=== PATIENT | male | born 1955 | race Caucasian/White ===

== ENCOUNTER 2020-01-30 10:54 | Outpatient (NON) | payer BC, SELFPAY ==
[2020-02-02 17:04] LABS: SARS-CoV-2 RNA PCR Negative
== END 2020-01-30 10:55 ==
PROVIDERS: PCP Family Medicine; Visit Provider Physician Assistant Medical
DX: R68.89 Other general symptoms and signs (principal); Z20.828 Contact with and (suspected) exposure to other viral communicable diseases
CPT/HCPCS: 87635; C9803; U0003

== ENCOUNTER → 2020-02-08 08:06 | Outpatient (CLI) | payer BC, SELFPAY ==
--- NOTE | ~2020-02-08 | US_ITS ---
EXAMINATION: US abdomen limited EXAM DATE: 02/08/2020 08:30 INDICATION: Elevated liver enzymes. CKD stage 3. TECHNIQUE: Multiple grayscale and Doppler images of the abdomen right upper quadrant were obtained (b y a technologist who performed the scan) and subsequently reviewed. There is no prior study for gonzalo dobbs. FINDINGS: The pancreatic head and body are normal in appearance. The pancreatic tail is not visualized. There is echogenic liver parenchyma, hepatic steatosis. There are no focal liver lesions identified. Th ere is no evidence of intrahepatic biliary duct dilation. Portal venous flow was seen in the hepatop edal, normal direction and has normal Doppler waveform. No right-sided hydronephrosis. Common bile duct measures 3 mm, which is normal. The gallbladder wall is normal in thickness, with ex pected amount of distention. No sonographic evidence of pericholecystic fluid. There are several ga llstones up to 1.5 cm. There is a 3 mm polyp not likely clinically significant. Technologist perform ing exam reports patient did not demonstrate sonographic Sun's sign. Please note that this sign i s less reliable in patients who have received pain medication. IMPRESSION: 1. Hepatic steatosis. 2. Cholelithiasis. Reviewed, dictated and finalized at location A. FILLER
== END ==
PROVIDERS: PCP Family Medicine; Visit Provider Physician Assistant Medical
DX: N18.30 Chronic kidney disease, stage 3 unspecified (principal); K80.20 Calculus of gallbladder without cholecystitis without obstruction; K76.0 Fatty (change of) liver, not elsewhere classified
CPT/HCPCS: 76705

== ENCOUNTER 2022-02-02 14:30 | Outpatient (CLI) | payer BC, SELFPAY ==
--- NOTE | ~2022-02-02 | XR_ITS ---
XR lumbar spine min 4V DATE: 02/02/2022 14:48 INDICATION: Left back pain, sciatica TECHNIQUE: AP, lateral, bilateral oblique views, coned lateral lumbosacral view COMPARISON: 07/16/2014 lumbar spine FINDINGS: There is grade 1 anterolisthesis at L4-5 due to degenerative change at the apophyseal joint s. Moderate degenerative disc disease at L1-2. The remaining lumbar interspaces are well preserved. Included lower thoracic and lumbar pedicles are intact. No lumbar spine fracture or bone destruction. The sacroiliac joints are intact. There are 2 faceted calcified approximately 12 mm gallstones. Probable bilateral nephrolithiasis. IMPRESSION: Grade 1 anterolisthesis L4-5 Moderate degenerative disc disease at L1-2 Cholelithiasis Reviewed, dictated and finalized at location B. ONAL VAN TRUCK DRIVER
== END 2022-02-02 14:31 | disposition home or self-care (01) ==
PROVIDERS: PCP Family Medicine; Visit Provider Physician Assistant
DX: M54.30 Sciatica, unspecified side (principal); K80.20 Calculus of gallbladder without cholecystitis without obstruction; M51.36 Other intervertebral disc degeneration, lumbar region
CPT/HCPCS: 72110

== ENCOUNTER → 2022-03-20 10:09 | Outpatient (CLI) | payer BC, SELFPAY ==
--- NOTE | ~2022-03-20 | MR_ITS ---
EXAMINATION: MR lumbar spine wo con DATE: 03/20/2022 10:41 INDICATION: Low back pain rating down the left leg. Left foot drop. TECHNIQUE: Magnetic resonance imaging (MRI) of the lumbar spine was performed without intravenous con trast. Sequences included sagittal T2-weighted FSE, sagittal T2-weighted FS FSE, sagittal T1-weighted FSE, and axial T2-weighted FSE. COMPARISON: Lumbar spine radiographs 02/02/2022 FINDINGS: There is 2 mm anterolisthesis of L4 on L5. Vertebral body heights are normal. There is mild ly decreased disc height at L5-S1. The distal spinal cord signal intensity is normal. The conus medul zelalem is at T12-L1. The following disc levels are specifically discussed: L1-L2: There is a right foraminal extrusion. There is mild bilateral facet joint osteoarthritis. Ther e is mild right neural foraminal stenosis. There is no central canal stenosis. L2-L3: The disc is mildly bulging. There is mild bilateral facet joint osteoarthritis. There is mild bilateral neural foraminal stenosis. There is no central canal stenosis. L3-L4: The disc is mildly bulging. There is mild bilateral facet joint osteoarthritis. There is mild bilateral neural foraminal stenosis. There is no central canal stenosis. L4-L5: The disc is bulging and has an annular fissure. There is severe bilateral facet joint osteoart hritis. There is moderate bilateral neural foraminal stenosis. There is moderate central canal stenos is. L5-S1: The disc is bulging. There is moderate bilateral facet joint osteoarthritis. There is mild darya ateral neural foraminal stenosis. There is mild central canal stenosis. IMPRESSION: 1. Moderate lumbar spondylosis. Reviewed, dictated and finalized at location A. LOUNGE ATTENDANT
== END ==
PROVIDERS: PCP Family Medicine; Visit Provider Family Medicine
DX: M21.372 Foot drop, left foot (principal); M79.672 Pain in left foot; M47.896 Other spondylosis, lumbar region
CPT/HCPCS: 72148

== ENCOUNTER → 2022-04-03 14:33 | Outpatient (CLI) | payer BC, SELFPAY ==
--- NOTE | ~2022-04-03 | XR_ITS ---
EXAMINATION: XR lumbar spine min 4V DATE: 04/03/2022 14:59 INDICATION: Lumbar stenosis, low back pain TECHNIQUE: AP and lateral views of the lumbar spine in flexion, extension, and neutral were obtained. COMPARISON: 02/02/2022 FINDINGS: There are 2 mm of anterolisthesis of L4 on L5 and 2 mm retrolisthesis of L5 on S1. No hyper mobility is noted with flexion or extension. There is no fracture. The vertebral body heights are nor mal. There is mild loss of intervertebral disc space height at L5-S1. Calcified atherosclerosis is no shereen. Right upper quadrant calcifications likely reflect cholelithiasis. A moderate volume of colonic stool is present. There is moderate to severe facet joint osteoarthritis of the lower lumbar spine. IMPRESSION: 1. Moderate lumbar spondylosis without acute findings. Reviewed, dictated and finalized at location F. T SUPERVISOR
== END ==
PROVIDERS: PCP Family Medicine; Visit Provider Neurological Surgery
DX: M48.061 Spinal stenosis, lumbar region without neurogenic claudication (principal); M47.896 Other spondylosis, lumbar region
CPT/HCPCS: 72110

== ENCOUNTER 2022-06-26 13:37 | Outpatient (CLI) | payer BC, SELFPAY ==
[2022-06-26 15:05] LABS: INR 1.1; Partial Thromboplastin Time 27.3 SECONDS (22.3-36.8); Prothrombin Time 13.4 Seconds (11.1-14.7)
[2022-06-26 18:17] LABS: Basophils Absolute Auto 0.1 K/mm3 (0.0-0.1); Basophils Percent Auto 0.9 % (0.2-1.2); Eosinophils Absolute Auto 0.2 K/mm3 (0-0.3); Eosinophils Percent Auto 2.7 % (0-4.4); Hematocrit 43.5 % (42.0-52.0); Hemoglobin 14.1 g/dL (14.0-18.0); Immature Granulocyte Absolute 0.01 K/mm3 (0.00-0.031); Immature Granulocyte Percent A 0.1 % (0-0.5); Lymphocytes Absolute Auto 1.86 K/mm3 (0.9-3.2); Lymphocytes Percent Auto 26.5 % (18.3-44.2); Mean Corpuscular HGB Conc 32.4 g/dl (32-36); Mean Corpuscular Hemoglobin 30.1 pg (26-34); Mean Corpuscular Volume 92.9 fl (80-100); Mean Platelet Volume 11.6 fl (7.4-10.4); Monocytes Absolute Auto 0.4 K/mm3 (0.1-0.6); Monocytes Percent Auto 5.1 % (2.6-8.5); Neutrophils Absolute Auto 4.5 K/mm3 (1.3-6.7); Neutrophils Percent Auto 64.7 % (45.5-73.1); Platelet Count Result 249 k/mm3 (150-375); Red Blood Count 4.68 M/mm3 (4.6-6.20); Red Cell Distribution Width 13.1 % (11.5-14.5)
[2022-06-26 18:25] LABS: Anion Gap 3 mmol/L (8-16); Blood Urea Nitrogen 19 mg/dL (9-20); Calcium 9.3 mg/dL (8.4-10.2); Carbon Dioxide 35 mmol/L (22-30); Chloride 102 mmol/L (98-107); Estimated Glomerular Filt Rate 60; Glucose 163 mg/dL (65-110); Potassium 4.3 mmol/L (3.4-5.0); Sodium 140 mmol/L (137-145)
[2022-06-26 18:34] LABS: Appearance Urine Clear (Clear); Bacteria Urine None Seen /hpf; Bilirubin Urine Negative (Negative); Blood Urine 2+ (Negative); Color Urine Yellow (Yellow); Glucose Urine UA Negative (Negative); Ketones Urine Negative (Negative); Leukocyte Esterase Ur Negative LEU/UL (NEGATIVE); Nitrate Urine Negative (Negative); Non Pathogenic Casts 0-2; Protein Urine 2+ mg/dL (Negative); Specific Grav Ur 1.023 (1.001-1.035); Squamous Epithelial Cell Urine None seen /hpf (Few); Urobilinogen Urine 0.2 mg/dL (<2.0); WBC Urine 0-5 /hpf (0-3)
[2022-06-26 18:40] LABS: Add Urine Microscopic? YES
== END 2022-06-26 13:38 | disposition home or self-care (01) ==
LOC: ANHGOSHLAB 13:40
PROVIDERS: PCP Family Medicine; Visit Provider Neurological Surgery
DX: Z01.818 Encounter for other preprocedural examination (principal)
CPT/HCPCS: 36415; 80048; 81001; 85025; 85610; 85730

== ENCOUNTER 2022-06-30 15:14 | Outpatient (CLI) | payer BC, SELFPAY ==
--- NOTE | 2022-06-30 15:28 | ECG_ITS ---
Measurements Intervals [place] Rate: 72 P: 65 DE: 169 QRS: -28 QRSD: 168 T: 77 QT: 435 QTc: 477 Interpretive Statements SINUS RHYTHM LEFT BUNDLE BRANCH BLOCK [120+ ms QRS DURATION, 80+ ms Q/S IN V1/V2, 85+ ms R IN I/aVL/V5/V6] COMPARED TO ECG 08/03/2018 11:04:52 NO SIGNIFICANT CHANGES Electronically Signed On 07-01-2022 9:34:54 CDT by Jimi Villafana M.D.
== END 2022-06-30 15:15 | disposition home or self-care (01) ==
LOC: ANHLAB 15:15 → ANHCARD 16:07
PROVIDERS: PCP Family Medicine; Visit Provider Neurological Surgery
DX: Z01.818 Encounter for other preprocedural examination (principal); M48.061 Spinal stenosis, lumbar region without neurogenic claudication; I44.7 Left bundle-branch block, unspecified
CPT/HCPCS: 93005

== ENCOUNTER 2023-05-10 01:29 | Day surgery (SDC) | payer MEDICARE, SELFPAY ==
[2023-04-15 14:43] VITALS: BMI 26.5
--- NOTE | 2023-05-07 12:28 | SUR.PREOP ---
Patient called regarding upcoming procedure. Reviewed preop instructions, appointment times, and procedure prep.
--- NOTE | 2023-05-07 14:50 | P.HP_ITS ---
History of Present Illness History of Present Illness Consent: Risks, benefits, and alternatives have been discussed and questions answered. Patient agrees to proceed with procedure. Chief complaint: Personal hx of colonic polyps Narrative: Roland Garcia is a 67 year old male referred for colon cancer screening. 5 years ago he had removal of few polyps, 1 of which was a tubular adenoma. Review of Systems 2 Review of Systems: All systems reviewed & are unremarkable except as noted in HPI and below PMFSH Past Medical History Medical History Sleep apnea with use of continuous positive airway pressure (CPAP) Family History Family History Sibling Family history of mental disorder Family history of bipolar disorder Father Family history of cardiovascular disease Mother Cerebrovascular accident Other Carcinoma of colon Diabetes mellitus Family history of hypercholesterolemia Social History Social History Social History: Caffeine-coffee daily Smoking status: Never smoker Alcohol intake: current Alcohol use details: rarely Substance use type: does not use Lack of Transportation: No Lack of Food: Sometimes True Current Housing: I Have Housing Concerned About Future Housing: No Difficulty Paying Gas/Electric Bills: No Difficulty Paying for Meds: No Currently Unemployed: No Education: Bachelor's Degree Difficulty w/ Childcare or Family Care: No Living arrangements: with family Spiritual care concerns: No Meds Home Medications and Allergies Home Medications Medication Instructions Recorded Confirmed Type sertraline 100 mg tablet See Rx Instructions .Route 06/26/22 05/10/23 Rx .COMPLEX #90 tabs atorvastatin 80 mg tablet 80 mg PO DAILY #90 tabs 12/22/22 05/10/23 Rx CPAP #1 ea 01/14/23 05/10/23 Rx spironolactone 25 mg tablet 12.5 mg PO DAILY 01/18/23 05/10/23 History aspirin 81 mg tablet,delayed 81 mg PO DAILY 02/01/23 05/10/23 History release (Adult Aspirin Regimen) nirmatrelvir 300 mg (150 mg See Rx Instructions PO .COMPLEX 05/05/23 05/10/23 Rx x2)-ritonavir 100 mg tablet,dose #30 ea pack (Paxlovid) Allergies Allergy/AdvReac Type Severity Reaction Status Date / Time No Known Allergies Allergy Verified 05/10/23 10:28 Exam Const: General: alert Orientation/consciousness: patient oriented x3 Resp: Auscultation: clear to auscultation bilaterally Cardio: Rhythm: regular rhythm GI: GI Palp: Yes Soft to palpation and No Tenderness to palpation present (GI) Neuro: General: patient oriented x3 Assessment and Plan Assessment and plan (1) Personal history of colonic polyps: Code(s): Z86.010 - Personal history of colonic polyps Status: Acute Assessment and Plan: Colonoscopy with possible biopsy or polypectomy or cautery or injection of substances.
[2023-05-10 10:35] VITALS: BP 137/65; PULSE 75; RESP 16; TEMP 36; O2SAT 100
[2023-05-10] MEDS: LACTATED RINGERS 1,000 ML 150 ML IV CONT (10:46)
--- NOTE | 2023-05-10 10:54 | WPDANESEPPF ---
Anes - Initial Pre Proc Eval Procedure: Operation Date: 05/10/23 11:30 Proposed Procedures p Colonoscopy - Clem Izaguirre MD Date/Time: 05/10/23 10:54 Surgeon: Clem Izaguirre MD Pre Op Diagnosis: Personal hx of colonic polyps Patient Data Age: 67 Gender: M Height: 1.78 m Weight: 82.4 kg Last Vital Signs Temp 96.8 F L 05/10/23 10:35 Pulse 75 05/10/23 10:35 Resp 16 05/10/23 10:35 BP 137/65 05/10/23 10:35 Pulse Ox 100 05/10/23 10:35 O2 Del Method Room Air 05/10/23 10:35 Allergies Allergy/AdvReac Type Severity Reaction Status Date / Time No Known Allergies Allergy Verified 05/10/23 10:28 Home Medications Medication Instructions Recorded Confirmed Type sertraline 100 mg tablet See Rx Instructions .Route 06/26/22 05/10/23 Rx .COMPLEX #90 tabs atorvastatin 80 mg tablet 80 mg PO DAILY #90 tabs 12/22/22 05/10/23 Rx CPAP #1 ea 01/14/23 05/10/23 Rx spironolactone 25 mg tablet 12.5 mg PO DAILY 01/18/23 05/10/23 History aspirin 81 mg tablet,delayed 81 mg PO DAILY 02/01/23 05/10/23 History release (Adult Aspirin Regimen) nirmatrelvir 300 mg (150 mg See Rx Instructions PO .COMPLEX 05/05/23 05/10/23 Rx x2)-ritonavir 100 mg tablet,dose #30 ea pack (Paxlovid) Patient hx anesthesia problems: none Family hx anesthesia problems: none Results Review: All pre-operative results and documents have been reviewed as part of the pre-operative evaluation. [facility] Past Medical History Medical History Sleep apnea with use of continuous positive airway pressure (CPAP) Family History Family History Sibling Family history of mental disorder Family history of bipolar disorder Father Family history of cardiovascular disease Mother Cerebrovascular accident Other Carcinoma of colon Diabetes mellitus Family history of hypercholesterolemia Social History Social History Social History: Caffeine-coffee daily Smoking status: Never smoker Alcohol intake: current Alcohol use details: rarely Substance use type: does not use Lack of Transportation: No Lack of Food: Sometimes True Current Housing: I Have Housing Concerned About Future Housing: No Difficulty Paying Gas/Electric Bills: No Difficulty Paying for Meds: No Currently Unemployed: No Education: Bachelor's Degree Difficulty w/ Childcare or Family Care: No Living arrangements: with family Spiritual care concerns: No Anes - Eval Final PreProcedure Day of Procedure 05/10/23 10:54 Patient weight: normal Heart: regular rate and rhythm Lungs: clear to auscultation Airway: Mallampati scale class II Neurological: alert and oriented Last oral intake: >/= 8 hours ASA classification: II Emergent: no Anesthetic plan: proceed Anesthesia type and monitoring: general GIVS and standard monitoring Results Review: All pre-operative results and documents have been reviewed as part of the pre-operative evaluation. Informed Consent: The patient's anesthetic plan and its attendant risks and benefits were discussed with the patient/family/POA. Questions were solicited and answers provided to the satisfaction of the patient/family/POA.
[2023-05-10] MEDS: SIMETHICONE ORAL SUSPENSION 20 MG/0.3 ML 30 ML BOTTLE 0.6 ML IRRIGATION (11:39)
[2023-05-10 11:46] VITALS: BP 127/70; PULSE 70; RESP 18; O2SAT 100
[2023-05-10 11:56] VITALS: BP 128/65; PULSE 68; RESP 18; O2SAT 100
[2023-05-10 12:06] VITALS: BP 147/74; PULSE 62; RESP 18; O2SAT 100
== END 2023-05-10 12:20 | disposition home or self-care (01) ==
PROVIDERS: PCP Family Medicine; Visit Provider Internal Medicine Gastroenterology
PROC: 0DJD8ZZ Inspection of Lower Intestinal Tract, Via Natural or Artificial Opening Endoscopic (ICD-10-PCS; CPT 45378; principal; 2023-05-10 11:30)
DX: Z12.11 Encounter for screening for malignant neoplasm of colon (principal); D12.5 Benign neoplasm of sigmoid colon; K64.8 Other hemorrhoids; G47.30 Sleep apnea, unspecified; Z79.82 Long term (current) use of aspirin; Z99.89 Dependence on other enabling machines and devices; Z86.010 Personal history of colon polyps; Z82.49 Family history of ischemic heart disease and other diseases of the circulatory system; Z80.0 Family history of malignant neoplasm of digestive organs
CPT/HCPCS: 45385; 88305; J2704; J7120

== ENCOUNTER 2023-08-09 10:06 | Outpatient (CLI) | payer MEDICARE, SELFPAY ==
[2023-08-09 13:16] LABS: Anion Gap 3 mmol/L (4-12); Blood Urea Nitrogen 22 mg/dL (9-20); Calcium 9.4 mg/dL (8.4-10.2); Carbon Dioxide 30 mmol/L (22-30); Chloride 106 mmol/L (98-107); Estimated Glomerular Filt Rate 55; Glucose 116 mg/dL (65-110); Potassium 4.8 mmol/L (3.4-5.0); Sodium 139 mmol/L (137-145)
== END 2023-08-09 10:07 | disposition home or self-care (01) ==
LOC: ANHGOSHLAB 10:08
PROVIDERS: PCP Family Medicine; Visit Provider Family Medicine
DX: E87.5 Hyperkalemia (principal)
CPT/HCPCS: 36415; 80048

== ENCOUNTER 2023-12-17 11:07 | Outpatient (CLI) | payer MEDICARE, SELFPAY ==
[2023-12-17 16:55] LABS: Alanine Aminotransferase 31 U/L (6-50); Albumin Level 4.2 g/dL (3.5-5.1); Alkaline Phosphatase 100 U/L (38-126); Anion Gap 7 mmol/L (4-12); Aspartate Amino Transferase 34 U/L (17-59); Bilirubin,Total 0.8 mg/dL (0.2-1.3); Blood Urea Nitrogen 18 mg/dL (9-20); Calcium 9.5 mg/dL (8.4-10.2); Carbon Dioxide 30 mmol/L (22-30); Chloride 103 mmol/L (98-107); Estimated Glomerular Filt Rate 55; Glucose 109 mg/dL (65-110); Potassium 4.7 mmol/L (3.4-5.0); Sodium 140 mmol/L (137-145)
[2023-12-17 17:40] LABS: Hemoglobin A1C 6.1 % (<5.7)
== END 2023-12-17 11:08 | disposition home or self-care (01) ==
LOC: ANHGOSHLAB 11:09
PROVIDERS: PCP Family Medicine; Visit Provider Nurse Practitioner Family
DX: R74.8 Abnormal levels of other serum enzymes (principal); R73.01 Impaired fasting glucose; R73.03 Prediabetes
CPT/HCPCS: 36415; 80053; 83036

== ENCOUNTER 2024-02-09 15:43 | Outpatient (CLI) | payer MEDICARE, SELFPAY ==
[2024-02-09 18:57] LABS: Basophils Absolute Auto 0.1 K/mm3 (0.0-0.1); Basophils Percent Auto 0.5 % (0.2-1.2); Eosinophils Absolute Auto 0.1 K/mm3 (0-0.3); Eosinophils Percent Auto 0.8 % (0-4.4); Hematocrit 42.8 % (42.0-52.0); Hemoglobin 13.8 g/dL (14.0-18.0); Immature Granulocyte Absolute 0.02 K/mm3 (0.00-0.031); Immature Granulocyte Percent A 0.2 % (0-0.5); Lymphocytes Absolute Auto 3.27 K/mm3 (0.9-3.2); Lymphocytes Percent Auto 33.2 % (18.3-44.2); Mean Corpuscular HGB Conc 32.2 g/dl (32-36); Mean Corpuscular Hemoglobin 29.9 pg (26-34); Mean Corpuscular Volume 92.8 fl (80-100); Mean Platelet Volume 11.2 fl (7.4-10.4); Monocytes Absolute Auto 0.6 K/mm3 (0.1-0.6); Neutrophils Absolute Auto 5.8 K/mm3 (1.3-6.7); Neutrophils Percent Auto 59.3 % (45.5-73.1); Platelet Count Result 282 k/mm3 (150-375); Red Blood Count 4.61 M/mm3 (4.6-6.20); Red Cell Distribution Width 13.5 % (11.5-14.5); White Blood Count 9.8 K/mm3 (4.5-10.0)
[2024-02-09 19:04] LABS: Partial Thromboplastin Time 25.5 Seconds (22.3-36.8); Prothrombin Time 13.5 Seconds (11.1-14.7)
[2024-02-09 19:49] LABS: Add Urine Microscopic? YES; Appearance Urine Clear (Clear); Bilirubin Urine Negative (Negative); Blood Urine Negative (Negative); Color Urine Yellow (Yellow); Glucose Urine UA Negative (Negative); Ketones Urine Negative (Negative); Leukocyte Esterase Ur Negative LEU/UL (Negative); Nitrate Urine Negative (Negative); Protein Urine 1+ mg/dL (Negative); Specific Grav Ur 1.018 (1.001-1.035); Urobilinogen Urine 0.2 mg/dL (<2.0)
[2024-02-09 19:52] LABS: Bacteria Urine None Seen /hpf; Non Pathogenic Casts 0-2; RBC Urine 0-2 /hpf (0-2); Squamous Epithelial Cell Urine None Seen /hpf (Few); WBC Urine 0-5 /hpf (0-3)
[2024-02-09 21:24] LABS: Anion Gap 4 mmol/L (4-12); Blood Urea Nitrogen 25 mg/dL (9-20); Calcium 9.5 mg/dL (8.4-10.2); Carbon Dioxide 30 mmol/L (22-30); Chloride 106 mmol/L (98-107); Estimated Glomerular Filt Rate 55; Glucose 95 mg/dL (65-110); Potassium 4.3 mmol/L (3.4-5.0); Sodium 140 mmol/L (137-145)
== END 2024-02-09 15:44 | disposition home or self-care (01) ==
LOC: ANHGOSHLAB 15:45
PROVIDERS: PCP Family Medicine
DX: Z01.818 Encounter for other preprocedural examination (principal)
CPT/HCPCS: 36415; 80048; 81001; 85025; 85610; 85730

== ENCOUNTER 2024-02-10 15:33 | Outpatient (CLI) | payer MEDICARE, SELFPAY ==
--- NOTE | 2024-02-10 | ECG_ITS ---
Test Date: 2024-02-10 16:06:34 Measurements Intervals [place] Rate: 64 P: 64 MD: 163 QRS: -39 QRSD: 176 T: 65 QT: 455 QTc: 473 Interpretive Statements SINUS RHYTHM WITH OCCASIONAL SUPRAVENTRICULAR PREMATURE COMPLEXES LEFT AXIS DEVIATION [QRS AXIS < -30] LEFT BUNDLE BRANCH BLOCK [120+ ms QRS DURATION, 80+ ms Q/S IN V1/V2, 85+ ms R IN I/aVL/V5/V6] No previous ECG available for comparison Electronically Signed On 02-11-2024 12:26:35 PHLEBOTOMY TECHNOLOGIST by Jimi Villafana M.D.
== END 2024-02-10 15:34 | disposition home or self-care (01) ==
PROVIDERS: PCP Family Medicine; Visit Provider Neurological Surgery
DX: Z01.818 Encounter for other preprocedural examination (principal); I44.7 Left bundle-branch block, unspecified
CPT/HCPCS: 93005

== ENCOUNTER 2024-03-09 08:23 | Emergency (ER) | payer MEDICARE, SELFPAY ==
[2024-03-09] VITALS (17 sets, daily range): BP systolic 120–136; BP diastolic 56–74; PULSE 67–88; RESP 14–19; TEMP 36.2; O2SAT 96–100
--- NOTE | ~2024-03-09 | XR_ITS ---
EXAMINATION: XR chest 2V DATE: 03/09/2024 11:41 INDICATION: Left-sided chest pain post fall TECHNIQUE: frontal and lateral views of the chest were obtained. COMPARISON: None FINDINGS: The lungs are clear with no focal airspace opacities, pulmonary edema, pleural effusion or pneumothor ax. The cardiomediastinal silhouette is normal. Couple calcified gallstones at the right upper quadra nt. IMPRESSION: 1. No acute cardiopulmonary disease. 2. Cholelithiasis. Reviewed, dictated and finalized at location B. T ROCK TAPER HELPER
--- NOTE | ~2024-03-09 | CT_ITS ---
EXAMINATION: CT brain wo con DATE: 03/09/2024 12:13 INDICATION: Head injury. Syncope. TECHNIQUE: Computed tomography (CT) of the head was performed without intravenous contrast. The mA wa s adjusted according to patient size. Iterative reconstruction technique was employed. The dose-lengt h product was 681.00 mGy-cm. COMPARISON: None FINDINGS: There is no intracranial hemorrhage, acute infarction, or abnormal intracranial mass lesion . The ventricles are normal in size. The orbits are normal. There is mild mucosal thickening in the p aranasal sinuses. The mastoid air cells are normal. IMPRESSION: 1. Normal brain. Reviewed, dictated and finalized at location A. ING SUPERVISOR IMPRESSION: 1. Normal brain.
--- NOTE | ~2024-03-09 | CT_ITS ---
EXAMINATION: CT cervical spine wo con DATE: 03/09/2024 12:13 INDICATION: Head injury. TECHNIQUE: Computed tomography (CT) of the cervical spine was performed without intravenous contrast. Automated exposure control and iterative reconstruction technique were employed. The dose-length pro duct was 443.74 mGy-cm. 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 There is mild kyphosis of cervical spine. There i s 3 mm anterolisthesis of C7 on T1. There is 5 degrees levocurvature of cervical spine. Vertebral bod y heights are normal. There is mildly decreased disc height at C4-C5, severely decreased disc height at C5-C6 and C6-C7, and moderately decreased disc height at C7-T1. The following disc levels are spec ifically discussed: C2-C3: There is mild right uncovertebral joint osteoarthritis. There is mild bilateral facet joint os teoarthritis. There is mild right neural foraminal stenosis. There is no central canal stenosis. C3-C4: There is severe right and mild left uncovertebral joint osteoarthritis. There is severe bilate ral facet joint osteoarthritis. There is moderate right and mild left neural foraminal stenosis. Ther e is mild central canal stenosis. C4-C5: There is severe right and mild left uncovertebral joint osteoarthritis. There is severe bilate ral facet joint osteoarthritis. There is moderate right and mild left neural foraminal stenosis. Ther e is mild central canal stenosis. C5-C6: There is severe bilateral uncovertebral joint osteoarthritis. There is moderate bilateral face t joint osteoarthritis. There is mild bilateral neural foraminal stenosis. There is mild central chris l stenosis. C6-C7: There is severe bilateral uncovertebral joint osteoarthritis. There is severe bilateral facet joint osteoarthritis. There is moderate bilateral neural foraminal stenosis. There is mild central ca nal stenosis. C7-T1: There is no uncovertebral joint osteoarthritis. There is severe bilateral facet joint osteoart hritis. There is mild bilateral neural foraminal stenosis. There is no central canal stenosis. IMPRESSION: 1. No fracture. 2. Severe cervical spondylosis. Reviewed, dictated and finalized at location A. HOST/HOSTESS
--- NOTE | 2024-03-09 08:31 | ECG_ITS ---
Test Date: 2024-03-09 08:38:07 Measurements Intervals [place] Rate: 65 P: 73 MD: 178 QRS: -51 QRSD: 164 T: 63 QT: 452 QTc: 472 Interpretive Statements SINUS RHYTHM MARKED LEFT AXIS DEVIATION [QRS AXIS < -30] LEFT BUNDLE BRANCH BLOCK [120+ ms QRS DURATION, 80+ ms Q/S IN V1/V2, 85+ ms R IN I/aVL/V5/V6] Compared to ECG 02/10/2024 16:06:34 No significant changes Electronically Signed On 03-13-2024 11:19:51 RECYCLING CENTER OPERATOR by Deshawn Gallardo M.D.
[2024-03-09 11:08] LABS: Basophils Absolute Auto 0.1 K/mm3 (0.0-0.1); Basophils Percent Auto 0.5 % (0.2-1.2); Eosinophils Absolute Auto 0.2 K/mm3 (0-0.3); Eosinophils Percent Auto 1.6 % (0-4.4); Hematocrit 40.2 % (42.0-52.0); Hemoglobin 13.1 g/dL (14.0-18.0); Immature Granulocyte Absolute 0.02 K/mm3 (0.00-0.031); Immature Granulocyte Percent A 0.2 % (0-0.5); Lymphocytes Absolute Auto 1.79 K/mm3 (0.9-3.2); Lymphocytes Percent Auto 18.9 % (18.3-44.2); Mean Corpuscular HGB Conc 32.6 g/dl (32-36); Mean Corpuscular Volume 92.2 fl (80-100); Mean Platelet Volume 9.9 fl (7.4-10.4); Monocytes Absolute Auto 0.6 K/mm3 (0.1-0.6); Neutrophils Absolute Auto 6.9 K/mm3 (1.3-6.7); Neutrophils Percent Auto 72.8 % (45.5-73.1); Platelet Count Result 379 k/mm3 (150-375); Red Blood Count 4.36 M/mm3 (4.6-6.20); Red Cell Distribution Width 13.1 % (11.5-14.5); White Blood Count 9.5 K/mm3 (4.5-10.0)
[2024-03-09 11:19] LABS: Alanine Aminotransferase 35 U/L (6-50); Albumin Level 4.3 g/dL (3.5-5.1); Alkaline Phosphatase 169 U/L (38-126); Anion Gap 7 mmol/L (4-12); Aspartate Amino Transferase 26 U/L (17-59); Bilirubin,Total 0.7 mg/dL (0.2-1.3); Blood Urea Nitrogen 18 mg/dL (9-20); Calcium 9.5 mg/dL (8.4-10.2); Carbon Dioxide 30 mmol/L (22-30); Chloride 104 mmol/L (98-107); Estimated CRCL calculation 58 ml/min; Estimated Glomerular Filt Rate > 60; Glucose 129 mg/dL (65-110); Potassium 4.7 mmol/L (3.4-5.0); Sodium 141 mmol/L (137-145)
--- NOTE | 2024-03-09 11:25 | PC.NURSE ---
Lab called to add on ordered troponin
--- NOTE | 2024-03-09 11:57 | ED.SYNCOPE ---
HPI - Syncope General Chief Complaint: Syncope <TAYLOR Dong Last Filed: 03/09/24 18:45> Stated Complaint: SYNCOPAL EVENT,FALL <TAYLOR Dong Last Filed: 03/09/24 18:45> Time Seen by Provider: 03/09/24 10:49 <TAYLOR Dong Last Filed: 03/09/24 18:45> History of Present Illness HPI narrative: 68 y/o M with history of ischemic cardiomyopathy, CKD, hyperlipidemia presents to the emergency department for syncopal episode that occurred at 7:30 a.m. this morning. Patient states he got up from lying down, walk to the bathroom and began to feel lightheaded and dizzy, urinated and felt more lightheaded and dizzy, walked out of the bathroom and passed out. States he immediately woke up on the ground in a cold sweat. He is unsure if he hit his head but did have pain to the left superior anterior chest wall after the fall believes he hit his chest wall on on a min. He states it hurts with palpation and movement of his arms. He denies shortness of breath, headache, vision changes, focal numbness or weakness, N/V/D. He of note he did undergo lumbar fusion on 02/21/[address] Carmichael at [facility]. He is denying pain to the lumbar region, drainage, fever, bowel or bladder incontinence, saddle anesthesia. <TAYLOR Dong Last Filed: 03/09/24 18:45> Related Data Home Medications: Home Medications ?Medication ?Instructions ?Recorded ?Confirmed ?Last Taken ?Type aspirin 81 mg tablet,delayed 81 mg PO DAILY 02/01/23 12/22/23 05/08/23 History release (Adult Aspirin Regimen) <TAYLOR Dong Last Filed: 03/09/24 18:45> Allergies/Adverse Reactions: Allergies Allergy/AdvReac Type Severity Reaction Status Date / Time No Known Allergies Allergy Verified 12/22/23 10:40 <TAYLOR Dong Last Filed: 03/09/24 18:45> Review of Systems Review of Systems: All systems reviewed & are unremarkable except as noted in HPI and below <Marita Doty PA-C - Last Filed: 03/09/24 18:45> PMFSH Past Medical History Medical History: Medical History Personal history of colonic polyps Sleep apnea with use of continuous positive airway pressure (CPAP) Gallstones Basal cell carcinoma of skin, unspecified Calculus of kidney Retinal tear of right eye Subdural hematoma <Marita Doty PA-C - Last Filed: 03/09/24 18:45> Family History Family History: Family History Sibling Family history of mental disorder Family history of bipolar disorder Father Family history of cardiovascular disease Mother Cerebrovascular accident Other Carcinoma of colon Diabetes mellitus Family history of hypercholesterolemia <Marita Doty PA-C - Last Filed: 03/09/24 18:45> Social History Social History: Social History Social History: Caffeine-coffee daily Smoking status: Never smoker Alcohol intake: current Alcohol use details: rarely Substance use type: does not use Lack of Transportation: No Lack of Food: Sometimes True Current Housing: I Have Housing Concerned About Future Housing: No Difficulty Paying Gas/Electric Bills: No Difficulty Paying for Meds: No Currently Unemployed: No Education: Bachelor's Degree Difficulty w/ Childcare or Family Care: No Living arrangements: with family Spiritual care concerns: No <Marita Doty PA-C - Last Filed: 03/09/24 18:45> Exam Narrative: GENERAL: Well-appearing, well-nourished, and in no acute distress. HEAD: Normocephalic, atraumatic. EYES: PERRLA and EOMI. ENT: Nares clear, no rhinorrhea or epistaxis. Mucous membranes moist. NECK: No midline cervical spinous tenderness, crepitus, step-offs or deformities, tenderness to the left paraspinous muscles BACK: No midline thoracolumbar spinous tenderness, crepitus, step-offs or deformities. Very well-healing postoperative laceration to the lumbar spine with overlying Steri-Strips. No warmth or drainage. No dehiscence. No tenderness. No erythema or induration CHEST: Clear to auscultation. No respiratory distress. Point tenderness over the right anterior lateral 2nd and 3rd ribs with no crepitus, step-offs or deformities, no overlying ecchymosis HEART: Regular rate and rhythm. No murmur heard. Normal peripheral pulses. ABDOMEN: Soft, nontender, nondistended, normal active bowel sounds. EXTREMITIES: Normal range of motion. No edema. SKIN: Warm, dry, no rash. NEURO: No focal deficits. Alert and oriented x3. Cranial nerves 2-12 intact. Strength 5/5 in BUE and BLE. Sensation intact throughout <Marita Doty PA-C - Last Filed: 03/09/24 18:45> Course Course Emergency Course: Troponin negative. Original chest pain at 7:00 a.m. after the fall. Pain is very well localized to lateral left chest near the armpit. Feels is most likely musculoskeletal. Patient did receive 1 L IV fluid and his orthostatics were negative. Patient felt appropriate for discharge home. Continue take Tylenol for pain. <Steven Carlos MD - Last Filed: 03/09/24 13:33> Vital Signs Vital signs: Vital Signs Temperature 97.2 F L 03/09/24 08:31 Pulse Rate 70 03/09/24 08:31 Respiratory Rate 18 03/09/24 08:31 Blood Pressure 120/60 03/09/24 08:31 Pulse Oximetry 100 03/09/24 08:31 Oxygen Delivery Room Air 03/09/24 08:31 Temperature 97.2 F L 03/09/24 08:31 Pulse Rate 74 03/09/24 13:31 Respiratory Rate 18 03/09/24 13:31 Blood Pressure 136/74 03/09/24 13:31 Pulse Oximetry 100 03/09/24 13:31 Oxygen Delivery Room Air 03/09/24 08:31 <Marita Doty PA-C - Last Filed: 03/09/24 18:45> Vital Signs Temperature 97.2 F L 03/09/24 08:31 Pulse Rate 70 03/09/24 08:31 Respiratory Rate 18 03/09/24 08:31 Blood Pressure 120/60 01/02/25 08:31 Pulse Oximetry 100 03/09/24 08:31 Oxygen Delivery Room Air 03/09/24 08:31 Temperature 97.2 F L 03/09/24 08:31 Pulse Rate 74 03/09/24 13:31 Respiratory Rate 18 03/09/24 13:31 Blood Pressure 136/74 03/09/24 13:31 Pulse Oximetry 100 03/09/24 13:31 Oxygen Delivery Room Air 03/09/24 08:31 <Steven Carlos MD - Last Filed: 03/09/24 13:33> MDM - Syncope MDM Narrative Medical decision making narrative: 68-year-old male presents to emergency department after syncopal episode that occurred this morning after urinated. See HPI for further history. Vitals are stable. Patient is afebrile and nontoxic appearing and is well appearing on exam. Resting comfortably in exam bed. Postoperative incision is well appearing without signs of wound dehiscence or infection. Syncope sounds benign in nature. Will obtain labs, EKG, CT brain/cervical spine. Pending workup at time of sign-out to Dr. Smith. <Marita Doty PA-C - Last Filed: 03/09/24 18:45> Lab Data Result diagrams: 03/09/24 11:02 03/09/24 11:02 <Marita Doty PA-C - Last Filed: 03/09/24 18:45> Labs: Lab Results 03/09/24 Range/Units 11:02 WBC 9.5 (4.5-10.0) K/mm3 RBC 4.36 L (4.6-6.20) M/mm3 Hgb 13.1 L (14.0-18.0) g/dL Hct 40.2 L (42.0-52.0) % MCV 92.2 (80-100) fl MCH 30.0 (26-34) pg MCHC 32.6 (32-36) g/dl RDW 13.1 (11.5-14.5) % Plt Count 379 H (150-375) k/mm3 MPV 9.9 (7.4-10.4) fl Immature Gran % (Auto) 0.2 (0-0.5) % Neut % (Auto) 72.8 (45.5-73.1) % Lymph % (Auto) 18.9 (18.3-44.2) % [place] % (Auto) 6.0 (2.6-8.5) % Eos % (Auto) 1.6 (0-4.4) % Baso % (Auto) 0.5 (0.2-1.2) % Lymph # (Auto) 1.79 (0.9-3.2) K/mm3 [place] # (Auto) 0.6 (0.1-0.6) K/mm3 Eos # (Auto) 0.2 (0-0.3) K/mm3 Baso # (Auto) 0.1 (0.0-0.1) K/mm3 Abs Immat Gran (auto) 0.02 (0.00-0.031) K/mm3 Absolute Neuts (auto) 6.9 H (1.3-6.7) K/mm3 Absolute Nucleated RBC 0.000 (0.0-0.012) K/mm3 Nucleated RBC % 0.0 (0.0-0.2) % Sodium 141 (137-145) mmol/L Potassium 4.7 (3.4-5.0) mmol/L Chloride 104 (98-107) mmol/L Carbon Dioxide 30 (22-30) mmol/L Anion Gap 7 (4-12) mmol/L BUN 18 (9-20) mg/dL Creatinine 1.10 (0.7-1.3) mg/dL Estim Creat Clear Calc 58 ml/min Estimated GFR > 60 (59 - ) Glucose 129 H (65-110) mg/dL Calcium 9.5 (8.4-10.2) mg/dL Total Bilirubin 0.7 (0.2-1.3) mg/dL AST 26 (17-59) U/L ALT 35 (6-50) U/L Alkaline Phosphatase 169 H (38-126) U/L Troponin I < 0.012 (0.000-0.034) ng/mL Total Protein 8.0 (6.3-8.2) g/dL Albumin 4.3 (3.5-5.1) g/dL <Marita Doty PA-C - Last Filed: 03/09/24 18:45> Lab Results 03/09/24 Range/Units 11:02 WBC 9.5 (4.5-10.0) K/mm3 RBC 4.36 L (4.6-6.20) M/mm3 Hgb 13.1 L (14.0-18.0) g/dL Hct 40.2 L (42.0-52.0) % MCV 92.2 (80-100) fl MCH 30.0 (26-34) pg MCHC 32.6 (32-36) g/dl RDW 13.1 (11.5-14.5) % Plt Count 379 H (150-375) k/mm3 MPV 9.9 (7.4-10.4) fl Immature Gran % (Auto) 0.2 (0-0.5) % Neut % (Auto) 72.8 (45.5-73.1) % Lymph % (Auto) 18.9 (18.3-44.2) % [place] % (Auto) 6.0 (2.6-8.5) % Eos % (Auto) 1.6 (0-4.4) % Baso % (Auto) 0.5 (0.2-1.2) % Lymph # (Auto) 1.79 (0.9-3.2) K/mm3 [place] # (Auto) 0.6 (0.1-0.6) K/mm3 Eos # (Auto) 0.2 (0-0.3) K/mm3 Baso # (Auto) 0.1 (0.0-0.1) K/mm3 Abs Immat Gran (auto) 0.02 (0.00-0.031) K/mm3 Absolute Neuts (auto) 6.9 H (1.3-6.7) K/mm3 Absolute Nucleated RBC 0.000 (0.0-0.012) K/mm3 Nucleated RBC % 0.0 (0.0-0.2) % Sodium 141 (137-145) mmol/L Potassium 4.7 (3.4-5.0) mmol/L Chloride 104 (98-107) mmol/L Carbon Dioxide 30 (22-30) mmol/L Anion Gap 7 (4-12) mmol/L BUN 18 (9-20) mg/dL Creatinine 1.10 (0.7-1.3) mg/dL Estim Creat Clear Calc 58 ml/min Estimated GFR > 60 (59 - ) Glucose 129 H (65-110) mg/dL Calcium 9.5 (8.4-10.2) mg/dL Total Bilirubin 0.7 (0.2-1.3) mg/dL AST 26 (17-59) U/L ALT 35 (6-50) U/L Alkaline Phosphatase 169 H (38-126) U/L Troponin I < 0.012 (0.000-0.034) ng/mL Total Protein 8.0 (6.3-8.2) g/dL Albumin 4.3 (3.5-5.1) g/dL <Steven Carlos MD - Last Filed: 03/09/24 13:33> Imaging Data Radiologist's impression: ITS Impressions Chest X-Ray 03/09/24 11:43 IMPRESSION: 1. No acute cardiopulmonary disease. 2. Cholelithiasis. Head CT 03/09/24 12:16 IMPRESSION: 1. Normal brain. Cervical Spine CT 03/09/24 12:17 IMPRESSION: 1. No fracture. 2. Severe cervical spondylosis. <Steven Carlos MD - Last Filed: 03/09/24 13:33> Discharge Plan Discharge Clinical Impression: Chest wall pain, Syncope <Marita Doty PA-C - Last Filed: 03/09/24 18:45> Patient Disposition: Home, Self-Care <Marita Doty PA-C - Last Filed: 03/09/24 18:45> Condition: Stable <Marita Doty PA-C - Last Filed: 03/09/24 18:45> Instructions: Syncope (ED) <Marita Doty PA-C - Last Filed: 03/09/24 18:45> Additional Instructions: Please return to the emergency department if you develop severe and persistent chest pain, difficulty breathing, dizziness, leg swelling or if you are coughing up blood as these can be signs of a medical emergency. Please call your doctor for a follow up appointment to determine the need for further testing. <Marita Doty PA-C - Last Filed: 03/09/24 18:45> Patient Language: Estonian <Marita Doty PA-C - Last Filed: 03/09/24 18:45> Prescriptions: No Action spironolactone 25 mg tablet 6.25 mg PO DAILY Qty: 1 0RF aspirin [Adult Aspirin Regimen] 81 mg tablet,delayed release (DR/EC) 81 mg PO DAILY (DME) CPAP See Rx Instructions .Route .MEDSUPPLY Qty: 1 0RF Rx Instructions: Replacement CPAP at current settings atorvastatin 80 mg tablet 80 mg PO DAILY Qty: 90 1RF sertraline 100 mg tablet See Rx Instructions .ROUTE .COMPLEX Qty: 90 1RF Dose Instruction: TAKE 1 TABLET BY MOUTH DAILY Rx Instructions: TAKE 1 TABLET BY MOUTH DAILY hydrocodone-acetaminophen 5-325 mg tablet 1 tablet PO Q6H PRN (Reason: pain) Qty: 20 0RF <Marita Doty PA-C - Last Filed: 03/09/24 18:45> Follow-up/Referrals: Juan Antunez MD [Primary Care Provider] - 1 Week <Marita Doty PA-C - Last Filed: 03/09/24 18:45>
[2024-03-09 12:35] LABS: Troponin I < 0.012 ng/mL (0.000-0.034)
[2024-03-09] MEDS: SODIUM CHLORIDE 0.9% IV 1,000 ML 999 ML IV CONT (12:59)
--- OUTSIDE RECORDS SUMMARY | 2024-03-16 10:55 | XMS_ITS | Clinical Summary ---
Author Organization [facility] Address [address] [place] [address]. [place] [address] [place] [address] Care Team Providers Care Chemical Machine Tender Name Role Phone Juan Antunez MD Unavailable [phone] Juan Antunez MD Primary Care Provider [phone] Allergies No known active allergies Medications atorvastatin (LIPITOR) 80 MG tablet Take 1 tablet (80 mg total) by mouth daily. Active sertraline (ZOLOFT) 100 MG tablet Take 1 tablet (100 mg total) by mouth daily. Active Active Problems Problem Noted Date Diagnosed Date Lumbar spinal stenosis 07/30/2022 Family History Medical History Relation Comments Heart Disease Father CHF Mother Relation Status Comments Father Mother Alive Social History Tobacco Use Types Packs/Day Years Used Date Smoking Tobacco: Never Smokeless Tobacco: Never Tobacco Cessation:Counseling Given: Not Answered Alcohol Use Standard Drinks/Week Comments Yes 0 (1 standard drink = 0.6 oz pur e alcohol) rarely 2 times a month at most Sex and Gender Information Value Date Recorded Sex Assigned at Not on file Legal Sex Male 4:04 PM CDT Gender Identity Not on file Sexual Orientation Not on file Last Filed Vital Signs Vital Sign Reading Time Taken Comments Blood Pressure 121/55 07/30/2022 5:00 PM CDT Pulse 71 07/30/2022 5:00 PM CDT Temperature 36.5 ??C (97.7 ??F) 07/30/2022 5:00 PM CD T Respiratory Rate 16 07/30/2022 5:00 PM CDT Oxygen Saturation 94% 07/30/2022 5:00 PM CDT Inhaled Oxygen Concentration - - Weight 82.5 kg (181 lb 14.1 oz) 023 11:53 AM CDT Height 177.8 cm (5' 10 ) 07/30/2022 11: 53 AM CDT Body Mass Index 26.1 07/30/2022 11:53 AM CDT Plan of Treatment Health Maintenance Due Date Last Done Comments Colorectal Cancer Screening Colonoscopy (10 Years) 1955 Zoster Vaccines (1 of 2) 2004 Pneumococcal Vaccine: 65+ Years (2 of 2 - PPSV23 or PCV20) 03/06/2022 03/06/2021 COVID-19 Vaccine ( season) 2023 12/05/2021, 06/20/2021, 12/06/2020, Additional history exists Influenza Adult (#1) 2023 11/22/2020, 12/19/2019, 02/28/2019, Additional history exists RSV Immunization or 60+ Years (1 - 1-dose 75+ series) 2029 DTaP, Tdap and Td Vaccines (2 - Td or Tdap) 03/06/2031 03/06/2021 Hepatitis C Completed 02/27/2021, 02/06, 02/27/2021 Meningococcal Vaccine Aged Out No mercedes misbah eligible based on patient's age to complete this topic RSV Immunizations Under 20 Months Aged Out No longer eligible based on patient's age to complete this topic [place] [address] [facility] Care Teams Chemical Machine Tender Relationship Specialty Start Date End Date Juan Antunez MD [address] [place] [address] [place] [address] PCP - General FAMILY PRACTICE 07/30/22 Juan Antunez MD [address] [place] [address] [id number] FAMILY PRACTICE 06/30/22
--- OUTSIDE RECORDS SUMMARY | 2024-03-16 10:55 | XMS_ITS | Encounter Summary ---
Author Organization [facility] Address [address] [place] [address] Care Team Providers Care Food Service Attendant Name Role Phone Juan Antunez MD Primary Care Provider [phone] Reason for Visit * Reason Comments Elevated Liver Enzymes Pain LUQ 1-2x/mon th. Patient denies n/v. BM normal. Patient exercises minimally. Normal eating habits. Encounter Details Date Type Department Care Team (Late st Contact Info) Description 02/10/2021 3:30 PM SOLE BUFFER Office [place] [facility] [place] [address] [place] [address], [place] [id number] Juan Antunez MD [address] [place] [address] Mae Macias, [employer] SUPERVISOR-PHYSICAL THERAPY NURSE [address] [place] [address] [facility] [place] [address] Elevated liver enzymes (Primary Dx); Hepatic steatosis; Gallstones Social History Tobacco Use Types Packs/Day Years Used Date Smoking Tobacco: Never Smokeless Tobacco: Never Alcohol Use Standard Drinks/Week Comments Not Currently 0 (1 standard drink = 0.6 oz pur e alcohol) Sex and Gender Information Value Date Recorded Sex Assigned at Not on file Gender Identity Not on file Sexual Orientation Not on file documented as of this encounter Last Filed Vital Signs Vital Sign Reading Time Taken Comments Blood Pressure 150/84 02/10/2021 3:39 PM SOLE BUFFER Pulse 71 02/10/2021 3:39 PM SOLE BUFFER Temperature - - Respiratory Rate - - Oxygen Saturation 98% 02/10/2021 3:39 PM SOLE BUFFER Inhaled Oxygen Concentration - - Weight 86.1 kg (189 lb 12.8 oz) 02/10/2021 3:39 PM SOLE BUFFER Height 177.8 cm (5' 10 ) 02/10/2021 3:39 PM SOLE BUFFER Body Mass Index 27.23 02/10/2021 3:39 PM SOLE BUFFER documented in this encounter Patient Instructions * Patient Instructions* Mae Macias APRN-CNP - 02/10/2021 4:12 PM SOLE BUFFER 1. blood work at [facility] locally in the next 1-2 weeks 2. If you have not heard from our office 1 week after blood work please call our office. 3. Fibroscan with return to clinic Dietary and exercise advice for fatty liver disease and diabetes or pre-diabetes A. Avoid all sugar sweetened beverages including soda pop and sweet tea B. Eat real food (fruits vegetables meat fish) not processed foods C. Avoid foods labelled as light, low fat or fat free as they usually contain excess sugars D. Do not eat anything you do not like but be open to trying new types of food E. Eat when you are hungry. Don't eat when you are not. Eat slowly enjoy your food and listen to your body when it tells you you are full F. Limit grains, potatoes and sugar as they tend to be stored as fat and avoid trans fats (hydrogenated oils) because they are toxic to your body G. Goal to exercise 3-4 times a week 45 minutes at a time (you may want to start with 15 minutes and add 3 minutes more every week till you hit the goal); discuss with your PCP before starting an exercise program. Exercise can be rapid walking, jogging, bicycling, aerobics, elliptical, treadmill orother cardio work outs. BUFFER documented in this encounter Progress Notes * Mae Macias APRN-CNP - 02/10/2021 3:33 PM CST I saw Mr. Garcia in [facility] for an initial visit today. Chief Complaint Patient presents with ??? Elevated Liver Enzymes Pain LUQ 1-2x/month. Patient denies n/v. BM normal. Patient exercises minimally. Normal eating habits. There is no problem list on file for this patient. History: Roland Garcia is a 65 year old male in clinic for initial visit regarding elevated liver enzymes, cholestatic pattern. Initially found during routine blood work screening in November. Ultrasound showed fatty liver and gallstones without acute cholecystitis . No known complications related to liver.No prior known liver disease. No jaundice ever. No significant pruritus. No bloody or melanous stools. Energy is good. He has NATALIE and uses CPAP which helped with his fatigue. Today reports occasionalLUQ pain that he describes as rare and only lasting a second or so. No recent changes to medications. HE has been on sertraline and atorvastatin for some time. He describes his alcohol use as occasional, one drink per month on average. He eats take out twice per week. He has been following plant based diet over the past 6 moths. His exercise is minimal and consists of walking dog. he live in home with , oldest son just moved to [place]. He works in the [employer]. Risk factors: IVDU: No; transfusions before 1991: No; other risks: none identified. Fatigue: none Pruritus: none. GI bleeding: none. History of icteric illnesses: none. cigarette smoker no Family History of Liver disease: no Current Outpatient Medications Medication Sig ??? aspirin (ASPIRIN) 81 MG chew tablet Take 81 mg by mouth once daily ??? atorvastatin (LIPITOR) 80 MG tablet Take 80 mg by mouth at bedtime ??? sertraline (ZOLOFT) 100 MG tablet Take 100 mg by mouth once daily No current facility-administered medications for this visit. I have reviewed and confirmed with Mr. Garcia his current medications, allergies, social history and family history. Review of systems: Chest pain: none. Shortness of breath: none. Nausea and vomiting: none. Reflux or GERD symptoms: none. Constipation or diarrhea: none. Depression: he denies that this is a current problem. On exam today, he appeared alert and anicteric. BP 150/84 (BP SITE: LEFT ARM) Pulse 71 Ht 1.778 m (5' 10 ) Wt 86.1 kg (189 lb 12.8 oz) SpO2 98% BMI27.23 kg/m2 I reviewed today's vital signs with the patient. Cutaneous signs of chronic liver disease: none. Lungs were clear to auscultation bilaterally. Heart sounds were regular rate and rhythm. There were no murmurs. Abdomen was soft and nontender. Hepatomegaly: non-palpable Splenomegaly: non-palpable Ascites: none. Masses: none. Hernias: none. Lower extremity edema: none. Mental status: normal. Relevant test results: 10/31/20 NA 144 K+ 4.3 Cr 1.28 T bili 0.7 AST 20 ALT 27 Protein 7.2 Albumin 4.4 ALP 174 10/31/20 Ferritin Iron Transferrin Transferrin Saturation % Mybva-1-Insyqtjsqqq Phenotype (PI) Ceruloplasmin VARGAS Smooth Muscle antibody F-Actin Antibody IgG Mitochondrial M2 Antibody Hepatitis A Virus Antibody Total Hepatitis B Surface Antibody Quantitative Hepatitis B Virus Surface Antibody Hepatitis B Surface Antigen Hepatitis B Core Antibody IgG Hepatitis C Antibody <0.1 HIV Assessment: 1. elevated liver enzymes, cholestatic pattern. elevated ALP, GGT 2. hepatic steatosis 3. gallstones Plan: 1. [facility] 1 [facility] 2. Request records for review including Ultrasound report. 3. consider MRI pending #1 4. fibroscan with rtc 3 months 5. Specific recommendations were provided regarding diet and exercise including the avoidance of sugar sweetened beverages. An appointment was scheduled for him to see me in followup in about 3 months at which time we will review the results and discuss treatment options. Address letter to: Juan Antunez MD [address] [place] [address] Copy to: Juan Antunez MD [address] [place] [address] Mae Macias APRN-PHYSICAL THERAPY NURSE [facility] Division of Gastroenterology and Hepatology Collaborating physician: Dr. Hung Coreas February 11, 2021 Orders Placed This Encounter ??? CBC WITH DIFFERENTIAL ??? COMPREHENSIVE METABOLIC PANEL ??? [id number] BLOOD ??? [id number]-7-[id number] BLOOD PHENOTYPING PANEL ??? MITOCHONDRIAL ANTIBODY SCREEN ??? VARGAS BLOOD SCREEN W/REFLEX TITER ??? CERULOPLASMIN ??? FERRITIN ??? GGT ??? HEPATITIS B CORE ANTIBODY ??? HEPATITIS B SURFACE ANTIBODY ??? HEPATITIS B SURFACE ANTIGEN W RFLX CONFIRMATION ??? IGM BLOOD ??? TRANSFERRIN ??? IRON + TIBC PANEL ??? PT-INR BUFFER documented in this encounter Plan of Treatment Scheduled Orders Name Type Priority Associated Diagnoses Orde r Schedule [id number] BLOOD Lab Routine Elevated liver enzymes Ordered: 02/10/2021 documented as of this encounter Procedures Procedure Name Priority Date/Time Associated Diagnosis Comments MITOCHONDRIAL ANTIBODY SCREEN Routine 02/27/2021 10:54 AM SOLE BUFFER Elevated liver enzymes [id number] BLOOD PHENOTYPING PANEL Routine 02/27/2021 10:54 AM SOLE BUFFER Elevated liver enzymes VARGAS BLOOD SCREEN W/REFLEX TITER Routine 02/27/2021 10:54 AM SOLE BUFFER Elevated liver enzymes TRANSFERRIN Routine 02/27/2021 10:54 AM SOLE BUFFER Elevated liver enzymes CERULOPLASMIN Routine 02/27/2021 10:54 AM SOLE BUFFER Elevated liver enzymes PT-INR STAT 02/27/2021 10:54 AM SOLE BUFFER Elevated liver enzymes CBC W AUTO DIFFERENTIAL Routine 02/27/2021 10:54 AM SOLE BUFFER Elevated liver enzymes COMPREHENSIVE METABOLIC PANEL Routine 02/27/2021 10:54 AM SOLE BUFFER Elevated liver enzymes IRON + TIBC PANEL Routine 02/27/2021 10: 54 AM SOLE BUFFER Elevated liver enzymes HEPATITIS B SURFACE ANTIBODY Routine 02/27/2021 10:54 AM SOLE BUFFER Elevated liver enzymes HEPATITIS B CORE ANTIBODY TOTAL Routine 02/27/2021 10:54 AM SOLE BUFFER Elevated liver enzymes HEPATITIS B SURFACE ANTIGEN W RFLX CONFIRMATION Routine 02/27/2021 10:54 AM SOLE BUFFER Elevated liver enzymes GGT Routine 02/27/2021 10:54 AM SOLE BUFFER Elevated liver enzymes IGM BLOOD Routine 02/27/2021 10:54 AM SOLE BUFFER Elevated liver enzymes FERRITIN Routine 02/27/2021 10:54 AM SOLE BUFFER Elevated liver enzymes documented in this encounter Results * PT-INR (02/27/2021 10:54 AM SOLE BUFFER) INR 1.0 0.9 - 1.2 [facility] INSURANCE BILL Comment: ? Reference interval is for non-anticoagulated patients. ?. ? Suggested INR therapeutic range for Vitamin K ? antagonist therapy: ?Standard Dose (moderate intensity ? therapeutic range): ? 2.0 - 3.0 ?Higher intensity therapeutic range ? 2.5 - 3.5 PT 10.5 9.1 - 12.0 sec [facility] INSURANCE BILL Comment:FASTING Blood BLOOD SPECIMEN / Unknown 02/27/2021 10:54 AM SOLE BUFFER 02/27/2021 Narrative Resulting Agency Comment Lab Testing performed at: [facility] [address] ??[facility] [phone] Mae Macias [employer] SUPERVISOR-PHYSICAL THERAPY NURSE LAB - [facility] ORDERABLES [facility] INSURANCE BILL [address] [place] [address] * IRON + TIBC PANEL (02/27/2021 10:54 AM SOLE BUFFER) TIBC 301 250 - 450 ug/dL [facility] INSURANCE BILL UIBC 215 111 - 343 ug/dL [facility] INSURANCE BILL Iron 86 38 - 169 ug/dL [facility] INSURANCE BILL Iron Saturation 29 15 - 55 % [facility] INSURANCE BILL Comment:FASTING Blood BLOOD SPECIMEN / Unknown 02/27/2021 10:54 AM SOLE BUFFER 02/27/2021 Narrative Resulting Agency Comment Lab Testing performed at: [facility] [place] [address] ??[facility] [id number] Mae Macias [employer] SUPERVISOR-PHYSICAL THERAPY NURSE LAB - CHEMI STRY ORDERABLES [facility] INSURANCE BILL [address] [place] [address] * TRANSFERRIN (02/27/2021 10:54 AM SOLE BUFFER) Transferrin 258 177 - 329 mg/dL [facility] INSURANCE BILL Comment:FASTING Blood BLOOD SPECIMEN / Unknown 02/27/2021 10:54 AM SOLE BUFFER 02/27/2021 Narrative Resulting Agency Comment Lab Testing performed at: [facility] [place] [address] ??[facility] [phone] Mae Macias APRN-PHYSICAL THERAPY NURSE LAB - CHEMI STRY ORDERABLES [facility] INSURANCE BILL [address] [place] [address] * IGM BLOOD (02/27/2021 10:54 AM SOLE BUFFER) IgM Quantitative 131 20 - 172 mg/dL [facility] INSURANCE BILL Comment:FASTING Blood BLOOD SPECIMEN / Unknown 02/27/2021 10:54 AM SOLE BUFFER 02/27/2021 Narrative Resulting Agency Comment Lab Testing performed at: [facility] [place] [address] ??[facility] [phone] Mae Macias [employer] SUPERVISOR-PHYSICAL THERAPY NURSE LAB - CHEMI STRY ORDERABLES Performing Organization Address [facility]/ZIP Co de Phone Number [facility] INSURANCE BILL [address] [place] [address] * HEPATITIS B SURFACE ANTIGEN W RFLX CONFIRMATION (02/27/2021 10:54 AM SOLE BUFFER) Hepatitis B Virus Surface Antigen Negative Negative [facility] INSURANCE BILL Comment:FASTING Blood BLOOD SPECIMEN / Unknown 02/27/2021 10:54 AM SOLE BUFFER 02/27/2021 Narrative Resulting Agency Comment Lab Testing performed at: [facility] [place] [address] ??[facility] [phone] Mae Macias APRN-PHYSICAL THERAPY NURSE LAB - CHEMI STRY ORDERABLES Performing Organization Address [facility] Co de Phone Number [facility] INSURANCE BILL [address] [place] [address] * HEPATITIS B SURFACE ANTIBODY (02/27/2021 10:54 AM SOLE BUFFER) Hepatitis B Virus Surface Antibody Non Reactive [facility] INSURANCE BILL Comment: ? Non Reactive: Inconsistent with immunity, ? less than 10 mIU/mL ? Reactive: ? Consistent with immunity, ? greater than 9.9 mIU/mL FASTING Blood BLOOD SPECIMEN / Unknown 02/27/2021 10:54 AM SOLE BUFFER 02/27/2021 Narrative Resulting Agency Comment Lab Testing performed at: [facility] [place] [address] ??[facility] [phone] Mae Macias APRN-PHYSICAL THERAPY NURSE LAB - CHEMI STRY ORDERABLES [facility] INSURANCE BILL [address] [place] [address] * HEPATITIS B CORE ANTIBODY (02/27/2021 10:54 AM SOLE BUFFER) Hepatitis B Core Virus Antibody Total Negative Negative [facility] INSURANCE BILL Comment:FASTING Blood BLOOD SPECIMEN / Unknown 02/27/2021 10:54 AM SOLE BUFFER 02/27/2021 Narrative Resulting Agency Comment Lab Testing performed at: [facility] [place] [address] ??[facility] [phone] Mae Macias [employer]ATION SUPERVISOR-PHYSICAL THERAPY NURSE LAB - CHEMI STRY ORDERABLES Performing Organization Address City/[facility]/ZIP Co de Phone Number [facility] INSURANCE BILL [address] [place] [address] * (ABNORMAL) GGT (02/27/2021 10:54 AM SOLE BUFFER) GGT 534(H) 0 - 65 IU/L [facility] INSURANCE BILL Comment:FASTING Blood BLOOD SPECIMEN / Unknown 02/27/2021 10:54 AM SOLE BUFFER 02/27/2021 Narrative Resulting Agency Comment Lab Testing performed at: [facility] [employer] [address] ??[facility] [phone] Mae Macias GAS PUMPING STATION [facility] - CHEMI STRY ORDERABLES [facility] INSURANCE BILL [address] [place] [address] * FERRITIN (02/27/2021 10:54 AM SOLE BUFFER) Ferritin 93 30 - 400 ng/mL [facility] INSURANCE BILL Comment:FASTING Blood BLOOD SPECIMEN / Unknown 02/27/2021 10:54 AM SOLE BUFFER 02/27/2021 Narrative Resulting Agency Comment Lab Testing performed at: [facility] [place] [address] ??[facility] [phone] Mae Macias G[employer]ATION SUPERVISOR-PHYSICAL THERAPY NURSE LAB - CHEMI STRY ORDERABLES Performing Organization Address City/[facility] Co de Phone Number [facility] INSURANCE BILL [address] [place] [address] * CERULOPLASMIN (02/27/2021 10:54 AM SOLE BUFFER) Ceruloplasmin 22.2 16.0 - 31.0 mg/dL [facility] INSURANCE BILL Comment:FASTING Blood BLOOD SPECIMEN / Unknown 02/27/2021 10:54 AM SOLE BUFFER 02/27/2021 Narrative Resulting Agency Comment Lab Testing performed at: [facility] [address] ??[facility] [phone] Mae Macias G[employer]ING [employer]ATION SUPERVISOR-PHYSICAL THERAPY NURSE LAB - CHEMI STRY ORDERABLES Performing Organization Address [facility] Co de Phone Number [facility] INSURANCE BILL [address] [place] [address] * VARGAS BLOOD SCREEN W/REFLEX TITER (02/27/2021 10:54 AM SOLE BUFFER) VARGAS Negative [facility] INSURANCE BILL Comment: ?Negative ?? <1:80 ?Borderline ??1:80 ?Positive ?? >1:80 ICAP nomenclature: AC-0 For more information about Hep-2 cell patterns use ANApatterns.org, the official website for the International Consensus on Antinuclear Antibody (VARGAS) Patterns (ICAP). FASTING Blood BLOOD SPECIMEN / Unknown 02/27/2021 10:54 AM SOLE BUFFER 02/27/2021 Narrative Resulting Agency Comment Lab Testing performed at: [facility] [address] ??[place] [phone] Mae Macias [employer] SUPERVISOR-PHYSICAL THERAPY NURSE LAB - CHEMI STRY ORDERABLES [facility] INSURANCE BILL [address] [place] [address] * MITOCHONDRIAL ANTIBODY SCREEN (02/27/2021 10:54 AM SOLE BUFFER) Mitochondrial M2 Antibody <20.0 0.0 - 20.0 Units [facility] INSURANCE BILL Comment: ? Negative ?0.0 - 20.0 ? Equivocal ??20.1 - 24.9 ? Positive ? >24.9 ? . ? Mitochondrial (M2) Antibodies are found in 90-96% of ? patients with primary biliary cirrhosis. FASTING Blood BLOOD SPECIMEN / Unknown 02/27/2021 10:54 AM SOLE BUFFER 02/27/2021 Narrative Resulting Agency Comment Lab [facility] performed at: [facility] [address] ??[facility] [phone] Mae Avelar Macias [employer] SUPERVISOR-PHYSICAL THERAPY NURSE LAB - CHEMI STRY ORDERABLES [facility] INSURANCE BILL [address] [place] [address] * [id number]-[id number] BLOOD PHENOTYPING PANEL (02/27/2021 10:54 AM SOLE BUFFER) Hjlbk-1-Mzbralpamn n 141 101 - 187 mg/dL [facility] INSURANCE BILL Phenotype (PI) MM [facility] INSURANCE BILL Comment: ?Phenotype ??Population ? A-1-AT Concentration* ? Incidence % ?? % of MM (Typical Range) ?MM ?86.5% ? 100% ? (96 - 189) ?MS ? 8.0% ?86% ? (83 - 161) ?MZ ? 3.9% ?61% ? (60 - 111) ?FM ? 0.4% ? 100% ? (93 - 191) ?SZ ? 0.3% ?41% ? (42 - ??75) ?SS ? 0.1% ?64% ? (62 - 119) ?ZZ ? 0.05% ? 19% ? (16 - ??38) ?FS ? 0.05% ? 70% ? (70 - 128) ?FZ ?Unknown ?46% ? (44 - ??88) ?FF ?Unknown ?Unknown ? *A-1-AT concentration in the homozygous MM phenotype ?is taken as the reference normal. Percent deficiency ?in each phenotype is reported relative to this ?reference. Ranges used to confirm phenotype. FASTING Blood BLOOD SPECIMEN / Unknown 02/27/2021 10:54 AM SOLE BUFFER 02/27/2021 Narrative Resulting Agency Comment Lab [facility]: [facility] [address] ??[facility] [phone] Mae Macias [employer] SUPERVISOR-PHYSICAL THERAPY NURSE LAB - CHEMI STRY ORDERABLES [facility] INSURANCE BILL [address] [place] [address] * (ABNORMAL) COMPREHENSIVE METABOLIC PANEL (02/27/2021 10:54 AM SOLE BUFFER) Glucose 104(H) 65 - 99 mg/dL [facility] INSURANCE BILL BUN 16 8 - 27 mg/dL [facility] INSURANCE BILL Creatinine 1.17 0.76 - 1.27 mg/dL [facility] INSURANCE BILL eGFR by MDRD 65 >59 mL/min/1. 73 [facility] INSURANCE BILL eGFR by MDRD 75 >59 mL/min/1. 73 [facility] INSURANCE BILL Comment: In accordance with recommendations from the NKF-ASN Task force, ??[facility] is in the process of updating its eGFR calculation to the ??2020 CKD-EPI creatinine equation that estimates kidney function ??without a race variable. BUN/Creatinine Ratio 14 10 - 24 [facility] INSURANCE BILL Sodium 142 134 - 144 mmol/L [facility] INSURANCE BILL Potassium 4.1 3.5 - 5.2 mmol/L [facility] INSURANCE BILL Chloride 106 96 - 106 mmol/L [facility] INSURANCE BILL CO2 24 20 - 29 mmol/L [facility] INSURANCE BILL Calcium 9.4 8.6 - 10.2 mg/dL [facility] INSURANCE BILL Protein Total 6.9 6.0 - 8.5 g/dL [facility] INSURANCE BILL Albumin 4.1 3.8 - 4.8 g/dL [facility] INSURANCE BILL Globulin Total 2.8 1.5 - 4.5 g/dL [facility] INSURANCE BILL Albumin/Globulin Ratio 1.5 1.2 - 2.2 [facility] INSURANCE BILL Bilirubin Total 0.6 0.0 - 1.2 mg/dL [facility] INSURANCE BILL Alkaline Phosphatase 144(H) 44 - 121 IU/L [facility] INSURANCE BILL Comment:Please note refere nce interval change AST 17 0 - 40 IU/L [facility] INSURANCE BILL ALT 22 0 - 44 IU/L [facility] INSURANCE BILL Comment:FASTING Blood BLOOD SPECIMEN / Unknown 02/27/2021 10:54 AM SOLE BUFFER 02/27/2021 Narrative Resulting Agency Comment Lab Testing performed at: [facility] [place] [address] ??[facility] [phone] Mae Rosio Macias [employer] SUPERVISOR-PHYSICAL THERAPY NURSE LAB - CHEMI STRY ORDERABLES [facility] INSURANCE BILL [address] [place] [address] * CBC WITH DIFFERENTIAL (02/27/2021 10:54 AM SOLE BUFFER) WBC 6.0 3.4 - 10.8 x10E3/uL [facility] INSURANCE BILL RBC 4.55 4.14 - 5.80 x10E6/uL [facility] INSURANCE BILL Hemoglobin 13.7 13.0 - 17.7 g/dL [facility] INSURANCE BILL Hematocrit 39.9 37.5 - 51.0 % [facility] INSURANCE BILL MCV 88 79 - 97 fL [facility] INSURANCE BILL MCH 30.1 26.6 - 33.0 pg [facility] INSURANCE BILL MCHC 34.3 31.5 - 35.7 g/dL [facility] INSURANCE BILL RDW 13.5 11.6 - 15.4 % [facility] INSURANCE BILL Platelet Count 251 150 - 450 x10E3/uL [facility] INSURANCE BILL Granulocytes % 63 Not Estab. % [facility] INSURANCE BILL Lymphocytes % 26 Not Estab. % [facility] INSURANCE BILL Monocytes % 7 Not Estab. % [facility] INSURANCE BILL Eosinophils % 3 Not Estab. % [facility] INSURANCE BILL Basophils % 1 Not Estab. % [facility] INSURANCE BILL Immature Cells NOT NEEDED [facility] INSURANCE BILL Comment:Ancillary determined the test is not needed. Granulocytes Absolute 3.8 1.4 - 7.0 x10E3/uL [facility] INSURANCE BILL Lymphocytes Absolute 1.6 0.7 - 3.1 x10E3/uL [facility] INSURANCE BILL Monocytes Absolute 0.4 0.1 - 0.9 x10E3/uL [facility] INSURANCE BILL Eosinophils Absolute 0.2 0.0 - 0.4 x10E3/uL [facility] INSURANCE BILL Basophils Absolute 0.0 0.0 - 0.2 x10E3/uL [facility] INSURANCE BILL Immature Granulocytes 0 Not Estab. % [facility] INSURANCE BILL Immature Granulocytes Absolute 0.0 0.0 - 0.1 x10E3/uL [facility] INSURANCE BILL nRBC NOT NEEDED [facility] INSURANCE BILL Comment:Ancillary determined the test is not needed. Comment Hematology NOT NEEDED [facility] INSURANCE BILL Comment: FASTING Ancillary determined the test is not needed. Blood BLOOD SPECIMEN / Unknown 02/27/2021 10:54 AM SOLE BUFFER 02/27/2021 Narrative Resulting Agency Comment Lab [facility] performed [facility]: [facility] [address] ??[facility] [phone] Mae Macias [employer] SUPERVISOR-PHYSICAL THERAPY NURSE LAB - HEMAT OLOGY ORDERABLES [facility] INSURANCE BILL [address] [place] [address] documented in this encounter Visit Diagnoses Diagnosis Elevated liver enzymes- Primary Nonspecific elevation of levels of transaminase or lactic acid dehydrogenase (LDH) Hepatic steatosis Other chronic nonalcoholic liver disease Gallstones Calculus of gallbladder without mention of cholecystitis or obstruction documented in this encounter Care Teams Food Service Attendant Relationship Specialty Start Date End Date Juan Antunez MD [address] [place] [phone] PCP - General 04/15/18 documented as of this encounter
--- OUTSIDE RECORDS SUMMARY | 2024-03-16 10:55 | XMS_ITS | Continuity of Care Document ---
Author Organization [facility] Address [address] [place] [id number] Care Team Providers Care Telephone Messenger Name Role Phone Juan Antunez Primary Care Physician Encounter [facility] Financial Number [id number] Date(s): 02/21/24 - 02/22/[address] [id number] Discharge Disposition: Home with Physician Follow-up Attending Physician: Raisa Carmichael M.D. Admitting Physician: Raisa Carmichael M.D. Encounter Type: Surgical Outpatient Allergies, Adverse Reactions, Alerts No Known Allergies Functional Status 02/22/24 Mobility Transfers Independent Ambulation Level Modified independent Ambulation Device Utilized Single point cane Weight bearing status Full weight bearin g Gait Training Distance 70 Number of Stairs 4 Stair Railing Utilized Left side up the stairs 02/22/24 Living Environment OT Multi Level Home Devices/Equipment Built in bench, Grab bars, Straight cane, Walk-In shower Prior Upper Extremity Bathing Level Inde pendent Prior Lower Extremity Bathing Level Inde pendent Prior Upper Extremity Dressing Level Ind ependent Prior Lower Extremity Dressing Level Ind ependent Prior Grooming Level Independent Grooming Assist Modified independent Toileting Assist SBA OT Transfer Device Single point cane Mobility Transfers OT Sit to Stand, Toilet/Bed to bathroom, Stand by assist, Minimal assistance 1 OT Weight Bearing Status Full Weight Janeth ring 02/22/24 Prior Bed Mobility Level Independent Prior Transfer Level Independent Prior Stair Ambulation Level Independent Bed Mobility Standby assist 02/21/24 Activity Assistance Independent Current Home Treatments CPAP Sensory Deficits Corrected vision imp airment, Hearing deficit, left ear, Hearing deficit, right ear 1Result Comment: standby assist for functional mobiilty with cane; minimal assist for toilet transfer with grab bar Medications atorvastatin 80 mg oral tablet 80 mg, 1 tablet(s), Oral, daily, 30 tablet(s), Tablet(s), 0 Start Date: 02/21/24 Status: Ordered Quantity: 30.0 Unit: Repeat number: 1 methocarbamol 750 mg oral tablet 750 mg, 1 tablet(s), Oral, qid, PRN, 30 tablet(s), Tablet(s), 0, 0, muscle spasm, Print Requisition Start Date: 02/21/24 Status: Ordered Quantity: 30.0 Unit: Repeat number: 1 Planada 5 mg-325 mg oral tablet 1 tablet(s), Tablet(s), Oral, [id number], PRN, pain, mild, 02/21/24 11:17:00 AM NOUGAT CUTTER MACHINE, 02/21/24 11:17:00CST Notes: Do Not exceed 3 GM Acetaminophen in 24 hours.ALWAYS Communicate Potential Side Effects:Constipation, nausea, vomiting, tiredness, confusion. Start Date: 02/21/24 Stop Date: 03/22/24 Status: Ordered Repeat number: 1 Planada 5 mg-325 mg oral tablet 1-2 tablets, Oral, [id number], PRN, 40 tablet(s), Tablet(s), 0, 0, pain, moderate, Print Requisition Start Date: 02/21/24 Status: Ordered Quantity: 40.0 Unit: Repeat number: 1 sertraline 100 mg oral tablet 100 mg, 1 tablet(s), Oral, daily, 30 tablet(s), Tablet(s), 0 Start Date: 02/21/24 Status: Ordered Quantity: 30.0 Unit: Repeat number: 1 spironolactone 25 mg oral tablet 12.5 mg, 0.5 tablet(s), Oral, daily, 15 tablet(s), Tablet(s), 0 Start Date: 02/21/24 Status: Ordered Quantity: 15.0 Unit: Repeat number: 1 Mental Status 02/22/24 Orientation Oriented x 4 02/22/24 Orientation_ND Oriented x4 Hearing Impairment None Vision Impairment None Problem List Diagnosis Diagnosis Type Effective Dates Health Status Clinical Service Informant Encounter for other specified special examinations 02/21/24 Non-Specified Procedures Procedure Date Related Diagnosis Body Site Status Lumbar discectomy 2022 Complet ed Results Laboratory List Name Date ABO and Rh Type 02/21/24 Antibody Screen 02/21/24 Most recent to oldest [Reference Range]: 1 ABO/Rh B POS *Unknown* (02/21/24 10:39 AM) Antibody Screen Negative (02/21/24 10:39 AM) Radiology Reports * Exam Date Time Procedure Performing Provider Status 02/21/24 2:17 PM FLUORO IN OR RM 31-6 0 MINUTES [facility] Professor; Auth (Verified) Notes: (FLUORO IN OR RM 31-60 MINUTES) Reason For Exam: Intraoperative Fluoroscopy Assistance FLUORO IN OR RM 31-60 MINUTES JANELL JORGEOFF DATE: 02/21/2024 HISTORY: Intraoperative Fluoroscopy Assistance FINDINGS: The fluoroscopy unit was used outside the Department of Radiology. FLUORO TIME: 8.9 Seconds. . Dictating Provider: Radiology, Department OF Releasing Physician: Radiology, Department OF Signature Electronically Authorized Authorized Date/Time: 22-FEB-2024 07:21 am * Exam Date Time Procedure Performing Provider Status 02/21/24 2:17 PM SPINE IN OR [facility] Professor; Auth (Verified) Notes: (SPINE IN OR) Reason For Exam: hnp SPINE IN OR Patient: JANELL GARCIA Exam Date: 02/21/2024 This study was performed by Raisa Carmichael M.D. For full details of the procedure and radiographic findings, please see dictated operative note. . Dictating Provider: Radiology, Department OF Releasing Physician: Radiology, Department OF Signature Electronically Authorized Authorized Date/Time: 22-FEB-2024 07:21 am * Exam Date Time Procedure Performing Provider Status 02/21/24 2:46 PM FLUORO WITH 3D IN OR RM 0-30 MINUTES Tonya Christine Technologist; Modified Notes: (FLUORO WITH 3D IN OR RM 0-30 MINUTES) Reason For Exam: PSF-OARM FLUORO WITH 3D IN OR RM 0-30 MINUTES JANELL GARCIA DATE: 02/21/2024 HISTORY: PSF-OARM FINDINGS: The fluoroscopy unit was used outside the Department of Radiology. FLUORO TIME: 1.23 Seconds. . Dictating Provider: Radiology, Department OF Releasing Physician: Radiology, Department OF Signature Electronically Authorized Authorized Date/Time: 22-FEB-2024 07:13 am Vital Signs Most recent to oldest [Reference Range]: 1 2 3 Temperature Temporal Artery [35.8-38 DegC] 37.2 DegC (02/22/24 7:50 AM) 36.7 DegC (02/22/24 4:09 AM) 36.7 DegC (02/22/24 12:12 AM) Peripheral Pulse Rate [60-100 bpm] 71 bpm (02/22/24 12:51 PM) 85 bpm (02/22/24 7:50 AM) 84 bpm (02/22/24 4:09 AM) Respiratory Rate [14-22 br/min] 16 br/min (02/22/24 12:51 PM) 17 br/min (02/22/24 7:50 AM) 16 br/min (02/22/24 4:09 AM) Blood Pressure [89-139/60-90 mm Hg] 112/76mm Hg (02/22/24 12:51 PM) 132/57mm Hg (02/22/24 7:50 AM) 139/59mm Hg (02/22/24 4:09 AM) Oxygen Therapy Room air (02/22/24 7:50 AM) Room air (02/22/24 4:09 AM) Room air (02/22/24 12:12 AM) Oxygen Flow Rate 2 L/min (02/21/24 5:34 PM) 2 L/min (02/21/24 4:56 PM) 2 L/min (02/21/24 4:40 PM) Height 177.85 cm (02/21/24 10:34 AM) Weight 87.1 kg (02/21/24 10:34 AM) Social History Social History Type Response Alcohol Never alcohol user Substance Abuse Never drug user Smoking Status Never smoker;Never; Tobacco Cessation Counseling Requested No entered on: 02/21/24 Sex Sex Representation Male (finding) Implantable Device List Procedure Provider Procedure Date Device Type Site Posterior Lumbar Interbody Fusion Unknown 02/21/24 Un known Unknown Device Identifier Serial Number Lot or Batch Number Manufacturing Date Expiration Date Distinct Identification Code MRI Safety Implantable Status Assigning Authority Unknown Unknown Unknown Unknown Unknown Unknown Unknown Active Unk nown Procedure Provider Procedure Date Device Type Site Posterior Lumbar Interbody Fusion Unknown 02/21/24 Un known Unknown Device Identifier Serial Number Lot or Batch Number Manufacturing Date Expiration Date Distinct Identification Code MRI Safety Implantable Status Assigning Authority Unknown Unknown [id number] Unknown 9/1/28 Unknown Unknown Active Unkno wn Procedure Provider Procedure Date Device Type Site Posterior Lumbar Interbody Fusion Unknown 02/21/24 Un known Unknown Device Identifier Serial Number Lot or Batch Number Manufacturing Date Expiration Date Distinct Identification Code MRI Safety Implantable Status Assigning Authority Unknown Unknown Unknown Unknown Unknown Unknown Unknown Active Unk nown Procedure Provider Procedure Date Device Type Site Posterior Lumbar Interbody Fusion Unknown 02/21/24 Un known Unknown Device Identifier Serial Number Lot or Batch Number Manufacturing Date Expiration Date Distinct Identification Code MRI Safety Implantable Status Assigning Authority Unknown Unknown Unknown Unknown Unknown Unknown Unknown Active Unk nown Procedure Provider Procedure Date Device Type Site Posterior Lumbar Interbody Fusion Unknown 02/21/24 Un known Unknown Device Identifier Serial Number Lot or Batch Number Manufacturing Date Expiration Date Distinct Identification Code MRI Safety Implantable Status Assigning Authority Unknown Unknown Unknown Unknown Unknown Unknown Unknown Active Unk nown Procedure Provider Procedure Date Device Type Site Posterior Lumbar Interbody Fusion Unknown 02/21/24 Un known Unknown Device Identifier Serial Number Lot or Batch Number Manufacturing Date Expiration Date Distinct Identification Code MRI Safety Implantable Status Assigning Authority Unknown Unknown Unknown Unknown Unknown Unknown Unknown Active Unk nown Hospital Discharge Instructions Patient Education 02/22/2024 12:38:15 Lumbar Fusion 9600(CUSTOM) CARE OF THE PATIENT WITH LUMBAR FUSION 1. Wear your brace for support when up. 2. Avoid (BLT) bending, lifting and twisting movements of the back. 3. No lifting greater than 8-10 pounds. (A gallon of milk weighs 8 pounds.) 4. It is acceptable to use ewkc-dlq-[id number] pain medication for less severe pain. If you underwent a fusion surgery, please avoid use of anti-inflammatory medications until further notice. 5. It is fine to use motx-ywv-dcoogur laxative of choice to avoid constipation. 6. Keep the Steri-Strips in place on your incision. They will fall off on their own as you shower. It is OK to gently remove them in 2 weeks if they have not fallen off. 7. It is OK to shower over Steri-Strips after 3 days. No soaking tub baths for 2 weeks after the surgery. 8. If you have stitches, please contact the office for an appointment for suture removal. 9. You may walk stairs carefully. 10. You may engage in sexual activities in 2 weeks. 11. It is best to avoid car rides for 2 weeks, to avoid an accident. 12. You may drive in 3-4 weeks, when you have weaned from the pain medication and the effects of anesthesia have resolved. 13. Walk as much as tolerated and comfortable. This is the only recommended exercise for you. 14. No return to work until advised by your physician. 15. See your surgeon as instructed by him. If your post-op/follow-up visit was NOT arranged prior to your surgery, please call the office within one week to schedule this visit. 16. Please call the office promptly to report fever, drainage from your incision, or any other problem that occurs before your scheduled appointment. 17. If you feel you require medication refills, please give the office 72 hours notice. There will be no medication refills over the weekend. Revised 01/2024 SLE-0004 Note * Suzanne Hassan NURSE PROGRAM MANAGEMENT SPECIALIST: PERFORM Event Display: Vital Signs at Discharge - Text Authored Date: [id number] Vital Signs at Discharge Entered On: 02/22/2024 12:52 NOUGAT CUTTER MACHINE Performed On: 02/22/2024 12:51 NOUGAT CUTTER MACHINE by Suzanne Hassan NURSE PROGRAM MANAGEMENT SPECIALIST Vital Signs Peripheral Pulse Rate : 71 bpm Respiratory Rate : 16 br/min Systolic Blood Pressure : 112 mm Hg Diastolic Blood Pressure : 76 mm Hg Oxygen Saturation : 94 % Present Pain Score : 1 Suzanne Hassan NURSE PROGRAM MANAGEMENT SPECIALIST - 02/22/2024 12:51 NOUGAT CUTTER MACHINE * Suzanne Hassan NURSE PROGRAM MANAGEMENT SPECIALIST: PERFORM Event Display: Nursing Discharge Instructions - Text Authored Date: [id number] Nursing Discharge Instructions Entered On: 02/22/2024 12:37 NOUGAT CUTTER MACHINE Performed On: 02/22/2024 12:37 NOUGAT CUTTER MACHINE by Suzanne Hassan NURSE PROGRAM MANAGEMENT SPECIALIST Patient Discharge Location Discharge Location IP : Home Discharge Location IP Home : Yes Suzanne Hassan NURSE PROGRAM MANAGEMENT SPECIALIST - 02/22/2024 12:37 NOUGAT CUTTER MACHINE Home Discharge Instructions Outpatient Surgery Instructions Freetext : If you have any problems regarding your procedure after discharge, please contact you surgeon or if after normal business hours, call the exchange. In the event of an emergency, please call 911 or go to your nearest Emergency Department. Outpatient Surgery Instructions : If you have any problems regarding your procedure after discharge, please contact your surgeon or if after normal business hours, call the exchange. In the event of an emergency, please call 911 or go to your nearest Emergency Department. Patient Home Medications Returned : No home medications Nursing Unit Wound Measured at Discharge : N/A Suzanne Hassan NURSE PROGRAM MANAGEMENT SPECIALIST - 02/22/2024 12:37 NOUGAT CUTTER MACHINE * Jhoana Steele OT: PERFORM Event Display: Occupational Therapy Initial Eval - Text Authored Date: OT Initial Evaluation Entered On: 02/22/2024 10:50 NOUGAT CUTTER MACHINE Performed On: 02/22/2024 10:39 NOUGAT CUTTER MACHINE by Jhoana Steele OT ADL ADL Comments : Reviewed spinal precautions and provided education regarding performance of ADLs while adhering to precautions, and pt. voiced understanding of all education provided. All questions answered. Jhoana Steele OT - 02/22/2024 10:50 NOUGAT CUTTER MACHINE Lower Extremity Dressing : Moderate assist, Socks (Comment: Moderate assist to doff/don socks using crossed leg method. Pt. able to achieve crossed leg position on right to perform lower body dressing task while adhering to spinal precautions but unable to achieve crossed leg position on left side. able to assist at home as needed. [Jhoana Steele OT - 02/22/2024 10:39 NOUGAT CUTTER MACHINE] ) Jhoana Steele OT - 02/22/2024 10:39 NOUGAT CUTTER MACHINE Functional Mobility Mobility Transfers OT : Sit to Stand, Toilet/Bed to bathroom, Stand by assist, Minimal assist (Comment: standby assist for functional mobiilty with cane; minimal assist for toilet transfer withgrab bar [Jhoana Steele OT - 02/22/2024 10:39 NOUGAT CUTTER MACHINE] ) Ambulation Cuing Provided OT : Verbal, Sequencing OT Transfer Device : Single point cane Weight Bearing Status : Full Weight Bearing Jhoana Steele OT - 02/22/2024 10:39 NOUGAT CUTTER MACHINE AM-PAC Daily Activity Don/Doff Regular Lower Body Clothing : 2: A Lot Bathing (Washing, Rinsing, Drying) : 3: A Little Toileting (Using Toilet, Bedpan, Urinal) : 3: A Little Don/Doff Regular Upper Body Clothing : 3: A Little Personal Grooming (Brushing Teeth, etc) : 3: A Little Eating Meals : 4: None AM-PAC Daily Activity Raw Score : 18 Jhoana Steele OT - 02/22/2024 10:39 NOUGAT CUTTER MACHINE DC Recommendations OT Post Acute Recommendation : No skilled Occupational Therapy needed upon discharge Jhoana Steele OT - 02/22/2024 10:39 NOUGAT CUTTER MACHINE Assessment Mobility Recommendations for Nursing : Ambulation with SBA, Use cane for mobility Justification for Skilled OT Services : Patient would benefit from skilled OT to increase safety & decrease dependence in functional mobility & ADLs. Jhoana Steele OT - 02/22/2024 10:39 NOUGAT CUTTER MACHINE OT Treatment Response : Pt. agreeable to OT. Reviewed spinal precautions and provided education regarding performance of ADLs while adhering to precautions, and pt. voiced understanding of all education provided. Pt. required moderate assist for lower body dressing task as he was unable to achieve crossed leg position on left side, however his is able to assist at home if needed. Pt. able tocomplete functional mobility/transfers with standby to minimal assist using cane this date. Pt. will continue to benefit from skilled OT while acutely admitted to maximize functional independence andto aid in safe transition back home. Anticipate no OT needs at discharge. Jhoana Steele OT - 02/22/2024 10:50 NOUGAT CUTTER MACHINE Goals OT Patient/Caregiver Goal : to recover from surgery Transfer Goal : Toilet Transfer Assist : SBA (Comment: with cane [Jhoana Steele OT - 02/22/2024 10:50 NOUGAT CUTTER MACHINE] ) Transfer Goal Time Frame : 14 day(s) Dressing Region : Lower body Dressing Assist : Minimum (Comment: using crossed leg method to maintain spinal precautions [Jhoana Steele OT - 02/22/2024 10:50 NOUGAT CUTTER MACHINE] ) Dressing Goal Time Frame : 14 day(s) Toileting Assist : SBA Toileting Goal Time Frame : 14 day(s) Grooming Assist : Modified independent Grooming Goal Time Frame : 14 day(s) Grooming Position : Standing OT Additional Goal 1 Time Frame : 14 day(s) Additional Occupational Therapy Goal 1 : Pt. will don back brace with standby assist. Jhoana Steele OT - 02/22/2024 10:50 NOUGAT CUTTER MACHINE Plan OT Treatment Diagnosis : Decreased self care, Decreased balance OT Treatment Recommended : Yes Plan/Goals Reviewed with pt./Caregiver : Yes Plan/Goals OT Collaboration : Patient's plan of care to be reviewed with [facility] OT Problem and Intervention Planned : Decreased ADL function: ADL training, Decreased functional mobility: Mobility training OT Planned Consultation Follow Up : Post Surgical Spine: OT treatment daily, M- F. OT to reassess plan after 6 days. Jhoana Steeel OT - 02/22/2024 10:39 NOUGAT CUTTER MACHINE Charges Occupational Therapy Visit Status : Patient seen for treatment session this date. OT Evaluation Time : 15 minute(s) OT Evaluation Charge : I OT Total Session Start Time : 02/22/2024 09:44 NOUGAT CUTTER MACHINE OT Total Session Stop Time : 02/22/2024 10:08 NOUGAT CUTTER MACHINE OT Total Session Time : 24 minute(s) Session Conclusion : Patient left in chair with call light and phone within reach OT ADL Training Units : 1 unit(s) OT Therapeutic Exercise Units : 0 unit(s) Jhoana Steele OT - 02/22/2024 10:39 NOUGAT CUTTER MACHINE General Info OT Start of Care Date : 02/22/2024 NOUGAT CUTTER MACHINE Condition Onset Date : 02/21/2024 NOUGAT CUTTER MACHINE Admit Reason : s/p L4-5 decompression and fusion Precautions to Rehabilitation Treatment : Back Orientation : Oriented x 4 Pain Symptoms : No Consent for Occupational Therapy : Patient informed of risks & benefits of participation in OT,Patient agreeable to treatment Therapy Services- Past Medical History : Other: prior lumbar decompression L4-5, L4-5 spondylosis Jhoana Steele OT - 02/22/2024 10:39 NOUGAT CUTTER MACHINE Living Situation Living Environment OT : Multi Level Home Admit From IP Therapy : Home Home Assist IP Therapy : Independent Home Comments : Lives with . Bed and full bath on upper level of home however pt. is able to stay on the main level of home if needed. Independent with ADLs and functional mobility with cane at baseline. Jhoana Steele OT - 02/22/2024 10:39 NOUGAT CUTTER MACHINE Functional Level Prior to This Admission Feeding : Independent Grooming : Independent Upper Extremity Bathing : Independent Lower Extremity Bathing : Independent Upper Extremity Dressing : Independent Lower Extremity Dressing : Independent Toileting : Independent Home Management : Independent Jhoana Steele OT - 02/22/2024 10:39 NOUGAT CUTTER MACHINE Devices/Equipment : Built in bench, Grab bars, Straight cane, Walk-In shower Jhoana Steele OT - 02/22/2024 10:39 NOUGAT CUTTER MACHINE Neurological Therapy Services Safety/Judgement : Intact Basic Command Following : Multi -Step Commands Problem Solving : Intact Jhoana Setele OT - 02/22/2024 10:39 NOUGAT CUTTER MACHINE Balance Screen Grid Balance Screen - Static Sitting : Good Balance Screen - Dynamic Sitting : Good Balance Screen - Static Standing : Good - (Comment: with cane [Jhoana Steele OT - 02/22/2024 10:39 NOUGAT CUTTER MACHINE] ) Balance Screen - Dynamic Standing : Good - (Comment: with cane [Jhoana Steele OT - 02/22/2024 10:39 NOUGAT CUTTER MACHINE] ) Jhoana Steele OT - 02/22/2024 10:39 NOUGAT CUTTER MACHINE Education Topics : Activity of daily living training, Adaptive equipment, Durable Medical Equipment, Functional transfer, Occupational Therapy plan of care, Spinal precautions Barriers to learning IP OT : None evident Individuals Taught : Patient Teaching Method PT : Demonstration, Explanation, Printed materials, Teach Back Assessment/Outcome Evaluation Therapy : Needs practice/supervision, Needs reinforcement, Returns demonstrations correctly, Verbalizes understanding Therapy Handouts Issued-OT : OT/PT Introduction, Activities after Spinal Surgery, Back Precautions Jhoana Steele OT - 02/22/2024 10:39 NOUGAT CUTTER MACHINE * Lynn Gaspar Physical Therapist: PERFORM Event Display: Physical Therapy Progress/DC - Text Authored Date: [id number] Physical Therapy Progress or Discharge Entered On: 02/22/2024 13:59 NOUGAT CUTTER MACHINE Performed On: 02/22/2024 13:56 NOUGAT CUTTER MACHINE by Lynn Gaspar Physical Therapist Assessment Mobility Recommendations for Nursing : Ambulation with SBA, Use cane for mobility PT Goal Progression : Patient progressing towards goals PT Assessment Other : Assisted patient and with donning of back brace. Reviewed how to tightenand position brace. Patient practiced stairs once more and reviewed all questions. Patient getting ready for discharge. PT Discharge Note : If this is the last Physical Therapy treatment session, this document will serve as the Discharge Note. Lynn Gaspar Physical Therapist - 02/22/2024 13:56 NOUGAT CUTTER MACHINE AM-PAC Basic Mobility AM-PAC Supine To Sidelying, No Rails : 4: None AM-PAC Supine To Sit, No Rails : 4: None AM-PAC Bed To Chair/WC Transfer : 4: None AM-PAC Standing From a Chair Using UEs : 4: None AM-PAC Walk in Hospital Room : 3: A Little AM-PAC Climbing 3-5 Steps with Railing : 3: A Little AM-PAC, Basic Mobility Raw Score : 22 Lynn Gaspar Physical Therapist - 02/22/2024 13:56 NOUGAT CUTTER MACHINE Mobility Transfers : Independent Ambulation Level : Modified independent Gait Training Distance : 70 ft Ambulation Device Utilized : Single point cane Weight Bearing Status : Full weight bearing Stairs Ambulation Assist : Standby assistance Number of Stairs : 4 Stair Railing Utilized : Left side up the stairs Lynn Gaspar Physical Therapist - 02/22/2024 13:56 NOUGAT CUTTER MACHINE DC Recommendations PT Post Acute Recommendation : No skilled Physical Therapy needed upon discharge Lynn Gaspar Physical Therapist - 02/22/2024 13:56 NOUGAT CUTTER MACHINE Education Topics : Ambulation, Physical Therapy plan of care, Transfers Barriers to Learning : None evident Individuals Taught : Patient, Other: spouse Teaching Method : Explanation Assessment/Outcome Evaluation : Returns demonstrations correctly, Verbalizes understanding Lynn Gaspar Physical Therapist - 02/22/2024 13:56 NOUGAT CUTTER MACHINE Charges Clinician Documenting : PT PT Clinician Documenting : PT Physical Therapy Visit Status : Patient seen for treatment session this date. PT: Ambulation Status : Patient able to ambulate independently or modified independently Ambulation Status Determined : By observation PT Total Tx Time : 9 minute(s) PT Total Session Start Time : 02/22/2024 13:35 NOUGAT CUTTER MACHINE PT Total Session Stop Time : 02/22/2024 13:44 NOUGAT CUTTER MACHINE Therapeutic Exercise Units : 0 unit(s) Gait/Mobility Training Units : 1 unit(s) Lynn Gaspar Physical Therapist - 02/22/2024 13:56 NOUGAT CUTTER MACHINE General Information Pain Symptoms : No Orientation : Oriented x 4 Therapy Services Safety/Judgement : Intact Basic Command Following : Multi -Step Commands Session Conclusion : Patient left in chair with call light and phone within reach Lynn Gaspar Physical Therapist - 02/22/2024 13:56 NOUGAT CUTTER MACHINE PT Plan Review PT Plan Updated : Yes PT F/U Treatment Frequency : None- Discontinue PT services Lynn Gaspar Physical Therapist - 02/22/2024 13:56 NOUGAT CUTTER MACHINE * Lynn Gaspar Physical Therapist: PERFORM Event Display: Physical Therapy Evaluation - Text Authored Date: [id number] Physical Therapy Evaluation Entered On: 02/22/2024 08:35 NOUGAT CUTTER MACHINE Performed On: 02/22/2024 08:31 NOUGAT CUTTER MACHINE by Lynn Gaspar Physical Therapist Mobility Transfers : Standby assist Bed Mobility : Standby assist Ambulation Level : Standby assistance Gait Training Distance : 300 ft Ambulation Device Utilized : Single point cane Weight Bearing Status : Full weight bearing Comments Regarding GAIT : initially minimal assist and quickly progresses to stand by assist; steppage gait due to foot drop on left Stairs Ambulation Assist : Min A Number of Stairs : 4 Stair Railing Utilized : Left side up the stairs (Comment: cane on right [Lynn Gaspar Physical Therapist - 02/22/2024 08:31 NOUGAT CUTTER MACHINE] ) Lynn Gaspar Physical Therapist - 02/22/2024 08:31 NOUGAT CUTTER MACHINE AM-PAC Basic Mobility AM-PAC Supine To Sidelying, No Rails : 4: None AM-PAC Supine To Sit, No Rails : 3: A Little AM-PAC Bed To Chair/WC Transfer : 3: A Little AM-PAC Standing From a Chair Using UEs : 3: A Little AM-PAC Walk in Hospital Room : 3: A Little AM-PAC Climbing 3-5 Steps with Railing : 3: A Little AM-PAC, Basic Mobility Raw Score : 19 Lynn Gaspar Physical Therapist - 02/22/2024 08:31 NOUGAT CUTTER MACHINE DC Recommendations PT Post Acute Recommendation : No skilled Physical Therapy needed upon discharge Lynn Gaspar Physical Therapist - 02/22/2024 08:31 NOUGAT CUTTER MACHINE Education Topics : Ambulation, Back Precautions, Bed mobility, Physical Therapy plan of care, Transfers Barriers to Learning : None evident Individuals Taught : Patient Teaching Method : Explanation, Printed materials Assessment/Outcome Evaluation : Returns demonstrations correctly, Verbalizes understanding Therapy Handouts Issued-PT : PT Introduction, Back Postural Program, Back Precautions Lynn Gaspar Physical Therapist - 02/22/2024 08:31 NOUGAT CUTTER MACHINE Assessment Mobility Recommendations for Nursing : Ambulation with SBA, Use cane for mobility Rehabilitation Potential : Good Justification for Skilled PT Services : Patient would benefit from skilled PT to increase safety and decrease dependence in functional mobility, Patient would benefit from skilled PT to address ROM, strength, and/or balance in preparation for mobility training PT Treatment Response : Patient is very pleasant and pleased with surgery. He reports that his numbness has improved on anterior left siegel as well as he feels he is getting a stronger muscle contraction on left ankle into dorsiflexion. Lynn Gaspar Physical Therapist - 02/22/2024 08:31 NOUGAT CUTTER MACHINE Goals PT Patient/Caregiver Goal : not have drop foot PT Bed Mobility Goal : Independent PT Bed Mobility Goal Time Frame : 14 day(s) PT Transfer Goal : Independent PT Transfer Goal Time Frame : 14 day(s) PT Ambulation Goal : Modified independent PT Ambulation Device for Goal : Single point cane PT Ambulation Distance Goal : 300 ft PT Ambulation Goal Time Frame : 14 day(s) PT Stairs Goal : Standby assistance PT Stair Goal - Number of Stairs : 10 PT Stair Goal Time Frame : 14 day(s) Lynn Gaspar Physical Therapist - 02/22/2024 08:31 NOUGAT CUTTER MACHINE PT Plan of Care PT Treatment Recommended : Yes PT Treatment Diagnosis : Gait abnormality, Muscle Weakness, Decreased balance PT Problem List / Planned Interventions : Impaired balance, coordination, proprioception: Neuromuscular Re-education, Impaired functional mobility: Gait and/or transfer training, Strength/ROM deficits: Therapeutic exercise and/or orthotic training as appropriate PT Plan/Goals Reviewed w Pt/Caregiver : Yes PT Planned Consultation Follow Up : Post Surgical Spine AM initial evaluation F/U: PT treatment today, then daily. PT to reassess plan after 6 days. Lynn Gaspar Physical Therapist - 02/22/2024 08:31 NOUGAT CUTTER MACHINE Charges Physical Therapy Visit Status : Patient seen for treatment session this date. PT Evaluation Charge : I PT: Ambulation Status : Patient able to ambulate with assist Ambulation Status Determined : By observation PT Evaluation Time : 10 minute(s) PT Total Session Start Time : 02/22/2024 07:52 NOUGAT CUTTER MACHINE PT Total Session Stop Time : 02/22/2024 08:21 NOUGAT CUTTER MACHINE PT Total Tx Time : 29 minute(s) Therapeutic Exercise Units : 0 unit(s) Gait/Mobility Training Units : 1 unit(s) Lynn Gaspar Physical Therapist - 02/22/2024 08:31 NOUGAT CUTTER MACHINE General Info Onset Date - PT : 02/21/2024 NOUGAT CUTTER MACHINE PT Start of Care Date : 02/22/2024 NOUGAT CUTTER MACHINE Admit Reason : s/p L4-5 left spinal decompression Pain Symptoms : Yes PMH : sleep apnea, CAD, hyperlipidemia Orientation : Oriented x 4 Basic Command Following : Multi -Step Commands Therapy Services Safety/Judgement : Intact Session Conclusion : Patient left in chair with call light and phone within reach Lynn Gaspar Physical Therapist - 02/22/2024 08:31 NOUGAT CUTTER MACHINE Primary Pain Primary Pain Information : slight pain around incisional site Lynn Gaspar Physical Therapist - 02/22/2024 08:31 NOUGAT CUTTER MACHINE Living Situation Living Environment OT : Multi Level Home Admit From IP Therapy : Home Home Assist IP Therapy : Independent Home Comments : modified independent with single point cane; lives with ; can live on main level, needs to go upstairs for shower Lynn Gaspar Physical Therapist - 02/22/2024 08:31 NOUGAT CUTTER MACHINE Functional Level Prior to This Admission Bed Mobility : Independent Transfers : Independent Ambulation : Independent Stairs : Independent Lynn Gaspar Physical Therapist - 02/22/2024 08:31 NOUGAT CUTTER MACHINE Vital Signs Exercise Endurance : Good Lynn Gaspar Physical Therapist - 02/22/2024 08:31 NOUGAT CUTTER MACHINE Musculoskeletal Manual Muscle Testing (MMT) Comments : trace in left dorisflexors Lynn Gaspar Physical Therapist - 02/22/2024 08:31 NOUGAT CUTTER MACHINE * Janell Lacey M.D.: PERFORM, SIGN, VERIFY Event Display: Anesthesia Postoperative Evaluation Authored Date: Patient: JANELL GARCIA Age: 68 years Sex: Male : 1955 Associated Diagnoses: None Author: Janell Lacey M.D. Postoperative Information Post Operative Note: Post Anesthesia Care Unit. Anesthetic utilized: General. Health Status Allergies: Allergic Reactions (Selected) NKA Physical Examination PACU - Vital Signs 02/22/2024 12:51 NOUGAT CUTTER MACHINE Peripheral Pulse Rate 71 bpm Respiratory Rate 16 br/min Systolic Blood Pressure 112 mm Hg Diastolic Blood Pressure 76 mm Hg Oxygen Saturation 94 % 02/22/2024 10:29 NOUGAT CUTTER MACHINE Primary Pain Intensity 1 = mild pain 02/22/2024 07:50 NOUGAT CUTTER MACHINE Temperature Temporal Artery 37.2 DegC Peripheral Pulse Rate 85 bpm Respiratory Rate 17 br/min Systolic Blood Pressure 132 mm Hg Diastolic Blood Pressure 57 mm Hg L Oxygen Therapy Room air Oxygen Saturation 95 % 02/22/2024 05:29 NOUGAT CUTTER MACHINE Pain Med Sedation Score S = Sleepy; normal to arouse 02/22/2024 04:29 NOUGAT CUTTER MACHINE Primary Pain Intensity 2 = mild pain 02/22/2024 04:26 NOUGAT CUTTER MACHINE Pain Med Sedation Score 0 = No sedation; patient awake 02/22/2024 04:09 NOUGAT CUTTER MACHINE Temperature Temporal Artery 36.7 DegC Peripheral Pulse Rate 84 bpm Respiratory Rate 16 br/min Systolic Blood Pressure 139 mm Hg Diastolic Blood Pressure 59 mm Hg L Primary Pain Intensity 0 = No pain Oxygen Therapy Room air Oxygen Saturation 94 % 02/22/2024 00:12 NOUGAT CUTTER MACHINE Temperature Temporal Artery 36.7 DegC Peripheral Pulse Rate 96 bpm Respiratory Rate 16 br/min Systolic Blood Pressure 144 mm Hg H Diastolic Blood Pressure 58 mm Hg L Primary Pain Intensity 1 = mild pain Oxygen Therapy Room air Oxygen Saturation 96 % 02/21/2024 22:59 NOUGAT CUTTER MACHINE Pain Med Sedation Score Sleeping Respiratory Sedation Assessment Respirations >=10, Regular rate and rhythm, Unlabored 02/21/2024 21:38 NOUGAT CUTTER MACHINE Temperature Temporal Artery 36.9 DegC Peripheral Pulse Rate 97 bpm Respiratory Rate 16 br/min Systolic Blood Pressure 139 mm Hg Diastolic Blood Pressure 65 mm Hg Pain Med Sedation Score 0 = No sedation; patient awake Primary Pain Intensity 2 = mild pain Oxygen Therapy Room air Oxygen Saturation 93 % 02/21/2024 18:30 NOUGAT CUTTER MACHINE Temperature Temporal Artery 37.0 DegC Peripheral Pulse Rate 94 bpm Systolic Blood Pressure 141 mm Hg H Diastolic Blood Pressure 65 mm Hg Oxygen Saturation 92 % 02/21/2024 17:34 NOUGAT CUTTER MACHINE Temperature Temporal Artery 36.3 DegC Peripheral Pulse Rate 97 bpm Respiratory Rate 14 br/min Systolic Blood Pressure 136 mm Hg Diastolic Blood Pressure 64 mm Hg Primary Pain Intensity 1 = mild pain Oxygen Therapy Nasal cannula Oxygen Saturation 94 % Oxygen Flow Rate 2 L/min 02/21/2024 16:56 NOUGAT CUTTER MACHINE Temperature Temporal Artery 36 DegC Peripheral Pulse Rate 104 bpm H Respiratory Rate 14 br/min Systolic Blood Pressure 146 mm Hg H Diastolic Blood Pressure 75 mm Hg Oxygen Therapy Nasal cannula Oxygen Saturation 95 % Oxygen Flow Rate 2 L/min 02/21/2024 16:40 NOUGAT CUTTER MACHINE Temperature Temporal Artery 36.3 DegC Peripheral Pulse Rate 85 bpm Respiratory Rate 14 br/min Systolic Blood Pressure 147 mm Hg H Diastolic Blood Pressure 67 mm Hg Oxygen Therapy Nasal cannula Oxygen Saturation 94 % Oxygen Flow Rate 2 L/min 02/21/2024 16:00 NOUGAT CUTTER MACHINE Temperature Temporal Artery 36.1 DegC Peripheral Pulse Rate 80 bpm Respiratory Rate 14 br/min Systolic Blood Pressure 142 mm Hg H Diastolic Blood Pressure 58 mm Hg L Primary Pain Intensity 1 = mild pain Oxygen Therapy Nasal cannula Oxygen Saturation 94 % Oxygen Flow Rate 2 L/min 02/21/2024 15:56 NOUGAT CUTTER MACHINE Temperature Temporal Artery 36.0 DegC Peripheral Pulse Rate 89 bpm Respiratory Rate 12 br/min L Systolic Blood Pressure 147 mm Hg H Diastolic Blood Pressure 68 mm Hg Oxygen Therapy Nasal cannula Oxygen Saturation 98 % Oxygen Flow Rate 2 L/min 02/21/2024 15:40 NOUGAT CUTTER MACHINE Peripheral Pulse Rate 85 bpm Heart Rate Monitored 85 bpm Respiratory Rate 12 br/min L Oxygen Saturation 92 % 02/21/2024 15:40 NOUGAT CUTTER MACHINE Temperature Temporal Artery 36 DegC Systolic Blood Pressure 141 mm Hg H Diastolic Blood Pressure 77 mm Hg Pain Med Sedation Score 0 = No sedation; patient awake Primary Pain Intensity 1 = mild pain Primary Pain Alleviating Factors Rest Oxygen Therapy Nasal cannula Oxygen Flow Rate 2 L/min PT having symptoms of nausea + vomiting? No 02/21/2024 15:30 NOUGAT CUTTER MACHINE Peripheral Pulse Rate 87 bpm Heart Rate Monitored 86 bpm Respiratory Rate 18 br/min Oxygen Saturation 95 % 02/21/2024 15:30 NOUGAT CUTTER MACHINE Systolic Blood Pressure 143 mm Hg H Diastolic Blood Pressure 71 mm Hg Pain Med Sedation Score S = Sleepy; normal to arouse Primary Pain Intensity 1 = mild pain Primary Pain Alleviating Factors Rest Oxygen Therapy Room air PT having symptoms of nausea + vomiting? No 02/21/2024 15:20 NOUGAT CUTTER MACHINE Peripheral Pulse Rate 91 bpm Heart Rate Monitored 92 bpm Respiratory Rate 19 br/min Oxygen Saturation 97 % 02/21/2024 15:20 NOUGAT CUTTER MACHINE Systolic Blood Pressure 147 mm Hg H Diastolic Blood Pressure 76 mm Hg Oxygen Therapy Room air 02/21/2024 15:10 NOUGAT CUTTER MACHINE Systolic Blood Pressure 144 mm Hg H Diastolic Blood Pressure 72 mm Hg 02/21/2024 15:10 NOUGAT CUTTER MACHINE Peripheral Pulse Rate 84 bpm Heart Rate Monitored 86 bpm Respiratory Rate 12 br/min L Oxygen Saturation 99 % 02/21/2024 15:10 NOUGAT CUTTER MACHINE Pain Med Sedation Score S = Sleepy; normal to arouse Primary Pain Intensity 0 = No pain Faces Pain Assessment Score 0 Oxygen Therapy Room air PT having symptoms of nausea + vomiting? No 02/21/2024 15:00 NOUGAT CUTTER MACHINE Peripheral Pulse Rate 93 bpm Oxygen Saturation 95 % 02/21/2024 15:00 NOUGAT CUTTER MACHINE Heart Rate Monitored 95 bpm Respiratory Rate 15 br/min 02/21/2024 15:00 NOUGAT CUTTER MACHINE Systolic Blood Pressure 134 mm Hg Diastolic Blood Pressure 66 mm Hg Oxygen Therapy Nasal cannula Oxygen Flow Rate 2 L/min 02/21/2024 14:59 NOUGAT CUTTER MACHINE Peripheral Pulse Rate 95 bpm Heart Rate Monitored 97 bpm Respiratory Rate 17 br/min Oxygen Saturation 95 % 02/21/2024 14:59 NOUGAT CUTTER MACHINE Temperature Temporal Artery 36 DegC Systolic Blood Pressure 149 mm Hg H Diastolic Blood Pressure 80 mm Hg Pain Med Sedation Score 0 = No sedation; patient awake Primary Pain Intensity 0 = No pain Primary Pain Alleviating Factors Rest Faces Pain Assessment Score 0 Oxygen Therapy Nasal cannula Oxygen Flow Rate 4 L/min PT having symptoms of nausea + vomiting? No 02/21/2024 10:34 NOUGAT CUTTER MACHINE Temperature Temporal Artery 36.3 DegC Peripheral Pulse Rate 72 bpm Respiratory Rate 18 br/min Systolic Blood Pressure 144 mm Hg H Diastolic Blood Pressure 85 mm Hg Primary Pain Intensity 0 = No pain Primary Pain Intensity 0 = No pain Oxygen Therapy Room air Oxygen Saturation 95 % Pain assessment: Pain being treated with parenteral analgesics, aiming for VAS < 4/10. General: Comfortably sedated. Easily arousable. Mental status same as pre-operative. Behavior: Within normal limits. Nausea and Vomiting: No complaint of nausea and vomiting. Hydration: Within normal limits. Skin: Within normal limits. Respiratory: Respirations are non-labored, Airway patent, adequate air exchange.. Cardiovascular: Regular rhythm. Neurologic: Mental status unchanged from pre-op status with no obvious gross focal neurological changes. Assessment Anesthetic outcome No anesthetic complications noted. Plan Transfer/ Discharge: Patient can be discharged from PACU when criteria met. Condition stable. [Electronically Signed on 02/22/2024 02:09 PM NOUGAT CUTTER MACHINE] Janell Lacey M.D. * Zaki Guerra RN: PERFORM Event Display: Pain Reassessment - Opioids - Text Authored Date: [id number] Pain Reassessment - Opioids Entered On: 02/22/2024 05:50 NOUGAT CUTTER MACHINE Performed On: 02/22/2024 05:29 NOUGAT CUTTER MACHINE by Zaki Guerra RN Intervention Information: acetaminophen-hydrocodone Performed by Zaki Guerra RN on 02/22/2024 04:29:00 NOUGAT CUTTER MACHINE acetaminophen-HYDROcodone,1tablet(s) Oral,pain, mild Pain Response Pain Medication Effective : Patient sleeping Pain Med Sedation Score : S = Sleepy; normal to arouse RegineZaki jacome June RN - 02/22/2024 05:49 NOUGAT CUTTER MACHINE * Lynn Kramer RN: PERFORM Event Display: Preop Admission Assessment - Text Authored Date: [id number] Preop Admission Assessment Entered On: 02/21/2024 10:47 NOUGAT CUTTER MACHINE Performed On: 02/21/2024 10:34 NOUGAT CUTTER MACHINE by Lynn Kramer RN Review of Systems Neurological Within Defined Limits : A&Ox4, calm, appropriate, cooperative, no acute distress Cardiovascular Within Defined Limits : Rhythm reg.Nail beds pink.No edema.DP&radial pulses 2+ David. Respiratory Within Defined Limits : Resp. unlabored & reg., all Breath sounds clear, no cough. Gastrointestinal Within Defined Limits : Abd soft & nondistended,+BS all quads,+flatus,soft stool Genitourinary Within Defined Limits : Bladder nondistended,no dysuria,voiding clear,yellow urine Musculoskeletal Within Defined Limits : No special device,no musculoskeletal abnomalities.Full ROM. Integumentary Within Defined Limits : Skin intact, no abnormalities, mucous membranes pink & moist. EENT Within Defined Limits : No ENT issues; or aids in place&working/Nose&pharynx open Lynn Kramer RN - 02/21/2024 10:34 NOUGAT CUTTER MACHINE Vital Signs - Admission Height : 177.85 cm(Converted to: 5.83 ft, 70.02 inch(es)) Weight : 87.1 kg(Converted to: 192.023 pound(s)) Body Mass Index : 27.54 kg/m2 Temperature Temporal Artery : 36.3 DegC(Converted to: 97.3 DegF) Peripheral Pulse Rate : 72 bpm Respiratory Rate : 18 br/min Systolic Blood Pressure : 144 mm Hg (H) Diastolic Blood Pressure : 85 mm Hg Mean Arterial Pressure : 104.67 mm Hg Primary Pain Intensity : 0 = No pain Oxygen Saturation : 95 % Oxygen Therapy : Room air Lynn Kramer RN - 02/21/2024 10:34 NOUGAT CUTTER MACHINE Henri Sensory Perception Henri : No impairment Moisture Henri : Rarely moist Activity Henri : Walks occasionally Mobility Henri : No limitations Nutrition Henri : Adequate Friction and Shear Henri : No apparent problem Henri Score : 21 Lynn Kramer RN - 02/21/2024 10:34 NOUGAT CUTTER MACHINE Fall Risk History of Fall in Last 3 Months [place] : No Unsteady when Walking/Climbing Stairs? : No Any Active Secondary Medical Diagnosis [place] : No Use of Ambulatory Aid [place] : None, bedrest, wheelchair, nurse IV or Any Vascular Access Present [place] : No Gait/Transferring Fall Risk [place] : Normal, bedrest, immobile Mental Status Fall Risk [place] : Oriented to own ability [place] Fall Risk Score : 0 Lynn Kramer RN - 02/21/2024 10:34 NOUGAT CUTTER MACHINE Nutrition Screen Nutritional Risk Factors Lost Weight Recently Without Trying? : No Questions Related to Diet? : No Poor Nutritional Intake > 5 days : No Nutrition Brochure Given to Patient : No Lynn Kramer RN - 02/21/2024 10:34 NOUGAT CUTTER MACHINE ADLs Activity Status ADL : Ambulating in decker Activity Assistance : Independent Assistive Device : None Lynn Kramer RN - 02/21/2024 10:34 NOUGAT CUTTER MACHINE ADLs II Bowel Movement Last Date : 02/20/24 Safety Checklist/Fall Prevention : Allergy Band, Bed in low position, Bed Locked, Medication reviewed for appropriateness, Monitor alarms on/limits set, New medication education given, TV/CCTV, Upper/Half-length side-rails up, Wheels locked Lynn Kramer RN - 02/21/2024 10:34 NOUGAT CUTTER MACHINE Psychosocial Support System Available : Yes Support System : -Khalida Little interest/pleasure in doing things? : No Feeling down, depressed, or hopeless? : No Patient going to Nursing Division after OR? : No Lynn Kramer RN - 02/21/2024 10:34 NOUGAT CUTTER MACHINE Cultural/Spiritual Pastoral Care to Visit : No Lynn Kramer RN - 02/21/2024 10:34 NOUGAT CUTTER MACHINE * Raisa Carmichael M.D.: PERFORM, SIGN, VERIFY Event Display: Pre-Procedure H&P Update Authored Date: [id number] Patient: JANELL GARCIA Age: 68 years Sex: Male : 1955 Associated Diagnoses: None Author: Raisa Carmichael M.D. H&P done within 1-30 days of admission The History and Physical was reviewed and the patient was examined: No change has occured in the patient's condition since the History and Physical was completed. Other Patient Observations: Plan for lumbar decompression and fusion L4-5. [Electronically Signed on 02/21/2024 11:15 AM NOUGAT CUTTER MACHINE] Raisa Carmichael M.D. * Lynn Kramer RN: PERFORM Event Display: Patient History Adult - Text Authored Date: [id number] Patient History (SDS) Entered On: 02/21/2024 10:45 NOUGAT CUTTER MACHINE Performed On: 02/21/2024 10:34 NOUGAT CUTTER MACHINE by Lynn Kramer RN Communication/Educational Needs Patient/Family Education Needs : Activity limitations/expectations, Advance directives, Postoperative instructions, Preoperative instructions, Siderails, Surgery Preferred Mode of Communication : Verbal Lynn Kramer RN - 02/21/2024 10:34 NOUGAT CUTTER MACHINE Preferred Language-SDS Information Given By : Patient Preferred Language of Patient/Caregiver : American Lynn Kramer RN - 02/21/2024 10:34 NOUGAT CUTTER MACHINE Problem List Adult (SDS) Past Medical History Reviewed : Yes Lynn Kramer RN - 02/21/2024 10:34 NOUGAT CUTTER MACHINE (As Of: 02/21/2024 10:45 NOUGAT CUTTER MACHINE) Problems(Active) Apnea, sleep (SNOMED CT :179911504 ) Name of Problem: Apnea, sleep ; Recorder: Lynn Kramer RN; Confirmation: Confirmed ; Classification: Patient Stated ; Code: [id number] ; Contributor System: PowerChart ; Last Updated: 0:35 NOUGAT CUTTER MACHINE ; Life Cycle Date: 02/21/2024 ; Life Cycle Status: Active ; Vocabulary: SNOMED CT Atherosclerosis (SNOMED CT :226478038 ) Name of Problem: Atherosclerosis ; Recorder: Lynn Kramer RN; Confirmation: Confirmed ; Classification: Patient Stated ; Code: [id number] ; Contributor System: PowerChart ; Last Updated: 02/21/2024 10:42 NOUGAT CUTTER MACHINE ; Life Cycle Date: 02/21/2024 ; Life Cycle Status: Active ; Vocabulary: SNOMED CT CAD (coronary artery disease) (SNOMED CT :80194723 ) Name of Problem: CAD (coronary artery disease) ; Recorder: Lynn Kramer RN; Confirmation: Confirmed ; Classification: Patient Stated ; Code: [id number] ; Contributor System: PowerChart ; Last Updated: 02/21/2024 10:42 NOUGAT CUTTER MACHINE ; Life Cycle Date: 02/21/2024 ; Life Cycle Status: Active ; Vocabulary:SNOMED CT 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 (SNOMED CT :3195793324 ) Name of Problem: 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 ; Recorder: Lynn Kramer RN; Confirmation: Confirmed ; Classification: Patient Stated ; Code: [id number] ; Contributor System: PowerChart ; Last Updated: 02/21/2024 10:41 NOUGAT CUTTER MACHINE ; Life Cycle Date: 02/21/2024 ; Life Cycle Status: Active ; Vocabulary: SNOMED CT Hyperlipidemia (SNOMED CT :51336652 ) Name of Problem: Hyperlipidemia ; Recorder: Lynn Kramer RN; Confirmation: Confirmed ; Classification: Patient Stated ; Code: [id number] ; Contributor System: PowerChart ; Last Updated: 02/21/2024 10:42 NOUGAT CUTTER MACHINE ; Life Cycle Date: 02/21/2024 ; Life Cycle Status: Active ; Vocabulary: SNOMED CT Sleep Apnea Risk Assessment Confirmed Obstructive Sleep Apnea : Yes Sleep Apnea Risk: Snores Loudly : Yes Sleep Apnea Risk: Age Over 50 : Yes Sleep Apnea Risk: Tired During Daytime : Yes Sleep Apnea Risk: BMI > 35 kg/m2 : No Sleep Apnea Risk: Stops Breathing : Yes Sleep Apnea Risk: Neck Circumference : No Sleep Apnea Risk: High Blood Pressure : No Sleep Apnea Risk: Gender Male : Yes STOP-BANG Sleep Apnea Risk Score : 5 Lynn Kramer RN - 02/21/2024 10:34 NOUGAT CUTTER MACHINE Family Health History Family History Reviewed : Yes Lynn Kramer RN - 02/21/2024 10:34 NOUGAT CUTTER MACHINE Family History (As Of: 02/21/2024 10:45 NOUGAT CUTTER MACHINE) Mother: Relation: Mother ; Gender: Female ; ; Age at : 93 Years ; Cause of : heart failure Nomenclature: Pulmonary embolism ; Value: Positive Nomenclature: Coronary artery disease ; Value: Positive Nomenclature: Congestive heart failure ; Value: Positive Father: Relation: Father ; Gender: Male ; ; Age at : 51 Years ; Cause of : heart attack Nomenclature: Heart attack ; Value: Positive Procedure History Procedure History Reviewed : Yes Lynn Kramer RN - 02/21/2024 10:34 NOUGAT CUTTER MACHINE - Procedure History (As Of: 02/21/2024 10:45 NOUGAT CUTTER MACHINE) Procedure Dt/Tm: 2022 ; Anesthesia Minutes: 0 ; Procedure Name: Lumbar discectomy ; Procedure Minutes: 0 ; Last Reviewed Dt/Tm: 02/21/2024 10:34 NOUGAT CUTTER MACHINE Allergies Allergies Verified? : Yes Lynn Kramer RN - 02/21/2024 10:34 NOUGAT CUTTER MACHINE (As Of: 02/21/2024 10:45 NOUGAT CUTTER MACHINE) Allergies (Active) NKA Estimated Onset Date: Unspecified ; Created By: Lynn Kramer RN; Reaction Status: Active ; Category: Drug ; Substance: NKA ; Type: Allergy ; Updated By: Lynn Kramer RN; Reviewed Date: 02/21/2024 10:34 NOUGAT CUTTER MACHINE Medication List Anticoagulant Therapy in Last 7 Days : No Chemotherapy Med. Currently Taking : No Lynn Kramer RN - 02/21/2024 10:34 NOUGAT CUTTER MACHINE Medication List (As Of: 02/21/2024 10:45 NOUGAT CUTTER MACHINE) Normal Order ceFAZolin IVPB : ceFAZolin IVPB ; Status: Ordered ; Ordered As Mnemonic: ceFAZolin ; Simple Display Line: 1 gm, 50mL, 100 mL/hr, IV Piggyback, preop ; Ordering Provider: Raisa Carmichael M.D.; Catalog Code: ceFAZolin ; Order Dt/Tm: 02/20/2024 13:25 NOUGAT CUTTER MACHINE ; Comment: Refrigerate. Do Not Freeze. Home Meds gabapentin : gabapentin ; Status: Documented ; Ordered As Mnemonic: gabapentin 100 mg oral capsule ; Simple Display Line: 100 mg, 1 capsule(s), Oral, tid, 0 Refill(s) ; Catalog Code: gabapentin ; Order Dt/Tm: 02/21/2024 10:39 NOUGAT CUTTER MACHINE sertraline : sertraline ; Status: Documented ; Ordered As Mnemonic: sertraline 100 mg oral tablet ; Simple Display Line: 100 mg, 1 tablet(s), Oral, daily, 30 tablet(s), 0 Refill(s) ; Catalog Code: sertraline ;Order Dt/Tm: 02/21/2024 10:38 NOUGAT CUTTER MACHINE spironolactone : spironolactone ; Status: Documented ; Ordered As Mnemonic: spironolactone 25 mg oral tablet ; Simple Display Line: 12.5 mg, 0.5 tablet(s), Oral, daily, 15 tablet(s), 0 Refill(s) ; Catalog Code: spironolactone ; Order Dt/Tm: 02/21/2024 10:38 NOUGAT CUTTER MACHINE atorvastatin : atorvastatin ; Status: Documented ; Ordered As Mnemonic: atorvastatin 80 mg oral tablet ; Simple Display Line: 80 mg, 1 tablet(s), Oral, daily, 30 tablet(s), 0 Refill(s) ; Catalog Code: atorvastatin ; Order Dt/Tm: 02/21/2024 10:37 NOUGAT CUTTER MACHINE Pain Assessment Pain Scale Used : Intensity Scale (1-10) Primary Pain Intensity : 0 = No pain Acceptable Intensity : 0 Lynn Kramer RN - 02/21/2024 10:34 NOUGAT CUTTER MACHINE Anesthesia/Transfusion Anesthesia/Transfusions : No family history of malignant hyperthermia, Prior anesthesia Lynn Kramer RN - 02/21/2024 10:34 NOUGAT CUTTER MACHINE TB Screen Previous Pneumococcal Vaccine? : Yes Flu Vaccine This Season? : Yes Novel Coronavirus Received Vaccine : Yes Novel Coronavirus Vaccine Type : Pfizer Novel Coronavirus Completed Vac Series : Yes Novel Coronavirus Booster Vaccine Received : Yes Lynn Kramer RN - 02/21/2024 10:34 NOUGAT CUTTER MACHINE Novel Coronavirus Assessment Novel Coronavirus Current Fever : No Novel Coronavirus Exposed COVID 14 days : No Lynn Kramer RN - 02/21/2024 10:34 NOUGAT CUTTER MACHINE Functional (SDS) Risk Scoring: Age (years) : 65-79 years Risk Scoring: Prior Living Status : Lived alone Risk Scoring: Disability : Slight disability (Comment: jass [Lynn Kramer RN - 02/21/2024 10:34 NOUGAT CUTTER MACHINE] ) Risk Scoring: Walking Limitation-per pt. : No Patient Support Risk Score : 12 Sensory Deficits : Corrected vision impairment, Hearing deficit, left ear, Hearing deficit, right ear Current Home Treatments : CPAP Medical Devices : None Radiology Testing Barriers/Precautions : None Pt Has Ride Home : Yes Medical Devices/Radiology Barriers Verified : Yes Lynn Kramer RN - 02/21/2024 10:34 NOUGAT CUTTER MACHINE Social Habits Social History Reviewed : Yes Lynn Kramer RN - 02/21/2024 10:34 NOUGAT CUTTER MACHINE Social History (As Of: 02/21/2024 10:45 NOUGAT CUTTER MACHINE) Tobacco: Never smoker, Smokeless Tobacco use: Never. No Cessation Counseling. (Last Updated: 02/21/2024 10:36 NOUGAT CUTTER MACHINE by Lynn Kramer RN) Alcohol: Never alcohol user (Last Updated: 02/21/2024 10:36 NOUGAT CUTTER MACHINE by Lynn Kramer RN) Substance Abuse: Never drug user (Last Updated: 02/21/2024 10:36 NOUGAT CUTTER MACHINE by yLnn Kramer RN) Psychosocial Domestic Violence Screening : Patient does not have domestic violence concerns Current Danger to Self or Others : No Sad Persons Indicators : Not applicable Sad Persons Score : 0 Lynn Kramer RN - 02/21/2024 10:34 NOUGAT CUTTER MACHINE Advance Directive Advanced Directives : No; Patient DECLINED additional information Lynn Kramer RN - 02/21/2024 10:34 NOUGAT CUTTER MACHINE Checklist Patient Safety Grid Allergy Band on and Verified : Yes Blood Band on and Verified : No ID Band on and Verified : Yes Implants Verified : Yes Pacemaker/AICD Verified : No Site Verified by Patient/Family : Yes Site Verified by RN : Yes Site Verified by Physician : No Latex Allergy : No Chlorhexidine Wipes Used : Yes Lynn Kramer RN - 02/21/2024 10:34 NOUGAT CUTTER MACHINE Patient Rights Grid Anesthesia Consent Signed : No Blood Consent Signed : Yes Surgical Consent Signed : Yes Radiology Consent Signed : No Time Out Checklist Verified : No Lynn Kramer RN - 02/21/2024 10:34 NOUGAT CUTTER MACHINE Last Fluid Intake : 02/20/2024 23:00 NOUGAT CUTTER MACHINE Last Food Intake : 02/20/2024 23:00 NOUGAT CUTTER MACHINE Lynn Kramer RN - 02/21/2024 10:34 NOUGAT CUTTER MACHINE Valuables Clothes, Patient Valuables at Bedside : Pants, Shirt, Shoes, Undergarments Electronic Devices at Bedside : Cell phone Personal Devices at Bedside : Glasses Lynn Kramer RN - 02/21/2024 10:34 NOUGAT CUTTER MACHINE Education Preprocedure Education Grid Procedure Type : posterior lumbar fusion Preprocedure Education Topics : Chlorhexidine Wipes Given, Anesthesia/Sedation, Medicare self-administered drugs, Pre-op shower/shampoo, Preprocedure diet, Preprocedure tests/labs, Turn/Cough/Deep breathing Individuals Taught : Patient Barriers to Learning : None evident Teaching Method : Explanation Assessment/Outcome Evaluation : Verbalizes understanding Lynn Kramer RN - 02/21/2024 10:34 NOUGAT CUTTER MACHINE * Janell Lacey M.D.: PERFORM, SIGN, VERIFY Event Display: Anesthesia Preoperative Evaluation Authored Date: [id number] Patient: JANELL GARCIA Age: 68 years Sex: Male : 1955 Associated Diagnoses: None Author: Janell Lacey M.D. Preoperative Information Pre-Op Evaluation Performed on:: 02/21/2024 11:45:00. Patient NPO Status: Patient was NPO after Midnight. NPO after Midnight Anesthesia history: Patient history: No prior anesthesia problems. Re-evaluation prior to induction: Completed. Sleep Apnea Risk Assessment: Sleep Apnea Risk Assessment : NATALIE Risk Assessment 02/21/2024 10:34 NOUGAT CUTTER MACHINE Confirmed Obstructive Sleep Apnea Yes STOP-BANG Sleep Apnea Risk Score 5 . Review of Systems Constitutional: Negative. Respiratory: Negative, No shortness of breath, No wheezing. Hematology/Lymphatics: Negative, No bruising tendency, No bleeding tendency. Endocrine: Negative. Neurologic: Negative. ROS reviewed as documented in chart Health Status Allergies: Allergic Reactions (Selected) NKA, Allergies (1) Active Severity Reaction NKA None Documented Current medications: Home Medications (5) Active atorvastatin 80 mg oral tablet 80 mg = 1 tablet(s), Oral, daily methocarbamol 750 mg oral tablet 750 mg = 1 tablet(s), PRN, Oral, qid Planada 5 mg-325 mg oral tablet 1-2 tablets, PRN, Oral, h1iekog sertraline 100 mg oral tablet 100 mg = 1 tablet(s), Oral, daily spironolactone 25 mg oral tablet 12.5 mg = 0.5 tablet(s), Oral, daily Problem list: Active Problems (5) Apnea, sleep Atherosclerosis CAD (coronary artery disease) 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 Family History: Coronary artery disease Mother () Pulmonary embolism Mother () Congestive heart failure Mother () Heart attack Father () Procedure history: Lumbar discectomy (SNOMED CT [id number]) in 2022 at 67 Years. Physical Examination Intake and Output No I & O Data Available Vitals Temp BP Pulse RR SpO2 FIO2 Date Wt(kg) Wt(lb) 02/20 10:34 36.3 144/85 72 18 95 RA 02/20 87.1 192 24 Hr Tmax: 36.3 at 02/20 10:34 36 Hr Tmax: 36.3 at 02/20 10:34 Vital Signs are the last 5 in the past 48 hours. Weights display the last 5 within 7 days. Initial Wt: 02/20 87.1 kg 192 lb PACU - Vital Signs 02/21/2024 10:34 NOUGAT CUTTER MACHINE Temperature Temporal Artery 36.3 DegC Peripheral Pulse Rate 72 bpm Respiratory Rate 18 br/min Systolic Blood Pressure 144 mm Hg H Diastolic Blood Pressure 85 mm Hg Primary Pain Intensity 0 = No pain Primary Pain Intensity 0 = No pain Oxygen Therapy Room air Oxygen Saturation 95 % Measurements from flowsheet : Measurements 02/21/2024 10:34 NOUGAT CUTTER MACHINE Height 177.85 cm Weight 87.1 kg Body Mass Index 27.54 kg/m2 General: Alert and oriented, No acute distress. Behavior: Within normal limits. Skin: Within normal limits. Airway: Mallampati classification: II (soft palate, fauces, uvula visible). Distance: Mentohyoid, Adequate. Temporomandibular joint mobility: Good. Mouth: Adequate opening. Neck: Full range of motion, Able to place in sniff position, Trachea ( Midline ). HENT: Normocephalic. Respiratory: Lungs are clear to auscultation. Cardiovascular: Normal rate, Regular rhythm. Neurologic: No focal deficits. Review / Management Results Review: Summary Labs No qualifying data available . Plan [place] [employer]esthesi[employer] (ASA) physical status classification: Class II. Anesthetic Preoperative Plan Anesthesia: General. Anesthetic plan, risks, benefits, and alternatives discussed with the patient and/or family. Risks discussed: nausea, vomiting, headache, sore throat, dental injury, serious complications, Patient understands that all dental devices and dental repair work, including but not limited to caps, veneers, bridges, crowns, implants, dentures are more prone to damage during anesthesia, than what natural dentition would be.. Patient verbalized understanding. Informed consent was given. Consent was signed by the patient. [Electronically Signed on 02/21/2024 11:45 AM NOUGAT CUTTER MACHINE] Janell Lacey M.D. * Zaki Guerra RN: PERFORM Event Display: Pain Reassessment - Opioids - Text Authored Date: [id number] Pain Reassessment - Opioids Entered On: 02/22/2024 05:49 NOUGAT CUTTER MACHINE Performed On: 02/21/2024 22:59 NOUGAT CUTTER MACHINE by Zaki Guerra RN Intervention Information: acetaminophen-hydrocodone Performed by Zaki Guerra RN on 02/21/2024 21:59:00 NOUGAT CUTTER MACHINE acetaminophen-HYDROcodone,1tablet(s) Oral,pain, mild Pain Response Pain Medication Effective : Patient sleeping Pain Med Sedation Score : Sleeping Respiratory Sedation Assessment : Respirations >=10, Regular rate and rhythm, Unlabored Zaki Guerra RN - 02/22/2024 05:49 NOUGAT CUTTER MACHINE * Event Display: Authorization to Treat * Event Display: Authorization to Treat Progress note * Qian Mesa: PERFORM, SIGN, VERIFY Event Display: Progress Note-Physician Authored Date: [id number] Patient: JANELL GARCIA Age: 68 years Sex: Male : 1955 Associated Diagnoses: None Author: Qian MesaC Post-Op Rounds Post-Op Day: 1. Vital Signs: Vitals Temp BP Pulse RR SpO2 FIO2 Date Wt(kg) Wt(lb) 02/21 07:50 37.2 132/57 85 17 95 RA 02/20 87.1 192 02/21 04:09 36.7 139/59 84 16 94 RA 02/21 00:12 36.7 144/58 96 16 96 RA 02/20 21:38 36.9 139/65 97 16 93 RA 02/20 18:30 37.0 141/65 94 -- 92 RA 24 Hr Tmax: 37.2 at 02/21 07:50 36 Hr Tmax: 37.2 at 02/21 07:50 Vital Signs are the last 5 in the past 48 hours. Weights display the last 5 within 7 days. Initial Wt: 02/20 87.1 kg 192 lb . Lab Results: No qualifying data available . Wounds and Drains: Wound info from Chart last 24 hours : Incision/Wound, 02/21/2024 20:26 NOUGAT CUTTER MACHINE Medial, Back Surgical incision Not present on admission Incision/Wound Dressing, Drainage present, Transparent dressing, Nonadhesive dressing Incision/Wound Drainage, Serosanguineous Incision/Wound Drainage Amount, Small , Drain info from Chart last 24 hours : Drains and Tubes,. 02/22/2024 04:00 NOUGAT CUTTER MACHINE Midline Back Hemovac Drain/Tube Output, 95 mL 02/21/2024 20:26 NOUGAT CUTTER MACHINE Midline Back Hemovac Drain/Tube Activity, Assess Drain/Tube Location, Description Lumbar Drain/Tube Method of Drainage, Compression Drain/Tube Dressing Condition, Dry, Intact Drain/Tube Drainage Description, Sanguineous . Subjective: No neurologic issues overnight. He continues with some improved numbness to his left lateral calf. He feels his preoperative left ankle weakness has improved. Voiding and eating well. Up in halls with PT. . Physical Exam: Wound: Clean, dry and intact Motor: 5/5 bilaterally with knee extension, dorsiflexion, plantarflexion and EHL, except 1/5 in left dorsiflexion Sensation: Grossly intact bilaterally in the legs and feet soft touch. Ambulation: Normal . Plan: Mr. Garcia is POD #1 from a L4-5 decompression and instrumented stabilization Plan: - Continue on current pain regimen and stool softener - Increase activity with PT/OT. - LSO Brace when OOB - Leave hemovac inplace- recheck output this afternoon- if <100ml- may remove - SCDs for DVT prophylaxis and continue IS - Patient is ready for discharge. I discussed discharge instructions. He is to avoid bending, twisting and lifting >10lbs for 12 weeks. He may remove dressing in 2 days and leave incision MANAGER HYDRAULIC. - He knows to call the office with any new questions or concerns. Pain script left in chart. Follow up in 4-[address] Carmichael. . [Electronically Signed on 02/22/2024 08:31 AM NOUGAT CUTTER MACHINE] Qian Msea, EARLY YEARS TEACHER-C Raisa Carmichael M.D. Surgical operation note * Raisa Carmichael M.D.: PERFORM, SIGN, VERIFY Event Display: Operative Report Authored Date: [id number] Patient: JANELL GARCIA Age: 68 years Sex: Male : 1955 Associated Diagnoses: None Author: Raisa Carmichael M.D. Notes OPERATIVE REPORT Date of Operation: February 21, 2024 Preoperative Diagnosis: 1. L4-5 lumbar spondylosis with far lateral disc protrusion and left sided neuroforaminal stenosis 2. History of prior lumbar decompression L4-5 Postoperative Diagnosis: Same Procedure: 1. L4-5 Lumbar spinal decompression with far lateral decompression at L4-5 on the left 2. Harvesting of local bone for autograft 3. Posterolateral arthrodesis, L4-5 4. Instrumented posterolateral fusion, L4-5 5. Use of spinal navigation Attending: Raisa Carmichael MD Anesthesia: GET EBL:50 cc IVF: 2000 crystalloid Complications: None Specimens Removed: None Hardware Implanted: Orthofix 6.5 x 50 mm screws at L4 bilaterally and L5; 50 mm rods bilaterally Indication for Procedure: Janell Garcia is a very pleasant 68 year old male who presents with signs and symptoms of claudicatory left lower extremity radicular pain, sensory change and weakness in the setting of lumbar spondylosis in the lateral recess and neural foramen at L4-5. he has tried with temporary but not lasting relief of symptoms including weakness with an CHELSEA. In the office the most concerning symptom to the patient was the finding of weakness and sensory change. The patient and I have had an extended discussion in the office regarding the options for management of her clinical symptoms and radiographic findings particularly option of surgery. In the absence of functional deficits, we have explained thatmy preference is to exhaust non surgical options prior to consideration of surgery. However, we have discussed that as Janell has been unable to obtain durable relief of symptoms with non surgical measures that it would be very reasonable to consider surgical intervention. In this case we have discussed that surgery would entail a wide lumbar decompression (to address the and neuroforaminal stenosis at L4-5 as well as a fusion from L4-L5. I have explained that surgery would entail a PLF at from L4-L5. I have explained the indications for surgery as well as the risks, including but not limited to bleeding, infection, CSF leak, numbness, weakness, paralysis, stroke, coma, even . We have discussed the risk of pseudarthrosis, hardware failure, adjacent level disease, and even the need for further surgery. We have discussed the fundamentals of the surgical procedure and the typical recovery from surgery. Janell indicates understanding and asks us to proceed Procedure: The patient was brought into the operating room. she was intubated in a supine position on the hospital stretcher orotracheally by anesthesia. Appropriate intravenous access and monitoring were obtained. The patient was then turned into a prone position on the operating room table. The patient???s back was prepped and draped in a sterile fashion. A linear midline incision was made using a #10 blade scalpel extending from approximately L3-4 to L4-5 using the patient's prior incision as a guide. Hemostasis was achieved. Self-retaining retractors were placed. Dissection was carried down in the middle to the lumbodorsal fascia. Dissection was carried down inthe midline. Dissection identified the L3-4 and L4-5 levels and the associated spinous processes, including the prior decompression at L4-5. The laminae were identified at L3, and the joints were identified at L3-4 and L4-5. Dissection was carried laterally using bovie electrocautery to identify the patient's transverse processes from L4 through L5 Attention was turned to placement of the pedicle screws. Because of the patinet's prior surgery, the decision had been made to use navigation for pedicle screw placement. The localizer placed on the spinous process of L5. The O-arm was brought into the field and a CT was obtained. Localization for pedicle screw placement was performed at, L4 and L5 bilaterally. 6.5 x 50 mm screws were placed at each level. For each screw the same methodology was used. The entry point for screw placement was identified using the navigation system. The entry point was drilled. Using this trajectory, a pedicle finder was passed through the pedicle to the level of the vertebral body. A ball-tipped probe was used to confirm no breach.The appropriate pedicle screw was then advanced and passed. At each location the pedicle screw was tested with EMG stimulation. There was no suggestion of a breach or abnormal stimulation of the nerve root. Attention was then turned to the decompression portion of the procedure. Attention was turned to the L4-5 level. A distractor was placed into the screws at L4 and L5 on the right and secured. The pars was identirfied on the left and using a rongeur and kerossen punch the bone overlying the lateral foramen was idenfied and removed. Thus a far lateral decompression was achieved to adequately decompress the spinal and neuroforaminal stenosis at this level. The facet and pars were drilled and removed using kerossen punches. The exiting nerve root was visualized in the foramen and the left lateralrecess was probed and there was no residual compression 2 rods (prebent) measuring 50 mm on the left and the right were placed into the pedicle screws at L4 and L5 and secured with set screws. First this was perfomed on the left using the distractor in place on the right. These were tightened with a torque wrench.. Then the distractor was removed and the skylar was placed on the right. The set screws were tightened with the torque wrench. The localization of the screws was confirmed with fluoroscopy. At the completion of the arthrodesis and instrumented fusion the construct was solid and the alignment appeared improved. The patient's own bone which had been morsellized and mixed with [employer] biologic bone growth personnel coordinator was packed into the posterolateral gutters to perform a posterolateral arthrodesis. The transverse processes had been drilled prior to screw placement at L4 and L5. Thus a posterolateral instrumented arthrodesis was performed from L4-L5 The wound was copiously irrigated. Hemostasis was achieved. A hemovac drain was tunnelled and secured. The wound was then closed in layers. 0 Vicryl suture was used for the muscle and fascia. 2-0 Vicryl suture was used for the underlying soft tissue and dermis. 3-0 Vicryl suture was used for the dermis. bupivicaine was placed in the subcutaneous tissue. Surgical kecia were used for the skin. The patient was awakened by anesthesia and taken to recovery in stable condition. All counts were correct. I was present for the entirety of the procedure. [Electronically Signed on 02/21/2024 02:27 PM NOUGAT CUTTER MACHINE] Raisa Carmichael M.D. Hospital Summary note * Suzanne Hassan NURSE PROGRAM MANAGEMENT SPECIALIST: PERFORM Event Display: Inpatient Patient Summary Authored Date: [id number] Thank you for choosing [facility] for your health care. Routine checkups and screenings are an important part of staying healthy. [facility] entire network of care is open, safe and ready to provide you with the very best patient-focused care. JANELL GARCIA :1955 Visit Date:02/21/2024 Inpatient Discharge Instructions [facility] would like to thank you for allowing us to assist you with the healthcare needs. The following information includes patient education materials and information regarding your injury/illness. Our entire staff strives to provide a very good experience for our patients and their families. You may receive, by mail, a survey about your experience with us at [facility].PLEASE ENSURE YOU FOLLOW-UP PER THE INSTRUCTIONS BELOW. Location Information ?[facility]?[address] ?? Your Care Team Admitting Physician - Raisa Carmichael M.D. Attending Physician - Raisa Carmichael M.D. Primary Care Physician - Juan Antunez MD Reason for Your Visit Encounter for other specified special examinations Your Diagnosis Encounter for other specified special examinations Lumbar spondylosis Discharge Orders Discharge Instructions ?Diet Instructions post Discharge?Diet post Discharge?No Restrictions ?Discharge Activity Restrictions?Activity Level post Discharge?No Strenuous Activity ?Discharge Patient to?Discharge Disposition?Home with Physician Follow-up ?Contact your Surgeon?Follow-up Instuctions post Discharge?Contact your surgeon for pain or other questions/concerns. ?? Instructions From Your Doctor Nursing Discharge Instructions Outpatient Surgery Instructions: If you have any problems regarding your procedure after discharge,please contact your surgeon or if after normal business hours, call the exchange. ??In the event ofan emergency, please call 911 or go to your nearest Emergency Department. Nursing Unit Patient Home Medications Returned: No home medications No qualifying data available. Tests Pending Procedures History ???Lumbar discectomy (2022) Discharge Vitals Peripheral Pulse Rate: 71 bpm (02/22/24 12:51:00) Respiratory Rate: 16 br/min (02/22/24 12:51:00) Systolic Blood Pressure: 112 mm Hg (02/22/24 12:51:00) Diastolic Blood Pressure: 76 mm Hg (02/22/24 12:51:00) Oxygen Saturation: 94 % (02/22/24 12:51:00) What to do next Scheduled Follow-Up Appointments You Need to Schedule the Following Appointments Follow Up with??Raisa Carmichael When?? Why: Call for follow up appointment Where: [facility]. [address] [address]- Business (1) The Following Equipment/Services/Treatments Have Been Arranged For You No qualifying data available. Medications [facility] provided you with a completed list of medications post discharge, share the list of your current medications with your primary care physician; update the information when medications are discontinued, doses are changed, or new medications (including over the counter products) are added; and carry medication information at all times in the event of emergency situations. What How Much When Instructions Side Effects Next Dose New acetaminophen- HYDROcodone (Planada 5 mg-325 mg oral tablet) 1-2 tablets By mouth Every 4 hours as needed for pain, moderate Printed Prescription New methocarbamol (methocarbamol 750 mg oral tablet) 1 tablet(s) By mouth 4 times a day as needed for muscle spasm Printed Prescription Unchanged atorvastatin (atorvastatin 80 mg oral tablet) 1 tablet(s) By mouth Daily Unchanged sertraline (sertraline 100 mg oral tablet) 1 tablet(s) By mouth Daily Unchanged spironolactone (spironolactone 25 mg oral tablet) 0.5 tablet(s) By mouth Daily ?? What How Much When Comments Stop Taking gabapentin (gabapentin 100 mg oral capsule) 1 capsule(s) By mouth 3 times a day Immunizations This Visit Allergies NKA Problems Ongoing No qualifying data PatientStated Apnea, sleep Atherosclerosis CAD (coronary artery disease) 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 Hyperlipidemia Historical No qualifying data Medication Information ?? Education Materials ? CARE OF THE PATIENT WITH LUMBAR FUSION ? 1.?? Wear your brace for support when up. ? 2.?? Avoid (BLT) bending, lifting and twisting movements of the back. ? 3.?? No lifting greater than 8-10 pounds. (A gallon of milk weighs 8 pounds.) ? 4.?? It is acceptable to use oapy-ldj-abcgdzg pain medication for less severe pain. If you underwent afusion surgery, please avoid use of anti-inflammatory medications until further notice. ? 5.?? It is fine to use myff-gzi-rhwfvat laxative of choice to avoid constipation. ? 6.?? Keep the Steri-Strips in place on your incision. They will fall off on their own as you shower. It is OK to gently remove them in 2 weeks if they have not fallen off. ? 7.?? It is OK to shower over Steri-Strips after 3 days. No soaking tub baths for 2 weeks after the surgery. ? 8.?? If you have stitches, please contact the office for an appointment for suture removal. ? 9.?? You may walk stairs carefully. ? 10.?? You may engage in sexual activities in 2 weeks. ? 11.?? It is best to avoid car rides for 2 weeks, to avoid an accident. ? 12.?? You may drive in 3-4 weeks, when you have weaned from the pain medication and the effects of anesthesia have resolved. ? 13.?? Walk as much as tolerated and comfortable. This is the only recommended exercise for you. ? 14.?? No return to work until advised by your physician. ? 15.?? See your surgeon as instructed by him. If your post-op/follow-up visit was NOT arranged prior to your surgery, please call the office within one week to schedule this visit. ? 16.?? Please call the office promptly to report fever, drainage from your incision, or any other problem that occurs before your scheduled appointment. ? 17.?? If you feel you require medication refills, please give the office 72 hours notice. There will be no medication refills over the weekend. ? Revised 01/2024 SLE-0004 Patient Portal Information [employer] is a secure online tool where you can access your personal health records, test results, visit summaries or request follow up appointments. The portal can be accessed on the hospital website [email or web address] where you can self-enroll if you did not do so on registration. If you need assistance logging in, please call . For questions regarding medications or other healthconcerns after discharge, please contact your physician???s office. Location:[facility] Registration Date and Time:02/21/2024 10:01 NOUGAT CUTTER MACHINE Primary Care Physician: Juan Antunez MD, Attending Physician: Raisa Carmichael M.D., Designated Caregiver: I have received the above patient education materials/instructions and have verbalized understanding. Patient/Emergency Room Nurse Signature: Date/Time: Designated Caregiver Signature: Date/Time: Unable to contact Designated Caregiver upon discharge. Provider Signature: Date/Time: Final Medication List We have provided this final list of active medications as a courtesy so that you can easily update your home records and provide to your physician(s). These are the only medications that you should be taking. Please review carefully and contact your doctor prior to taking any medications NOT on this list. New acetaminophen-HYDROcodone (Planada 5 mg-325 mg oral tablet)1-2 tablets By mouth every 4 hours as needed pain, moderate. Refills: 0. methocarbamol (methocarbamol 750 mg oral tablet)1 tablet(s) By mouth 4 times a day as needed musclespasm. Refills: 0. Unchanged atorvastatin (atorvastatin 80 mg oral tablet)1 tablet(s) By mouth daily. sertraline (sertraline 100 mg oral tablet)1 tablet(s) By mouth daily. spironolactone (spironolactone 25 mg oral tablet)0.5 tablet(s) By mouth daily. Discontinued gabapentin (gabapentin 100 mg oral capsule)1 capsule(s) By mouth 3 times a day. * Suzanne Hassan NURSE PROGRAM MANAGEMENT SPECIALIST: PERFORM Event Display: Inpatient Patient Summary Authored Date: Thank you for choosing [facility] for your health care. Routine checkups and screenings are an important part of staying healthy. [facility] is open, safe and ready to provide you with the very best patient-focused care. JANELL GARCIA :1955 Visit Date:02/21/2024 Inpatient Discharge Instructions [facility] would like to thank you for allowing us to assist you with the healthcare needs. The following information includes patient education materials and information regarding your injury/illness. Our entire staff strives to provide a very good experience for our patients and their families. You may receive, by mail, a survey about your experience with us at [facility].PLEASE ENSURE YOU FOLLOW-UP PER THE INSTRUCTIONS BELOW. Location Information ?[facility]?[address] ?? Your Care Team Admitting Physician - Raisa Carmichael M.D. Attending Physician - Raisa Carmichael M.D. Primary Care Physician - Juan Antunez MD Reason for Your Visit Encounter for other specified special examinations Your Diagnosis Encounter for other specified special examinations Lumbar spondylosis Discharge Orders Discharge Instructions ?Diet Instructions post Discharge?Diet post Discharge?No Restrictions ?Discharge Activity Restrictions?Activity Level post Discharge?No Strenuous Activity ?Discharge Patient to?Discharge Disposition?Home with Physician Follow-up ?Contact your Surgeon?Follow-up Instuctions post Discharge?Contact your surgeon for pain or other questions/concerns. ?? Instructions From Your Doctor Nursing Discharge Instructions Outpatient Surgery Instructions: If you have any problems regarding your procedure after discharge,please contact your surgeon or if after normal business hours, call the exchange. ??In the event ofan emergency, please call 911 or go to your nearest Emergency Department. Nursing Unit Patient Home Medications Returned: No home medications No qualifying data available. Tests Pending Procedures History ???Lumbar discectomy (2022) Discharge Vitals Peripheral Pulse Rate: 71 bpm (02/22/24 12:51:00) Respiratory Rate: 16 br/min (02/22/24 12:51:00) Systolic Blood Pressure: 112 mm Hg (02/22/24 12:51:00) Diastolic Blood Pressure: 76 mm Hg (02/22/24 12:51:00) Oxygen Saturation: 94 % (02/22/24 12:51:00) What to do next Scheduled Follow-Up Appointments You Need to Schedule the Following Appointments Follow Up with??Raisa Carmichael When?? Why: Call for follow up appointment Where: [facility]. [address] [address]- Business (1) The Following Equipment/Services/Treatments Have Been Arranged For You No qualifying data available. Medications [facility] provided you with a completed list of medications post discharge, share the list of your current medications with your primary care physician; update the information when medications are discontinued, doses are changed, or new medications (including over the counter products) are added; and carry medication information at all times in the event of emergency situations. What How Much When Instructions Side Effects Next Dose New acetaminophen- HYDROcodone (Planada 5 mg-325 mg oral tablet) 1-2 tablets By mouth Every 4 hours as needed for pain, moderate Printed Prescription New methocarbamol (methocarbamol 750 mg oral tablet) 1 tablet(s) By mouth 4 times a day as needed for muscle spasm Printed Prescription Unchanged atorvastatin (atorvastatin 80 mg oral tablet) 1 tablet(s) By mouth Daily Unchanged sertraline (sertraline 100 mg oral tablet) 1 tablet(s) By mouth Daily Unchanged spironolactone (spironolactone 25 mg oral tablet) 0.5 tablet(s) By mouth Daily ?? What How Much When Comments Stop Taking gabapentin (gabapentin 100 mg oral capsule) 1 capsule(s) By mouth 3 times a day Immunizations This Visit Allergies NKA Problems Ongoing No qualifying data PatientStated Apnea, sleep Atherosclerosis CAD (coronary artery disease) 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 Hyperlipidemia Historical No qualifying data Medication Information ?? Education Materials ? CARE OF THE PATIENT WITH LUMBAR FUSION ? 1.?? Wear your brace for support when up. ? 2.?? Avoid (BLT) bending, lifting and twisting movements of the back. ? 3.?? No lifting greater than 8-10 pounds. (A gallon of milk weighs 8 pounds.) ? 4.?? It is acceptable to use avel-hya-mbnqipu pain medication for less severe pain. If you underwent afusion surgery, please avoid use of anti-inflammatory medications until further notice. ? 5.?? It is fine to use mwyv-tsi-svqpenx laxative of choice to avoid constipation. ? 6.?? Keep the Steri-Strips in place on your incision. They will fall off on their own as you shower. It is OK to gently remove them in 2 weeks if they have not fallen off. ? 7.?? It is OK to shower over Steri-Strips after 3 days. No soaking tub baths for 2 weeks after the surgery. ? 8.?? If you have stitches, please contact the office for an appointment for suture removal. ? 9.?? You may walk stairs carefully. ? 10.?? You may engage in sexual activities in 2 weeks. ? 11.?? It is best to avoid car rides for 2 weeks, to avoid an accident. ? 12.?? You may drive in 3-4 weeks, when you have weaned from the pain medication and the effects of anesthesia have resolved. ? 13.?? Walk as much as tolerated and comfortable. This is the only recommended exercise for you. ? 14.?? No return to work until advised by your physician. ? 15.?? See your surgeon as instructed by him. If your post-op/follow-up visit was NOT arranged prior to your surgery, please call the office within one week to schedule this visit. ? 16.?? Please call the office promptly to report fever, drainage from your incision, or any other problem that occurs before your scheduled appointment. ? 17.?? If you feel you require medication refills, please give the office 72 hours notice. There will be no medication refills over the weekend. ? Revised 01/2024 Patient Portal Information [employer] is a secure online tool where you can access your personal health records, test results, visit summaries or request follow up appointments. The portal can be accessed on the hospital website [email or web address] where you can self-enroll if you did not do so on registration. If you need assistance logging in, please call . For questions regarding medications or other healthconcerns after discharge, please contact your physician???s office. [facility]:[id number] Location:[facility] Registration Date and Time:02/21/2024 10:01 NOUGAT CUTTER MACHINE Primary Care Physician: Juan Antunez MD, Attending Physician: Raisa Carmichael M.D., Designated Caregiver: I have received the above patient education materials/instructions and have verbalized understanding. Patient/Emergency Room Nurse Signature: Date/Time: Designated Caregiver Signature: Date/Time: Unable to contact Designated Caregiver upon discharge. Provider Signature: Date/Time: Final Medication List We have provided this final list of active medications as a courtesy so that you can easily update your home records and provide to your physician(s). These are the only medications that you should be taking. Please review carefully and contact your doctor prior to taking any medications NOT on this list. New acetaminophen-HYDROcodone (Planada 5 mg-325 mg oral tablet)1-2 tablets By mouth every 4 hours as needed pain, moderate. Refills: 0. methocarbamol (methocarbamol 750 mg oral tablet)1 tablet(s) By mouth 4 times a day as needed musclespasm. Refills: 0. Unchanged atorvastatin (atorvastatin 80 mg oral tablet)1 tablet(s) By mouth daily. sertraline (sertraline 100 mg oral tablet)1 tablet(s) By mouth daily. spironolactone (spironolactone 25 mg oral tablet)0.5 tablet(s) By mouth daily. Discontinued gabapentin (gabapentin 100 mg oral capsule)1 capsule(s) By mouth 3 times a day. Anesthesia records * Event Display: Anesthesia Record Authored Date: Patient Care team information Care Team Personnel Name: Juan Antunez MD Position: ZZ FAX ONLY - MD NOT ON STAFF Member Role: Primary Care Physician Address: [address] [place] [address] [address] [place] [address]- Telecom: Name: Raisa Carmichael M.D. Position: CPOE Surgeon Med Service: Heat Treat Operator Telephone Messenger Role: Ordering Physician Address: [address] [place] [address] Telecom: Care Team Related Persons Name: KHALIDA GARCIA Insurance Providers Guarantor name: JANELL GARCIA Health Plan Information #: 1 Payer: Medicare Member Number: [id number] Policy Number: NA Group Number: NA Health Plan Information #: 2 Payer: Medicare Supplement Member Number: [id number] Policy Number: NA Group Number: NA
--- OUTSIDE RECORDS SUMMARY | 2024-03-16 10:55 | XMS_ITS | Encounter Summary ---
Author Organization [facility] Address [address] [facility] [place] [address] Care Team Providers Care Bead Forming Machine Operator Name Role Phone Juan Antunez MD Primary Care Provider [phone] Reason for Visit * Reason Comments Liver Problem PHYLLIS Encounter Details Date Type Department Care Team (Late st Contact Info) Description 06/26/2021 3:30 PM CDT Office Visit [facility] - [address] [facility], [place] [phone] Mayra Antunez MD [address] [place] [phone] Mae Macias, ELECTRONIC SEMICONDUCTOR PROCESSOR-MARKET SPECIALIST [address] [place] [address] OF GASTROENTEROLOGY [place], [place] [id number] Hepatic steatosis (Primary Dx); Elevated liver enzymes; NAFLD (nonalcoholic fatty liver disease); Type 2 diabetes mellitus with other specified complication, unspecified whether emt intermediate insulin use (HCC); Hyperlipidemia, unspecified hyperlipidemia type Social History Tobacco Use Types Packs/Day Years Used Date Smoking Tobacco: Never Smokeless Tobacco: Never Alcohol Use Standard Drinks/Week Comments Yes 0 (1 standard drink = 0.6 oz pur e alcohol) 1-2 times a month Sex and Gender Information Value Date Recorded Sex Assigned at Not on file Gender Identity Not on file Sexual Orientation Not on file documented as of this encounter Last Filed Vital Signs Vital Sign Reading Time Taken Comments Blood Pressure 145/76 06/26/2021 3:23 PM CDT Pulse 71 06/26/2021 3:23 PM CDT Temperature 36.3 ??C (97.4 ??F) 06/26/2021 3:23 PM CD T Respiratory Rate 18 06/26/2021 3:23 PM CDT Oxygen Saturation 100% 06/26/2021 3:23 PM CDT Inhaled Oxygen Concentration - - Weight 83.3 kg (183 lb 9.6 oz) 06/26/2021 3:23 P M CDT Height - - Body Mass Index 26.34 02/10/2021 3:39 PM SAFETY INTERN documented in this encounter Patient Instructions * Patient Instructions* Mae Macias APRN-CNP - 06/26/2021 4:04 PM CDT blood work at [facility] soon. If stable we can continue to follow every 6 months. Return to the liver clinic in 1 year 3. Mediterranean diet is good for the liver. Black coffee is good for the liver. Discussed reasons for exercise, calorie reduction and weight loss. Dietary and exercise advice for fatty liver [...] aerobics, elliptical, treadmill orother cardio work outs. documented in this encounter Progress Notes * Mae Macias APRN-CNP - 06/26/2021 3:40 PM CDT I saw Mr. Garcia in Liver Clinic at [facility] today for follow up visit regarding: Past Visit Note. 02/10/21 Roland Garcia is a 65 year old [...] with , oldest son just moved to [place]. He works in the [employer]. ?? Chief Complaint Patient presents with ??? Liver Problem PHYLLIS Patient Active Problem List: NAFLD (nonalcoholic fatty liver disease) Chronic coronary artery disease Hyperlipidemia Left bundle branch block (LBBB) Interim history: Roland Garcia is a 66 year old male in clinic for follow up regarding NAFLD. He is down 5 lbs from previous visit. He continues to follow a plant based diet about 60 % of the time. Today he denies any complaints. He recently visited son in [place]. Current Outpatient Medications Medication Sig ??? aspirin (ASPIRIN) 81 MG chew tablet Take 81 mg by mouth once daily ??? atorvastatin (LIPITOR) 80 MG tablet Take 80 mg by mouth at bedtime ??? metFORMIN ER 24hr (GLUCOPHAGE XR) 500 MG tablet TAKE 1 TABLET BY MOUTH DAILY - TAKE WITH THE LARGEST MEAL ??? sertraline (ZOLOFT) 100 MG tablet Take 100 mg by mouth once daily No current facility-administered medications for this visit. He describes his current alcohol consumption as one drink/ month cigarette smoker no ?? Family History of Liver disease: no Social History Social History Narrative ??? Not on file Review of systems: Chest pain: none. Shortness of breath: none. Nausea and vomiting: none. Constipation or diarrhea: none. Upper or lower GI bleeding: none. On exam today, he appeared alert and anicteric. I reviewed today's vital signs with the patient. Vitals: 06/26/21 1523 BP: 145/76 Pulse: 71 Resp: 18 Temp: 97.4 ??F (36.3 ??C) SpO2: 100% Weight: 83.3 kg (183 lb 9.6 oz) Body mass index is 26.34 kg/m??. Wt Readings from Last 3 Encounters: 06/26/21 83.3 kg (183 lb 9.6 oz) 02/10/21 86.1 kg (189 lb 12.8 oz) . Lungs were clear to auscultation bilaterally. Heart sounds were regular rate and rhythm. There were no murmurs. Abdomen was soft and nontender. Liver edge palpable: no. Spleen palpable: no. Ascites: none. Hernias: none. Pretibial edema: none. Relevant test results: Recent Labs Component Name 02/27/21 1054 TBIL 0.6 ALKPHOS 144* ALT 22 AST 17 ALBUMIN 4.1 SODIUM 142 POTASSIUM 4.1 CO2 24 CREATININE 1.17 BUN 16 HGB 13.7 WBC 6.0 PLTCOUNT 251 INR 1.0 ?? 10/31/20 Ferritin ??93 Iron ??86 Transferrin ??258 Transferrin Saturation % ??29 Izwoa-2-Btbiweqsbyu ??141 Phenotype (PI) ??MM Ceruloplasmin ??22.2 VARGAS ??negative Mitochondrial M2 Antibody ??<20 Hepatitis B Surface Antibody Quantitative ??non reactive Hepatitis B Surface Antigen ??negative Hepatitis B Core Antibody IgG ??negative Hepatitis C Antibody <0.1 GGT 534 ??IGM 131 Fibroscan 06/26/2021 ?? Liver Stiffness: (LSM, kPa) median: 8.4 IQR (interquartile range): 2.4 IQR/Median% (ideally < 30%): 29 ?? CAP (controlled attenuation parameter): 296 MRI/MRCP 03/24/21 IMPRESSION: ?? 1. Cholelithiasis without cholecystitis. Assessment: 1. NAFLD without clinical indication of advanced liver disease 2. HLD 3. T2DM Plan: 1. [facility]. Will plan to check every 6 months. 2. Follow in clinic annually 3. Specific recommendations were provided regarding diet and exercise including the avoidance of sugar sweetened beverages and dietary trans-fats. An appointment was scheduled for him to see me in followup in one year. Address letter to: Juan Antunez MD [address] [place] [address] [facility] Division of Gastroenterology and Hepatology Collaborating physician: Dr. Hung Coreas June 30, 2021 Orders Placed This Encounter ??? HEPATIC FUNCTION PANEL documented in this encounter Plan of Treatment Not on file documented as of this encounter Goals Goal Patient Goal Type Associated Problems Recent Progress Patient-Stated? Author Medication Management General On track( 022 3:36 PM CDT) No Raisa Dunlap RN Note: Expected end date: Ongoing Interventions: Take all medications as prescribed Let your doctor know right away about any changes in your medications Make sure to request a refill of your medication at least one week prior to your last dose documented as of this encounter Procedures Procedure Name Priority Date/Time Associated Diagnosis Comments HEPATIC FUNCTION PANEL Routine 10/09/2021 10:16 AM CDT Elevated liver enzymes Hepatic steatosis documented in this encounter Results * (ABNORMAL) HEPATIC FUNCTION PANEL (10/09/2021 10:16 AM CDT) Protein Total 7.1 6.0 - 8.5 g/dL [facility] INSURANCE BILL Albumin 4.3 3.8 - 4.8 g/dL [facility] INSURANCE BILL Bilirubin Total 0.5 0.0 - 1.2 mg/dL [facility] INSURANCE BILL Bilirubin Direct 0.17 0.00 - 0.40 mg/dL [facility] INSURANCE BILL Alkaline Phosphatase 150(H) 44 - 121 IU/L [facility] INSURANCE BILL AST 30 0 - 40 IU/L [facility] INSURANCE BILL ALT 40 0 - 44 IU/L [facility] INSURANCE BILL Comment:FASTING Blood BLOOD SPECIMEN / Unknown 10/09/2021 10:16 AM CDT 10/09/2021 Narrative Resulting Agency Comment Lab Testing performed at: [facility] [address] ??[facility] [id number] Mae Macias ELECTRONIC SEMICONDUCTOR PROCESSOR-MARKET SPECIALIST LAB - CHEMI STRY ORDERABLES [facility] INSURANCE BILL [address] [place] [address] documented in this encounter Visit Diagnoses Diagnosis Hepatic steatosis- Primary Other chronic nonalcoholic liver disease Elevated liver enzymes Nonspecific elevation of levels of transaminase or lactic acid dehydrogenase (LDH) NAFLD (nonalcoholic fatty liver disease) Other chronic nonalcoholic liver disease Type 2 diabetes mellitus with other specified complication, unspecified whether emt intermediate insulin use (HCC) Hyperlipidemia, unspecified hyperlipidemia type documented in this encounter Care Teams Bead Forming Machine Operator Relationship Specialty Start Date End Date Juan Antunez MD [address] [place] [phone] PCP - General 04/15/18 documented as of this encounter
--- OUTSIDE RECORDS SUMMARY | 2024-03-16 10:55 | XMS_ITS | Encounter Summary ---
Author Organization [facility] Address [address] [place] [address] Care Team Providers Care Hat Copyist Name Role Phone Juan Antunez MD Primary Care Provider [phone] Reason for Visit * Reason Onset Date Comments Results 04/03/2021 Encounter Details Date Type Department Care Team (Late st Contact Info) Description 04/03/2021 Telephone [facility] - [address] [phone] Raisa Dunlap, RN Results Social History Tobacco Use Types Packs/Day Years Used Date Smoking Tobacco: Never Smokeless Tobacco: Never Alcohol Use Standard Drinks/Week Comments Not Currently 0 (1 standard drink = 0.6 oz pur e alcohol) Sex and Gender Information Value Date Recorded Sex Assigned at Not on file Gender Identity Not on file Sexual Orientation Not on file COVID-19 Exposure Response Date Recorded In the last month, have you been in contact with someone who was confirmed or suspected to have Coronavirus / COVID-19? No / Unsure 03/24/2021 11:04 AM DELIVERY AGENT documented as of this encounter Progress Notes * Jayda Iglesias RN - 04/03/2021 2:56 PM CST Call received by pt to review MRI findings. Verbalizes understanding. Report faxed to pcp. VERY AGENT documented in this encounter Miscellaneous Notes * Telephone Encounter - Raisa Dunlap RN - 04/03/2021 9:46 AM CST Called patient to relay message from Mae Macias NP: MRI looks fine. There is not concerning findings regarding liver, gallbladder, or bile ducts. Let's continue with plan for fibroscan when he returns in May.Encourage to continue to work on lifestyle modifications. Left message for return call. Next appointment: 05/15/2021 3:[address] [facility] GI PROC ROOM [address] [facility] [address] [facility] 05/15/2021 3:30 PM Mae Macias, IT SYSTEMS ANALYST-WELL TENDER [facility] GI [facility] 3[facility] VERY AGENT documented in this encounter Plan of Treatment Not on file documented as of this encounter Visit Diagnoses Not on filedocumented in this encounter Care Teams Hat Copyist Relationship Specialty Start Date End Date Juan Antunez MD [address] [place] [phone] PCP - General 04/15/18 documented as of this encounter
--- OUTSIDE RECORDS SUMMARY | 2024-03-16 10:55 | XMS_ITS | Encounter Summary ---
Author Organization [facility] Address [address] [place] [address]. [place], [place] [phone] [place] [address] Care Team Providers Care Master Scheduler Name Role Phone Juan Antunez MD Unavailable [phone] Juan Antunez MD Primary Care Provider [phone] Encounter Details Date Type Department Care Team (Latest Contact Info) Description 07/30/2022 Travel Social History Tobacco Use Types Packs/Day Years [...] Exposure Response Date Recorded In the last 10 days, have yo u been in contact with someone who was confirmed or suspected to have Coronavirus/COVID-19? No / Unsure 07/30/2022 10:33 AM CDT documented as of this encounter Plan of Treatment Not on file documented as of this encounter Visit Diagnoses Not on filedocumented in this encounter Care Teams Master Scheduler Relationship Specialty Start Date End Date Juan Antunez MD [facility] [address] [place] [address] PCP - General FAMILY PRACTICE 07/30/22 Juan Antunez MD [facility] [address] [place] [address] FAMILY PRACTICE 06/30/22 documented as of this encounter
--- OUTSIDE RECORDS SUMMARY | 2024-03-16 10:55 | XMS_ITS | Encounter Summary ---
Author Organization [facility] Address [address] [place] [address] Care Team Providers Care Coding Compliance Specialist Name Role Phone Juan Antunez MD Primary Care Provider [phone]- [phone] Reason for Referral * Radiology Services (Routine) - Closed Specialty Diagnoses / Procedures Referred By Contac t Referred To Contact MRI Diagnoses Elevated liver enzymes Hepatic steatosis Abdominal pain, unspecified abdominal location Procedures MRI ABDOMEN W MRCP WWO CONT W3D Hung Coreas MD [address] [place] [address] [address] [place] [address] [facility] Mri [address] [place] [address] Referral ID Status Reason Start Date Expiration Date Visits Re quested Visits Authorized [id number] Closed 03/18/2021 05/16/2021 1 1 TURNER Encounter Details Date Type Department Care Team (Late st Contact Info) Description 03/05/2021 Orders Only [facility] - GI [address] [facility], [place] [address] Hung Coreas MD [address] [place] [address] [address] [place] [address] Elevated liver enzymes ; Hepatic steatosis; Abdominal pain, unspecified abdominal location Social History Tobacco Use Types Packs/Day Years Used Date Smoking Tobacco: Never Smokeless Tobacco: Never Alcohol Use Standard Drinks/Week Comments Not Currently 0 (1 standard drink = 0.6 oz pur e alcohol) Sex and Gender Information Value Date Recorded Sex Assigned at Not on file Gender Identity Not on file Sexual Orientation Not on file documented as of this encounter Plan of Treatment Not on file documented as of this encounter Results * MRI ABDOMEN W MRCP WWO CONT W3D (03/24/2021 12:36 PM BELT TURNER) Anatomical Region Laterality Modality Abdomen Magnetic Resonan ce 03/24/2021 12:4 3 PM BELT TURNER Impressions 03/24/2021 1:06 PM BELT TURNER IMPRESSION: 1. Cholelithiasis without cholecystitis. This report was electronically signed by KATHERIN ADAMSON ??on 03/24/2021 1:06 PM . Narrative 03/24/2021 1:06 PM BELT TURNER EXAMINATION: 1. MAGNETIC RESONANCE IMAGING OF THE ABDOMEN WITH AND WITHOUT CONTRAST 2. THREE DIMENSIONAL RECONSTRUCTION OF THE BILIARY TREE AND PANCREATIC DUCT HISTORY: R74.8: Elevated liver enzymes K76.0: Hepatic steatosis R10.9: Abdominal pain, unspecified abdominal location TECHNIQUE: Magnetic resonance imaging of the abdomen was performed prior to and following the uneventful administration of intravenous Gadolinium contrast. The raw data was processed on the scanner by the technologist for 3 dimensional reconstructions of the intrahepatic ducts, extrahepatics ducts, and pancreatic duct. Protocol: Liver MRCP Contrast: MultiHance 17 mL COMPARISON: No prior magnetic resonance imaging is available for comparison. FINDINGS: Liver: The liver is normal in size. No steatosis or iron deposition. - Bile ducts: No intrahepatic or extra hepatic bile duct dilatation. - Focal liver lesions: No focal liver lesion - Vasculature: Conventional hepatic arterial anatomy. Portal vein is patent. Gallbladder: Cholelithiasis without cholecystitis Pancreas: Normal Spleen: Normal Adrenals: Normal Kidneys: Bilateral renal cysts. No hydronephrosis. Other Findings: Lung bases are clear. There is no lymphadenopathy in the abdomen. No free fluid in the abdomen. Procedure Note Katherin Adamson MD - 03/24/2021 EXAMINATION: 1. MAGNETIC RESONANCE IMAGING OF THE ABDOMEN WITH AND WITHOUT CONTRAST 2. THREE DIMENSIONAL RECONSTRUCTION OF THE BILIARY TREE AND PANCREATICDUCT HISTORY: R74.8: Elevated liver enzymes K76.0: Hepatic steatosis R10.9: Abdominal pain, unspecified abdominal location TECHNIQUE: Magnetic resonance imaging of the abdomen was performed prior to and following the uneventful administration of intravenous Gadolinium contrast. The raw data was processed on the scanner by the technologist for 3 dimensional reconstructions of the intrahepatic ducts,extrahepatics ducts, and pancreatic duct. Protocol: Liver MRCP Contrast: MultiHance 17 mL COMPARISON: No prior magnetic resonance imaging is available for comparison. FINDINGS: Liver: The liver is normal in size. No steatosis or iron deposition. - Bile ducts: No intrahepatic or extra hepatic bile duct dilatation. - Focal liver lesions: No focal liver lesion - Vasculature: Conventional hepatic arterial anatomy. Portal vein is patent. Gallbladder: Cholelithiasis without cholecystitis Pancreas: Normal Spleen: Normal Adrenals: Normal Kidneys: Bilateral renal cysts. No hydronephrosis. Other Findings: Lung bases are clear. There is no lymphadenopathy in the abdomen. No free fluid in the abdomen. IMPRESSION: 1. Cholelithiasis without cholecystitis. This report was electronically signed by KATHERIN ADAMSON on 03/24/2021 1:06PM . Hung Coreas MD MR ORDERABLES documented in this encounter Visit Diagnoses Diagnosis Elevated liver enzymes- Primary Nonspecific elevation of levels of transaminase or lactic acid dehydrogenase (LDH) Hepatic steatosis Other chronic nonalcoholic liver disease Abdominal pain, unspecified abdominal location Elevated liver enzymes Nonspecific elevation of levels of transaminase or lactic acid dehydrogenase (LDH) Hepatic steatosis Other chronic nonalcoholic liver disease Abdominal pain, unspecified abdominal location documented in this encounter Care Teams Coding Compliance Specialist Relationship Specialty Start Date End Date Juan Antunez MD [address] [place] [id number] PCP - General 04/15/18 documented as of this encounter
--- OUTSIDE RECORDS SUMMARY | 2024-03-16 10:55 | XMS_ITS | Encounter Summary ---
Author Organization [facility] Address [address] [place] [address] Care Team Providers Care Barrel Marker Name Role Phone Juan Antunez MD Primary Care Provider [phone]- [phone] Reason for Referral * Radiology Services (Routine) - Closed Specialty Diagnoses / Procedures Referred By Contac t Referred To Contact MRI Diagnoses Elevated liver enzymes Hepatic steatosis Abdominal pain, unspecified abdominal location Procedures MRI ABDOMEN W MRCP WWO CONT Hung Vidales MD [address] [facility] 2[address] [place] [address] [facility] Mri [address] [place] [phone] Referral ID Status Reason Start Date Expiration Date Visits Re quested Visits Authorized [id number] Closed 03/18/2021 05/16/2021 1 1 GER UTILITY Reason for Visit * Radiology Services (Routine) - Closed Specialty Diagnoses / Procedures Referred By Contac t Referred To Contact MRI Diagnoses Elevated liver enzymes Hepatic steatosis Abdominal pain, unspecified abdominal location Procedures MRI ABDOMEN W MRCP WWO CONT Hung Vidales MD [address] [facility] [address] [place] [address] [facility] Mri [address] [place] [address] Referral ID Status Reason Start Date Expiration Date Visits Re quested Visits Authorized [id number] Closed 03/18/2021 05/16/2021 1 1 Encounter Details Date Type Department Care Team (Latest Contact Info) Description 03/24/2021 11:10 AM MANAGER UTILITY - 03/24/2021 11:59 PM MANAGER UTILITY Hospital Encounter [facility] MRI [address] [place] [address] Hung Coreas MD [address] [facility] [address] [place] [address] Discharge Disposition: Home or Self Care Social History Tobacco Use Types Packs/Day Years [...] COVID-19? No / Unsure 03/24/2021 11:04 AM MANAGER UTILITY documented as of this encounter Medications at Time of Discharge Medication Sig Dispensed Refills Start Date End Date aspirin (ASPIRIN) 81 MG chew tablet Take 1 (one) tablet by mouth once daily atorvastatin (LIPITOR) 80 MG tablet Take 1 (one) tablet by mouth at bedtime sertraline (ZOLOFT) 100 MG tablet Take 1 (one) tablet by mouth once daily documented as of this encounter Plan of Treatment Not on file documented as of this encounter Procedures Procedure Name Priority Date/Time Associated Diagnosis Comments MRI ABDOMEN W MRCP WWO CONT W3D Routine 03/24/2021 12:36 PM MANAGER UTILITY Elevated liver enzymes Hepatic steatosis Abdominal pain, unspecified abdominal location documented in this encounter Results * MRI ABDOMEN W MRCP WWO CONT W3D (03/24/2021 12:36 PM MANAGER UTILITY) Anatomical Region Laterality Modality Abdomen Magnetic Resonan ce 03/24/2021 12:4 3 PM MANAGER UTILITY Impressions 03/24/2021 1:06 PM MANAGER UTILITY IMPRESSION: 1. Cholelithiasis without cholecystitis. This report was electronically signed by KATHERIN ADAMSON ??on 03/24/2021 1:06 PM . Narrative 03/24/2021 1:06 PM MANAGER UTILITY EXAMINATION: 1. MAGNETIC RESONANCE IMAGING OF THE [...] this encounter Visit Diagnoses Diagnosis Elevated liver enzymes Nonspecific elevation of levels of transaminase or lactic acid dehydrogenase (LDH) Hepatic steatosis Other chronic nonalcoholic liver disease Abdominal pain, unspecified abdominal location documented in this encounter Administered Medications Inactive Administered Medications - up to 3 most recent administrations Medication Order MAR Action Action Date Dose Rate Site gadobenate dimeglumine (Multihance) injection Intravenous, CONTRAST ONCE, Starting on 03/24/21 at 1238, Until Wed03/25/21 at 0217 $ Given - Contrast 03/24/2021 12:38 PM MANAGER UTILITY 17 mL documented in this encounter Care Teams Barrel Marker Relationship Specialty Start Date End Date Juan Antunez MD [address] [place] [phone] PCP - General 04/15/18 documented as of this encounter
--- OUTSIDE RECORDS SUMMARY | 2024-03-16 10:55 | XMS_ITS | Encounter Summary ---
Author Organization [facility] Address [address] [place] [address] Care Team Providers Care Cell Installer Name Role Phone Juan Antunez MD Primary Care Provider [phone]- [phone] Encounter Details Date Type Department Care Team (Latest Contact Info) Description 03/24/2021 Travel Social History Tobacco Use Types Packs/Day [...] COVID-19? No / Unsure 03/24/2021 11:04 AM ENTERPRISE RECORDS ANALYST documented as of this encounter Plan of Treatment Not on file documented as of this encounter Visit Diagnoses Not on filedocumented in this encounter Care Teams Cell Installer Relationship Specialty Start Date End Date Juan Antunez MD [address] [place] [phone] PCP - General 04/15/18 documented as of this encounter
--- OUTSIDE RECORDS SUMMARY | 2024-03-16 10:55 | XMS_ITS | Patient Health Summary ---
Author Organization [facility] Address [address] [place] [address] Care Team Providers Care Inspector Assemblies And Installations Name Role Phone Juan Antunez MD Primary Care Provider [phone] [facility],non-owned Affiliates and Associated Physician Practices is amultiple site organization consisting of ambulatory clinics and hospital sitesin [place], [place], [place] and [place]. This disclosure is being madepursuant to the Care Everywhere program and may not contain all information available regarding this patient. Last updated 17.[facility] Allergies No known active allergies Medications * Be aware that medications may not be up to date on this document. Alwaysverify current medications with the patient. * atorvastatin (LIPITOR) 80 MG tablet Take 1 (one) tablet by mouth at bedtime * aspirin (ASPIRIN) 81 MG chew tablet Take 1 (one) tablet by mouth once daily * sertraline (ZOLOFT) 100 MG tablet Take 1 (one) tablet by mouth once daily Active Problems Problem Noted Date Diagnosed Date NAFLD (nonalcoholic fatty liver disease) 022 Chronic coronary artery disease 08/17/2014 Hyperlipidemia 03/30/2014 Left bundle branch block (LBBB) 03/30/2014 Social History Tobacco Use Types Packs/Day Years Used Date Smoking Tobacco: Never Smokeless Tobacco: Never Tobacco Cessation:Counseling Given: Not Answered Alcohol Use Standard Drinks/Week Comments Not Currently 0 (1 standard drink = 0.6 oz pur e alcohol) 1-2 times a month Sex and Gender Information Value Date Recorded Sex Assigned at Not on file Gender Identity Not on file Sexual Orientation Not on file Last Filed Vital Signs Vital Sign Reading Time Taken Comments Blood Pressure 125/76 06/18/2022 1:46 PM CDT Pulse 73 06/18/2022 1:46 PM CDT Temperature 36.7 ??C (98 ??F) 06/18/2022 1:46 PM CDT Respiratory Rate 18 06/18/2022 1:46 PM CDT Oxygen Saturation 97% 06/18/2022 1:46 PM CDT Inhaled Oxygen Concentration - - Weight 86.2 kg (190 lb) 06/18/2022 1:46 PM CDT Height 177.8 cm (5' 10 ) 02/10/2021 3:39 PM POWERPLANT OPERATOR Body Mass Index 27.26 02/10/2021 3:39 PM POWERPLANT OPERATOR Procedures * COMPREHENSIVE METABOLIC PANEL(Performed 07/15/2022) Performed for NAFLD (nonalcoholic fatty liver disease) * CBC W AUTO DIFFERENTIAL(Performed 07/15/2022) Performed for NAFLD (nonalcoholic fatty liver disease) * HEPATIC FUNCTION PANEL(Performed 10/09/2021) Performed for Elevated liver enzymes, Hepatic steatosis * AZ LIVER ELASTOGRAPHY(Performed 06/26/2021) Performed for Elevated liver enzymes * MRI ABDOMEN W MRCP WWO CONT W3D(Performed 03/24/2021) Performed for Elevated liver enzymes, Hepatic steatosis, Abdominal pain, unspecified abdominal location * PT-INR(Performed 02/27/2021) Performed for Elevated liver enzymes * IRON + TIBC PANEL(Performed 02/27/2021) Performed for Elevated liver enzymes * TRANSFERRIN(Performed 02/27/2021) Performed for Elevated liver enzymes * IGM BLOOD(Performed 02/27/2021) Performed for Elevated liver enzymes * HEPATITIS B SURFACE ANTIGEN W RFLX CONFIRMATION(Performed 02/27/2021) Performed for Elevated liver enzymes * HEPATITIS B SURFACE ANTIBODY(Performed 02/27/2021) Performed for Elevated liver enzymes * HEPATITIS B CORE ANTIBODY TOTAL(Performed 02/27/2021) Performed for Elevated liver enzymes * GGT(Performed 02/27/2021) Performed for Elevated liver enzymes * FERRITIN(Performed 02/27/2021) Performed for Elevated liver enzymes * CERULOPLASMIN(Performed 02/27/2021) Performed for Elevated liver enzymes * VARGAS BLOOD SCREEN W/REFLEX TITER(Performed 02/27/2021) Performed for Elevated liver enzymes * MITOCHONDRIAL ANTIBODY SCREEN(Performed 02/27/2021) Performed for Elevated liver enzymes * GOHML-6-EUJSOWAPEWU BLOOD PHENOTYPING PANEL(Performed 02/27/2021) Performed for Elevated liver enzymes * COMPREHENSIVE METABOLIC PANEL(Performed 02/27/2021) Performed for Elevated liver enzymes * CBC W AUTO DIFFERENTIAL(Performed 02/27/2021) Performed for Elevated liver enzymes Results * CBC WITH DIFFERENTIAL (07/15/2022 10:02 AM CDT) Only the most recent of2 resultswithin the time period is included. WBC 6.4 3.4 - 10.8 x10E3/uL [facility] INSURANCE BILL RBC 4.71 4.14 - 5.80 x10E6/uL [facility] INSURANCE BILL Hemoglobin 13.9 13.0 - 17.7 g/dL [facility] INSURANCE BILL Hematocrit 41.4 37.5 - 51.0 % [facility] INSURANCE BILL MCV 88 79 - 97 fL [facility] INSURANCE BILL MCH 29.5 26.6 - 33.0 pg [facility] INSURANCE BILL MCHC 33.6 31.5 - 35.7 g/dL [facility] INSURANCE BILL RDW 13.1 11.6 - 15.4 % [facility] INSURANCE BILL Platelet Count 247 150 - 450 x10E3/uL [facility] INSURANCE BILL Granulocytes % 61 Not Estab. % [facility] INSURANCE BILL Lymphocytes % 28 Not Estab. % [facility] INSURANCE BILL Monocytes % 7 Not Estab. % [facility] INSURANCE BILL Eosinophils % 3 Not Estab. % [facility] INSURANCE BILL Basophils % 1 Not Estab. % [facility] INSURANCE BILL Immature Cells NOT AVAILABLE [facility] INSURANCE BILL Comment:Result cannot be obt ained for this observation. Granulocytes Absolute 4.0 1.4 - 7.0 x10E3/uL [facility] INSURANCE BILL Lymphocytes Absolute 1.8 0.7 - 3.1 x10E3/uL [facility] INSURANCE BILL Monocytes Absolute 0.4 0.1 - 0.9 x10E3/uL [facility] INSURANCE BILL Eosinophils Absolute 0.2 0.0 - 0.4 x10E3/uL [facility] INSURANCE BILL Basophils Absolute 0.0 0.0 - 0.2 x10E3/uL [facility] INSURANCE BILL Immature Granulocytes 0 Not Estab. % [facility] INSURANCE BILL Immature Granulocytes Absolute 0.0 0.0 - 0.1 x10E3/uL [facility] INSURANCE BILL nRBC NOT AVAILABLE [facility] INSURANCE BILL Comment:Result cannot be obt ained for this observation. Comment Hematology NOT AVAILABLE [facility] INSURANCE BILL Comment: FASTING Result cannot be obtained for this observation. Blood BLOOD SPECIMEN / Unknown 07/15/2022 10:02 AM CDT 07/15/2022 Narrative Resulting Agency Comment [facility]: [facility] [address] ??[facility]ly [facility] [phone] Mae Macias SAP HANA DEVELOPER-SYSTEMS SOFTWARE DESIGNER LAB - HEMAT OLOGY ORDERABLES [facility] INSURANCE BILL [address] [place] [address] * (ABNORMAL) COMPREHENSIVE METABOLIC PANEL (07/15/2022 10:02 AM CDT) Only the most recent of2 resultswithin the time period is included. Glucose 99 70 - 99 mg/dL [facility] INSURANCE BILL BUN 16 8 - 27 mg/dL [facility] INSURANCE BILL Creatinine 1.28(H) 0.76 - 1.27 mg/dL [facility] INSURANCE BILL eGFR by CKD-EPI 61 >59 mL/min/1.7 3 [facility] INSURANCE BILL BUN/Creatinine Ratio 13 10 - 24 [facility] INSURANCE BILL Sodium 141 134 - 144 mmol/L [facility] INSURANCE BILL Potassium 4.7 3.5 - 5.2 mmol/L [facility] INSURANCE BILL Chloride 104 96 - 106 mmol/L [facility] INSURANCE BILL CO2 24 20 - 29 mmol/L [facility] INSURANCE BILL Calcium 9.5 8.6 - 10.2 mg/dL [facility] INSURANCE BILL Protein Total 7.0 6.0 - 8.5 g/dL [facility] INSURANCE BILL Albumin 4.4 3.8 - 4.8 g/dL [facility] INSURANCE BILL Globulin Total 2.6 1.5 - 4.5 g/dL [facility] INSURANCE BILL Albumin/Globulin Ratio 1.7 1.2 - 2.2 [facility] INSURANCE BILL Bilirubin Total 0.7 0.0 - 1.2 mg/dL [facility] INSURANCE BILL Alkaline Phosphatase 118 44 - 121 IU/L [facility] INSURANCE BILL AST 16 0 - 40 IU/L [facility] INSURANCE BILL ALT 20 0 - 44 IU/L [facility] INSURANCE BILL Comment:FASTING Blood BLOOD SPECIMEN / Unknown 07/15/2022 10:02 AM CDT 07/15/2022 Narrative Resulting Agency Comment Lab Testing performed at: [address] ??Formerly [facility] [phone] Mae Macias SAP HANA DEVELOPER-SYSTEMS SOFTWARE DESIGNER LAB - CHEMI STRY ORDERABLES Performing Organization Address [facility] Co de Phone Number [facility] INSURANCE BILL [address] [place] [address] * (ABNORMAL) HEPATIC FUNCTION PANEL (10/09/2021 10:16 AM CDT) Pathologist [facility] [place] Protein Total 7.1 6.0 - 8.5 g/dL [...] Resulting Agency Comment Lab Testing performed at: [address] ??[facility]ly [facility] [phone] Mae Macias APRN-SYSTEMS SOFTWARE DESIGNER LAB - CHEMI STRY ORDERABLES Performing Organization Address [facility] Co de Phone Number [facility] INSURANCE BILL [address] [place] [address] * [place] LIVER ELASTOGRAPHY (06/26/2021 3:18 PM CDT) Narrative Gustavo Hart MD - 06/26/2021 3:18 PM CDT Gustavo Hart MD ? 06/29/2021 ??6:43 PM Diagnosis: PHYLLIS RN verified patient has no implanted devices and NPO for prior 3 hours. Procedure explained and consent signed. Date of Exam: 06/26/2021 Liver Stiffness: (LSM, kPa) median: ??8.4 IQR (interquartile range): ?? 2.4 IQR/Median% (ideally < 30%): ??29 CAP (controlled attenuation parameter): ??296 Technical Difficulty: None Ordering Provider: Mae Macias NP Phone Fax Fibroscan interpretation: I have personally reviewed the Fibroscan report and associated tracings. The calculated Liver Stiffness Measurement (LSM, kPa) indicates that: The probability of advanced liver fibrosis is: low to moderate. The loss of ultrasound signal, (controlled attenuation parameter, CAP [dB/m]), indicates that the probability of hepatic steatosis is: high. Gustavo Hart MD The following criteria are used to indicate the probability of advanced (stage 3-4) fibrosis: < 7.0 kPa: low 7.0-8.9 kPa: low to moderate 9.0-14.9 kPa: moderate 15-20 kPa: high > 20 kPa: very high Liver stiffness > 20 kPa is also associated with a high probability of complications of portal hypertension including varices and ascites. Liver stiffness > 50 kPa is associated with a high risk of variceal bleeding. These interpretations are based on the following published data: Trevor PJ, Yesenia M, Della M, et al. Accuracy of FibroScan controlled attenuation parameter and liver stiffness measurement in assessing steatosis and fibrosis in patients with nonalcoholic fatty liver disease. Gastroenterology 2019;156:4032-5931. Luis MS, Rosmery R, Van Lise ML, et al. Vibration-controlled transient elastography to assess fibrosis and steatosis in patients with nonalcoholic fatty liver disease. Clin Gastroenterol Hepatol 2019;17:156-163. Note: 1. Fibroscan cannot reliably identify earlier stages of fibrosis (ie distinguish F0 from F1 and F2) and thus a histologic stage cannot be predicted from the Fibroscan reading. 2. Assessing the likelihood of advanced fibrosis in patients with indeterminate liver stiffness measurement (LSM) by Fibroscan (e.g., 8-15 kPa) can be improved by also calculating the FIB4 score (Leena et al. Hepatology Communications 2019;3:9779-5174) or NAFLD Fibrosis score (Read et al. Clinical Gastroenterology and Hepatology 2019;17:9550-1754. from routine clinical data. 3. Liver stiffness can be increased by factors other than fibrosis including passive congestion, infiltrative processes, active alcoholism, biliary obstruction and marked inflammation. The interpretation of the Fibroscan result provided above may not have taken such clinical factors into account. Disease etiology also influences Fibroscan cutoff values for fibrosis stages and the following cutoffs have been proposed (Otto et al, Clin Gastro Hepatol 2015; 13:27-36): Cutoffs for Stage 3 and Stage 4 fibrosis respectively: Hepatitis B: >9 and >11.7 kPa Hepatitis C: >9.5 and >12.5 kPa HCV-HIV: >11 and >14 kPa Cholestatic liver diseases: >10 and >17.9 kPa NAFLD/BRIGGS: >10 and >14 kPa CAP estimates of steatosis: normal <200 dB/m mild 200 to 250 dB/m moderate 250-290 dB/m substantial > 290 dB/m (Note that Fibroscan is not a quantitative measure of liver fat.) These criteria are estimates and may change as additional supporting data becomes available. [email or web address] Mae Macias SAP HANA DEVELOPER-SYSTEMS SOFTWARE DESIGNER PROCEDURE/M INOR SURGICAL ORDERABLES * MRI ABDOMEN W MRCP WWO CONT W3D (03/24/2021 12:36 PM POWERPLANT OPERATOR) Anatomical Region Laterality Modality Abdomen Magnetic Resonan ce 03/24/2021 12:4 3 PM POWERPLANT OPERATOR Impressions 03/24/2021 1:06 PM POWERPLANT OPERATOR IMPRESSION: 1. Cholelithiasis without cholecystitis. This report was electronically signed by KATHERIN ADAMSON ??on 03/24/2021 1:06 PM . Narrative 03/24/2021 1:06 PM POWERPLANT OPERATOR EXAMINATION: 1. MAGNETIC RESONANCE IMAGING OF THE [...] 1:06PM . Hung Coreas MD MR ORDERABLES * MITOCHONDRIAL ANTIBODY SCREEN (02/27/2021 10:54 AM POWERPLANT OPERATOR) Mitochondrial M2 Antibody <20.0 0.0 - 20.0 Units [facility] INSURANCE BILL Comment: ? Negative ?0.0 - 20.0 ? Equivocal ??20.1 - 24.9 ? Positive ? >24.9 ? . ? Mitochondrial (M2) Antibodies are found in 90-96% of ? patients with primary biliary cirrhosis. FASTING Blood BLOOD SPECIMEN / Unknown 02/27/2021 10:54 AM POWERPLANT OPERATOR 02/27/2021 Narrative Resulting Agency Comment Lab Testing performed at: [facility] [address] ??Formerly [facility] [phone] Mae Macias SAP HANA DEVELOPER-SYSTEMS SOFTWARE DESIGNER LAB - CHEMI STRY ORDERABLES [facility] [address] [place] [address] * [id number]-3-[id number] BLOOD PHENOTYPING PANEL (02/27/2021 10:54 AM POWERPLANT OPERATOR) Anhdl-7-Ktenqzjbhb n 141 101 - 187 mg/dL [facility] [...] BLOOD SPECIMEN / Unknown 02/27/2021 10:54 AM POWERPLANT OPERATOR 02/27/2021 Narrative Resulting Agency Comment Lab Testing performed at: [facility] [address] ??[facility]ly [facility] [phone] Mae Macias SAP HANA DEVELOPER-SYSTEMS SOFTWARE DESIGNER LAB - CHEMI STRY ORDERABLES [facility] INSURANCE BILL [address] [place] [address] * VARGAS BLOOD SCREEN W/REFLEX TITER (02/27/2021 10:54 AM POWERPLANT OPERATOR) VARGAS Negative [facility] INSURANCE BILL Comment: ?Negative ?? <1:80 ?Borderline ??1:80 ?Positive ?? >1:80 ICAP nomenclature: AC-0 For more information about Hep-2 cell patterns use ANApatterns.org, the official website for the International Consensus on Antinuclear Antibody (VARGAS) Patterns (ICAP). FASTING Blood BLOOD SPECIMEN / Unknown 02/27/2021 10:54 AM POWERPLANT OPERATOR 02/27/2021 Narrative Resulting Agency Comment Lab Testing performed at: [employer] [place] [employer] [place], [place] [address] ??Formerly [facility] [phone] Mea Macias SAP HANA DEVELOPER-SYSTEMS SOFTWARE DESIGNER LAB - CHEMI STRY ORDERABLES Performing Organization Address City/[facility]/ZIP Co de Phone Number [facility] INSURANCE BILL [address] [place] [address] * TRANSFERRIN (02/27/2021 10:54 AM POWERPLANT OPERATOR) Transferrin 258 177 - 329 mg/dL [facility] INSURANCE BILL Comment:FASTING Blood BLOOD SPECIMEN / Unknown 02/27/2021 10:54 AM POWERPLANT OPERATOR 02/27/2021 Narrative Resulting Agency Comment [facility] performed [facility]: [facility] [address] ??[facility]ly [facility] [phone] Mae Macias SAP HANA DEVELOPER-SYSTEMS SOFTWARE DESIGNER LAB - CHEMI STRY ORDERABLES [facility] INSURANCE BILL [address] [place] [address] * CERULOPLASMIN (02/27/2021 10:54 AM POWERPLANT OPERATOR) Ceruloplasmin 22.2 16.0 - 31.0 mg/dL [facility] INSURANCE BILL Comment:FASTING Blood BLOOD SPECIMEN / Unknown 02/27/2021 10:54 AM POWERPLANT OPERATOR 02/27/2021 Narrative Resulting Agency Comment Lab Testing performed at: [facility] [address] ??[place] [phone] Mae Macias SAP HANA DEVELOPER-SYSTEMS SOFTWARE DESIGNER LAB - CHEMI STRY ORDERABLES Performing Organization Address [facility] Co de Phone Number [facility] INSURANCE BILL [address] [place] [address] * PT-INR (02/27/2021 10:54 AM POWERPLANT OPERATOR) INR 1.0 0.9 - 1.2 [facility] INSURANCE BILL Comment: ? Reference interval is for non-anticoagulated patients. ?. ? Suggested INR therapeutic range for Vitamin K ? antagonist therapy: ?Standard Dose (moderate intensity ? therapeutic range): ? 2.0 - 3.0 ?Higher intensity therapeutic range ? 2.5 - 3.5 PT 10.5 9.1 - 12.0 sec [facility] INSURANCE BILL Comment:FASTING Blood BLOOD SPECIMEN / Unknown 02/27/2021 10:54 AM POWERPLANT OPERATOR 02/27/2021 Narrative Resulting Agency Comment Lab Testing performed at: [facility] [address] ??[place] [phone] Mae Macias SAP HANA DEVELOPER-SYSTEMS SOFTWARE DESIGNER LAB - COAGU LATION ORDERABLES Performing Organization Address [facility]/ZIP Co de Phone Number [facility] INSURANCE BILL [address] [place] [address] * IRON + TIBC PANEL (02/27/2021 10:54 AM POWERPLANT OPERATOR) TIBC 301 250 - 450 ug/dL [facility] INSURANCE BILL UIBC 215 111 - 343 ug/dL [facility] INSURANCE BILL Iron 86 38 - 169 ug/dL [facility] INSURANCE BILL Iron Saturation 29 15 - 55 % [facility] INSURANCE BILL Comment:FASTING Blood BLOOD SPECIMEN / Unknown 02/27/2021 10:54 AM POWERPLANT OPERATOR 02/27/2021 Narrative Resulting Agency Comment Lab Testing performed at: [facility] [address] ??[facility]ly [facility] [phone] Mae Macias SAP HANA DEVELOPER-SYSTEMS SOFTWARE DESIGNER LAB - CHEMI STRY ORDERABLES [facility] INSURANCE BILL [address] [place] [address] * HEPATITIS B SURFACE ANTIBODY (02/27/2021 10:54 AM POWERPLANT OPERATOR) Hepatitis B Virus Surface Antibody Non Reactive [facility] INSURANCE BILL Comment: ? Non Reactive: Inconsistent with immunity, ? less than 10 mIU/mL ? Reactive: ? Consistent with immunity, ? greater than 9.9 mIU/mL FASTING Blood BLOOD SPECIMEN / Unknown 02/27/2021 10:54 AM POWERPLANT OPERATOR 02/27/2021 Narrative Resulting Agency Comment Lab Testing performed at: [facility] ??[facility] [phone] Mae Murphyanson SAP HANA DEVELOPER-SYSTEMS SOFTWARE DESIGNER LAB - CHEMI STRY ORDERABLES [facility] INSURANCE BILL [address] [place] [address] * HEPATITIS B CORE ANTIBODY (02/27/2021 10:54 AM POWERPLANT OPERATOR) Hepatitis B Core Virus Antibody Total Negative Negative [facility] INSURANCE BILL Comment:FASTING Blood BLOOD SPECIMEN / Unknown 02/27/2021 10:54 AM POWERPLANT OPERATOR 02/27/2021 Narrative Resulting Agency Comment Lab Testing performed at: [address] ??[facility]ly [facility] [phone] Mae Macias SAP HANA DEVELOPER-SYSTEMS SOFTWARE DESIGNER LAB - CHEMI STRY ORDERABLES Performing Organization Address [facility]/ZIP Co de Phone Number [facility] INSURANCE BILL [address] [place] [address] * HEPATITIS B SURFACE ANTIGEN W RFLX CONFIRMATION (02/27/2021 10:54 AM POWERPLANT OPERATOR) Hepatitis B Virus Surface Antigen Negative Negative [facility] INSURANCE BILL Comment:FASTING Blood BLOOD SPECIMEN / Unknown 02/27/2021 10:54 AM POWERPLANT OPERATOR 02/27/2021 Narrative Resulting Agency Comment Lab Testing performed at: [address] ??[facility] [phone] Mae Macias SAP HANA DEVELOPER-SYSTEMS SOFTWARE DESIGNER LAB - CHEMI STRY ORDERABLES [facility] INSURANCE BILL [address] [place] [address] * (ABNORMAL) GGT (02/27/2021 10:54 AM POWERPLANT OPERATOR) GGT 534(H) 0 - 65 IU/L [facility] INSURANCE BILL Comment:FASTING Blood BLOOD SPECIMEN / Unknown 02/27/2021 10:54 AM POWERPLANT OPERATOR 02/27/2021 Narrative Resulting Agency Comment Lab Testing performed at: [facility] [address] ??[facility]ly [facility] [phone] Mae Macias SAP HANA DEVELOPER-SYSTEMS SOFTWARE DESIGNER LAB - CHEMI STRY ORDERABLES [facility] INSURANCE BILL [address] [place] [address] * IGM BLOOD (02/27/2021 10:54 AM POWERPLANT OPERATOR) IgM Quantitative 131 20 - 172 mg/dL [facility] INSURANCE BILL Comment:FASTING Blood BLOOD SPECIMEN / Unknown 02/27/2021 10:54 AM POWERPLANT OPERATOR 02/27/2021 Narrative Resulting Agency Comment Lab Testing performed at: [facility] [address] ??[facility] [phone] Mae Macias SAP HANA DEVELOPER-SYSTEMS SOFTWARE DESIGNER LAB - CHEMI STRY ORDERABLES [facility] INSURANCE BILL [address] [place] [address] * FERRITIN (02/27/2021 10:54 AM POWERPLANT OPERATOR) Ferritin 93 30 - 400 ng/mL [facility] INSURANCE BILL Comment:FASTING Blood BLOOD SPECIMEN / Unknown 02/27/2021 10:54 AM POWERPLANT OPERATOR 02/27/2021 Narrative Resulting Agency Comment Lab Testing performed at: [facility] [address] ??[facility] [phone] Mae Macias SAP HANA DEVELOPER-SYSTEMS SOFTWARE DESIGNER LAB - CHEMI STRY ORDERABLES [facility] INSURANCE BILL [address] [place] [address] Care Teams Inspector Assemblies And Installations Relationship Specialty Start Date End Date Juan Antunez MD [facility] [place] [address] PCP - General 04/15/18
--- OUTSIDE RECORDS SUMMARY | 2024-03-16 10:55 | XMS_ITS | Referral Summary ---
Author Organization [facility] Address [address] [place] [address] Care Team Providers Care Corn Breeder Name Role Phone Juan Antunez MD Primary Care Provider [phone]- [phone] Source Comments [facility],non-owned Affiliates and Associated Physician Practices is amultiple site organization consisting of ambulatory clinics and hospital sitesin [place], [place]. This disclosure is being madepursuant to the Care Everywhere program and may not contain all information available regarding this patient. Last updated 17.[facility] Allergies No known active allergies Medications * Be aware that medications may not be up to date on this document. Alwaysverify current medications with the patient. Medication Sig Dispensed Refills Start Date End Date Status atorvastatin (LIPITOR) 80 MG tablet Take 1 (one) tablet by mouth at bedtime Active aspirin (ASPIRIN) 81 MG chew tablet Take 1 (one) tablet by mouth once daily Active sertraline (ZOLOFT) 100 MG tablet Take 1 (one) tablet by mouth once daily Active Active Problems Problem Noted Date Diagnosed Date NAFLD (nonalcoholic fatty liver disease) 022 Overview (06/29/2021): 06/26/21 Fibroscan CAP 296, LSM 8.4 kPa Chronic coronary artery disease 08/17/2014 Hyperlipidemia 03/30/2014 [...] cm (5' 10 ) 02/10/2021 3:39 PM GEOTHERMAL OPERATING ENGINEER Body Mass Index 27.26 02/10/2021 3:39 PM GEOTHERMAL OPERATING ENGINEER Plan of Treatment Not on file Goals Goal Patient Goal Type Associated Problems Recent Progress Patient-Stated? Author Medication Management General On track( 022 3:36 PM CDT) No Raisa Dunlap, TRISH Note: Expected end date: Ongoing Interventions: Take all medications as prescribed Let your doctor know right away about any changes in your medications Make sure to request a refill of your medication at least one week prior to your last dose Care Teams Corn Breeder Relationship Specialty Start Date End Date Juan Antunez MD [address] [place] [address] PCP - General 04/15/18
--- OUTSIDE RECORDS SUMMARY | 2024-03-16 10:55 | XMS_ITS | Encounter Summary ---
Author Organization [facility] Address [address] [place] [address]. [place] [address] [place] [address] Care Team Providers Care Financial Service Representative Name Role Phone Juan Antunez MD Unavailable [phone] Juan Antunez MD Primary Care Provider [phone] Reason for Visit * Auth/Cert (Routine) Specialty Diagnoses / Procedures Referred By Urban mao Referred To Contact Diagnoses LUMBAR STENOSIS M48.061 Procedures LUMBAR DECOMPRESSION L4-5 Jamey Carmichael MD 3 [facility] [address] [place] [address] Phone: tel: fax: Referral ID Status Reason Start Date Expiration Date Visits Re quested Visits Authorized [id number] 1 1 Encounter Details Date Type Department Care Team (Latest Contact Info) Description 07/30/2022 10:36 AM CDT - 07/30/2022 5:10 PM CDT Hospital Encounter [facility] [place], [place] [id number] Jamey Carmichael MD 3 [facility] [address] [place] [address] [phone] Discharge Disposition: Home or Self Care (Routine Discharge) Social History Tobacco Use Types Packs/Day Years [...] AM CDT documented as of this encounter Last Filed [...] Mass Index 26.1 07/30/2022 11:53 AM CDT documented in this encounter Discharge Instructions * Discharge Instructions* Leyla Bah RN - 07/30/2022 3:22 PM CDT No bending, lifting, twisting for 6 weeks. No lifting greater than 8-10lbs for 6 weeks. No strenuous activity for 6 weeks. May shower in 24hrs No submerging in water for 6 weeks. Please see instruction sheets given in the office. DERMABOND/MEDICAL GLUE INSTRUCTIONS KEEP INCISION CLEAN & DRY FOR 24HRS NO OINTMENTS/LOTIONS ON INCISION LET GLUE FLAKE OFF ON ITS ON, DO NOT PICK AT GLUE Because you had anesthesia, we suggest these things: -Avoid greasy, fried or spicy foods for today -Take medication with food -Take an over the counter stool softener if needed for constipation while taking pain medication -Have a responsible adult stay with you the rest of today and overnight -No alcohol, driving, making major decision or operating machinery for 24 hours or while taking pain medication If you have chest pain, shortness of breath, excessive bleeding or drainage, if you cannot hold down anything to eat or drink, or if you cannot urinate, please call 911 or go to the nearest emergencyroom. If you have fever, pain not controlled by your medication, signs of infection such as redness or discharge or swelling at the site, or any other questions or concerns, please call your surgeon. * Attachments The following attachments cannot be sent through Care Everywhere. * Minimally Invasive Spine Surgery Discharge Instructions ([place] Islander) * General Anesthesia Discharge Instructions ([place] Islander) documented in this encounter Medications at Time of Discharge atorvastatin (LIPITOR) 80 MG tablet Take 1 tablet (80 mg total) by mouth daily. sertraline (ZOLOFT) 100 MG tablet Take 1 tablet (100 mg total) by mouth daily. cyclobenzaprine (FLEXERIL) 10 MG tabletIndications: Spinal stenosis of lumbar region without neurogenic claudication Take 1 tablet (10 mg total) by mouth 3 (three) times daily as needed for Muscle Spasms. 30 tablet 07/30/2022 08/09/2022 HYDROcodone-acetam inophen (NORCO) 5-325 MG tabletIndications: Acute Pain < 7 Day Supply Take 1 tablet by mouth every 6 (six) hours as needed. Indications: Acute Pain < 7 Day Supply 25 tablet 07/30/2022 08/06/2022 documented as of this encounter H&P Notes * Jamey Carmichael MD - 07/30/2022 1:07 PM CDTSummary: Admit H&P Attending Provider: Jamey Carmichael MD PCP: uJan Antunez MD Roland Garcia is an 67-year-old male. Reason for Admission: * No active hospital problems. * HPI: Patient is a 67 year old male who originally presented to the office with low back and left lower extremity symptoms, primarily weakness at present. He has a finding of lumbar stenosis at L4-5. EMG and NCS have shown acute and chronic denervation changes and he presents for lumbar decomrpession at L4-5 Past Medical History: Diagnosis Date Coronary artery disease Hepatic steatosis LBBB (left bundle branch block) Mixed hyperlipidemia NATALIE (obstructive sleep apnea) Subdural hematoma (CMS/HCC) conservative management Allergies: No Known Allergies Social History Tobacco Use Smoking status: Never Smokeless tobacco: Never Substance Use Topics Alcohol use: Yes Comment: rarely 2 times a month at most History reviewed. No pertinent surgical history. Family History Problem Relation Name Age of Onset CHF Mother Heart Disease Father Travel Exposure: No current facility-administered medications on file prior to encounter. Current Outpatient Medications on File Prior to Encounter Medication Sig aspirin 81 MG chewable tablet Chew 1 tablet (81 mg total) by mouth daily. atorvastatin (LIPITOR) 80 MG tablet Take 1 tablet (80 mg total) by mouth daily. sertraline (ZOLOFT) 100 MG tablet Take 1 tablet (100 mg total) by mouth daily. Blood pressure (!) 142/67, pulse 70, temperature 97.9 ??F (36.6 ??C), temperature source Temporal, resp. rate 16, height 5' 10 (1.778 m), weight 82.5 kg (181 lb 14.1 oz), SpO2 98 %. ROS Physical Exam Awake, alert, oriented x 3 Speech CF ROSLYN EOMI Face= TML MAEW with good strength, mild left foot weakness in DF Assessment: 67 year old male presents for lumbar decompression at L4-5. Please see my scanned office note from 06/03/2022 for full documentation as to indications, risks and recovery from surgery. There have been no signifiant changes since that office visit. Plan is for patient to discharge to home today Jamey Carmichael MD 07/30/2022 documented in this encounter Nursing Notes * Eleazar Keller RN - 07/30/2022 1:44 PM CDT Called patient's , Khalida, to advise procedure started and patient/VS are good. * Mounika Cardoza RN - 07/30/2022 12:11 PM CDT Hibiclens showers at home x 2, nose to toes protocol completed. CHG wipes used on arrival to OPS, etyhl alcohol swabs x 2 placed in bilateral nares per RN. Pt tolerated well. documented in this encounter OR Notes * Op Note - Jamey Carmichael MD - 07/30/2022 2:32 PM CDTSummary: lumbar decompression L4-5 OPERATIVE NOTE - July 30, 2022 Preoperative diagnosis: Spinal stenosis of lumbar region with radiculopathy Postoperative diagnosis: Same Procedures performed: 1. Total bilateral laminectomy, medial facetectomy and foraminotomies, L4-5 2. Use and interpretation of intraoperative fluoroscopy Surgeon: Jamey Carmichael MD Anesthesia: General endotracheal Specimens: None Estimated blood loss: 10 cc IV Fluids: 1200 crystalloid Complications: None apparent Indications: Roland Garcia is a very pleasant 67 year old male who presents with low back and lower extremity pain but more pronounced dorsiflexion weakness on the left in the setting of lumbar stenosis at L4-L5. he has exhausted non operative measures and is inclined to surgery. Please see my preoperative H&P for full details regarding his history and preoperative course. Plan is for lumbar decompression L4-5 Description of the procedure: The patient was brought to the operating room where general anesthesia was induced without difficulty. Appropriate monitoring and access was obtained. The patient was turned prone on Amrit table and all pressure points were carefully padded. Antibiotics for preoperative surgical prophylaxis was given. We used fluoroscopy to jose francisco the appropriate skin incision level. The area was cleaned, preppedand draped in the usual sterile fashion. A final timeout was performed to confirm patient identity and procedure to all team members. Local anesthesia was injected at the incision site using 0.5% Marcaine. Skin was opened with a #10 blade. The incision was then carried out deeply using Bovie. Hemostasis was achieved during the exposure. Self retaining retractors were placed to facilitate the exposure. I exposed the spinous process and laminae of L4. A curette was placed underneath the L4 lamina and we did another x-ray to confirm the level. We then carried exposure and subperiosteal fashion bilaterally. Self retaining retractors were advanced. The laminae of L4 were exposed using bovie electrocautery bilaterally to the level of the facet complexes. Hemostasis was achieved. The spinous process of L4 was removed using a Todd and then a rongeur. Wax was placed at the bony edges. Attention was turned to the L4-5 level. I performed a bilateral L4 laminectomy using combination ofKerrisons and drilling using a matchstick tip. Hemostasis of the epidural space was ensured using bipolar cautery and FloSeal. The overlying ligament was removed using kerossen punches. In the lateral recesses bilaterally bony and ligamentous foraminotomies were performed by drilling the medial facet and then removing the overlying ligament and remaining bone. A more extensive medial facetectomy was performed on the left and there was a synovial cyst within the lateral recess that was meticulously dissected away from the thecal sac and overlying bone and removed in a piecemeal fashion. Upon completion of the bony and ligamentous decompression a isaiah retractor was passed and the exiting L4 and L5 nerve roots were free on the right and the left. The wound was copiously irrigated. The central canal and neural foramen at L4 and L5 were patent. Hemostasis was achieved. A hemovac drain was tunnelled and secured. The self retaining retractors were removed. Muscle was approximated with a 0 Vicryl interrupted sutures. Fascia was closed with 0 Vicryl interrupted sutures and subcutaneous tissue was closed with 2-0 and then 3-0 Vicryl. Skin was closed with surgical glue. All counts were correct. The patient was flipped back to a stretcher and extubated. he was brought in to the recovery room in stable condition. I was present for the entirety of the procedure. There were no complications * OR PreOp - Neda Edwards RN - 07/24/2022 9:37 AM CDT I called patient per Claudia Quintana BAND BIAS MACHINE OPERATOR request to update medications- meds updated- patient stopped asa yesterday 07/23 per surgeon office request and aware he can take atorvastatin and sertraline amof surgery with a sip of water * OR PreOp - Claudia Quintana CNP - 07/24/2022 9:03 AM CDT Pt's surgery was rescheduled to get cardiac clearance. No changes to report. Cardiac clearance per Dr. Spivey - if stres testing is unremarkable, he may proceed with planned surgery as scheduled. He may discontinue his aspirin therapy prior to planned surgery. EKG 06/30/22 SR LBBB Compared to ECG 08/03/18 No significant changes Stress test 07/16/22 Maximal exercise stres echocardiogram, negative for myocardial ischemia, with augmented (from baseline resting images) segmental function in the anterior and inferior asencio. Paradoxical septal motionremains, due to LBBB. Original note: Chart reviewed. Per phone interview, patient denies any SOB/CP with 2 FOS or recent changes in activity tolerance in past 6 months. Per phone interview, patient states he was released from cardiologyand PCP manages medications. Please request medical clearance 2/ hx CAD, LBBB as patient states heno longer follows with cardiology. Please request any cardiac and most recent office note per PCP. Addendum 07/03/22: Per PCP Dr. Antunez, Medically optimized, moderate risk. Followed by [facility] . Requested cardiac testing from prior green jobs trainer. Pt will need cardiac clearance if unable to obtain previous workup/testing for LBB/CAD. Coronary CT angiogram 04/13/14 1. Apparent 50-70% stenosis in the midportion left anterior descending coronary artery which may saunders overestimate given significant calcified plaque within this vessel. 2. Multivessel calcified and noncalcified plaque involving the RCA and Circumflex which produces less than 50% stenosis. 3. Coronary Calcium Score = 39. 4. Codominant coronary system. * OR PreOp - Suze Yang RN - 07/23/2022 4:14 PM CDT Pt back on surgery schedule. Cleared from Cardiology. Pt denies any changes to report. documented in this encounter Plan of Treatment Not on file documented as of this encounter Procedures Procedure Name Priority Date/Time Associated Diagnosis Comments SURG XR LUMB SPINE 1V Routine 07/30/2022 2:02 PM CDT LAMINECTOMY DECOMPRESSION 07/30/2022 1:12 PM CDT LUMBAR STENOSIS M48.061 Case Notes RESCHED WITH MIREILLE ON 07/23/22 SMI PHONE ASSESSSCHED BY FAX 06/16 [facility] PRETESTING CLOSER TO HOME Special Needs NEEDS TONIA HERNANDEZ FRAME documented in this encounter Results * SURG XR LUMB SPINE 1V (07/30/2022 2:02 PM CDT) Anatomical Region Laterality Modality Spine Radiographic Krista ging 07/30/2022 3:16 PM CDT Impressions 07/30/2022 3:16 PM CDT Impression: No radiologic interpretation will be issued. ??The report and documentation of this exam will reside in the patient's permanent medical record and in the attending physician's procedure note. Ordered By: JAMEY CARMICHAEL Interpreted By: Jin Winston MD, 07/30/2022 3:16 PM Narrative 07/30/2022 3:16 PM CDT FLUOROSCOPY CONTROL ONLY Procedure Note Jin Winston MD - 07/30/2022 FLUOROSCOPY CONTROL ONLY Impression: No radiologic interpretation will be issued. The report anddocumentation of this exam will reside in the patient's permanent medicalrecord and in the attending physician's procedure note. Ordered By: JAMEY CARMICHAEL Interpreted By: Jin Winston MD, 07/30/2022 3:16 PM us Jamey Carmichael MD IMAGES ONLY Final Result documented in this encounter Visit Diagnoses Diagnosis Spinal stenosis of lumbar region without neurogenic claudication- Primary Spinal stenosis, lumbar region, without neurogenic claudication Lumbar spinal stenosis Spinal stenosis, lumbar region, without neurogenic claudication documented in this encounter Administered Medications Inactive Administered Medications - up to 3 most recent administrations Medication Order MAR Action Action Date Dose Rate Site acetaminophen (TYLENOL) tablet 1,000 mg 1,000 mg, Oral, Once, 1 dose, On Petrona 07/30/22 at 1245, Maximum dose of acetaminophen is 4000 mg from all sources in 24 hours., Pre-Op Given 07/30/2022 12:24 PM CDT 1,000 mg oxyCODONE immediate release (ROXICODONE) tablet 5 mg 5 mg, Oral, Once as needed, Other, Mild Pain (Scale 1-3), 1 dose, Starting on Petrona 07/30/22 at 1430, Until Petrona 07/30/22 at 1558, Do not administer if patient is overly sedated, SpO2 LESS than 90%, or Respiratory Rate LESS than 12., PACU Given 07/30/2022 3:58 PM CDT 5 mg documented in this encounter Active and Recently Administered Medications Times are shown in CDT. Scheduled Medication Order 07/28/2022 07/29/2022 07/30/2022 acetaminophen (TYLENOL) tablet 1,000 mg (COMPLETED) 1,000 mg, Oral, Once, 1 dose, On Petrona 07/30/22 at 1245, Maximum dose of acetaminophen is 4000 mg from all sources in 24 hours., Pre-Op 1224 (Given - Provid er: Mounika Cardoza RN - Comment: preop) ceFAZolin (ANCEF) 2 g in NS 100 mL IVPB (COMPLETED) 2 g, Intravenous, at 200 mL/hr, rn call center to O.R., 1 dose, First dose on Petrona 07/30/22 at 1100, Pre-Op 1332 (Given - Provid er: Fabricio Hankins CRNA)1337 (Infusion Stop Time - Provider: Fabricio Hankins CRNA)1512 (Anesthesia Volume Adjustment - Provider: Fabricio Hankins CRNA) PRN Medication Order 07/28/2022 07/29/2022 07/30/2022 BUpivacaine-EPINEPHrine (PF) 0.25% -1:[id number] injection (CANCELED) As needed, Starting on Petrona 07/30/22 at 1355, Until Petrona 07/30/22 at 1512, Intra-Op 1355 (Given - Provid er: Jamey Carmichael MD) BUpivacaine-EPINEPHrine PF 0.5% -1:[id number] injection (CANCELED) As needed, Starting on Petrona 07/30/22 at 1439, Until Petrona 07/30/22 at 1512, Intra-Op 1439 (Given - Provid er: Jamey Yang RN) ceFAZolin (ANCEF) in NS 1000 mL irrigation solution (CANCELED) As needed, Starting on Petrona 07/30/22 at 1356, Until Petrona 07/30/22 at 1512, Intra-Op 1356 (Given - Provid er: Jamey Carmichael MD) oxyCODONE immediate release (ROXICODONE) tablet 5 mg (COMPLETED) 5 mg, Oral, Once as needed, Other, Mild Pain (Scale 1-3), 1 dose, Starting on Petrona 07/30/22 at 1430, Until Petrona 07/30/22 at 1558, Do not administer if patient is overly sedated, SpO2 LESS than 90%, or Respiratory Rate LESS than 12., PACU 1558 (Given - Provid er: Ruben Witt RN) documented in this encounter Care Teams Financial Service Representative Relationship Specialty Start Date End Date Juan Antunez MD [address] [facility] [address] [place] [address] PCP - General FAMILY PRACTICE 07/30/22 [place] [address] [place] [address] [address] [place], [place] [id number] FAMILY PRACTICE 06/30/22 documented as of this encounter
--- OUTSIDE RECORDS SUMMARY | 2024-03-16 10:55 | XMS_ITS | Encounter Summary ---
Author Organization [facility] Address [address] [place] [address]. [place] [address] [place] [address] Care Team Providers Care Supervisor Bit And Shank Department Name Role Phone Juan Antunez MD Unavailable Juan Antunez MD Primary Care Provider [phone] Reason for Visit * Auth/Cert (Routine) Specialty Diagnoses / Procedures Referred By Urban mao Referred To Contact Diagnoses LUMBAR STENOSIS M48.061 Procedures LUMBAR DECOMPRESSION L4-5 Jamey Carmichael MD 3 [facility] [address] [place] [address] Phone: tel: fax: Referral ID Status Reason Start Date Expiration Date Visits Re quested Visits Authorized [id number] 1 1 Encounter Details Date Type Department Care Team (Late st Contact Info) Description 07/30/2022 12:30 PM CDT - 07/30/2022 3:06 PM CDT Surgery [facility] OR [place], [place] [phone] Jamey Carmichael MD 3 [facility] [address] [place] [phone] LUMBAR DECOMPRESSION L4-5 Surgery Details Date/Time Status Location OR Service Patient Class Case Class Case Type Trauma Case? 07/30/2022 12:30 PM Posted [facility] OR OR 8 Neurosurgery Short Stay/Outpat ient Surgery E - Elective No Panel 1 Procedure LRB Anes Op Region Wound Class Comments LUMBAR DECOMPRESSION L4-5 N/A General Spine Sarita n Surgeon Surgeon Role Service Panel Jamey Carmichael MD Primary Neurosurgery 1 Case Notes RESCHED WITH MIREILLE ON 07/23/22 SMI PHONE ASSESSSCHED BY FAX 06/16 [facility] PRETESTING CLOSER TO HOME Special Needs NEEDS TONIA HERNANDEZ FRAME documented in this encounter Social History Tobacco Use Types Packs/Day Years [...] Sign Reading Time Taken Comments Blood Pressure 142/67 07/30/2022 11:53 AM CDT Pulse 70 07/30/2022 11:53 AM CDT Temperature 36.6 ??C (97.9 ??F) 07/30/2022 1 1:53 AM CDT Respiratory Rate 16 07/30/2022 11:5 3 AM CDT Oxygen Saturation 98% 07/30/2022 11: 53 AM CDT Inhaled Oxygen Concentration - - Weight [...] * Minimally Invasive Spine Surgery Discharge Instructions (Maltese) * General Anesthesia Discharge Instructions (Maltese) documented in this encounter Medications at Time [...] H&P Attending Provider: Jamey Carmichael MD PCP: Juan Antunez MD Roland Garcia is an 67-year-old [...] CDT I called patient per Claudia Quintana POWER PLANT TECHNICIAN request to update medications- meds updated- patient [...] PCP manages medications. Please request medical clearance 2/2 hx CAD, LBBB as patient states heno longer follows with cardiology. Please request any cardiac and most recent office note per PCP. Addendum 07/03/22: Per PCP Dr. Antunez, Medically optimized, moderate risk. Followed by [facility] . Requested cardiac testing from prior culinary art teacher. Pt will need cardiac clearance if unable [...] TO HOME Special Needs NEEDS TONIA HERNANDEZ documented in this encounter Results * SURG [...] Result documented in this encounter Visit Diagnoses Not on filedocumented in this encounter Administered Medications Inactive Administered Medications - up to 3 most recent administrations Medication Order MAR Action Action Date Dose Rate Site acetaminophen (TYLENOL) tablet 1,000 mg 1,000 mg, Oral, Once, 1 dose, On Petrona 07/30/22 at 1245, Maximum dose of acetaminophen is 4000 mg from all sources in 24 hours., Pre-Op Given 07/30/2022 12:24 PM CDT 1,000 mg BUpivacaine-EPINEPHrine (PF) 0.25% -1:[id number] injection As needed, Starting on Petrona 07/30/22 at 1355, Until [place] 07/30/22 at 1512, Intra-Op Given 07/30/2022 1:55 PM CDT 10 mLs Operative Site BUpivacaine-EPINEPHrine PF 0.5% -1:[id number] injection As needed, Starting on Petrona 07/30/22 at 1439, Until Petron[place] 07/30/22 at 1512, Intra-Op Given 07/30/2022 2:39 PM CDT 10 mLs Operative Site ceFAZolin (ANCEF) in NS 1000 mL irrigation solution As needed, Starting on Petrona 07/30/22 at 1356, Until [place] 07/30/22 at 1512, Intra-Op Given 07/30/2022 1:56 PM CDT 1 g Operative Site oxyCODONE immediate release (ROXICODONE) tablet 5 mg [...] (COMPLETED) 2 g, Intravenous, at 200 mL/hr, elevating grader operator to O.R., 1 dose, First dose on Petrona 07/30/22 at 1100, Pre-Op 1332 (Given - Provid er: Fabricio Hankins CRNA)1337 (Infusion Stop Time - Provider: Fabricio Hankins CRNA)1512 (Anesthesia Volume Adjustment - Provider: Fabricio Hankins CRNA) PRN Medication Order 07/28/2022 07/29/2022 07/30/2022 BUpivacaine-EPINEPHrine (PF) 0.25% -1:474621 injection (CANCELED) As needed, Starting on Petrona 07/30/22 at 1355, Until [place]ron[place] 07/30/22 at 1512, Intra-Op 1355 (Given - Provid er: Jamey Carmichael MD) BUpivacaine-EPINEPHrine PF 0.5% -1:[id number] injection (CANCELED) As needed, Starting on Petrona [...] RN) documented in this encounter Care Teams Supervisor Bit And Shank Department Relationship Specialty Start Date End Date Juan Antunez MD [address] [facility] [address] [place] [address] PCP - General FAMILY PRACTICE 07/30/22 Juan Antunez MD [address] [facility] [address] [place] [address] FAMILY PRACTICE 06/30/22 documented as of this encounter
--- OUTSIDE RECORDS SUMMARY | 2024-03-16 10:55 | XMS_ITS | Encounter Summary ---
Author Organization [facility] Address [address] [place] [address]. [place] [address] [place] [address] Care Team Providers Care Mixing Machine Tender Name Role Phone Juan Antunez MD Unavailable Encounter Details Date Type Department Care Team (Late st Contact Info) Description 07/06/2022 Scan [facility] Pre-Admission Testing [address] [place] [address] Katherine Hinojosa, RN Social History Tobacco Use Types Packs/Day Years [...] suspected to have Coronavirus/COVID-19? No / Unsure 06/30/2022 11:33 AM CDT documented as of this encounter Plan of Treatment Not on file documented as of this encounter Visit Diagnoses Not on filedocumented in this encounter Care Teams Mixing Machine Tender Relationship Specialty Start Date End Date Juan Antunez MD [address] [facility] [address] [place] [address] FAMILY PRACTICE 06/30/22 documented as of this encounter
--- OUTSIDE RECORDS SUMMARY | 2024-03-16 10:55 | XMS_ITS | Encounter Summary ---
Author Organization [facility] Address [address] [facility] [place] [address] Care Team Providers Care Plate Sensitizer Name Role Phone Juan Antunez MD Primary Care Provider +1- [phone] Reason for Visit * Reason Onset Date Comments Results 03/05/2021 Encounter Details Date Type Department Care Team (Late st Contact Info) Description 03/05/2021 Telephone [facility] - [address] [phone] Raisa Dunlap, RN Results Social History Tobacco [...] on file documented as of this encounter Miscellaneous Notes * Telephone Encounter - Raisa Dunlap RN - 03/05/2021 1:19 PM CST Called patient to relay message from Dr. Coreas/Mae Macias, PRODUCT MANAGENT INTERN: Labs show elevated alkaline phosphatase, otherwise labs are normal. He needs an MRI/MRCP to evaluate further. Would prefer to get at [facility] if possible. Patient transferred to scheduling line. He states understanding of the above. GRINDER OPERATOR documented in this encounter Plan of Treatment Not on file documented as of this encounter Visit Diagnoses Not on filedocumented in this encounter Care Teams Plate Sensitizer Relationship Specialty Start Date End Date Juan Antunez MD [facility] [place] [phone] PCP - General 04/15/18 documented as of this encounter
--- OUTSIDE RECORDS SUMMARY | 2024-03-16 10:55 | XMS_ITS | Encounter Summary ---
Author Organization [facility] Address [address] [facility] [place] [address] Care Team Providers Care Recreation Activities Coordinator Name Role Phone Juan Antunez MD Primary Care Provider +1- [phone] Reason for Visit * Reason Comments Fatty Liver Encounter Details Date Type Department Care Team (Late st Contact Info) Description 06/18/2022 1:30 PM CDT Office Visit [facility] GI [address] [facility] [place] [phone] aMe Macias, CAN TECHNICIAN-DISPOSAL MAN [address] [place] [address] [facility] [place], [place] [phone] NAFLD (nonalcoholic fatty liver disease) (Primary Dx) Social History Tobacco Use Types Packs/Day Years [...] (190 lb) 06/18/2022 1:46 PM CDT Height - - Body Mass Index 27.26 02/10/2021 3:39 PM INTERNET MARKETER documented in this encounter Patient Instructions * Patient Instructions* Mae Macias, CAN TECHNICIAN-DISPOSAL MAN - 06/18/2022 2:28 PM CDT Blood work at [facility] at your earliest convenience As long as your blood tests look okay we will see you in 1 year (June 2023) with Fibroscan on the same day to assess for risk of advanced liver fibrosis and fatty liver. There is no medication FDA approved for Non alcoholic fatty liver disease but lifestyle modifications can help. Lifestyle modification consisting of diet, exercise, and weight loss is necessary to treat Non alcoholic fatty liver disease. The data shows that overall weight loss is the lua to improvement in the histopathological features of BRIGGS. A combination of a low calorie diet (daily reduction by 500-1,000 kcal) and moderate-intensity exercise provides the best chances of achieving and maintaining weight loss over time. Weight loss of at least 3%-5% of body weight appears necessary to improve steatosis, but a greater weight loss (7%-10%) is needed to improve the majority of the histopathological features of BRIGGS, including fibrosis. Dietary and exercise advice for fatty liver disease includes: A. Avoid all sugar sweetened beverages including soda pop and sweet tea. B. Eat real food (fruits vegetables meat fish) not processed foods C. Avoid foods labelled as light, low fat or fat free as they usually contain excess sugars D. Mediterranean diet is a great diet to follow for fatty liver. E. Black coffee can be beneficial for your liver. F. Eat when you are hungry. Don't eat when you are not. Eat slowly enjoy your food and listen to your body when it tells you you are full G. Limit grains, potatoes and sugar as they tend to be stored as fat and avoid trans fats (hydrogenated oils) because they are toxic to your body H. Goal to exercise is 3-4 times a week 45 minutes at a time (you may want to start with 15 minutesand add 3 minutes more every week till you hit the goal); discuss with your PCP before starting an exercise program. Exercise can be rapid walking, jogging, bicycling, aerobics, elliptical, treadmillor other cardio work outs. documented in this encounter Progress Notes * Mae Macias APRN-CNP - 06/18/2022 2:02 PM CDT I saw Mr. Garcia in [facility] at [facility] today for follow up visit regarding: Past Visit Note. 02/10/21 Roland Garcia is a 65 year old male in clinic for initial visit regarding elevated liver enzymes, cholestatic pattern. Initially found during??routine??blood??work screening in November.??Ultrasound showed fatty liver??and gallstones without acute cholecystitis .??No known complications related to liver. No prior??known liver disease.??No jaundice ever. No significant pruritus. No bloody or melanous stools. Energy is good. He has NATALIE and uses CPAP which helped with his fatigue.??Today reports occasional LUQ pain??that he describes as rare and only lasting a second or so. No recent changes to medications. HE has been on??sertraline and atorvastatin for some time.??He describes his alcohol use as occasional, one drink per month on average. He eats take out twice per week. He has been following plant based diet over the past 6 moths. His exercise is minimal and consists of walking dog. he live in home with , oldest son just moved to [place]. He works in the [employer].? 06/26/21 Roland Garcia is a 66 year old male in clinic for follow up regarding NAFLD. He is down 5 lbs from previous visit. He continues to follow a plant based diet about 60 % of the time. Today he denies any complaints. He recently visited son in [place]. Chief Complaint Patient presents with ??? Fatty Liver Patient Active Problem List: NAFLD (nonalcoholic fatty liver disease) Chronic coronary artery disease Hyperlipidemia Left bundle branch block (LBBB) Interim history: Roland Garcia is a 67 year old male in clinic for follow up regarding NAFLD. He denies any concerns today. No report of common decompensations related to liver. His weight is up 7 lbs from last visit. Needs to return to healthier lifestyle modifications. He has plans to retire in September. Current Outpatient Medications Medication Sig ??? aspirin (ASPIRIN) 81 MG chew tablet Take 1 (one) tablet by mouth once daily ??? atorvastatin (LIPITOR) 80 MG tablet Take 1 (one) tablet by mouth at bedtime ??? sertraline (ZOLOFT) 100 MG tablet Take 1 (one) tablet by mouth once daily No current facility-administered medications for this visit. He describes his current alcohol consumption as one drink/ month ?? cigarette smoker??no ?? Family History of Liver disease: no?? Social History Social History Narrative ??? Not on file Review of systems: Chest pain: none. Shortness of breath: none. Nausea and vomiting: none. Constipation or diarrhea: none. Upper or lower GI bleeding: none. On exam today, he appeared alert and anicteric. I reviewed today's vital signs with the patient. Vitals: 06/18/22 1346 BP: 125/76 Pulse: 73 Resp: 18 Temp: 98 ??F (36.7 ??C) SpO2: 97% Weight: 86.2 kg (190 lb) Body mass index is 27.26 kg/m??. Wt Readings from Last 3 Encounters: 06/18/22 86.2 kg (190 lb) 06/26/21 83.3 kg (183 lb 9.6 oz) 02/10/21 86.1 kg (189 lb 12.8 oz) . Lungs were clear to auscultation bilaterally. Heart sounds were regular rate and rhythm. There were no murmurs. Abdomen was soft and nontender. Liver edge palpable: no. Spleen palpable: no. Ascites: none. Hernias: none. Pretibial edema: none. Relevant test results: Recent Labs Component Name 10/09/21 1016 02/27/21 1054 TBIL 0.5 0.6 ALKPHOS 150* 144* ALT 40 22 AST 30 17 ALBUMIN 4.3 4.1 SODIUM - 142 POTASSIUM - 4.1 CO2 - 24 CREATININE - 1.17 BUN - 16 HGB - 13.7 WBC - 6.0 PLTCOUNT - 251 INR - 1.0 ?? 10/31/20 Ferritin ??93 Iron ??86 Transferrin ??258 Transferrin Saturation % ??29 Acnow-3-Xgmjlegzyvn ??141 Phenotype (PI) ??MM Ceruloplasmin ??22.2 VARGAS ??negative Mitochondrial M2 Antibody ??<20 Hepatitis B Surface Antibody Quantitative ??non reactive Hepatitis B Surface Antigen ??negative Hepatitis B Core Antibody IgG ??negative Hepatitis C Antibody?? <0.1 GGT 534 ??IGM 131 Fibroscan 06/26/2021 ?? Liver Stiffness: (LSM, kPa) median: 8.4 IQR (interquartile range): 2.4 IQR/Median% (ideally < 30%): 29 ?? CAP (controlled attenuation parameter): 296 MRI/MRCP 03/24/21 IMPRESSION: ?? 1. Cholelithiasis without cholecystitis. ? Assessment: 1. NAFLD without clinical indication of advanced liver disease 2. HLD 3. pre diabetic Plan: 1. He will get updated labs at [facility] 2. Return to clinic in 1 year with fibroscan 3. Specific recommendations were provided regarding diet and exercise including the avoidance of sugar sweetened beverages and dietary trans-fats. An appointment was scheduled for him to see me in followup in one year. Address letter to: Juan Antunez MD [address] [place] [phone] Copy to: Juan Antunez MD [address] [place] [phone] [facility] Division of Gastroenterology and Hepatology Collaborating physician: Dr. Hung Coreas June 19, 2022 Orders Placed This Encounter ??? PROC FIBROSCAN ??? CBC WITH DIFFERENTIAL ??? COMPREHENSIVE METABOLIC PANEL documented in this encounter Plan of [...] Procedure Name Priority Date/Time Associated Diagnosis Comments CBC W AUTO DIFFERENTIAL Routine 07/15/2022 10:02 AM CDT NAFLD (nonalcoholic fatty liver disease) COMPREHENSIVE METABOLIC PANEL Routine 07/15/2022 10:02 AM CDT NAFLD (nonalcoholic fatty liver disease) documented in this encounter Results * (ABNORMAL) COMPREHENSIVE METABOLIC PANEL (07/15/2022 10:02 AM CDT) Glucose 99 70 - 99 mg/dL [facility] [...] Resulting Agency Comment Lab Testing performed at[facility] [address] [facility] ??[facility], [facility] [phone] Mae Macias CAN TECHNICIAN-DISPOSAL MAN LAB - CHEMI STRY ORDERABLES [facility] INSURANCE BILL [address] [place] [address] * CBC WITH DIFFERENTIAL (07/15/2022 10:02 AM CDT) WBC 6.4 3.4 - 10.8 x10E3/uL [facility] [...] Agency Comment Lab Testing performed at: [facility] [address] ??[facility]ly [facility], later [facility] [phone] Mae Maicas CAN TECHNICIAN-DISPOSAL MAN LAB - HEMAT OLOGY ORDERABLES [facility] INSURANCE BILL [address] [place] [address] documented in this encounter Visit Diagnoses Diagnosis NAFLD (nonalcoholic fatty liver disease)- Primary Other chronic nonalcoholic liver disease documented in this encounter Care Teams Recreation Activities Coordinator Relationship Specialty Start Date End Date Juan Antunez MD [address] [place] [phone] PCP - General 04/15/18 documented as of this encounter
--- OUTSIDE RECORDS SUMMARY | 2024-03-16 10:55 | XMS_ITS | Clinical Summary ---
Author Organization [email or web address] Address [address] [facility] [address] [place] [address] Care Team Providers Care Numerical Control Lathe Operator Name Role Phone Juan Antunez MD Primary Care Provider +1- [phone] Source Comments [facility],non-owned Affiliates and Associated Physician Practices is amultiple site organization consisting of ambulatory clinics and hospital sitesin [place] and [place]. This disclosure is being madepursuant to the Care Everywhere program and may not contain all information available regarding this patient. 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 12 MONTHS 1954 PNEUMOCOCCAL VACCINE 50+ (1 of 2 - PCV) 1960 HEPATITIS C SCREENING 06/08/1972 DTAP/TDAP/TD VACCINES (1 - Tdap) 1973 ZOSTER VACCINE (1 of 2) 2004 Respiratory Syncytial Virus (RSV) Vaccine Pt: or over 60 yrs (1 - Risk 60-74 years 1-dose series) 2014 DEPRESSION SCREENING 03/08/2023 COVID-19 VACCINE ( - 2023-2 5 season) 2023 INFLUENZA VACCINE (#1) 2023 HEPATITIS B VACCINE Aged Out No longe r eligible based on patient's age to complete this topic HIB VACCINE Aged Out No longer eligi ble based on patient's age to complete this topic HPV VACCINE Aged Out No longer eligi ble based on patient's age to complete this topic MENINGOCOCCAL VACCINE Aged Out No mercedes misbah eligible based on patient's age to complete this topic Goals Goal Patient Goal Type Associated Problems Recent Progress Patient-Stated? Author Medication Management General On track( 022 3:36 PM CDT) Raisa Rodarte, RN Note: Expected end date: Ongoing Interventions: Take all medications as prescribed Let your doctor know right away about any changes in your medications Make sure to request a refill of your medication at least one week prior to your last dose Care Teams Numerical Control Lathe Operator Relationship Specialty Start Date End Date Juan Antunez MD [address] [place] [phone] PCP - General 04/15/18
--- OUTSIDE RECORDS SUMMARY | 2024-03-16 10:55 | XMS_ITS | Encounter Summary ---
Author Organization [facility] Address [address] [facility] [place] [address] Care Team Providers Care Sustainability Director Name Role Phone Juan Antunez MD Primary Care Provider +1- [phone] Encounter Details Date Type Department Care Team (Late st Contact Info) Description 06/26/2021 3:00 PM CDT Procedure visit [facility] - [address] [phone] Unknown, Provider NAFLD (nonalcoholic fatty liver disease) ; Elevated liver enzymes Social History Tobacco Use Types Packs/Day Years Used Date Smoking Tobacco: Never Smokeless Tobacco: Never Alcohol Use Standard Drinks/Week Comments Yes 0 (1 standard drink = 0.6 oz pur e alcohol) 1-2 times a month Sex and Gender Information Value Date Recorded Sex Assigned at Not on file Gender Identity Not on file Sexual Orientation Not on file documented as of this encounter Procedure Notes * Flakita Benedict, RN - 06/26/2021 3:18 PM CDTAssociated Order(s): PROC FIBROSCAN Procedure(s): [place] LIVER ELASTOGRAPHY Pre-Procedure Diagnose(s): Elevated liver enzymes Diagnosis: PHYLLIS RN verified patient has no implanted devices and NPO for prior 3 hours. Procedure explained and consent signed. Date of Exam: 06/26/2021 Liver Stiffness: (LSM, kPa) median: 8.4 IQR (interquartile range): 2.4 IQR/Median% (ideally < 30%): 29 CAP (controlled attenuation parameter): 296 Technical Difficulty: None Ordering Provider: Mae Macias PRINCIPLE SOFTWARE ENGINEER Phone Fax Fibroscan interpretation: I have personally [...] patients with nonalcoholic fatty liver disease. Gastroenterology 2019;156:6773-9033. Luis MS, Rosmery R, Van Lise ML, et al. Vibration-controlled transient elastography to assess fibrosis and steatosis in patients with nonalcoholic fatty liver disease. Clin Gastroenterol Hepatol 2019;17:156-163. Note: 1. Fibroscan cannot reliably identify earlier stages of fibrosis (ie distinguish F0 from F1 and F2)and thus a histologic stage cannot be predicted from the Fibroscan reading. 2. Assessing the likelihood of advanced fibrosis in patients with indeterminate liver stiffness measurement (LSM) by Fibroscan (e.g., 8-15 kPa) can be improved by also calculating the FIB4 score (Davyduke et al. Hepatology Communications 2019;3:6007-2194) or NAFLD Fibrosis score (Read et al. Clinical Gastroenterology and Hepatology 2019;17:0901-5387. from routine clinical data. 3. Liver stiffness [...] change as additional supporting data becomes available. [email or web address] documented in this encounter Plan of Treatment [...] Procedure Name Priority Date/Time Associated Diagnosis Comments [place] LIVER ELASTOGRAPHY Routine 06/26/2021 3:18 PM CDT Elevated liver enzymes documented in this encounter Results * [place] LIVER ELASTOGRAPHY (06/26/2021 3:18 PM CDT) Narrative Gustavo Hart MD - 06/26/2021 3:18 PM CDT Gustavo Hart MD ? 06/29/2021 ??6:43 PM Diagnosis: PHYLLIS CHAMBERS verified patient has no implanted devices and NPO for prior 3 hours. Procedure explained and consent signed. Date of Exam: 06/26/2021 Liver Stiffness: (LSM, kPa) median: ??8.4 IQR (interquartile range): ?? 2.4 IQR/Median% (ideally < 30%): ??29 CAP (controlled attenuation parameter): ??296 Technical Difficulty: None Ordering Provider: Mae Macias PRINCIPLE SOFTWARE ENGINEER Phone Fax Fibroscan interpretation: I have personally [...] patients with nonalcoholic fatty liver disease. Gastroenterology 2019;156:5822-1251. Luis MS, Rosmery R, Van Lise ML, [...] improved by also calculating the FIB4 score (Edgaryduke et al. Hepatology Communications 2019;3:1105-2583) or NAFLD Fibrosis score (Read et al. Clinical Gastroenterology and Hepatology 2019;17:8849-0375. from routine clinical data. 3. Liver stiffness [...] change as additional supporting data becomes available. [email or web address] Mae Macias WOUND CARE TECHNICIAN-ORTHOPAEDIC GENERAL PROCEDURE/M INOR SURGICAL ORDERABLES documented in this encounter Visit Diagnoses Diagnosis NAFLD (nonalcoholic fatty liver disease)- Primary Other chronic nonalcoholic liver disease Elevated liver enzymes Nonspecific elevation of levels of transaminase or lactic acid dehydrogenase (LDH) documented in this encounter Care Teams Sustainability Director Relationship Specialty Start Date End Date Juan Antunez MD [address] [place] [phone] PCP - General 04/15/18 documented as of this encounter
--- OUTSIDE RECORDS SUMMARY | 2024-03-16 10:55 | XMS_ITS | Encounter Summary ---
Author Organization [facility] Address [address] [place] [address]. [place] [address] [place] [address] Care Team Providers Care Health It Specialist Name Role Phone Juan Antunez MD Unavailable [phone] Juan Antunez MD Primary Care Provider [phone] Reason for Visit * Auth/Cert (Routine) Specialty Diagnoses / Procedures Referred By Urban mao Referred To Contact Diagnoses LUMBAR STENOSIS M48.061 Procedures LUMBAR DECOMPRESSION L4-5 Raisa Carmichael MD [facility] [address] [place] [address] Phone: tel: fax: Referral ID Status Reason Start Date Expiration Date Visits Re quested Visits Authorized [id number] 1 1 Encounter Details Date Type Department Care Team (Late st Contact Info) Description 07/30/2022 1:12 PM CDT Anesthesia Event [facility] [place], [place] [address] Angela Broderick MD [address] [place] [address] [place] [address] Claudia Quintana, AGILE JAVA DEVELOPER [address] [place], [place] [address] Anesthesia Record Procedure Summary Procedure Name Responsible Anesthesiologist Anesthesia Start Time Anesthesia Stop Time LUMBAR DECOMPRESSION L4-5 (Spine) Angela Broderick MD 07/30/22 1312 07/30/22 1512 Events Date Time Event Comment 07/30/2022 1130 1151 AN DIRECTOR OF PROGRAMMING Prepped 1312 An Start Patient ID and consent checked and patient reassessed. 1313 An Start Data 1316 Preoxygenation 1319 An Induction The patient was reevaluated immediately before moderate or deep sedation use and before anesthesia induction. 1324 An Intubation 1326 Anesthesia Ready 1449 An Emergence 1452 An Extubation 1502 Face Mask Applied 1503 an stop data 1512 Post Anesthetic Care Handoff I completed my handoff to the receiving nurse during which we: 1. Identified the patient 2. Identified the responsible provider 3. Reviewed the pertinent medical history 4. Discussed the surgical course 5. Reviewed intra-op anesthesia management and issues during anesthesia 6. Set expectations for post-procedure period 7. Allowed opportunity for questions and acknowledgement of understanding. 1512 An Stop Meds Name Total ceFAZolin (ANCEF) 2 g in NS 100 mL IVPB 2 g lidocaine (PF) (XYLOCAINE) 2% injection 50 mg propofol (DIPRIVAN) 200 mg/20 mL injecti on 200 mg rocuronium (ZEMURON) 50 mg/5 mL injectio n 60 mg midazolam 2 mg/2 mL injection 1 mg fentaNYL (SUBLIMAZE) 100 mcg/2 mL inject ion 75 mcg glycopyrrolate (ROBINUL) injection 0.2 m g phenylephrine (OKSANA-SYNEPHRINE) injection 400 mcg ondansetron (ZOFRAN) 4 mg/2 mL injection 4 mg sugammadex (BRIDION) 200 mg/2 mL injecti on 200 mg lactated ringers infusion 1,300 mL * Agents Name O2 Air Inspired Sevoflurane Sevoflurane Ancillary O2 * Blood No blood administrations on file. Lines, Drains, and Airways Type Details Placement Removal Peripheral IV Placement Date: 07/07 07/28; Placement Time: 1150; Placed Outside of This Facility?: No; Size: 18 G; Orientation: Left; Location: Hand; Site Prep: Chlorhexidine; Local Anesthetic: None; Insertion attempts: 1; Ultrasound-guided Placement?: No; Patient Tolerance: Tolerated well; Removal Date: 07/30/22; Removal Time: 1700; Removal Reason: Patient Discharged 07/30/22 1150 by Mounika Cardoza RN 07/30/22 1700 by Leyla Bah RN ETT Placement Date: 07/07 07/28; Placement Time: 1324; Placed Outside of This Facility?:No; Mask Ventilate: Prior to intubation, Medium; Size (mm) : 8; Endotracheal: Oral, Stylet used; Blade Type: MAC 3; Placement Method: Direct Laryngoscopy (blade type in comment); View Grade: 2; Viewable Anatomy: Epiglottis, Arytenoid; Insertion Attempts: 1; Placement Verified By: Capnography, Auscultation, Chest Rise; Placed By: QUYEN; Extubation Assessment: Suctioned, Tolerated well, Patient spontaneously breathing, Able to swallow, Atraumatic, Other (comment) (Coughing); Removal Date: 07/30/22; Removal Time: 1452; Removal Person: DIRECTOR OF PROGRAMMING; Removal Reason: End of Case 07/30/22 1324 by Fabricio Hankins CRNA 07/30/22 1452 by Fabricio Hankins CRNA Surgical/Incision 07/30/22; 1414; Surg ical Wound; Back; ADHESIVE DERMABOND, DRESSING TEGADERM W/WINDOW 4 X 4; SUTURES; DERMABOND; TEGADERM; 07/30/22; 1930 07/30/22 1414 by Eleazar Keller RN 07/30/22 193 by Automatic Discharge Provider Supraglottic Airway Placement Date: 07/07 07/28; Placement Time: 145; Airway Device: Oral pharyngeal airway; Removal Date: 07/30/22; Removal Time: 1504 07/30/22 1457 by Fabricio Hankins CRNA 07/30/22 1504 by Fabricio Hankins CRNA documented in this encounter Social History Tobacco [...] AM CDT documented as of this encounter OR Notes * Anesthesia Postprocedure Evaluation - Angela Broderick MD - 07/30/2022 4:37 PM CDT Anesthesia Post-op Note Roland Garcia Procedure(s): LUMBAR DECOMPRESSION L4-5 (Spine) Anesthesia type: general Vitals: 07/30/22 1615 BP: 129/76 Vitals: 07/30/22 1615 Pulse: 65 Vitals: 07/30/22 1615 Resp: 16 Vitals: 07/30/22 1600 Temp: 36.5 ??C Vitals: 07/30/22 1615 SpO2: 93% Patient Location: PACU Level of Consciousness: awake Pain Management: adequate analgesia Airway Patency: patent Cardiovascular Status: acceptable Post-Op Nausea: none Postoperative Hydration: euvolemic There were no known notable events for this encounter. * Anesthesia Preprocedure Evaluation - Angela Broderick MD - 07/30/2022 11:17 AM CDT Anesthesia ROS/MED History Reviewed: Patient summary , ECG, Anesthesia history , Labs Pre-Anesthetic State: awake and alert Pulmonary neg pulmonary ROS Cardiovascular (+) CAD, hyperlipidemia Neuro/Psych GI/Hepatic/Renal (+) liver disease Endo/Other Physical Evaluation Airway Mallampati: II TM Distance: >3 FB Neck ROM: normal Dental No notable dental history Pulmonary Pulmonary exam normal Cardiovascular Rhythm: regular Rate: normal Anesthesia Plan ASA 3 Intravenous Induction Anesthesia type: general Informed Consent Anesthetic plan and risks discussed with patient of whom. . documented in this encounter Plan of Treatment Not on file documented as of this encounter Visit Diagnoses Not on filedocumented in this encounter Administered Medications Inactive Administered Medications - up to 3 most recent administrations Medication Order MAR Action Action Date Dose Rate Site ceFAZolin (ANCEF) 2 g in NS 100 mL IVPB 2 g, Intravenous, at 200 mL/hr, call center director to O.R., 1 dose, First dose on Petrona 07/30/22 at 1100, Pre-Op Given 07/30/2022 1:32 PM CDT 2 g fentaNYL (SUBLIMAZE) injection Intravenous, PRN, Starting on Petrona 07/30/22 at 1353, Until Petrona 5/25/23 at 1513, Anesthesia Intra-Op Given 07/30/2022 3:08 PM CDT 25 mcg Given 07/30/2022 3:05 PM CDT 25 mcg Given 07/30/2022 1:53 PM CDT 25 mcg glycopyrrolate (ROBINUL) injection Intravenous, PRN, Starting on [place] 07/30/22 at 1401, Until [place] 07/30/22 at 1513, Anesthesia Intra-Op Given 07/30/2022 2:01 PM CDT 0.2 mg lactated ringers infusion Intravenous, Continuous PRN, Starting on Petrona 07/30/22 at 1150, Until Petrona 07/30/22 at 1513, Anesthesia Intra-Op New Bag 07/30/2022 2:15 PM CDT 50 mL/hr New Bag 07/30/2022 11:50 AM CDT 50 mL/hr lidocaine (PF) (XYLOCAINE) 2 % injection Intravenous, PRN, Starting on Petrona 07/30/22 at 1319, Until Petron[place] 07/30/22 at 1513, Anesthesia Intra-Op Given 07/30/2022 1:19 PM CDT 50 mg midazolam (VERSED) injection Intravenous, PRN, Starting on [place] 07/30/22 at 1314, Until Petrona 07/30/22 at 1513, Anesthesia Intra-Op Given 07/30/2022 1:14 PM CDT 1 mg ondansetron (ZOFRAN) injection Intravenous, PRN, Starting on [place] 07/30/22 at 1434, Until Petron[place] 07/30/22 at 1513, Anesthesia Intra-Op Given 07/30/2022 2:34 PM CDT 4 mg phenylephrine (OKSANA-SYNEPHRINE) injection Intravenous, PRN, Starting on Petrona 07/30/22 at 1406, Until Petron[place] 07/30/22 at 1513, Anesthesia Intra-Op Given 07/30/2022 2:42 PM CDT 100 mcg Given 07/30/2022 2:19 PM CDT 100 mcg Given 07/30/2022 2:08 PM CDT 100 mcg propofol (DIPRIVAN) IV bolus Intravenous, PRN, Starting on [place]ron[place] 07/30/22 at 1319, Until Petron[place] 07/30/22 at 1513, Anesthesia Intra-Op Given 07/30/2022 1:26 PM CDT 20 mg Given 07/30/2022 1:19 PM CDT 180 mg rocuronium (ZEMURON) injection Intravenous, PRN, Starting on [place] 07/30/22 at 1319, Until [place] 07/30/22 at 1513, Anesthesia Intra-Op Given 07/30/2022 2:12 PM CDT 10 mg Given 07/30/2022 1:19 PM CDT 50 mg sugammadex (BRIDION) injection Intravenous, PRN, Starting on [place]rona 07/30/22 at 1446, Until [place] 07/30/22 at 1513, Anesthesia Intra-Op Given 07/30/2022 2:46 PM CDT 200 mg documented in this encounter Care Teams Health It Specialist Relationship Specialty Start Date End Date Juan Antunez MD [address] [place] [address] PCP - General FAMILY PRACTICE 07/30/22 Juan Antunez MD [address] [place] [address] FAMILY PRACTICE 06/30/22 documented as of this encounter
--- OUTSIDE RECORDS SUMMARY | 2024-03-16 10:55 | XMS_ITS | Encounter Summary ---
Author Organization [facility] Address [address] [facility] [place] [address] Care Team Providers Care Safety Belt Installer Name Role Phone Juan Antunez MD Primary Care Provider [phone] Reason for Referral * Radiology Services (Routine) - Closed Specialty Diagnoses / Procedures Referred By Urban t Referred To Contact Gastroenterology Diagnoses Elevated liver enzymes Procedures PROC FIBROSCAN Mae Macias APRN-CNP [address] [place] [address] [facility] [place] [address] [facility] [address] [facility] [place] [address] Referral ID Status Reason Start Date Expiration Date Visits Re quested Visits Authorized [id number] Closed 05/07/2021 05/07/2022 1 1 EMS DEVELOPMENT CONSULTANT Encounter Details Date Type Department Care Team (Late st Contact Info) Description 05/07/2021 Orders Only [facility] - GI [address] [place] [address] Flakita Benedict, RN Elevated liver enzymes Social History Tobacco Use [...] documented as of this encounter Results * [place] LIVER ELASTOGRAPHY (06/26/2021 3:18 PM CDT) Narrative [...] Technical Difficulty: None Ordering Provider: Mae Macias ACCOUNT SERVICES REPRESENTATIVE Phone Fax Fibroscan interpretation: I have personally [...] patients with nonalcoholic fatty liver disease. Gastroenterology 2019;156:8177-6713. Luis MS, Rosmery R, Van Lise ML, [...] FIB4 score (Leena et al. Hepat[employer] 2019;3:6314-6888) or NAFLD Fibrosis score (Read et al. Clinical Gastroenterology and Hepatology 2019;17:0617-7689. from routine clinical data. 3. Liver stiffness [...] change as additional supporting data becomes available. [email or web address] Mae Macias TIMBER ROBBER-STATE FARM AGENT PROCEDURE/M INOR SURGICAL ORDERABLES documented in this encounter Visit Diagnoses Diagnosis Elevated liver enzymes- Primary Nonspecific elevation of levels of transaminase or lactic acid dehydrogenase (LDH) NAFLD (nonalcoholic fatty liver disease)- Primary Other chronic nonalcoholic liver disease Elevated liver enzymes Nonspecific elevation of levels of transaminase or lactic acid dehydrogenase (LDH) documented in this encounter Care Teams Safety Belt Installer Relationship Specialty Start Date End Date Juan Antunez MD [address] [place] [phone] PCP - General 04/15/18 documented as of this encounter
--- OUTSIDE RECORDS SUMMARY | 2024-03-16 10:55 | XMS_ITS | Encounter Summary ---
Author Organization [facility] Address [address] [facility] [place] [address] Care Team Providers Care Captain Fishing Vessel Name Role Phone Juan Antunez MD Primary Care Provider +1- [phone] Reason for Visit * Reason Onset Date Comments LABS ONLY 08/10/2022 Encounter Details Date Type Department Care Team (Late st Contact Info) Description 08/10/2022 Telephone [facility] - Nephrology [address] [place] [phone] Marli Hernandez, TRISH LABS ONLY Social History Tobacco Use Types Packs/Day Years [...] encounter Miscellaneous Notes * Telephone Encounter - Marli Hernandez RN - 08/10/2022 2:03 PM CDT Patent returning call from 07/16, wanted to know about his labs. Patient was informed that Alk Phos level had decreased in to normal range and that his follow up appointment would be 06/17/23 documented in this encounter Plan of Treatment [...] last dose documented as of this encounter Visit Diagnoses Not on filedocumented in this encounter Care Teams Captain Fishing Vessel Relationship Specialty Start Date End Date Juan Antunez MD [address] [place] [phone] PCP - General 04/15/18 documented as of this encounter
--- OUTSIDE RECORDS SUMMARY | 2024-03-16 10:55 | XMS_ITS | Encounter Summary ---
Author Organization [facility] Address [address] [facility] [place] [address] Care Team Providers Care Pie Dough Roller Name Role Phone Juan Antunez MD Primary Care Provider +1- [phone] Reason for Visit * Reason Comments Results Encounter Details Date Type Department Care Team ([facility] Contact Info) Description 07/16/2022 Telephone [facility] - [address] [place] [phone] Mayelin Espino RN Results Social History Tobacco Use Types [...] 022 3:36 PM CDT) No Raisa Dunlap, RN Note: Expected end date: Ongoing Interventions: Take all medications as prescribed Let your doctor know right away about any changes in your medications Make sure to request a refill of your medication at least one week prior to your last dose documented as of this encounter Visit Diagnoses Not on filedocumented in this encounter Care Teams Pie Dough Roller Relationship Specialty Start Date End Date Juan Antunez MD [address] [place] [phone] PCP - General 04/15/18 documented as of this encounter
--- OUTSIDE RECORDS SUMMARY | 2024-03-16 10:55 | XMS_ITS | Encounter Summary ---
Author Organization [facility] Address [address] [place] [address]. [place], [place] [address] [place] [address] Care Team Providers Care Closing Specialist Name Role Phone Juan Antunez MD Unavailable Encounter Details Date Type Department Care Team (Latest Contact Info) Description 06/30/2022 Travel Social History Tobacco Use Types Packs/Day [...] on filedocumented in this encounter Care Teams Closing Specialist Relationship Specialty Start Date End Date Juan Antunez MD [facility] [facility] [address] [place] [address] FAMILY PRACTICE 06/30/22 documented as of this encounter
--- OUTSIDE RECORDS SUMMARY | 2024-03-16 10:55 | XMS_ITS | Encounter Summary ---
Author Organization [facility] Address [address] [place] [address] Care Team Providers Care Business Control Manager Name Role Phone Juan Antunez MD Primary Care Provider [phone]- [phone] Encounter Details Date Type Department Care Team (Latest Contact Info) Description 03/05/2021 Travel Social History Tobacco Use Types Packs/Day [...] have Coronavirus / COVID-19? No / Unsure 03/05/2021 1:24 PM GERICARE AIDE TEACHER documented as of this encounter Plan of Treatment Not on file documented as of this encounter Visit Diagnoses Not on filedocumented in this encounter Care Teams Business Control Manager Relationship Specialty Start Date End Date Juan Antunez MD [address] [place] [phone] PCP - General 04/15/18 documented as of this encounter
--- OUTSIDE RECORDS SUMMARY | 2024-03-16 10:58 | XMS_ITS | Encounter Summary ---
Author Organization [facility] Address [address] [place] [address] Care Team Providers Care Diamond Setter Apprentice Name Role Phone Unavailable Primary Care Provider Unavailabl e Encounter Details Date Type Department Care Team (Late st Contact Info) Description 10/21/2020 Lab Requisition [facility] Community Testing [facility] [address] [place] [address] Keaton Martell MD [address] [place] [address] [address] [place], [place] [phone] Social History Tobacco Use Types Packs/Day Years Used Date Smoking Tobacco: Never Assessed Sex and Gender Information Value Date Recorded Sex Assigned at Not on file Legal Sex Male 3:47 PM CDT Gender Identity Not on file Sexual Orientation Not on file documented as of this encounter Plan of Treatment Not on file documented as of this encounter Procedures Procedure Name Priority Date/Time Associated Diagnosis Comments SARS-COV-2 PCR [facility] ONLY Routine 10/21/2020 3:52 PM CDT documented in this encounter Visit Diagnoses Not on filedocumented in this encounter
--- OUTSIDE RECORDS SUMMARY | 2024-03-16 10:58 | XMS_ITS | Encounter Summary ---
Author Organization [facility] Address [address] [place] [address] Care Team Providers Care Harmonica Maker Name Role Phone Unavailable Primary Care Provider Unavailabl e Encounter Details Date Type Department Care Team (Late st Contact Info) Description 11/09/2020 2:00 PM CDT Rapid Evaluation [facility] of Public Health Community Testing [address] [address] Social History Tobacco Use Types Packs/Day Years [...]
--- OUTSIDE RECORDS SUMMARY | 2024-03-16 10:58 | XMS_ITS | Encounter Summary ---
Author Organization [facility] Address [address] [place] [address] Care Team Providers Care Veneer Slicing Machine Operator Name Role Phone Unavailable Primary Care Provider Unavailabl e Encounter Details Date Type Department Care Team (Late st Contact Info) Description 11/09/2020 Lab Requisition [facility] Public Health Community Testing [facility] [address] [place] [address] Keaton Martell MD [address] [place] [address] [address] [place], [place] [phone] Social History Tobacco Use Types Packs/Day Years [...] Diagnosis Comments SARS-COV-2 PCR [facility] ONLY Routine 11/09/2020 2:16 PM CDT documented in this encounter Visit Diagnoses Not on filedocumented in this encounter
--- OUTSIDE RECORDS SUMMARY | 2024-03-16 10:58 | XMS_ITS | Encounter Summary ---
Author Organization [facility] Address [address] [place] [address] Care Team Providers Care Lease Purchase Truck Driver Name Role Phone Unavailable Primary Care Provider Unavailabl e Encounter Details Date Type Department Care Team (Late st Contact Info) Description 01/06/2021 Lab Requisition [facility] of Public Health Community Testing [facility] [address] [place] [address] Keaton Martell MD [address] [place] [address] [address] [place], [place] [id number] Social History Tobacco Use Types Packs/Day Years [...] Diagnosis Comments SARS-COV-2 PCR [facility] ONLY Routine 01/06/2021 9:58 AM CDT documented in this encounter Visit Diagnoses Not on filedocumented in this encounter
--- OUTSIDE RECORDS SUMMARY | 2024-03-16 10:58 | XMS_ITS | Clinical Summary ---
Author Organization [facility] Care Team Providers Care Rn Geriatric Name Role Phone Unavailable Primary Care Provider Unavailabl e Social History Tobacco Use Types Packs/Day Years Used Date Smoking Tobacco: Never Assessed Sex and Gender Information Value Date Recorded Sex Assigned at Not on file Legal Sex Male 3:47 PM CDT Gender Identity Not on file Sexual Orientation Not on file Plan of Treatment Health Maintenance Due Date Last Done Comments Hepatitis C Virus (HCV) Screening 1955 TdaP Immunization 1955 Colonoscopy 06/14/1999 Colorectal Cancer Screening 06/14/1999 Cologuard 2004 Immunochemical Fecal Occult Blood 2004 Pneumococcal Immunization (5 0+ years) (1 of 1 - PCV) 2004 Zoster Immunization (1 of 2) 2004 PSA Discussion 2009 Influenza Immunization (#1) 11/07/202312/06, 02/28/2019, 12/06/2017 SARS-COV-2 Immunization ( season) 2023 05/26/2020, 05/05/2020 Respiratory Syncytial Virus (RSV) Immunization (Adult) (1 - 1-dose 75+ series) 2029 Hepatitis B Immunization Completed 001, 10/20/1999, 09/10/1999 Meningococcal Immunization (ACWY) Aged Out No longer eligible b ased on patient's age to complete this topic Rotavirus Immunization Aged Out No lo nger eligible based on patient's age to complete this topic
--- OUTSIDE RECORDS SUMMARY | 2024-03-16 10:58 | XMS_ITS | Encounter Summary ---
Author Organization [facility] Address [address] [place] [address] Care Team Providers Care Bar Gauger And Lubricator Tender Name Role Phone Unavailable Primary Care Provider Unavailabl e Encounter Details Date Type Department Care Team (Late st Contact Info) Description 10/21/2020 4:00 PM CDT Rapid Evaluation [facility] of Public Health Community Testing [address] [address] Social History Tobacco Use Types Packs/Day Years [...]
--- OUTSIDE RECORDS SUMMARY | 2024-03-16 10:58 | XMS_ITS | Encounter Summary ---
Author Organization [facility] Address [address] [place] [address] Care Team Providers Care Warehouse Freight Handler Name Role Phone Unavailable Primary Care Provider Unavailabl e Encounter Details Date Type Department Care Team (Late st Contact Info) Description 11/09/2020 1:30 PM CDT Rapid Evaluation [facility] of Public Health Community Testing [address] [address] Social History Tobacco Use Types Packs/Day Years [...]
--- OUTSIDE RECORDS SUMMARY | 2024-03-16 10:59 | XMS_ITS | Encounter Summary ---
Author Organization [facility] Address [address] [place] [address] Phone Care Team Providers Care Lacquer Maker Name Role Phone Juan Antunez MD Primary Care Provider [phone] Raisa Carmichael MD Unavailable [phone] Reason for Visit * Diagnostic Imaging (Routine) - Closed Specialty Diagnoses / Procedures Referred By Urban t Referred To Contact Diagnoses Unspecified open-angle glaucoma, indeterminate stage Procedures Hansen Visual Field - OU - Both Eyes Nicolle Jameson MD [address] [place] [address] Phone: tel: fax: [facility] (All Locations) Referral ID Status Reason Start Date Expiration Date Visits Re quested Visits Authorized [id number] Closed 04/08/2023 05/07/2024 1 1 Encounter Details Date Type Department Care Team (Late st Contact Info) Description 10/04/2023 9:30 AM CDT Imaging Exam [facility] Ophthalmology [address] [facility] [address]th [place] [address] Social History Tobacco Use Types Packs/Day Years Used Date Smoking Tobacco: Never Smokeless Tobacco: Never AUDIT-C Answer Date Recorded Q1: How often do you have a drink containing alc ohol? Monthly or less 03/23/2023 Q2: How many drinks containi ng alcohol do you have on a typical day when you are drinking? 1 or 2 03/23/2023 Q3: How often do you have si x or more drinks on one occasion? Never 03/23/2023 Personal Safety Answer Date Recorded Have you ever been in or are you currently in a harmful physical or emotional relationship or is someone making you feel afraid or unsafe? Denies 03/23/2023 Sex and Gender Information Value Date Recorded Sex Assigned at Not on file Legal Sex Male 12:39 AM CLAIM ATTORNEY Gender Identity Not on file Sexual Orientation Not on file documented as of this encounter Plan of Treatment Not on file documented as of this encounter Procedures Procedure Name Priority Date/Time Associated Diagnosis Comments HANSEN VISUAL FIELD - OU - BOTH EYES Routine 10/04/2023 9:59 AM CDT Unspecified open-angle glaucoma, indeterminate stage documented in this encounter Results * Hansen Visual Field - OU - Both Eyes (10/04/2023 9:59 AM CDT) Pattern Deviation OS 3.28 dB CONTINUUM Pattern Deviation OD 11.48 dB CONTINUUM Mean Deviation OS -4.20 dB CONTINUUM Mean Deviation OD -11.40 dB CONTINUUM Anatomical Region Laterality Modality Head Other Narrative 10/04/2023 10:45 AM CDT Right Eye Fixation was good. Cooperation was good. Reliability was good. Findings include inferior altitudinal defect. Mean Deviation was -11.40 dB. Pattern Deviation was 11.48 dB. Left Eye Fixation was good. Cooperation was good. Reliability was good. Progression has been stable. Foveal threshold was normal. Findings include non-specific defects. Mean Deviation was -4.20 dB. Pattern Deviation was 3.28 dB. us Nicolle Jameson MD OPHTH VISUAL FIELD Final Resu lt documented in this encounter Visit Diagnoses Not on filedocumented in this encounter Care Teams Lacquer Maker Relationship Specialty Start Date End Date Juan Antunez MD PCP - General 04/21/17 Raisa Carmichael MD Consulting Physician Neurosurgery 5/12/23 documented as of this encounter
--- OUTSIDE RECORDS SUMMARY | 2024-03-16 10:59 | XMS_ITS | Encounter Summary ---
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 Gender Identity Not on file Sexual Orientation Not on file documented as of this encounter Plan of Treatment Not on file documented as of this encounter Procedures Procedure Name Priority Date/Time Associated Diagnosis Comments SCAN - LABS 12/17/2023 documented in this encounter Results * SCAN - LABS (12/17/2023) us Provider Scanning Final Result documented in this encounter Visit Diagnoses Not on filedocumented in this encounter Care Teams Compensation/Benefits Specialist Relationship Specialty Start Date End Date Juan Antunez MD PCP - General 04/21/17 Raisa Carmichael MD Consulting Physician Neurosurgery 07/17/22 documented as of this encounter
--- OUTSIDE RECORDS SUMMARY | 2024-03-16 10:59 | XMS_ITS | Encounter Summary ---
Author Organization [facility] Address [address] [place] [address] Phone Care Team Providers Care Personal Secretary Name Role Phone Juan Antunez MD Primary Care Provider [phone] Raisa Carmichael MD Unavailable [phone] Encounter Details Date Type Department Care Team (Late st Contact Info) Description 01/06/2023 Telephone [facility] Ophthalmology [address] [facility] Health [address]th [place] [address] Suleman Fonseca MD [address] [facility] [address] [place] [address] Social History Tobacco Use Types Packs/Day Years Used Date Smoking Tobacco: Former Smokeless Tobacco: Never Sex and Gender Information Value Date Recorded Sex Assigned at Not on file 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 - 01/06/2023 3:36 PM CDT LVM asked pt to contact me to discuss he being referred to us for herpes zoster /shingles. Provideddirect call back number. * Telephone Encounter - Mae Billings B.A. - 01/06/2023 3:36 PM CDT ----- Message from Suleman Fonseca MD sent at 01/06/2023 1:16 PM CDT ----- Regarding: RE: I don???t know if we have openings. Could see Marcio Cagle ----- Message ----- From: Mae Byers B.A. Sent: 01/06/2023 11:52 AM CDT To: Suleman Fonseca MD PC- See [employer] phone message below.. Pt is scheduled to see us 02/01 , do you want to see him sooner? Thanks! Cinthia ----- Message ----- From: Martha Carr Sent: 01/05/2023 3:34 PM CDT To: Mae Byers B.A. Hey! I spoke to Dr. Rosales re this patient earlier. She states the patient came in on Wednesday because he recently developed multiple lid lesions and was concerned. Dr. Zaidi states the lesions are somewhat large, looks similar to Herpes Zoster/ Shingles, but due to size, she wanted a secondopinion. She started him on Valtrex. He called her this morning reporting no changes since being onmeds. Pt is not having any pain. Vision is stable. Scheduled 02/01. Hilario Shepard to fax notes documented in this encounter Plan of Treatment Not on file documented as of this encounter Visit Diagnoses Not on filedocumented in this encounter Care Teams Personal Secretary Relationship Specialty Start Date End Date Juan Antunez MD PCP - General 04/21/17 Raisa Carmichael MD Consulting Physician Neurosurgery 07/17/22 documented as of this encounter
--- OUTSIDE RECORDS SUMMARY | 2024-03-16 10:59 | XMS_ITS | Encounter Summary ---
Author Organization [facility] Address [address] [place] [address] Phone Care Team Providers Care Dehydrogenation Supervisor Name Role Phone Juan Antunez MD Primary Care Provider [phone] Raisa Carmichael MD Unavailable [phone] Encounter Details Date Type Department Care Team (Late st Contact Info) Description 02/25/2023 Telephone [facility] Ophthalmology [address] 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 - 02/25/2023 10:40 AM SECURITIES CONSULTANT Spoke with pt confirmed We don't have biopsy results yet but scheduling MOHS based on probable bcc.. Mohs same day 03/23 [place] 7:45 removal 5th floor [facility] Repair with [place] 4th floor CAM Will call the prior with arrival time Have a seasonal driver No food after midnight Clear liquids up to 2 hours prior Have someone to stay with 24 hrs after POV 03/[address] Fonseca Informed pt he will be placed under MAC anesthesia not general for the repair. Informed him I will reach out once we have path results RITIES CONSULTANT documented in this encounter Plan of Treatment Not on file documented as of this encounter Visit Diagnoses Not on filedocumented in this encounter Care Teams Dehydrogenation Supervisor Relationship Specialty Start Date End Date Juan Antunez MD PCP - General 04/21/17 Raisa Carmichael MD Consulting Physician Neurosurgery 07/17/22 documented as of this encounter
--- OUTSIDE RECORDS SUMMARY | 2024-03-16 10:59 | XMS_ITS | Encounter Summary ---
Author Organization [facility] Healthcare Address [address] [place] [address] Care Team Providers Care Senior Energy Consultant Name Role Phone Juan Antunez MD Primary Care Provider [phone] Raisa Carmichael MD Unavailable [phone] Reason for Visit * Auth/Cert (Routine) Specialty Diagnoses / Procedures Referred By Urban t Referred To Contact Diagnoses Lesion of left lower eyelid Lesion of left lower eyelid [H02.9] Procedures MA EXCISION & REPAIR EYELID < ONE-FOURTH LID MARGIN MA ADJT TIS TRNSFR/REARRGMT E/N/E/L DFCT 10 SQ CM/< RECONSTRUCTION EYELID GRAFT SKIN FULL THICKNESS Referral ID Status Reason Start Date Expiration Date Visits Re quested Visits Authorized [id number] 1 1 Encounter Details Date Type Department Care Team (Latest Contact Info) Description 03/23/2023 10:14 AM AIR CONDITIONING UNIT ASSEMBLER - 03/23/2023 4:53 PM [facility] Hospital Encounter [facility] [address] [place] [id number] Suleman Fonseca MD [address] [facility] [address] [place] [address] Basal cell carcinoma (BCC) of left lower eyelid [C44.1192] (Primary Dx) Discharge Disposition: Discharge to home or self care Social History Tobacco Use Types Packs/Day Years [...] on file Legal Sex Male 12:39 AM AIR CONDITIONING UNIT ASSEMBLER Gender Identity Not on file Sexual Orientation Not on file documented as of this encounter Last Filed Vital Signs Vital Sign Reading Time Taken Comments Blood Pressure 154/66 03/23/2023 4:40 PM AIR CONDITIONING UNIT ASSEMBLER Pulse 63 03/23/2023 4:40 PM AIR CONDITIONING UNIT ASSEMBLER Temperature 36.5 ??C (97.7 ??F) 03/23/2023 4:30 PM CS T Respiratory Rate 14 03/23/2023 4:40 PM AIR CONDITIONING UNIT ASSEMBLER Oxygen Saturation 100% 03/23/2023 4:40 PM AIR CONDITIONING UNIT ASSEMBLER Inhaled Oxygen Concentration - - Weight 83.9 kg (185 lb) 03/23/2023 1:30 PM AIR CONDITIONING UNIT ASSEMBLER Height 179.1 cm (5' 10.5 ) 03/23/2023 1:30 PM CS T Body Mass Index 26.17 03/23/2023 1:30 PM AIR CONDITIONING UNIT ASSEMBLER documented in this encounter Discharge Instructions * Discharge Instructions* Suleman Fonseca MD - 03/10/2023 8:18 AM AIR CONDITIONING UNIT ASSEMBLER Instructions: - Avoid physical exertion and exercise. No yard or garden work. - Do not use make-up or cosmetic products on face. - Do not use contact lens in the operated eye, unless instructed to do so. - You may wear your glasses, as long as the nose piece does not push on the surgical area. - Patch: Remove tape and patch on the morning after surgery. - You may shower once a day starting on the day after surgery. Your incision and sutures can get gently wet in the shower once a day. Medications: Pain: It is normal to have mild tenderness, aching, burning pain. Do not use aspirin or anti-inflammatory medications (such as ibuprofen) for pain. You may use Acetaminophen (500mg): 1 or 2 tablets every 6 hours. Do not take more than 6 tablets per day. Erythromycin ointment: Place the ointment on all incisions (sutures) 3 times a day starting day after surgery. If your eye is irritated you may place the ointment inside your eye. Eye Medications: Continue all eye medications (drops, ointments) you were using before surgery, unless instructed otherwise by your doctor. Blood thinners: Continue aspirin. Please call the office or after-hours exchange ([phone]) if you experience: - Severe pain (mild discomfort is common). - Persistent bleeding unrelieved with gentle pressure (it is normal to have an occasional drop of blood coming from the incision or the eye for the first week after surgery). - Visual loss (mild blurring or difficulty reading is common after surgery, especially if there is ointment in your eye). CONDITIONING UNIT ASSEMBLER CONDITIONING UNIT ASSEMBLER * Attachments The following attachments cannot be sent through Care Everywhere. * [facility] AFTER SURGERY documented in this encounter Medications at Time of Discharge aspirin 81 mg enteric coated tablet Take 1 tablet (81 mg total) by mouth daily 30 tablet 11 01/14/2023 atorvastatin (LIPITOR) 80 mg tablet Take 1 tablet (80 mg total) by mouth daily 90 tablet 04/19/2020 carboxymethylcel lulose (REFRESH PLUS) 0.5 % dropperetteIndic ations:Dry Eye Administer 1 drop into the right eye daily as needed for dry eyes cyanocobalamin (Vitamin B-12) 100 mcg tabletIndication s:Prevention of Vitamin B12 Deficiency Take 1 tablet (100 mcg total) by mouth social media marketing manager before breakfast sertraline (ZOLOFT) 100 mg tabletIndication s:Anxiety with Depression Take 1 tablet (100 mg total) by mouth social media marketing manager before breakfast 4 08/16/2017 erythromycin (ILOTYCIN) ophthalmic ointment Apply ointment to left eyelid incisions 3 times a day. Only place ointment inside the eye for irritation. 3.5 g 3 02/24/2023 4 erythromycin (ILOTYCIN) ophthalmic ointment Apply ointment to left eyelid incisions 3 times a day. Only place ointment inside the eye for irritation. 3.5 g 3 03/23/2023 4 spironolactone (ALDACTONE) 25 mg tablet Take 0.5 tablets (12.5 mg total) by mouth daily 15 tablet 5 01/14/2023 4 documented as of this encounter Ordered Prescriptions Prescription Sig Dispense Quantity Refills Last Filled Start Date End Date erythromycin (ILOTYCIN) ophthalmic ointment Apply ointment to left eyelid incisions 3 times a day. Only place ointment inside the eye for irritation. 3.5 g 3 03/23/2023 4 documented in this encounter Discharge Disposition Disposition Code Departure Means Destination Comment s Discharge to home or self care documented in this encounter H&P Notes * Suleman Fonseca MD - 03/23/2023 3:02 PM CST I have reviewed the H&P, examined the patient, and endorse the findings as written. Plan of Care : Based on the above findings, I consider Roland Garcia to be an acceptable risk for : Procedure(s): RECONSTRUCTION EYELID GRAFT SKIN FULL THICKNESS CONDITIONING UNIT ASSEMBLER Source Note - Suleman Fonseca MD - 03/10/2023 8:18 AM AIR CONDITIONING UNIT ASSEMBLER Images from the original note were not included. Date of Visit: 02/24/2023 Patient Name: Roland Garcia : 1955 Gender: male Primary Care Provider: Juan Antunez MD Referring Provider: Hansa Zaidi, ERNST History: This 67 y.o. year old male presents for evaluation of a lesion of the left lower lid (LLL)that has been present for about 4 months. There is concern about a possible skin cancer. Has had fluctuating lesions of the lids for several years. Hx of multiple skin cancer. Uses low dose aspirin - mild coronary vascular dz. No stent. Poor vision right eye (OD) - ? Optic neuritis. Has some dryness right eye (OD) - uses drops prn. Examination: Base Eye Exam Visual Acuity (Snellen - Linear) Right Left Dist cc 20/100-2 20/25 Dist ph sc 20/90 Correction: Glasses Tonometry (Tonopen, 8:57 AM) Right Left Pressure 14 17 Pupils Dark Light Shape React APD Right 3.0 2.0 Round Brisk - Left 3.0 2.0 Round Brisk - Visual Godoy Left Right Full Restrictions Total superior temporal, inferior temporal, superior nasal deficiencies Extraocular Movement Right Left Full Full Neuro/Psych Oriented x3: Yes Mood/Affect: Normal Slit Lamp and Fundus Exam External Exam Multiple keratotic-papillomatous growths lateral left lower lid (LLL) margin. Nodular lesion (6mm) lesion central pretarsal left lower lid (LLL). MRD1 1.5 mm 2 mm Levator 13 mm 13 mm Slit Lamp Exam Right Left Conjunctiva/Sclera White and quiet White and quiet Cornea small medial pingueculum small medial pingueculum Anterior Chamber Deep and quiet Deep and quiet Iris Round and reactive Round and reactive Lens Nuclear sclerosis Nuclear sclerosis Biopsy, Lid Lesion - OD - Right Eye [address]0421 Biopsy, Lid Lesion The area was prepped using the following: alcohol prep pad. The following was used to anesthetize the surrounding skin: 2% lidociane with 1:100,000 epinephrine. Using a combination of criss scissors, forceps and/or II-blade the lesion was carefully removed or biopsied. Cautery was used for hemostasis after the lesion was removed. Post-op The patient tolerated the procedure, there were no complications during today's treatment. The following medication's were prescribed to the patient: erythromycin. The patient received written and verbal post procedure care education. The attending physician was present for the entire procedure. Notes A permit was signed the patient was taken to the procedure room. A time-out was performed. The leftlower eyelid was injected with 1 mL of lidocaine. Alcohol prep was performed. The inferior lateral aspect of the central pretarsal lesion was excised and submitted to pathology. Cautery was applied.The lesion reacted in a fashion typical for basal cell. Next, the elevated portion of the papilloma of the lateral margin-canthus was excised and the smallspecimen separately submitted. Next cautery was used to ablate the residual lesion. He tolerated the procedure well. Impression: The nodular lesion of the central left lower lid has an appearance typical for basal cell carcinoma. There has a nearby squamous papilloma involving the lateral lid margin-canthus. We have recommended the lesion be biopsied and then potentially excised with Mohs surgery, followedby reconstruction. We discussed reconstructive techniques including the possible need for flaps andgrafts. We have also discussed the risks of surgery including but not limited to poor graft appearance, scarring, bleeding, infection, eyelid malposition, tumor recurrence, and possible need for additional treatment. They are aware of the need for sun protection and routine dermatologic exams. We recommended treating the lateral margin canthal lesion at the time of biopsy so that this process has resolved before possible Mohs surgery. He elected to proceed. Both lesions were treated without difficulty. He will use erythromycin ointment t.i.d. until the surfaces have healed. We will coordinate a Mohs surgery consultation. We would recommend continuing aspirin around the time of treatment. I have personally examined the patient, participated in all aspects of their care, and formulated the treatment plan. Biopsy, Lid Lesion - OD - Right Eye [address] Biopsy, Lid Lesion The area was prepped using the following: alcohol prep pad. The following was used to anesthetize the surrounding skin: 2% lidociane with 1:100,000 epinephrine. Using a combination of criss scissors, forceps and/or II-blade the lesion was carefully removed or biopsied. Cautery was used for hemostasis after the lesion was removed. Post-op The patient tolerated the procedure, there were no complications during today's treatment. The following medication's were prescribed to the patient: erythromycin. The patient received written and verbal post procedure care education. The attending physician was present for the entire procedure. Notes A permit was signed the patient was taken to the procedure room. A time-out was performed. The leftlower eyelid was injected with 1 mL of lidocaine. Alcohol prep was performed. The inferior lateral aspect of the central pretarsal lesion was excised and submitted to pathology. Cautery was applied. The lesion reacted in a fashion typical for basal cell. Next, the elevated portion of the papilloma of the lateral margin-canthus was excised and the smallspecimen separately submitted. Next cautery was used to ablate the residual lesion. He tolerated the procedure well. ROS Positive for: Skin, Cardiovascular, Eyes Negative for: Constitutional, Gastrointestinal, Neurological, Genitourinary, Musculoskeletal, HENT,Endocrine, Respiratory, Psychiatric, Allergic/Imm, Heme/Lymph Last edited by Mae Byers B.A. on 02/24/2023 8:49 AM. (History) Base Eye Exam Visual Acuity (Snellen - Linear) Right Left Dist cc 20/100-2 20/25 Dist ph sc 20/90 Correction: Glasses Tonometry (Tonopen, 8:57 AM) Right Left Pressure 14 17 Pupils Dark Light Shape React APD Right 3.0 2.0 Round Brisk - Left 3.0 2.0 Round Brisk - Visual Godoy Left Right Full Extraocular Movement Right Left Full Full Neuro/Psych Oriented x3: Yes Mood/Affect: Normal Edited by: Mae Byers B.A. Slit Lamp and Fundus Exam External Exam Multiple keratotic-papillomatous growths lateral left lower lid (LLL) margin. Nodular lesion (6mm) lesion central pretarsal left lower lid (LLL). MRD1 1.5 mm 2 mm Levator 13 mm 13 mm Slit Lamp Exam Right Left Conjunctiva/Sclera White and quiet White and quiet Cornea small medial pingueculum small medial pingueculum Anterior Chamber Deep and quiet Deep and quiet Iris Round and reactive Round and reactive Lens Nuclear sclerosis Nuclear sclerosis Edited by: Suleman Fonseca MD Allergies: Patient has no known allergies. Medications: No current facility-administered medications for this encounter. Current Outpatient Medications: aspirin 81 mg enteric coated tablet, Take 1 tablet (81 mg total) by mouth daily (Patient taking differently: Take 1 tablet (81 mg total) by mouth social media marketing manager before breakfast), Disp: 30 tablet, Rfl: 11 atorvastatin (LIPITOR) 80 mg tablet, Take 1 tablet (80 mg total) by mouth daily (Patient taking differently: Take 1 tablet (80 mg total) by mouth social media marketing manager before breakfast), Disp: 90 tablet, Rfl: 0 carboxymethylcellulose (REFRESH PLUS) 0.5 % dropperette, Administer 1 drop into the right eye dailyas needed for dry eyes, Disp: , Rfl: cyanocobalamin (Vitamin B-12) 100 mcg tablet, Take 1 tablet (100 mcg total) by mouth social media marketing manager before breakfast, Disp: , Rfl: erythromycin (ILOTYCIN) ophthalmic ointment, Apply ointment to left eyelid incisions 3 [address]Only place ointment inside the eye for irritation. (Patient taking differently: Apply 1 Applicationto left eye daily Apply ointment to left eyelid incisions 3 times a day. Only place ointment insidethe eye for irritation.), Disp: 3.5 g, Rfl: 3 sertraline (ZOLOFT) 100 mg tablet, Take 1 tablet (100 mg total) by mouth social media marketing manager before breakfast, Disp: , Rfl: 4 spironolactone (ALDACTONE) 25 mg tablet, Take 0.5 tablets (12.5 mg total) by mouth daily (Patient taking differently: Take 0.5 tablets (12.5 mg total) by mouth social media marketing manager before breakfast), Disp: 15 tablet, Rfl: 5 Past Surgical History: Procedure Laterality Date LUMBAR DISC SURGERY 07/2022 Past Medical History: Diagnosis Date Anxiety disorder Anxiety - (Added by TW Conv) Basal cell carcinoma High cholesterol Personal history of other diseases of the nervous system and sense organs History of optic neuritis - 1997 (Added by TW Conv) Personal history of other endocrine, nutritional and metabolic disease History of hypercholesterolemia - (Added by TW Conv) Social History Tobacco Use Smoking status: Never Smokeless tobacco: Never Substance and Sexual Activity Drug use: Not Currently Sexual activity: Not on file Alcohol Use: Not At Risk (03/02/2023) AUDIT-C Frequency of Alcohol Consumption: Monthly or less Average Number of Drinks: 1 or 2 Frequency of Binge Drinking: Never CONDITIONING UNIT ASSEMBLER * Suleman Fonseca MD - 03/10/2023 8:18 AM CST Images from the original note were not included. Date of Visit: 02/24/2023 Patient Name: Roland Garcia : 1955 Gender: male Primary Care Provider: Juan Antunez MD Referring Provider: Hansa Zaidi, ERNST History: This 67 y.o. year old male presents for evaluation of a lesion of the left lower lid (LLL)that has been present for about 4 months. There is concern about a possible skin cancer. Has had fluctuating lesions of the lids for several years. Hx of multiple skin cancer. Uses low dose aspirin - mild coronary vascular dz. No stent. Poor vision right eye (OD) - ? Optic neuritis. Has some dryness right eye (OD) - uses drops prn. Examination: Base Eye Exam Visual Acuity (Snellen - Linear) Right Left Dist cc 20/100-2 20/25 Dist ph sc 20/90 Correction: Glasses Tonometry (Tonopen, 8:57 AM) Right Left Pressure 14 17 Pupils Dark Light Shape React APD Right 3.0 2.0 Round Brisk - Left 3.0 2.0 Round Brisk - Visual Godoy Left Right Full Restrictions Total superior temporal, inferior temporal, superior nasal deficiencies Extraocular Movement Right Left Full Full Neuro/Psych Oriented x3: Yes Mood/Affect: Normal Slit Lamp and Fundus Exam External Exam Multiple keratotic-papillomatous growths lateral left lower lid (LLL) margin. Nodular lesion (6mm) lesion central pretarsal left lower lid (LLL). MRD1 1.5 mm 2 mm Levator 13 mm 13 mm Slit Lamp Exam Right Left Conjunctiva/Sclera White and quiet White and quiet Cornea small medial pingueculum small medial pingueculum Anterior Chamber Deep and quiet Deep and quiet Iris Round and reactive Round and reactive Lens Nuclear sclerosis Nuclear sclerosis Biopsy, Lid Lesion - OD - Right Eye [id number] Biopsy, Lid Lesion The area was prepped using the following: alcohol prep pad. The following was used to anesthetize the surrounding skin: 2% lidociane with 1:100,000 epinephrine. Using a combination of criss scissors, forceps and/or II-blade the lesion was carefully removed or biopsied. Cautery was used for hemostasis after the lesion was removed. Post-op The patient tolerated the procedure, there were no complications during today's treatment. The following medication's were prescribed to the patient: erythromycin. The patient received written and verbal post procedure care education. The attending physician was present for the entire procedure. Notes A permit was signed the patient was taken to the procedure room. A time-out was performed. The leftlower eyelid was injected with 1 mL of lidocaine. Alcohol prep was performed. The inferior lateral aspect of the central pretarsal lesion was excised and submitted to pathology. Cautery was applied. The lesion reacted in a fashion typical for basal cell. Next, the elevated portion of the papilloma of the lateral margin-canthus was excised and the smallspecimen separately submitted. Next cautery was used to ablate the residual lesion. He tolerated the procedure well. Impression: The nodular lesion of the central left lower lid has an appearance typical for basal cell carcinoma. There has a nearby squamous papilloma involving the lateral lid margin-canthus. We have recommended the lesion be biopsied and then potentially excised with Mohs surgery, followedby reconstruction. We discussed reconstructive techniques including the possible need for flaps andgrafts. We have also discussed the risks of surgery including but not limited to poor graft appearance, scarring, bleeding, infection, eyelid malposition, tumor recurrence, and possible need for additional treatment. They are aware of the need for sun protection and routine dermatologic exams. We recommended treating the lateral margin canthal lesion at the time of biopsy so that this process has resolved before possible Mohs surgery. He elected to proceed. Both lesions were treated without difficulty. He will use erythromycin ointment t.i.d. until the surfaces have healed. We will coordinate a Mohs surgery consultation. We would recommend continuing aspirin around the time of treatment. I have personally examined the patient, participated in all aspects of their care, and formulated the treatment plan. Biopsy, Lid Lesion - OD - Right Eye 10360 Biopsy, Lid Lesion The area was prepped using the following: alcohol prep pad. The following was used to anesthetize the surrounding skin: 2% lidociane with 1:100,000 epinephrine. Using a combination of criss scissors, forceps and/or II-blade the lesion was carefully removed or biopsied. Cautery was used for hemostasis after the lesion was removed. Post-op The patient tolerated the procedure, there were no complications during today's treatment. The following medication's were prescribed to the patient: erythromycin. The patient received written and verbal post procedure care education. The attending physician was present for the entire procedure. Notes A permit was signed the patient was taken to the procedure room. A time-out was performed. The leftlower eyelid was injected with 1 mL of lidocaine. Alcohol prep was performed. The inferior lateral aspect of the central pretarsal lesion was excised and submitted to pathology. Cautery was applied.The lesion reacted in a fashion typical for basal cell. Next, the elevated portion of the papilloma of the lateral margin-canthus was excised and the smallspecimen separately submitted. Next cautery was used to ablate the residual lesion. He tolerated the procedure well. ROS Positive for: Skin, Cardiovascular, Eyes Negative for: Constitutional, Gastrointestinal, Neurological, Genitourinary, Musculoskeletal, HENT,Endocrine, Respiratory, Psychiatric, Allergic/Imm, Heme/Lymph Last edited by Mae Byers B.A. on 02/24/2023 8:49 AM. (History) Base Eye Exam Visual Acuity (Snellen - Linear) Right Left Dist cc 20/100-2 20/25 Dist ph sc 20/90 Correction: Glasses Tonometry (Tonopen, 8:57 AM) Right Left Pressure 14 17 Pupils Dark Light Shape React APD Right 3.0 2.0 Round Brisk - Left 3.0 2.0 Round Brisk - Visual Godoy Left Right Full Extraocular Movement Right Left Full Full Neuro/Psych Oriented x3: Yes Mood/Affect: Normal Edited by: Mae Byers B.A. Slit Lamp and Fundus Exam External Exam Multiple keratotic-papillomatous growths lateral left lower lid (LLL) margin. Nodular lesion (6mm) lesion central pretarsal left lower lid (LLL). MRD1 1.5 mm 2 mm Levator 13 mm 13 mm Slit Lamp Exam Right Left Conjunctiva/Sclera White and quiet White and quiet Cornea small medial pingueculum small medial pingueculum Anterior Chamber Deep and quiet Deep and quiet Iris Round and reactive Round and reactive Lens Nuclear sclerosis Nuclear sclerosis Edited by: Suleman Fonseca MD Allergies: Patient has no known allergies. Medications: No current facility-administered medications for this encounter. Current Outpatient Medications: aspirin 81 mg enteric coated tablet, Take 1 tablet (81 mg total) by mouth daily (Patient taking differently: Take 1 tablet (81 mg total) by mouth social media marketing manager before breakfast), Disp: 30 tablet, Rfl: 11 atorvastatin (LIPITOR) 80 mg tablet, Take 1 tablet (80 mg total) by mouth daily (Patient taking differently: Take 1 tablet (80 mg total) by mouth social media marketing manager before breakfast), Disp: 90 tablet, Rfl: 0 carboxymethylcellulose (REFRESH PLUS) 0.5 % dropperette, Administer 1 drop into the right eye dailyas needed for dry eyes, Disp: , Rfl: cyanocobalamin (Vitamin B-12) 100 mcg tablet, Take 1 tablet (100 mcg total) by mouth social media marketing manager before breakfast, Disp: , Rfl: erythromycin (ILOTYCIN) ophthalmic ointment, Apply ointment to left eyelid incisions [address]Only [address] ointment inside the eye for irritation. (Patient taking differently: Apply 1 Applicationto left eye daily Apply ointment to left eyelid incisions 3 times a day. Only place ointment insidethe eye for irritation.), Disp: 3.5 g, Rfl: 3 sertraline (ZOLOFT) 100 mg tablet, Take 1 tablet (100 mg total) by mouth social media marketing manager before breakfast, Disp: , Rfl: 4 spironolactone (ALDACTONE) 25 mg tablet, Take 0.5 tablets (12.5 mg total) by mouth daily (Patient taking differently: Take 0.5 tablets (12.5 mg total) by mouth social media marketing manager before breakfast), Disp: 15 tablet, Rfl: 5 Past Surgical History: Procedure Laterality Date LUMBAR DISC SURGERY 07/2022 Past Medical History: Diagnosis Date Anxiety disorder Anxiety - (Added by TW Conv) Basal cell carcinoma High cholesterol Personal history of other diseases of the nervous system and sense organs History of optic neuritis - 1997 (Added by TW Conv) Personal history of other endocrine, nutritional and metabolic disease History of hypercholesterolemia - (Added by TW Conv) Social History Tobacco Use Smoking status: Never Smokeless tobacco: Never Substance and Sexual Activity Drug use: Not Currently Sexual activity: Not on file Alcohol Use: Not At Risk (03/02/2023) AUDIT-C Frequency of Alcohol Consumption: Monthly or less Average Number of Drinks: 1 or 2 Frequency of Binge Drinking: Never CONDITIONING UNIT ASSEMBLER documented in this encounter Miscellaneous Notes * Op Note - Suleman Fonseca MD - 03/23/2023 3:45 PM CST Operative Note Attending Surgeon: Suleman Fonseca MD Surgeon(s): Suleman Fonseca MD Surgical Team: Plumbing Service Technician: Araseli Regalado RN Scrub: Darrick Khan ST DATE OF SURGERY : 03/23/2023 Preoperative Diagnosis: Basal cell carcinoma left lower eyelid Postoperative Diagnosis: Basal carcinoma left lower eyelid Procedure: Reconstruction left lower eyelid with repair of lid margin and transposition rhomboid skin flap Operative Findings The patient was positioned on the operative table. A time-out was performed. Infiltrative anesthesia was administered to the left lower and right upper eyelids. The entire face was prepped and draped. A corneal protector was inserted. There was an 11 mm wide by 7 mm high defect involving the central aspect of the left lower eyelid. In the middle of the defect the anterior 2/3 of the lid margin had been resected. The remaining margin in this region was quite thin. We elected to remove the very thin portion of the remaining margin in a block resection measuring approximately 5 mm wide. Cautery was applied for hemostasis. Next the lid margin was repaired in a layered fashion. Tarsus was approximated with 6 0 Vicryl. The margin was reinforced with 7 0 make. Next we performed a rhomboid skin flap to repair the anterior lamella of the lid. This was developed inferior to the defect. The flap incisions were created and the flaps were undermined. Cautery was applied. The flaps were transposed and sutured with 7 0 chromic. At the end the case there was full hemostasis. The eye was covered with a Telfa and eye pad dressing. He was delivered to recovery in stable condition. Estimated Blood Loss: Minimal Specimens: No specimen collected in procedure Implants: Nothing was implanted during the procedure Complications: none Condition on Discharge from the operating room was stable. Suleman Fonseca MD Date: 03/23/2023 Time: 3:58 PM Teaching Attestation: I was present and directly participated in the entire procedure (including opening and closing). CONDITIONING UNIT ASSEMBLER * Pre-Procedure Instructions - Ching Gomez NP - 03/17/2023 7:58 AM CST [facility] Location: [place] The night before your surgery: * Do not eat anything after midnight the night before your procedure. The morning of your surgery: * You may have clear liquids on your surgery day. You must stop drinking two hours before you arrive to the surgery facility. Acceptable clear liquids include water, clear sports drinks, black coffee, or clear soda. DO NOT drink any milk, creamer, or alcohol. * Your surgeon's office may have provided additional instructions or restrictions. Please follow those instructions. * You may brush your teeth and rinse your mouth out. * Do not glue your dentures. * Do not wear jewelry, body piercings, makeup, hairpins, false eyelashes or contact lenses to the hospital. * Leave any valuables at home or with your family. * If you have an implantable device with a remote, bring the remote with you on the day of surgery. * If you use home oxygen, bring your portable oxygen tank with you on the day of surgery * If having surgery at [facility], you may want to bring a credit card if you want to use our Mobile Pharmacy for your discharge medications. Mobile pharmacy is not available at [facility], the Orthopedic Center, or the [facility] for [facility]. Outpatient Surgery: * You must have a responsible adult drive you home and stay with you for 24 hours after your surgery * You cannot be alone at home or in a hotel * Please call your surgeon's office if you do not have someone to drive you home and/or stay with you after surgery * Please bring any items you may need to spend the night in the hospital. Sometimes patients need to be cared for in the hospital overnight. If you have Sleep Apnea (NATALIE): * Bring your CPAP/BiPAP/VPAP machine to the hospital the day of your surgery * For a few days after your surgery, you will need to wear your CPAP/ BiPAP/VPAP machine any time your are sleeping. This includes when you take a nap. Instructions For Your Medications: Pre-Surgery Instructions: Medication Instructions atorvastatin (LIPITOR) 80 mg tablet Take morning of surgery carboxymethylcellulose (REFRESH PLUS) 0.5 % dropperette Per surgeon's instructions cyanocobalamin (Vitamin B-12) 100 mcg tablet Don't take on day of surgery erythromycin (ILOTYCIN) ophthalmic ointment Per surgeon's instructions sertraline (ZOLOFT) 100 mg tablet Take morning of surgery spironolactone (ALDACTONE) 25 mg tablet Take morning of surgery Your surgeon will tell you IF YOU SHOULD STOP the following medications and WHEN TO STOP taking them. Do not stop taking them on your own without being told to do so: aspirin 81 mg enteric coated tablet General Instructions For Medications: For medications that you are instructed to take on the morning of surgery, take the medications with a few sips of water. Stop all of these medications 7-14 days prior to your surgery: Vitamin E, Herbal medicines, Diet Pills If you take aspirin, do not stop taking it unless you were instructed to do so. If you have pain, you may take tylenol (acetaminophen). Do not take more than 6 tablets or 3000 mg (3 g) within a 24 period. Call your surgeon and the CPAP clinic if any of the following happens before surgery: Any changes in your health You have a fever You have any signs of an infection (chest, urinary tract or tooth) You have been to the Emergency Room or were in the hospital You have started taking any new medications You have questions about a bowel prep or special diet before surgery You have symptoms of COVID-19 such as a new or worsening cough, shortness of breath, fever, body aches, loss of taste or smell, diarrhea or vomiting, or sore throat. You have a household contact with COVID-19. You test positive for COVID-19. CONDITIONING UNIT ASSEMBLER * Perioperative Nursing Note - Alexsandra Robertson RN - 03/02/2023 3:31 PM AIR CONDITIONING UNIT ASSEMBLER Center for Preoperative Assessment and Planning Perioperative Nursing Note Telephone Preoperative Evaluation ([facility]) - TELEPHONE ONLY, NO PHYSICAL EXAM Date: 03/02/23 This assessment was completed with the patient. Vitals: 03/02/23 1520 Weight: 83.9 kg (185 lb) Height: 179.1 cm (5' 10.5 ) CHEST CIRCUMFERENCE: Social History Tobacco Use Smoking Status Never Smokeless Tobacco Never Substance and Sexual Activity Drug Use Not Currently Alcohol Use Q1: How often do you have a drink containing alcohol?: Monthly or less Q2: How many drinks containing alcohol do you have on a typical day when you are drinking?: 1 or 2 Q3: How often do you have six or more drinks on one occasion?: Never Outpatient Medications Marked as Taking for the 03/23/23 encounter (Hospital Encounter) Medication Sig Dispense Refill aspirin 81 mg enteric coated tablet Take 1 tablet (81 mg total) by mouth daily (Patient taking differently: Take 1 tablet (81 mg total) by mouth social media marketing manager before breakfast) 30 tablet 11 atorvastatin (LIPITOR) 80 mg tablet Take 1 tablet (80 mg total) by mouth daily (Patient taking differently: Take 1 tablet (80 mg total) by mouth social media marketing manager before breakfast) 90 tablet 0 carboxymethylcellulose (REFRESH PLUS) 0.5 % dropperette Administer 1 drop into the right eye daily as needed for dry eyes cyanocobalamin (Vitamin B-12) 100 mcg tablet Take 1 tablet (100 mcg total) by mouth social media marketing manager before breakfast erythromycin (ILOTYCIN) ophthalmic ointment Apply ointment to left eyelid incisions [address] a day[address] Only place ointment inside the eye for irritation. (Patient taking differently: Apply 1 Application to left eye daily Apply ointment to left eyelid incisions 3 times a day. Only place ointment inside the eye for irritation.) 3.5 g 3 sertraline (ZOLOFT) 100 mg tablet Take 1 tablet (100 mg total) by mouth social media marketing manager before breakfast 4 spironolactone (ALDACTONE) 25 mg tablet Take 0.5 tablets (12.5 mg total) by mouth daily (Patient taking differently: Take 0.5 tablets (12.5 mg total) by mouth social media marketing manager before breakfast) 15 tablet 5 Implants No active implants to display in this view. SKIN Piercings Remaining: No Wound (LDAs) Type of Wound (LDA): (none) SCREENINGS Yadi index score: 100 NUTRITION PATIENT CARE PLANNING Advance Directives (For Healthcare) Have you reviewed your Advance Directive and is it valid for this stay?: No Advance Directive: Patient does not have advance directive Communication/Aircraft Stress Analyst Needs Communication Needs: Glasses, Hearing aide(s) Assistive Devices/DME: Eyeglasses Hearing - Right Ear: Hearing aid Hearing - Left Ear: Hearing aid Discharge Planning Type of Residence: Private residence Living Arrangements: Spouse/significant other Support Systems: Spouse/significant other Assistance Needed: to be with pt DOS Patient expects to be discharged to:: Private residence MICROBIOLOGY SOIL SCIENTIST NO ADDITIONAL COMMENTS/ FOLLOW UP CONDITIONING UNIT ASSEMBLER * Pre-Procedure Instructions - Alexsandra Robertson RN - 03/02/2023 3:26 PM AIR CONDITIONING UNIT ASSEMBLER [facility]ENTER FOR PREOPERATIVE ASSESSMENT AND PLANNING (CPAP) PRE-SURGICAL NURSING INSTRUCTIONS Telephone Assessment General Information Discussed with Patient: Surgery location provided to patient. Arrival time and surgical time will be provided to the patient by their surgeon. You should wear clothing that is clean, loose, comfortable and easy to get in and out of on the dayof surgery. You should remove nail coverings, artificial nails and nail macanese prior to the day of surgery. You should leave your valuables and any jewelry at home. No metal or piercings are allowed in the operating room. You should bring your insurance card, a photo ID (example: Domestic Freight Forwarder's License) and a method of payment for any insurance copay, deductible or copay for discharge medications. You should bring a complete, up-to-date, list of all your medications on the day of surgery, including any over the counter medications or supplements you may take. Please note on your medication list, the last date & time you took each medication. The healthcare team, on the day of surgery, will ask for this information. You should bring your Advanced Directive and/or Living Will with you on the day of surgery if you have not verified a copy is already in your Epic Chart. Eye Surgery Process for Patients: Before the surgery, you will be asked to change into a gown. As you get ready for your surgery, your nurse will ask you questions about your medical history andreview your medications with you. An IV will be placed so that we may administer medication to keep you comfortable. You will meet your surgical team. You will be taken by stretcher to the operating room for your surgery. After your surgery, you will come to the recovery area. A Fall Risk band will be placed on your arm to remind you that you are at higher risk for falling after having eye surgery. You may remove this band after 24 hours. Before you leave, your discharge team will review your medications with you and any special instructions. A Guide for Patients Having Surgery: Your Pathway to Excellent Care OUR GOAL IS TO PROVIDE YOU WITH EXCELLENT CARE Use this guide to learn about what you can do before, during and after surgery to help your recovery. You are the most important person on your health care team. By becoming informed and involved, you can contribute to the success of your surgery. If your surgeon's directions are different than those in this guide, talk with your nurse or surgeon to confirm the information. It is important that you understand how to take care of yourself at home after surgery. Be sure to bring this guide with you on the day of surgery and take it home with you after surgery. Write down questions for your nurse or surgeon on the last page of this booklet. Important pages to be reviewed BEFORE surgery: Page 1: QR codes for Surgery Center maps Page 3: Types of Anesthesia Page 5: Tips for the day & night before surgery Page 6: When to stop eating BEFORE surgery and examples of clear liquids Page 7-10: Preventing Infection: Chlorhexidine Gluconate (CHG) Bathing Instructions You may access A Guide for Patients Having Surgery: Your Pathway to Excellent Care by the followinglink: [email or web address] How To Prepare Your Skin For Surgery Below is the Pre-Surgical Bathing Protocol you should follow for your surgery. If your surgeon provides you different bathing instructions, please follow your surgeon's orders. Normal Bathing: Bathe with regular soap the night before and/or day of surgery. Normal Bathing Protocol Bathe with your normal soap the night before and/or the morning of surgery. Wear clean clothes or pajamas to sleep in. After showering DO NOT put on deodorant, hair products, conditioners, lotions, creams, powders, Vaseline or any non-essential products. Remove nail coverings, artificial nails and nail macanese. Place clean linens on your bed the night before surgery. Shaving: You may shave your face, legs and underarms during your evening shower. Avoid shaving on the day of surgery. Travel/Exposure Screening: Travel Screening Have you traveled outside the [place] in the last 6 months?: No Exposure Screening Have you been exposed to anyone who is sick in the last 30 days?: No Have you been exposed to or tested positive for COVID-19 within the last 10 days?: No Infectious Disease Screening Are you having any of the following:: None As of 12/30/2021 any COVID TESTING required for surgery will be set up by your surgeon's office. Please reach out to your surgeon's office if you develop any COVID symptoms, test positive for COVID or are exposed to a COVID positive person. If you have questions, please call the CPAP Staff at [phone], Wednesday-Wednesday 8am-4:30pm. All patients should read the below section: COVID 19 Updates & Visitor Policy: Please access [email or web address] for the most updated information. Information on [facility] & the Orthopedic Center: Please view [email or web address] (Patient & Visitor Information) for additional details regarding Advanced Directive forms, AWARE, directions, parking information, lodging, Internet access, dining and more. For MyChart information, to activate account or password recovery, please go to [email or web address] or call [phone] (toll-free: [phone]), Wed- Wednesday 8am-5pm. Information for Suicide Prevention: National Suicide Prevention Lifeline (5-138- 473-GRNP (6421)) or call or text 411. Chat resources: [employer]. Surgery Times: For patients having surgery @ [facility], [facility] Advanced [facility] or [facility] ([facility]), if your surgeon's office has not notified you of your surgery time by NOON THE BUSINESS DAY BEFORE your surgery, please call [phone] and ask for your surgeon's office CONDITIONING UNIT ASSEMBLER documented in this encounter Plan of Treatment Not on file documented as of this encounter Procedures Procedure Name Priority Date/Time Associated Diagnosis Comments RECONSTRUCTION EYELID 03/23/2023 3:07 PM AIR CONDITIONING UNIT ASSEMBLER Lesion of left lower eyelid Case Notes [id number] up change per mayank via phone call-helene documented in this encounter Visit Diagnoses Diagnosis Lesion of left lower eyelid- Primary Basal cell carcinoma (BCC) of left lower eyelid [C44.1192] documented in this encounter Admitting Diagnoses Diagnosis Lesion of left lower eyelid documented in this encounter Administered Medications Inactive Administered Medications - up to 3 most recent administrations Medication Order MAR Action Action Date Dose Rate Site Lactated Ringer's (LR) infusion 30 mL/hr, intravenous, Continuous, Starting on Wed03/23/23 at 1400, Pre-Op Restarted 03/23/2023 3:46 PM AIR CONDITIONING UNIT ASSEMBLER Rate/Dose Verify 03/23/2023 3:03 PM AIR CONDITIONING UNIT ASSEMBLER 30 mL/h r New Bag 03/23/2023 1:39 PM AIR CONDITIONING UNIT ASSEMBLER 30 mL/hr 30 mL/hr documented in this encounter Historical Medications * This list may reflect changes made after this encounter. cyanocobalamin (Vitamin B-12) 100 mcg tabletIndication s:Prevention of Vitamin B12 Deficiency Take 1 tablet (100 mcg total) by mouth social media marketing manager before breakfast added in this encounter Active and Recently Administered Medications Times are shown in AIR CONDITIONING UNIT ASSEMBLER. Scheduled Medication Order 03/21/2023 03/22/2023 03/23/2023 acetaminophen (TYLENOL) tablet 500 mg 500 mg, oral, Once, On Wed03/23/23 at 1645, For 1 dose, Phase I, When able to tolerate PO., Indications: Pain 1645 (Due) Continuous Medication Order 03/21/2023 03/22/2023 03/23/2023 Lactated Ringer's (LR) infusion (CANCELED) 30 mL/hr, intravenous, Continuous, Starting on Wed03/23/23 at 1400, Pre-Op 1339 (New Bag - Prov ider: Lidia Lai RN)1503 (Rate/Dose Verify - Provider: Karmen Posada CRNA)1545 (Paused - Provider: Karmen Posada CRNA - Comment: Switch to gravity)1546 (Restarted - Provider: Karmen Posada CRNA)1610 (Stopped - Provider: Valencia Parker RN) Lactated Ringer's (LR) infusion 125 mL/hr, intravenous, Continuous, Starting on Wed03/23/23 at 1645, Phase I 1645 (Due) PRN Medication Order 03/21/2023 03/22/2023 03/23/2023 albuterol 2.5 mg/0.5 mL nebulizer solution 2.5 mg 2.5 mg, nebulization, Once as needed, wheezing, Starting on Wed03/23/23 at 1601, For 1 dose, Phase I, Notify Anesthesiologist. , Indications: Bronchospastic Pulmonary Disease diphenhydrAMINE (BENADRYL) 50 mg/mL injection 12.5 mg 12.5 mg, intravenous, Every 15 min PRN, itching, Starting on Wed03/23/23 at 1601, For 2 doses, Phase I, Max cumulative dose 50 mg., Indications: Itching fentaNYL (SUBLIMAZE) preservative free injection 50 mcg 50 mcg, intravenous, Once as needed, uncontrolled pain on PACU admission, Starting on Wed03/23/23 at 1601, For 1 dose, Phase I, Then proceed to PACU 1st line analgesic., Indications: Pain HYDROmorphone (DILAUDID) injection 0.2 mg 0.2 mg, intravenous, Administer over 2 Minutes, Every 10 min PRN, 1st line for pain, Starting on Wed03/23/23 at 1601, Phase I, Notify Anesthesiologist if total PACU dose reaches 2 mg and pain score 5/10 or more., Indications: Pain lidocaine 1%, bupivicaine 0.375%, EPINEPHrine 0.3 mg (1:75,000) (Dr. Fonseca's) preservative free ophthalmic solution (total volume 22.5 mL) (CANCELED) As needed, Starting on Wed03/23/23 at 1514, Intra-Op 1514 (Given - Provid er: Suleman Fonseca MD) meperidine (DEMEROL) preservative free injection 12.5 mg 12.5 mg, intravenous, Administer over 5 Minutes, Every 10 min PRN, shivering, Starting on Wed03/23/23 at 1601, For 2 doses, Phase I, Max cumulative dose 25 mg., Indications: Shivering naloxone (NARCAN) 0.4 mg/mL injection 0.04-0.4 mg 0.04-0.4 mg, intravenous, Once as needed, other, excessive sedation/respiratory depression, Starting on Wed03/23/23 at 1601, For 1 dose, Phase I, Dilute 0.4 mg with 9 mL NS (final concentration 0.04 mg/mL). For respiratory depression (respiratory rate less than 6), administer 0.4 mg IVP over 30 seconds. For excessive sedation administer 0.04 mg (1 mL) every 1 minute until desired level of alertness. For IV, administer over 30 seconds., Indications: Opioid Toxicity ondansetron (ZOFRAN) injection 4 mg 4 mg, intravenous, Administer over 2 Minutes, Once as needed, nausea, vomiting, Starting on Wed03/23/23 at 1601, For 1 dose, Phase I, Proceed to prochlorperazine if ondansetron has been given within the last 6 hours. prochlorperazine (COMPAZINE) injection 5 mg 5 mg, intravenous, Administer over 2 Minutes, Once as needed, nausea, vomiting, Starting on Wed03/23/23 at 1601, For 1 dose, Phase I, If nausea/vomiting not relieved by ondansetron within 30 minutes or if ondansetron has been given within the last 6 hours. proparacaine (ALCAINE) 0.5 % ophthalmic solution (CANCELED) As needed, Starting on Wed03/23/23 at 1515, Intra-Op, Indications: Administration of Corneal Anesthesia 1515 (Given - Provid er: Suleman Fonseca MD) sodium chloride 0.9% irrigation (CANCELED) As needed, Starting on Wed03/23/23 at 1515, Intra-Op 1515 (Given - Provid er: Suleman Fonseca MD - Comment: PRN on sterile field) documented in this encounter Orders Medications Ordered That Irving ht Not Have Been Administered Count Last Ordered Date First Ordered Date acetaminophen (TYLENOL) tablet 500 mg albuterol 2.5 mg/0.5 mL nebu lizer solution 2.5 mg 03/23/2023 Carrier Fluids for Secondary Infusion - 0.9% Sodium Chloride 03/23/2023 diphenhydrAMINE (BENADRYL) 5 0 mg/mL injection 12.5 mg 03/23/2023 fentaNYL (SUBLIMAZE) preserv ative free injection 50 mcg 03/23/2023 HYDROmorphone (DILAUDID) injection 0.2 mg 03/23/2023 Lactated Ringer's (LR) infusion lidocaine 1%, bupivicaine 0. 375%, EPINEPHrine 0.3 mg (1:75,000) (Dr. Fonseca's) preservative free ophthalmic solution (total volume 22.5 mL) 03/23/2023 lidocaine PF (XYLOCAINE) 10 mg/mL (1 %) preservative free injection 2-10 mg 03/23/2023 meperidine (DEMEROL) preserv ative free injection 12.5 mg 03/23/2023 naloxone (NARCAN) 0.4 mg/mL injection 0.04-0.4 mg 03/23/2023 ondansetron (ZOFRAN) injection 4 mg 03/23 prochlorperazine (COMPAZINE) injection 5 mg 1 03/23/2023 proparacaine (ALCAINE) 0.5 % ophthalmic solution 1 03/23/2023 sodium chloride 0.9% flush 0.5-20 mL 1 03/08 sodium chloride 0.9% irrigation 1 4 Discharge Count Last Ordered Date First Orde red Date DISCHARGE PATIENT 1 03/23/2023 documented in this encounter Care Teams Senior Energy Consultant Relationship Specialty Start Date End Date Juan Antunez MD PCP - General 04/21/17 Raisa Carmichael MD Consulting Physician Neurosurgery 07/17/22 documented as of this encounter
--- OUTSIDE RECORDS SUMMARY | 2024-03-16 10:59 | XMS_ITS | Encounter Summary ---
Author Organization [facility] Address [address] [place] [address] Phone Care Team Providers Care Corporate Coordinator Name Role Phone Juan Antunez MD Primary Care Provider [phone] Raisa Carmichael MD Unavailable [phone] Reason for Visit * Reason Comments Routine Glaucoma Follow Up Encounter Details Date Type Department Care Team (Late st Contact Info) Description 04/05/2023 10:30 AM OFFICE MANAGER Office Visit [facility] [place] [address] Nicolle Jameson MD [address] [place] [address] Nuclear sclerosis of both eyes (Primary Dx); Optic atrophy Social History Tobacco Use Types Packs/Day Years [...] on file Legal Sex Male 12:39 AM OFFICE MANAGER Gender Identity Not on file Sexual Orientation Not on file documented as of this encounter Progress Notes * Nicolle Jameson MD - 04/05/2023 10:30 AM CST Assessment/Plan Diagnoses and all orders for this visit: Nuclear sclerosis of both eyes (Primary) Assessment & Plan: Not yet VS Observe Optic atrophy Assessment & Plan: IOP at this time stable Discussed could be from optic atrophy vs old damage Given IOP would be hard to prove progression Follow 6 months with HVF/OCT OU - if progression plan low teens IOP I have seen/examined the patient and I agree with the findings/plan of the Resident/Fellow CE MANAGER documented in this encounter Miscellaneous Notes * Assessment & Plan Note - Nicolle Jameson MD - 04/05/2023 1:13 PM OFFICE MANAGER Associated Problem(s): Optic atrophy IOP at this time stable Discussed could be from optic atrophy vs old damage Given IOP would be hard to prove progression Follow 6 months with HVF/OCT OU - if progression plan low teens IOP CE MANAGER * Assessment & Plan Note - Nicolle Jameson MD - 04/05/2023 1:12 PM OFFICE MANAGER Associated Problem(s): Nuclear sclerosis of both eyes Not yet VS Observe CE MANAGER documented in this encounter Plan of Treatment Not on file documented as of this encounter Visit Diagnoses Diagnosis Nuclear sclerosis of both eyes- Primary Optic atrophy Unspecified optic atrophy documented in this encounter Discontinued Medications Medication Sig Discontinue Reason Start Date End Da te erythromycin (ILOTYCIN) ophthalmic ointment Apply ointment to left eyelid incisions 3 times a day[address] Only place ointment inside the eye for irritation. 02/24/2023 04/05/2023 erythromycin (ILOTYCIN) ophthalmic ointment Apply ointment to left eyelid incisions 3 times a day. Only place ointment inside the eye for irritation. 03/23/2023 04/05/2023 documented as of this encounter Eye Exam Visual Acuity (Snellen - Linear) Right eye Left eye Dist cc 20/30 -2 20/25 -1 Correction: Glasses Tonometry (Applanation, 10:49 AM) Right eye Left eye Pressure 17 17 Pupils Dark Light Shape React APD Right eye 4.5 3.5 Round Brisk None Left eye 4.5 3.5 Round Brisk None Visual Godoy Right eye Left eye Full Restrictions Partial outer inferior temporal, inferior nasal deficiencies Extraocular Movement Right eye Left eye Full Full Neuro/Psych Oriented x3: Yes Mood/Affect: Normal External Exam Right eye Left eye External Normal Normal Slit Lamp Exam Right eye Left eye Lids/Lashes Normal Normal Conjunctiva/Sclera White and quiet White and manolo et Cornea small medial pingueculum small m edial pingueculum Anterior Chamber Deep and quiet Deep and quiet Iris Round and reactive Round and elmer ctive Lens Nuclear sclerosis Nuclear sclero sis Anterior Vitreous Normal Normal Fundus Exam Right eye Left eye Disc PPA inferior, no edema Normal, n o edema C/D Ratio 0.65 0.6 Macula trace ERM Normal Care Teams Corporate Coordinator Relationship Specialty Start Date End Date Juan Antunez MD PCP - General 04/21/17 Raisa Carmichael MD Consulting Physician Neurosurgery 07/17/22 documented as of this encounter
--- OUTSIDE RECORDS SUMMARY | 2024-03-16 10:59 | XMS_ITS | Encounter Summary ---
Author Organization [facility] Address [address] [place] [address] Phone Care Team Providers Care Auto Body Man Name Role Phone Juan Antunez MD Primary Care Provider [phone] Raisa Carmichael MD Unavailable [phone] Reason for Referral * Procedure (Routine) - Closed Specialty Diagnoses / Procedures Referred By Contac t Referred To Contact Procedures Biopsy, Lid Lesion - OD - Right Eye [id number] Suleman Fonseca MD [address] [place] [address] Phone: tel: fax: [facility] (All Locations) Referral ID Status Reason Start Date Expiration Date Visits Re quested Visits Authorized [id number] Closed 02/24/2023 03/25/2024 1 1 EMENTATION MANAGER Reason for Visit * Procedure (Routine) - Closed Specialty Diagnoses / Procedures Referred By Contac t Referred To Contact Procedures Biopsy, Lid Lesion - OD - Right Eye [id number] Suleman Fonseca MD [facility] [address] Phone: tel: fax: [facility] (All Locations) Referral ID Status Reason Start Date Expiration Date Visits Re quested Visits Authorized [id number] Closed 02/24/2023 03/25/2024 1 1 Encounter Details Date Type Department Care Team (Late st Contact Info) Description 02/24/2023 8:30 AM IMPLEMENTATION MANAGER Office Visit [facility] Ophthalmology [address] [facility] 6th [place] [address] Suleman Fonseca MD [address] [facility] [place] [address] Lesion of left lower eyelid; Lesion of canthus of left eye Social History Tobacco Use Types Packs/Day Years Used Date Smoking Tobacco: Former Smokeless Tobacco: Never Tobacco Cessation:Counseling Given: Not Answered Personal Safety Answer Date Recorded Getting School Help Needed Not on file 02/19 Sex and Gender Information Value Date Recorded Sex Assigned at Not on file Legal Sex Male 12:39 AM IMPLEMENTATION MANAGER Gender Identity Not on file Sexual Orientation Not on file documented as of this encounter Patient Instructions * Patient Instructions* Suleman Fonseca MD - 02/24/2023 8:30 AM IMPLEMENTATION MANAGER Lesion Removal Instructions Janell Garcia DATE OF SURGERY: 02/24/2023 DIAGNOSIS: Eyelid Lesion SURGEON: Suleman Fonseca MD Instructions: - Avoid heavy physical exertion and exercise until the would has healed. Avoid activities that could increase the risk of infection (yard work, swimming, gyms). - Do not use make-up or cosmetic products near the operative site. - Do not use contact lens in the operated eye, unless instructed to do so. - You may wear your glasses. - Do not drive or operate machinery until your vision has returned to normal. Shower: You may shower after surgery. Medications: Pain: It is normal to have mild tenderness, aching, or burning pain. You may use Acetaminophen (500mg): 1 or 2 tablets every 6 hours. Do not take more than 6 tablets per day. Antibiotic ointment: - Place the ointment on the incision or sutures 3 times a day until irritation has resolved and there is no longer crusting or discharge. You may place the ointment in the eye if irritated (will cause blurring). Pathology: You will be told if your lesion was submitted to pathology. If so, you will receive a phone call with the results in about 1 week. Please call the office if your lesion was submitted to pathology and you do not receive the results ([phone]). Please call the office or after-hours exchange ([phone]) if you experience: - Severe pain (mild discomfort is common). - Persistent bleeding unrelieved with gentle pressure (it is normal to have an occasional drop of blood or drainage from the eye for several days). - Visual loss (mild blurring or difficulty reading is common after surgery, especially if there is ointment in your eye). [facility] [address]th [address] [place] [address] EMENTATION MANAGER documented in this encounter Ordered Prescriptions Prescription Sig Dispense Quantity Refills Last Filled Start Date End Date erythromycin (ILOTYCIN) ophthalmic ointment Apply ointment to left eyelid incisions 3 times a day. Only place ointment inside the eye for irritation. 3.5 g 3 02/24/2023 4 documented in this encounter Progress Notes * Suleman Fonseca MD - 02/24/2023 8:30 AM CST Images from the original note were not included. Date of Visit: 02/24/2023 Patient Name: Janell Garcia : 1955 Gender: male Primary Care [...] Lid Lesion - OD - Right Eye [address] Biopsy, Lid Lesion The area was prepped [...] their care, and formulated the treatment plan. EMENTATION MANAGER documented in this encounter Plan of Treatment Not on file documented as of this encounter Procedures Procedure Name Priority Date/Time Associated Diagnosis Comments BIOPSY, LID LESION - OD - RIGHT EYE [address]42 Routine 02/24/2023 10:02 AM IMPLEMENTATION MANAGER Lesion of left lower eyelid documented in this encounter Results * Biopsy, Lid Lesion - OD - Right Eye [address] (02/24/2023 10:02 AM IMPLEMENTATION MANAGER) Anatomical Region Laterality Modality Head Other Narrative 02/24/2023 10:02 AM IMPLEMENTATION MANAGER Biopsy, Lid Lesion The area was prepped [...] patient was taken to the procedure room. ??A time-out was performed. ??The left lower eyelid was injected with 1 mL of lidocaine. ??Alcohol prep was performed. ??The inferior lateral aspect of the central pretarsal lesion was excised and submitted to pathology. ?? Cautery was applied. ??The lesion reacted in a fashion typical for basal cell. Next, the elevated portion of the papilloma of the lateral margin-canthus was excised and the small specimen separately submitted. ??Next cautery was used to ablate the residual lesion. ??He tolerated the procedure well. us Suleman Fonseca MD OPHTH CLINIC PROCEDURES Yudelka l Result * Surgical pathology (02/24/2023 12:00 AM IMPLEMENTATION MANAGER) Tissue (Skin, punch biopsy) 02/24/2023 03/02/2023 6:28 AM IMPLEMENTATION MANAGER [facility]MAT[facility] - 03/04/2023 9:33 AM IMPLEMENTATION MANAGER EPIC results best viewed via link to PDF [facility] Dermatopathology [address], ??[address] [place] [address] ? [email or web address] Note to Patients: ??This report may contain a detailed description of human tissue sent by a health care provider to the laboratory for pathologic evaluation. ??The content of this report is essential for diagnosis and may provide important critical findings. ??This information may be unfamiliar to patients to review without a medical professional present. ?? It is advised that the patient review this report in the presence of a health care provider who can answer questions and explain the details. FINAL REPORT Patient Information: PATIENT NAME: ??JANELL GARCIAAdan ? SEX: ??M ? : ??1955 (Age: 67) ? Specimen Information: COLLECTED: ??02/24/2023 ? RECEIVED: ??03/02/2023 ? REPORTED: ??03/04/2023 ? Submitting Physician Information: Suleman Fonseca M.D. [facility] [place], [address] [facility] 6th Floor [place], [place] ??[address], ? DERMATOPATHOLOGY REPORT RESULTS ?? DIAGNOSIS: A. ??SKIN, LEFT LOWER EYELID, PUNCH BIOPSY: ? BASAL CELL CARCINOMA ?? B. ??SKIN, LATERAL LEFT LOWER EYELID MARGIN CANTHUS, EXCISION: ? SEBORRHEIC KERATOSIS ian/lac By this signature, I attest that the above diagnosis is based upon my personal examination of the slides(and/or other material indicated in the diagnosis). Jeri Emery M.D. ?? Report Electronically Reviewed and Signed Out By ??Jeri Emery M.D. 03/04/2023 09:33:06 CLINICAL INFORMATION A. R/O BCC B. R/O SK SPECIMEN DATA MICROSCOPIC DESCRIPTION: A. Irregular aggregates of atypical basal epithelial cells with palisading of their peripheral nuclei are present within the dermis. (C44.91) B. There is hyperkeratosis, papillated and reticulated epithelial hyperplasia and horn pseudocysts. (L82.1) GROSS DESCRIPTION: A. Received in a formalin-containing bottle is a cylindrical piece of pale hodge, finely scaling hair-bearing skin and adipose tissue measuring 0.3 by 0.2 by 0.2 cm. ??The surgical margin is inked blue. The specimen is sectioned into 1 piece and submitted entirely in a single cassette. Due to shrinkage, measurements may be different than those at time of procedure. B. Received in a formalin-containing bottle is a superficial fragment of pale hodge, finely scaling and semi-translucent skin measuring 0.2 by 0.1 by 0.3 cm. The surgical margin is inked blue. The specimen bears a centrally located, hodge, variegated papule measuring 0.1 by 0.1 by 0.3 cm. The specimen is sectioned into 1 piece and submitted entirely in a single cassette. Due to shrinkage, measurements may be different than those at time of procedure. exr/mxf ICD-9 ZSD.1411 ZSD.176 ? Clerical Data A; 83766 B; 90786 The characteristics of special, immunohistochemical, and immunofluorescence stains and in-situ hybridization tests performed by the [facility] Dermatopathology Center were deemed acceptable in ongoing quality assistant measures and in compliance with regulations drawn from the Clinical Laboratory Improvement Act in6835 (CLIA '88). Control reactions for all stains performed were deemed adequate and appropriate by a pathologist prior to evaluation of patient tissue. Some diagnoses were rendered with the assistance of laboratory-developed tests utilizing analyte-specific reagents; the performance characteristic of these tests were determined by [facility] and are not cleared or approved by the [place] Food an Drug administration. Laboratory developed test may only be performed in a facility that is certified by the [facility] as a high-complexity laboratory under CLIA '88. These tests are used for clinical purposes and are not investigational. Suleman Fonseca MD LAB PATHOLOGY ORDERABLES Fin al Result DERMATOPATHOLOGY CENTER [address] [place] [address] documented in this encounter Visit Diagnoses Diagnosis Lesion of left lower eyelid Lesion of canthus of left eye Lesion of left lower eyelid Lesion of canthus of left eye documented in this encounter Historical Medications * This list may reflect changes made after this encounter. carboxymethylcel lulose (REFRESH PLUS) 0.5 % dropperetteIndic ations:Dry Eye Administer 1 drop into the right eye daily as needed for dry eyes added in this encounter Eye Exam Visual Acuity (Snellen - Linear) Right eye Left eye Dist cc 20/100-2 20/25 Dist ph sc 20/90 Correction: Glasses Tonometry (Tonopen, 8:57 AM) Right eye Left eye Pressure 14 17 Pupils Dark Light Shape React APD Right eye 3.0 2.0 Round Brisk - Left eye 3.0 2.0 Round Brisk - Visual Godoy Right eye Left eye Full Restrictions Total superior tempo ral, inferior temporal, superior nasal deficiencies Extraocular Movement Right eye Left eye Full Full Neuro/Psych Oriented x3: Yes Mood/Affect: Normal External Exam Multiple keratotic-papillomatous growths lateral left lower lid (LLL) margin. Nodular lesion (6mm) lesion central pretarsal left lower lid (LLL). Slit Lamp Exam Right eye Left eye Conjunctiva/Sclera White and quiet White and manolo et Cornea small medial pingueculum small m edial pingueculum Anterior Chamber Deep and quiet Deep and quiet Iris Round and reactive Round and elmer ctive Lens Nuclear sclerosis Nuclear sclero sis External Right eye Left eye MRD1 1.5 mm 2 mm Levator 13 mm 13 mm Care Teams Auto Body Man Relationship Specialty Start Date End Date Juan Antunez MD PCP - General 04/21/17 Raisa Carmichael MD Consulting Physician Neurosurgery 07/17/22 documented as of this encounter
--- OUTSIDE RECORDS SUMMARY | 2024-03-16 10:59 | XMS_ITS | Encounter Summary ---
Author Organization [facility] Address [address] [place] [address] Phone Care Team Providers Care Advice Nurse Name Role Phone Juan Antunez MD Primary Care Provider [phone] Raisa Carmichael MD Unavailable [phone] Reason for Visit * Reason Onset Date Comments Test Results 01/24/2024 Encounter Details Date Type Department Care Team (Late st Contact Info) Description 01/24/2024 Telephone [facility] Cardiology [address] [facility] 8th [place] [address] [place] [address] Juan Orellana MD [address] [facility] [address] [place] [address] Test Results Social History Tobacco Use Types Packs/Day [...] on file Legal Sex Male 12:39 AM CUSTODIAL FOREMAN Gender Identity Not on file Sexual Orientation Not on file documented as of this encounter Miscellaneous Notes * Telephone Encounter - Khalida Sun RN - 01/24/2024 5:01 PM CST My chart message sent to patient regarding results and recommendations. ODIAL FOREMAN * Telephone Encounter - Khalida Sun RN - 01/24/2024 4:58 PM CST ----- Message from Juan Orellana MD sent at 01/20/2024 1:01 PM CUSTODIAL FOREMAN ----- Labs reviewed. Everything looks good but no lipids. No urgency but should get lipids checked in he next few months, either through PCP or us. Thanks, MR ----- Message ----- From: Khalida Sun RN Sent: 01/20/2024 12:42 PM CUSTODIAL FOREMAN To: Juan Orellana MD Labs from pcp ----- Message ----- From: Martha Burdick Sent: 01/20/2024 12:36 PM CUSTODIAL FOREMAN To: Je Katia [facility] Clinical Pool ODIAL FOREMAN documented in this encounter Plan of Treatment Not on file documented as of this encounter Visit Diagnoses Not on filedocumented in this encounter Care Teams Advice Nurse Relationship Specialty Start Date End Date Jaun Antunez MD PCP - General 04/21/17 Raisa Carmichael MD Consulting Physician Neurosurgery 07/17/22 documented as of this encounter
--- OUTSIDE RECORDS SUMMARY | 2024-03-16 10:59 | XMS_ITS | Encounter Summary ---
Author Organization [facility] Address [address] [place] [address] Phone Care Team Providers Care Staff Registered Nurse Name Role Phone Juan Antunez MD Primary Care Provider [phone] Raisa Carmichael MD Unavailable [phone] Reason for Visit * Reason Onset Date Comments Test Results 05/03/2023 Encounter Details Date Type Department Care Team (Late st Contact Info) Description 05/03/2023 Telephone [facility] Cardiology [address] [facility] Advanced Medicine 8th [place] [address] [place] [address] Juan Orellana MD [address] [facility] [address] [place], [place] [id number] Test Results Social History Tobacco Use Types [...] on file Legal Sex Male 12:39 AM AGRIBUSINESS PROFESSOR Gender Identity Not on file Sexual Orientation Not on file documented as of this encounter Miscellaneous Notes * Telephone Encounter - Khalida Sun RN - 05/03/2023 8:23 AM CST ----- Message from Khalida Sun RN sent at 04/12/2023 1:30 PM AGRIBUSINESS PROFESSOR ----- 04/12/23- second lab reminder given ----- Message ----- From: Khalida Sun RN Sent: 04/12/2023 12:00 AM AGRIBUSINESS PROFESSOR To: Khalida Snu RN 03/29/23- reminder given ----- Message ----- From: Juan Orellana MD Sent: 03/29/2023 8:51 AM AGRIBUSINESS PROFESSOR To: Je Orellana Clinical Pool Needs BMP if this has not been done. Thanks, MR ----- Message ----- From: SYSTEM Sent: 03/29/2023 1:12 AM AGRIBUSINESS PROFESSOR To: Juan Orellana MD BUSINESS PROFESSOR documented in this encounter Plan of Treatment Not on file documented as of this encounter Visit Diagnoses Not on filedocumented in this encounter Care Teams Staff Registered Nurse Relationship Specialty Start Date End Date Juan Antunez MD PCP - General 04/21/17 Raisa Carmichael MD Consulting Physician Neurosurgery 07/17/22 documented as of this encounter
--- OUTSIDE RECORDS SUMMARY | 2024-03-16 10:59 | XMS_ITS | Encounter Summary ---
Author Organization [facility] Address [address] [place] [address] Care Team Providers Care Rooter Operator Name Role Phone Juan Antunez MD Primary Care Provider [phone] Raisa Carmichael MD Unavailable [phone] Encounter Details Date Type Department Care Team (Late st Contact Info) Description 02/01/2024 3:40 PM CANAL BOAT CAPTAIN Lab [address] [address] Social History Tobacco Use Types Packs/Day Years [...] on file Legal Sex Male 12:39 AM CANAL BOAT CAPTAIN Gender Identity Not on file Sexual Orientation Not on file documented as of this encounter Plan of Treatment Not on file documented as of this encounter Procedures Procedure Name Priority Date/Time Associated Diagnosis Comments CREATININE, WHOLE BLOOD STAT 02/01/2024 3:39 PM CANAL BOAT CAPTAIN documented in this encounter Results * (ABNORMAL) Creatinine, whole blood (02/01/2024 3:39 PM CANAL BOAT CAPTAIN) Creatinine, bld 1.39(H) 0.60 - 1.30 mg/dL Blood 02/01/2024 3:39 PM CANAL BOAT CAPTAIN 02/01/2024 3:43 PM CANAL BOAT CAPTAIN Germaine Ruggiero MD LAB BLOOD ORDERABLES Final Result Performing Organization Address City/State/[facility] Co de Phone Number [facility] 1 [facility] Department [place] [address] documented in this encounter Visit Diagnoses Not on filedocumented in this encounter Care Teams Rooter Operator Relationship Specialty Start Date End Date Juan Antunez MD PCP - General 04/21/17 Raisa Carmichael MD Consulting Physician Neurosurgery 07/17/22 documented as of this encounter
--- OUTSIDE RECORDS SUMMARY | 2024-03-16 10:59 | XMS_ITS | Encounter Summary ---
Author Organization [facility] Address [address] [place] [address] Phone Care Team Providers Care Capping Machine Operator Name Role Phone Juan Antunez MD Primary Care Provider [phone] Raisa Carmichael MD Unavailable [phone] Reason for Visit * Reason Onset Date Comments Lab work reminder 04/12/2023 Encounter Details Date Type Department Care Team (Late st Contact Info) Description 04/12/2023 Telephone [facility] Cardiology [address] [facility] [address] [place] [address] Juan Orellana MD [facility] [address] [address] Lab work reminder Social History Tobacco Use Types Packs/Day Years [...] on file Legal Sex Male 12:39 AM VERTICA ARCHITECT Gender Identity Not on file Sexual Orientation Not on file documented as of this encounter Miscellaneous Notes * Telephone Encounter - Sabina Nuñez RMA - 04/12/2023 1:33 PM VERTICA ARCHITECT Spoke patient he will get labs drawn. Patient request order be sent to [facility]. Order sent. ICA ARCHITECT documented in this encounter Plan of Treatment Not on file documented as of this encounter Visit Diagnoses Diagnosis Chronic coronary artery disease- Primary Coronary atherosclerosis of unspecified type of vessel, salamatof or graft documented in this encounter Orders Lab Orders Without Results Count Last Ordered D ate First Ordered Date BASIC METABOLIC PANEL 1 04/12/2023 documented in this encounter Care Teams Capping Machine Operator Relationship Specialty Start Date End Date Juan Antunez MD PCP - General 04/21/17 Raisa Carmichael MD Consulting Physician Neurosurgery 07/17/22 documented as of this encounter
--- OUTSIDE RECORDS SUMMARY | 2024-03-16 10:59 | XMS_ITS | Encounter Summary ---
Author Organization [facility] Healthcare Address [address] [place] [address] Care Team Providers Care Curtain Stretcher Name Role Phone Juan Antunez MD Primary Care Provider [phone] Raisa Carmichael MD Unavailable [phone] Reason for Visit * Auth/Cert (Routine) Specialty Diagnoses / Procedures Referred By Urban t Referred To Contact Diagnoses Lesion of left lower eyelid Lesion of left lower eyelid [H02.9] Procedures ND EXCISION & REPAIR EYELID < ONE-FOURTH LID MARGIN ND ADJT TIS TRNSFR/REARRGMT E/N/E/L DFCT 10 SQ CM/< RECONSTRUCTION EYELID GRAFT SKIN FULL THICKNESS Referral ID Status Reason Start Date Expiration Date Visits Re quested Visits Authorized [id number] 1 1 Encounter Details Date Type Department Care Team (Late st Contact Info) Description 03/23/2023 3:45 PM BAKERY TEAM MEMBER - 03/23/2023 5:15 PM BAKERY TEAM MEMBER Surgery [facility] Operating Room [facility] [address] [place] [id number] Suleman Fonseca MD [address] [address] RECONSTRUCTION EYELID Surgery Details Date/Time Status Location OR Service Patient Class Case Cl ass Case Type Trauma Case? 03/23/2023 3:45 PM Posted [facility] CAM OR POD 4 N Ophthalmology Outpatient Elective Panel 1 Procedure LRB Anes Op Region Wound Class Comments RECONSTRUCTION EYELID Left Monitor Anesthesia Care Eye Class I - Clean LEFT LOWER EYELID RECONSTRUCTION Surgeon Surgeon Role Service Panel Suleman Fonseca MD Primary Ophthalmology 1 Case Notes 1-11@1059-line up change per mayank via phone call-jw documented in this encounter Social History Tobacco [...] on file Legal Sex Male 12:39 AM BAKERY TEAM MEMBER Gender Identity Not on file Sexual Orientation Not on file documented as of this encounter Last Filed Vital Signs Vital Sign Reading Time Taken Comments Blood Pressure 154/66 03/23/2023 4:40 PM BAKERY TEAM MEMBER Pulse 63 03/23/2023 4:40 PM BAKERY TEAM MEMBER Temperature 36.5 ??C (97.7 ??F) 03/23/2023 4:30 PM CS T Respiratory Rate 14 03/23/2023 4:40 PM BAKERY TEAM MEMBER Oxygen Saturation 100% 03/23/2023 4:40 PM BAKERY TEAM MEMBER Inhaled Oxygen Concentration - - Weight 83.9 kg (185 lb) 03/23/2023 1:30 PM BAKERY TEAM MEMBER Height 179.1 cm (5' 10.5 ) 03/23/2023 1:30 PM CS T Body Mass Index 26.17 03/23/2023 1:30 PM BAKERY TEAM MEMBER documented in this encounter Discharge Instructions * Discharge Instructions* Suleman Fonseca MD - 03/10/2023 8:18 AM BAKERY TEAM MEMBER Instructions: - Avoid physical exertion and exercise. [...] Please call the office or after-hours exchange ([phone]) if you experience: - Severe pain (mild discomfort is common). - Persistent bleeding unrelieved with gentle pressure (it is normal to have an occasional drop of blood coming from the incision or the eye for the first week after surgery). - Visual loss (mild blurring or difficulty reading is common after surgery, especially if there is ointment in your eye). RY TEAM MEMBER RY TEAM MEMBER * Attachments The following attachments cannot be sent through Care Everywhere. * [facility] PATHWAY TO EXCELLENT CARE AFTER SURGERY [...] 1 tablet (100 mcg total) by mouth criminal defense attorney before breakfast sertraline (ZOLOFT) 100 mg tabletIndication s:Anxiety with Depression Take 1 tablet (100 mg total) by mouth criminal defense attorney before breakfast 4 08/16/2017 erythromycin (ILOTYCIN) ophthalmic [...] Procedure(s): RECONSTRUCTION EYELID GRAFT SKIN FULL THICKNESS RY TEAM MEMBER Source Note - Suleman Fonseca MD - 03/10/2023 8:18 AM BAKERY TEAM MEMBER Images from the original note were not included. Date of Visit: 02/24/2023 Patient Name: Roland Garcia : 1955 Gender: male Primary Care Provider: Juan Antunez MD Referring Provider: Hansa Zaidi OD History: This 67 y.o. year old male [...] Lid Lesion - OD - Right Eye 98383 Biopsy, Lid Lesion The area was prepped [...] Lid Lesion - OD - Right Eye [id number] Biopsy, Lid Lesion The area was prepped [...] 1 tablet (81 mg total) by mouth criminal defense attorney before breakfast), Disp: 30 tablet, Rfl: 11 atorvastatin (LIPITOR) 80 mg tablet, Take 1 tablet (80 mg total) by mouth daily (Patient taking differently: Take 1 tablet (80 mg total) by mouth criminal defense attorney before breakfast), Disp: 90 tablet, Rfl: 0 carboxymethylcellulose (REFRESH PLUS) 0.5 % dropperette, Administer 1 drop into the right eye dailyas needed for dry eyes, Disp: , Rfl: cyanocobalamin (Vitamin B-12) 100 mcg tablet, Take 1 tablet (100 mcg total) by mouth criminal defense attorney before breakfast, Disp: , Rfl: erythromycin (ILOTYCIN) [...] 1 tablet (100 mg total) by mouth criminal defense attorney before breakfast, Disp: , Rfl: 4 spironolactone (ALDACTONE) 25 mg tablet, Take 0.5 tablets (12.5 mg total) by mouth daily (Patient taking differently: Take 0.5 tablets (12.5 mg total) by mouth criminal defense attorney before breakfast), Disp: 15 tablet, Rfl: 5 [...] or 2 Frequency of Binge Drinking: Never RY TEAM MEMBER * Suleman Fonseca MD - 03/10/2023 8:18 AM CST Images from the original note were not included. Date of Visit: 02/24/2023 Patient Name: Roland Garcia : 1955 Gender: male Primary Care Provider: Juan Antunez MD Referring Provider: Colantino, Hansa, OD History: This 67 y.o. year old male [...] Lid Lesion - OD - Right Eye [address] Biopsy, Lid Lesion The area was prepped [...] Lid Lesion - OD - Right Eye 69604 Biopsy, Lid Lesion The area was prepped [...] 1 tablet (81 mg total) by mouth criminal defense attorney before breakfast), Disp: 30 tablet, Rfl: 11 atorvastatin (LIPITOR) 80 mg tablet, Take 1 tablet (80 mg total) by mouth daily (Patient taking differently: Take 1 tablet (80 mg total) by mouth criminal defense attorney before breakfast), Disp: 90 tablet, Rfl: 0 carboxymethylcellulose (REFRESH PLUS) 0.5 % dropperette, Administer 1 drop into the right eye dailyas needed for dry eyes, Disp: , Rfl: cyanocobalamin (Vitamin B-12) 100 mcg tablet, Take 1 tablet (100 mcg total) by mouth criminal defense attorney before breakfast, Disp: , Rfl: erythromycin (ILOTYCIN) [...] 1 tablet (100 mg total) by mouth criminal defense attorney before breakfast, Disp: , Rfl: 4 spironolactone (ALDACTONE) 25 mg tablet, Take 0.5 tablets (12.5 mg total) by mouth daily (Patient taking differently: Take 0.5 tablets (12.5 mg total) by mouth criminal defense attorney before breakfast), Disp: 15 tablet, Rfl: 5 [...] or 2 Frequency of Binge Drinking: Never RY TEAM MEMBER documented in this encounter Miscellaneous Notes * Op Note - Suleman Fonseca MD - 03/23/2023 3:45 PM CST Operative Note Attending Surgeon: Suleman Fonseca MD Surgeon(s): Suleman Fonseca MD Surgical Team: Dielectric Machine Operator: Araseli Regalado RN Scrub: Darrick Khan ST [...] undermined. Cautery was applied. The flaps were transposedand sutured with 7 0 chromic. At the [...] the entire procedure (including opening and closing). RY TEAM MEMBER * Pre-Procedure Instructions - Ching Gomez NP - 03/17/2023 7:58 AM CST [facility] CPAP Clinic Location: [facility] The night before your surgery: * Do [...] of surgery * If having surgery at [facility], you may want to bring a credit card if you want to use our Mobile Pharmacy for your discharge medications. Mobile pharmacy is not available at [facility], the [facility]opedic Center, or the [facility]. Outpatient Surgery: * You must have a [...] with COVID-19. You test positive for COVID-19. RY TEAM MEMBER * Perioperative Nursing Note - Alexsandra Robertson RN - 03/02/2023 3:31 PM BAKERY TEAM MEMBER [facility] Perioperative Nursing Note Telephone Preoperative Evaluation ([facility]) - TELEPHONE ONLY, NO PHYSICAL EXAM [...] 1 tablet (81 mg total) by mouth criminal defense attorney before breakfast) 30 tablet 11 atorvastatin (LIPITOR) 80 mg tablet Take 1 tablet (80 mg total) by mouth daily (Patient taking differently: Take 1 tablet (80 mg total) by mouth criminal defense attorney before breakfast) 90 tablet 0 carboxymethylcellulose (REFRESH PLUS) 0.5 % dropperette Administer 1 drop into the right eye daily as needed for dry eyes cyanocobalamin (Vitamin B-12) 100 mcg tablet Take 1 tablet (100 mcg total) by mouth criminal defense attorney before breakfast erythromycin (ILOTYCIN) ophthalmic ointment Apply [...] 1 tablet (100 mg total) by mouth criminal defense attorney before breakfast 4 spironolactone (ALDACTONE) 25 mg tablet Take 0.5 tablets (12.5 mg total) by mouth daily (Patient taking differently: Take 0.5 tablets (12.5 mg total) by mouth criminal defense attorney before breakfast) 15 tablet 5 Implants No active implants to display in this view. SKIN Piercings Remaining: No Wound (LDAs) Type of Wound (LDA): (none) SCREENINGS Yadi index score: 100 NUTRITION PATIENT CARE PLANNING Advance Directives (For Healthcare) Have you reviewed your Advance Directive and is it valid for this stay?: No Advance Directive: Patient does not have advance directive Communication/Roofing Foreman Needs Communication Needs: Glasses, Hearing aide(s) Assistive Devices/DME: Eyeglasses Hearing - Right Ear: Hearing aid Hearing - Left Ear: Hearing aid Discharge Planning Type of Residence: Private residence Living Arrangements: Spouse/significant other Support Systems: Spouse/significant other Assistance Needed: to be with pt DOS Patient expects to be discharged to:: Private residence NAVY MATERIAL INSPECTOR NO ADDITIONAL COMMENTS/ FOLLOW UP RY TEAM MEMBER * Pre-Procedure Instructions - Alexsandra Robertson RN - 03/02/2023 3:26 PM BAKERY TEAM MEMBER [facility] (CPAP) [...] remove nail coverings, artificial nails and nail taiwanese prior to the day of surgery. You should leave your valuables and any jewelry at home. No metal or piercings are allowed in the operating room. You should bring your insurance card, a photo ID (example: Career Manager's License) and a method of payment for [...] Remove nail coverings, artificial nails and nail taiwanese. Place clean linens on your bed the [...] questions, please call the CPAP Staff at [phone], Wednesday-Wednesday 8am-4:30pm. All patients should read the below section: COVID 19 Updates & Visitor Policy: Please access [email or web address] for the most updated information. Information on [facility] & the Orthopedic Center: Please view [email or web address] (Patient & Visitor Information) for additional details regarding Advanced Directive forms, AWARE, directions, parking information, lodging, Internet access, dining and more. For MyChart information, to activate account or password recovery, please go to [email or web address] or call [phone] (toll-free: [phone]), Wed- Wednesday 8am-5pm. Information for Suicide Prevention: [employer] Suicide Prevention Lifeline (8-969- 862-TFIZ (6020)) or call or text 873. Chat resources: [email or web address]. Surgery Times: For patients having surgery @ [facility] or [facility] ([facility]), if your surgeon's office has not notified you of your surgery time by NOON THE BUSINESS DAY BEFORE your surgery, please call [phone] and ask for your surgeon's office RY TEAM MEMBER documented in this encounter Plan of Treatment Not on file documented as of this encounter Procedures Procedure Name Priority Date/Time Associated Diagnosis Comments RECONSTRUCTION EYELID 03/23/2023 3:07 PM BAKERY TEAM MEMBER Lesion of left lower eyelid Case Notes 1-11@1059-line up change per mayank via phone call-helene documented in this encounter Visit Diagnoses Diagnosis Lesion of left lower eyelid- Primary Basal cell carcinoma (BCC) of left lower eyelid [C44.1192] Lesion of left lower eyelid documented in this encounter Admitting Diagnoses Diagnosis Lesion of left lower eyelid documented in this encounter Administered Medications Inactive Administered Medications - up to 3 most recent administrations Medication Order MAR Action Action Date Dose Rate Site Lactated Ringer's (LR) infusion 30 mL/hr, intravenous, Continuous, Starting on Tu03/23/23 at 1400, Pre-Op Restarted 03/23/2023 3:46 PM BAKERY TEAM MEMBER Rate/Dose Verify 03/23/2023 3:03 PM BAKERY TEAM MEMBER 30 mL/h r New Bag 03/23/2023 1:39 PM BAKERY TEAM MEMBER 30 mL/hr 30 mL/hr lidocaine 1%, bupivicaine 0.375%, EPINEPHrine 0.3 mg (1:75,000) (Dr. Fonseca's) preservative free ophthalmic solution (total volume 22.5 mL) As needed, Starting on Wed03/23/23 at 1514, Intra-Op Given 03/23/2023 3:14 PM BAKERY TEAM MEMBER 2.2 mL Left Eye proparacaine (ALCAINE) 0.5 % ophthalmic solution As needed, Starting on Wed03/23/23 at 1515, Intra-Op, Indications: Administration of Corneal AnesthesiaIndications:Administrat ion of Corneal Anesthesia Given 03/23/2023 3:15 PM BAKERY TEAM MEMBER 2 drops Surgical Site sodium chloride 0.9% irrigation As needed, Starting on Wed03/23/23 at 1515, Intra-Op Given 03/23/2023 3:15 PM BAKERY TEAM MEMBER 500 mL Surgical Site documented in this encounter Historical Medications * This list may reflect changes made after this encounter. cyanocobalamin (Vitamin B-12) 100 mcg tabletIndication s:Prevention of Vitamin B12 Deficiency Take 1 tablet (100 mcg total) by mouth criminal defense attorney before breakfast added in this encounter Active and Recently Administered Medications Times are shown in BAKERY TEAM MEMBER. Scheduled Medication Order 03/21/2023 03/22/2023 03/23/2023 acetaminophen [...] mg/0.5 mL nebu lizer solution 2.5 mg 1 03/23/2023 Carrier Fluids for Secondary Infusion - 0.9% Sodium Chloride 1 03/23/2023 diphenhydrAMINE (BENADRYL) 5 0 mg/mL injection 12.5 mg 1 03/23/2023 fentaNYL (SUBLIMAZE) preserv ative free injection 50 mcg 1 03/23/2023 HYDROmorphone (DILAUDID) injection 0.2 mg 1 03/23/2023 Lactated Ringer's (LR) infusion 1 lidocaine PF (XYLOCAINE) 10 mg/mL (1 %) preservative free injection 2-10 mg 1 03/23/2023 meperidine (DEMEROL) preserv ative free injection 12.5 mg 1 03/23/2023 naloxone (NARCAN) 0.4 mg/mL injection 0.04-0.4 mg 1 03/23/2023 ondansetron (ZOFRAN) injection 4 mg 1 03/23 prochlorperazine (COMPAZINE) injection 5 mg 1 03/23/2023 sodium chloride 0.9% flush 0.5-20 mL 1 03/08 Discharge Count Last Ordered Date First Orde red Date DISCHARGE PATIENT 1 03/23/2023 documented in this encounter Care Teams Curtain Stretcher Relationship Specialty Start Date End Date Juan Antunez MD PCP - General 04/21/17 Raisa Carmichael MD Consulting Physician Neurosurgery 07/17/22 documented as of this encounter
--- OUTSIDE RECORDS SUMMARY | 2024-03-16 10:59 | XMS_ITS | Encounter Summary ---
Author Organization [facility] Address [address] [place] [address] Phone Care Team Providers Care Conservator Artifacts Name Role Phone Juan Antunez MD Primary Care Provider [phone] Raisa Carmichael MD Unavailable [phone] Encounter Details Date Type Department Care Team (Late st Contact Info) Description 01/14/2023 11:30 AM MARRIAGE COUNSELOR Office Visit [facility] Cardiology [address] [facility] Advanced Medicine [address]th [place] [address] [place] [address] Juan Orellana MD [address] [facility] [address] [place], [place] [id number] Chronic coronary artery disease (Primary Dx); LV dysfunction; Mixed hyperlipidemia; Left bundle branch block (LBBB); High risk medications (not anticoagulants) long-term use Social History Tobacco Use Types Packs/Day Years Used Date Smoking Tobacco: Former Smokeless Tobacco: Never Sex and Gender Information Value Date Recorded Sex Assigned at Not on file Legal Sex Male 12:39 AM MARRIAGE COUNSELOR Gender Identity Not on file Sexual Orientation Not on file documented as of this encounter Last Filed Vital Signs Vital Sign Reading Time Taken Comments Blood Pressure 150/66 01/14/2023 12:16 PM MARRIAGE COUNSELOR Pulse 72 01/14/2023 12:16 PM MARRIAGE COUNSELOR Temperature - - Respiratory Rate - - Oxygen Saturation 97% 01/14/2023 12:16 PM MARRIAGE COUNSELOR Inhaled Oxygen Concentration - - Weight 86.8 kg (191 lb 6.4 oz) 01/14/2023 12:16 PM MARRIAGE COUNSELOR Height 177.8 cm (5' 10 ) 01/14/2023 12:16 PM MARRIAGE COUNSELOR Body Mass Index 27.46 01/14/2023 12:16 PM MARRIAGE COUNSELOR documented in this encounter Patient Instructions * Patient Instructions* Juan Orellana MD - 01/14/2023 11:30 AM MARRIAGE COUNSELOR Start taking spironolactone 12.5 mg daily (1/2 a pill). Resume taking aspirin 81 mg. Continue atorvastatin. Begin a regular exercise program. We recommend 150 minutes of mediate intensity exercise (e.g. brisk walking) per week. Eat a heart healthy diet -- we recommend a Mediterranean style diet. Get your blood checked at [facility] in 3-4 weeks. Contact us with any questions or concerns. Have a great weekend and holiday season! Dr. Hartmann IAGE COUNSELOR IAGE COUNSELOR documented in this encounter Ordered Prescriptions Prescription Sig Dispense Quantity Refills Last Filled Start Date End Date aspirin 81 mg enteric coated tablet Take 1 tablet (81 mg total) by mouth daily 30 tablet 11 01/14/2023 spironolactone (ALDACTONE) 25 mg tablet Take 0.5 tablets (12.5 mg total) by mouth daily 15 tablet 5 01/14/2023 4 documented in this encounter Progress Notes * Juan Orellana MD - 01/14/2023 11:30 AM CST Cardiology Return Clinic Visit 01/14/23 HPI: I saw Roland Garcia in Cardiology Clinic today after an interval of almost 4 years. He was accompanied by his . He saw Dr. Ca in July for pre-op evaluation. A stress echo revealed EF 40-45% attributed to LBBB with no evidence for ischemia. He proceeded to have surgery without complications. Otherwise he is doing well and he remains stable from the CV standpoint. He denies CP, SOB, ZAFAR, palpitations, or lightheadedness. His balance is good and he has not had any recent falls. He uses CPAP for part of the night and reports feeling fatigued during the day. He is retired and does not exercise regularly, other than walking his dog. Review of Systems The ROS was negative except as noted in the HPI and in the below problem list. HOME MEDICATIONS : atorvastatin (LIPITOR) 80 mg tablet sertraline (ZOLOFT) 100 mg tablet aspirin 81 mg enteric coated tablet spironolactone (ALDACTONE) 25 mg tablet No Known Allergies Physical Exam: Vitals: 01/14/23 1216 BP: 150/66 BP Location: Left arm Patient Position: Sitting Pulse: 72 SpO2: 97% Weight: 86.8 kg (191 lb 6.4 oz) Height: 177.8 cm (5' 10 ) General: 67 y.o. male in no acute distress. Weight down 5.2 lbs since last visit. BMI 27.5. HEENT: normocephalic, atraumatic, no conjunctival injection, no scleral icterus Neck: No JVD or HJR; no thyromegaly Lungs: Clear bilaterally. No rales, rhonchi, or wheezing. Cardiac: Normal rate, regular rhythm, paradoxical S2 splitting, no murmurs, no rubs, no S3. Abdomen: Soft, nontender, nondistended. No masses. No hepatomegaly. Extremities: Warm and well perfused. No clubbing or cyanosis. No edema Skin: No rashes. Psych: Normal affect. Neuro: A&Ox4. Grossly intact. Lab/Radiology/Diagnostic Review: 07/15/22 creat 1.28, Hb 13.9, TB 121, HDL 36, LDL 64, TG 113 Impression 1. Mild to moderate CAD based on coronary CTA, asymptomatic. 2. Mild LV dysfunction, EF 40-45%, likely due to LBBB 3. Mixed hyperlipidemia, well controlled on atorvastatin 4. NATALIE with partial use of CPAP 5. LBBB. 6. History of subdural hematoma with conservative management. 7. Cervical spine stenosis. 8. Benign paroxysmal positional vertigo, resolved. 9. Squamous cell carcinoma of skin, resected. Plan Start spironolactone 12.5 mg for LV dysfunction Resume taking ASA 81 mg daily Continue other therapy Advised to begin regular exercise program with weekly goal of 150 min of moderate intensity exercise Encouraged heart healthy diet (Mediterranean) BMP in 3-4 weeks to monitor creatinine and K 7. Return appointment in 12 months. Medical Complexity: Moderate Level of Medical Decision Making: Moderate Juan Orellana MD sales technician IAGE COUNSELOR documented in this encounter Plan of Treatment Not on file documented as of this encounter Visit Diagnoses Diagnosis Chronic coronary artery disease- Primary Coronary atherosclerosis of unspecified type of vessel, [place]oshone-bannock or graft LV dysfunction Left heart failure Mixed hyperlipidemia Left bundle branch block (LBBB) High risk medications (not anticoagulants) long-term use Encounter for long-term (current) use of other medications documented in this encounter Discontinued Medications Medication Sig Discontinue Reason Start Date End Da te aspirin 81 mg chewable tablet Take 1 tablet (81 mg total) by mouth daily Therapy completed 01/14/2023 cyclobenzaprine (FLEXERIL) 10 mg tablet Therapy completed 07/30/20222022 gabapentin (NEURONTIN) 300 mg capsule Therapy completed 06/28/2022 01/14/2023 HYDROcodone-acetaminophe n (NORCO) 5-325 mg per tablet Take 1 tablet by mouth every 6 (six) hours as needed Therapy completed 07/30/2022 01/14/2023 documented as of this encounter Orders Lab Orders Without Results Count Last Ordered D ate First Ordered Date BASIC METABOLIC PANEL 1 01/14/2023 documented in this encounter Care Teams Conservator Artifacts Relationship Specialty Start Date End Date Juan Antunez MD PCP - General 04/21/17 Raisa Carmichael MD Consulting Physician Neurosurgery 07/17/22 documented as of this encounter
--- OUTSIDE RECORDS SUMMARY | 2024-03-16 10:59 | XMS_ITS | Encounter Summary ---
Author Organization [facility] Address [address] [place] [address] Phone Care Team Providers Care Parking Inspector Name Role Phone Juan Antunez MD Primary Care Provider [phone] Raisa Carmichael MD Unavailable [phone] Reason for Visit * Reason Onset Date Comments EKG-Surgery 02/09/2024 Encounter Details Date Type Department Care Team (Late st Contact Info) Description 02/09/2024 Telephone [facility] Cardiology [address] [facility] Advanced Medicine [address]th [place] [address] [place] [address] Juan Orellana MD [address] [facility] [address] [place], [place] [id number] EKG-Surgery Social History Tobacco Use Types Packs/Day Years [...] on file Legal Sex Male 12:39 AM BOILER REPAIR SUPERVISOR Gender Identity Not on file Sexual Orientation Not on file documented as of this encounter Miscellaneous Notes * Telephone Encounter - Khalida Sun RN - 02/09/2024 12:08 PM CST LMOR for patient to call office. ER REPAIR SUPERVISOR * Telephone Encounter - Mirella Gutierrez - 02/09/2024 11:03 AM CST Rich Pt calling stating he need EKG for upcoming surgery and would like to have [facility] done today at the [facility] please put in order if necessary. ER REPAIR SUPERVISOR documented in this encounter Plan of Treatment Not on file documented as of this encounter Visit Diagnoses Not on filedocumented in this encounter Care Teams Parking Inspector Relationship Specialty Start Date End Date Juan Antunez MD PCP - General 04/21/17 Raisa Carmichael MD Consulting Physician Neurosurgery 07/17/22 documented as of this encounter
--- OUTSIDE RECORDS SUMMARY | 2024-03-16 10:59 | XMS_ITS | Encounter Summary ---
Author Organization [facility] Address [address] [place] [address] Phone Care Team Providers Care Universal Branch Consultant Name Role Phone Juan Antunez MD Primary Care Provider [phone] Raisa Carmichael MD Unavailable [phone] Encounter Details Date Type Department Care Team (Late st Contact Info) Description 11/16/2023 Telephone [facility] Dermatology [address] [facility] [address] [place] [address] Tamara Cherry Social History Tobacco Use Types Packs/Day Years [...] on file Legal Sex Male 12:39 AM FUNDING ANALYST Gender Identity Not on file Sexual Orientation Not on file documented as of this encounter Miscellaneous Notes * Telephone Encounter - Tamara Cherry - 11/16/2023 8:24 AM CDT Pt has new patient referral scanned into chart under Ref Phys Doc. Please contact pt to schedule. documented in this encounter Plan of Treatment Not on file documented as of this encounter Visit Diagnoses Not on filedocumented in this encounter Care Teams Universal Branch Consultant Relationship Specialty Start Date End Date Juan Antunez MD PCP - General 04/21/17 Raisa Carmichael MD Consulting Physician Neurosurgery 07/17/22 documented as of this encounter
--- OUTSIDE RECORDS SUMMARY | 2024-03-16 10:59 | XMS_ITS | Encounter Summary ---
Author Organization [facility] Address [address] [place] [address] Care Team Providers Care Flatbed Truck Driver Name Role Phone Juan Antunez MD Primary Care Provider [phone] Raisa Carmichael MD Unavailable [phone] Reason for Visit * Auth/Cert (Routine) Specialty Diagnoses / Procedures Referred By Contac t Referred To Contact Diagnoses Lesion of left lower eyelid Lesion of left lower eyelid [H02.9] Procedures MI EXCISION & REPAIR EYELID < ONE-FOURTH LID MARGIN MI ADJT TIS TRNSFR/REARRGMT E/N/E/L DFCT 10 SQ CM/< RECONSTRUCTION EYELID GRAFT SKIN FULL THICKNESS Referral ID Status Reason Start Date Expiration Date Visits Re quested Visits Authorized [id number] 1 1 Encounter Details Date Type Department Care Team (Late st Contact Info) Description 03/23/2023 3:03 PM DOCK GRADER Anesthesia Event [facility] Operating Room [facility] [address] [place] [address] Familia Garcia MD DDS [address] [place] [address] Ching Gomez NP [address] [facility] [phone] [place] [address] Anesthesia Record Procedure Summary Procedure Name Responsible Anesthesiologist Anesthesia Start Time Anesthesia Stop Time RECONSTRUCTION EYELID (Left: Eye) Familia Garcia MD DDS 03/23/23 1503 03/23/23 1602 Events Date Time Event Comment 03/23/2023 1315 In Preop 1332 1503 An Start 1507 In Room 1512 An Start Data 1512 Start Supplemental O2 1513 An Induction The patient was reevaluated immediately before moderate or deep sedation use and before anesthesia induction. 1514 Anesthesia Ready 1522 Proc Start 1553 Proc Fin 1556 an stop data 1557 Out of Room 1602 Handoff to RN I completed my handoff to the receiving nurse during which we: 1. Patient identified 2. Responsible provider identified 3. Pertinent medical history reviewed 4. Procedure type and surgical course discussed 5. Intraoperative anesthetic management and any significant issues discussed 6. Expectations and concerns for postop period discussed 7. Questions solicited from receiving nurse 8. Patient disposition at the time of handoff: No value filed. 1602 An Stop Meds Name Total midazolam PF 2 mg lidocaine (cardiac) syringe 2 % 20 mg propofol 40 mg fentaNYL 50 mcg Lactated Ringer's (LR) infusion 700 mL * Agents Name O2% N2O O2 * Blood No blood administrations on file. Lines, Drains, and Airways Type Details Placement Removal Peripheral IV Placement Date: 03/23/23; Placement Time: 1338; Catheter Size: 20 G; Orientation: Left, Posterior; Location: Hand; Site Prep: Chlorhexidine; Technique: Anatomical landmarks; Inserted by: lidia CHAMBERS; Insertion Attempts: 1; Patient Tolerance: Tolerated well; Removal Date: 03/23/23; Removal Time: 1638 03/23/23 1338 by Lidia Lai RN 03/23/23 1638 by Valencia Parker RN RETIRED Surgical Site 03/23/23; 1521; Le ft; Eye; 02/08/24 (Retired LDA, Removed/Completed by [facility] with LDA Utility); 1213 (Retired LDA, Removed/Completed by [facility] with LDA Utility) 03/23/23 1521 by Araseli Rgealado RN 02/08/24 1213 by Discharge Provider, Automatic documented in this encounter Social History Tobacco [...] on file Legal Sex Male 12:39 AM DOCK GRADER Gender Identity Not on file Sexual Orientation Not on file documented as of this encounter OR Notes * Anesthesia Postprocedure Evaluation - Familia Garcia MD DDS - 03/23/2023 4:27 PM CST Patient: Roland Garcia Procedure Summary Date: 03/23/23 Room / Location: [facility] CAM OR POD 4 ROOM N / [facility] CAM OR POD 4 Anesthesia Start: 1503 Anesthesia Stop: 1602 Procedure: RECONSTRUCTION EYELID (Left: Eye) Diagnosis: Lesion of left lower eyelid (Lesion of left lower eyelid [H02.9]) Surgeons: Suleman Fonseca MD Responsible Provider: Familia Garcia MD DDS Anesthesia Type: MAC ASA Status: 2 Anesthesia Type: MAC Last vitals BP 149/67 Pulse 69 Temp 36.5 ??C (97.7 ??F) (Temporal) Resp 14 SpO2 98% Anesthesia Post Evaluation Patient location during evaluation: PACU Patient participation: complete - patient participated Level of consciousness: fully awake Pain management: adequate Airway patency: adequate Cardiovascular status: acceptable Respiratory status: acceptable Hydration status: acceptable Pt is: normothermic No notable events documented. GRADER * Anesthesia Preprocedure Evaluation - Familia Garcia MD DDS - 03/17/2023 8:09 AM CST Images from the original note were not included. [facility] for Preoperative Assessment and Planning Preoperative Evaluation Record Evaluation type/location: TPAP from [facility] Planned procedure site: [facility] CAM OR (Pod 4) Date: 03/17/23 NOTE: This note represents a preoperative evaluation initiated via telephone interview. NO PHYSICALEXAM was performed at the time of initial assessment. A physical exam may be added to this note anddocumented below. Anesthesia Evaluation Procedure(s): RECONSTRUCTION EYELID GRAFT SKIN FULL THICKNESS Pre-Op Diagnosis Codes: * Lesion of left lower eyelid [H02.9] HISTORY HPI Roland Garcia is a 67 y.o. male undergoing left eyelid reconstruction and skin graft s/p MOHS. Past Medical History Information obtained from: patient and chart. Neurological Pertinent negatives: neuromuscular disease; CVA/stroke and TIA Cardiovascular + Hyperlipidemia + Current valvular disease (per 07/2022 stress ECHO) - TR - mild. + Other arrhythmia - LBBB. Pertinent negatives: hypertension ; CAD ; NE ; CABG ; atrial fibrillation; pacemaker/ICD; DVT/PE; negative for CHF; drug-eluting stent(s) and bare metal stent(s) Comments: Consulting Technical Director: Dr.Michael Orellana - last visit 01/14/2023 :: mild to moderate CAD based on coronary CTA Respiratory + Sleep apnea (NATALIE) Prescribed device: PAP compliant and CPAP. Pertinent negatives: COPD; pulmonary hypertension; no O2 use outside the hospital and non-smoker Hepatic / Heme Pertinent negatives: liver disease Renal / Pertinent negatives: renal disease and dialysis Endocrine / Other + Cancer history Cancer type: basal cell carcinoma. Pertinent negatives: diabetes mellitus; thyroid disease; obesity (BMI >30); transplanted organ and infectious disease Functional Capacity Functional capacity: 4-6 METs Comments: 2 flights of stairs w/o SOB or CP Review of Systems + dizziness (paroxysmal positional vertigo) Pertinent negatives: productive cough; SOB; recent cold/flu; fever; chest pain; orthopnea; PND; previous transfusion; bleeding problems and syncope PAT Summary and Plans Cardiac risk classification of planned procedure: low cardiac risk. Preoperative assessment status: complete. Additional comments: Roland Garcia is a 67 y.o. male who is being evaluated prior to undergoing a low cardiac risk surgery. Revised Cardiac Risk Index factors are (none) for a total RCRI of 0 out of6. Functional capacity is 4-6 METs. PRELIMINARY Obstructive sleep apnea (NATALIE) screening status is HIGH RISK due to known NATALIE. Full NATALIE screening deferred until DOS due to TPAP. Blood bank needs for day of procedure: No type and screen needed Pending labs/tests include: no labs indicated DOS: none This assessment was performed via telephone. Therefore the physical exam has been deferred to the day of surgery team. The patient was provided with preoperative instructions for their medications. The patient was instructed to shower/bathe the night prior and the morning of the planned procedure using an antibacterial soap. The patient is on aspirin therapy for primary prevention. The patient's perioperative cardiovascular risk is deemed low or is outweighed by bleeding risk. If time permits, we support stopping aspirin7 or more days prior to the procedure. [facility] staff message sent to surgeon's office. [facility] ([phone]) with any questions. Patient instructions were provided electronically sent via [employer]. Patient verbalized understanding of preoperative plan. Preoperative evaluation performed by Ching Gomez NP on 03/17/23 at 8:49 AM. TPAP assessment complete . Patient Active Problem List Diagnosis Date Noted Lesion of left lower eyelid 02/25/2023 LV dysfunction 01/14/2023 Optic atrophy 08/26/2022 Epiretinal membrane (ERM) of right eye 08/26/2022 Nuclear sclerosis of both eyes 08/26/2022 Chronic coronary artery disease 08/17/2014 Hyperlipidemia 03/30/2014 Left bundle branch block (LBBB) 03/30/2014 Past Medical History: Diagnosis Date Anxiety disorder Anxiety - (Added by Conv) Basal cell carcinoma High cholesterol Personal history of other diseases of the nervous system and sense organs History of optic neuritis - 1997 (Added by Conv) Personal history of other endocrine, nutritional and metabolic disease History of hypercholesterolemia - (Added by TW Conv) Past Surgical History: Procedure Laterality Date LUMBAR DISC SURGERY 07/2022 No Known Allergies Med List Status: Nurse Complete Set By: Alexsandra Robertson RN at 03/02/2023 3:23 PM Taking? Last Dose Start Date End Date Provider aspirin 81 mg enteric coated tablet 03/02/2023 01/14/23 01/14/24 Juan Orellana MD Take 1 tablet (81 mg total) by mouth daily Patient taking differently: Take 1 tablet (81 mg total) by mouth early childhood teacher assistant before breakfast atorvastatin (LIPITOR) 80 mg tablet 03/02/2023 04/19/20 -- Juan Orellana MD Take 1 tablet (80 mg total) by mouth daily Patient taking differently: Take 1 tablet (80 mg total) by mouth early childhood teacher assistant before breakfast Notes: Pt needs an apt carboxymethylcellulose (REFRESH PLUS) 0.5 % dropperette Past Week -- -- ProviderMamta MD cyanocobalamin (Vitamin B-12) 100 mcg tablet 03/02/2023 -- -- Mamta Gonzalez MD erythromycin (ILOTYCIN) ophthalmic ointment 03/02/2023 02/24/23 -- Suleman Fonseca MD Apply ointment to left eyelid incisions 3 times a day. Only place ointment inside the eye for irritation. Patient taking differently: Apply 1 Application to left eye daily Apply ointment to left eyelid incisions 3 times a day. Only place ointment inside the eye for irritation. sertraline (ZOLOFT) 100 mg tablet 03/02/2023 08/16/17 -- ProviderMamta MD spironolactone (ALDACTONE) 25 mg tablet 03/02/2023 01/14/23 01/14/24 Juan Orellana MD Take 0.5 tablets (12.5 mg total) by mouth daily Patient taking differently: Take 0.5 tablets (12.5 mg total) by mouth early childhood teacher assistant before breakfast No current facility-administered medications for this encounter. Current Outpatient Medications: aspirin 81 mg enteric coated tablet atorvastatin (LIPITOR) 80 mg tablet carboxymethylcellulose (REFRESH PLUS) 0.5 % dropperette cyanocobalamin (Vitamin B-12) 100 mcg tablet erythromycin (ILOTYCIN) ophthalmic ointment sertraline (ZOLOFT) 100 mg tablet spironolactone (ALDACTONE) 25 mg tablet Social History Tobacco Use Smoking Status Never Smokeless Tobacco Never Alcohol Use: Not At Risk (03/02/2023) AUDIT-C Frequency of Alcohol Consumption: Monthly or less Average Number of Drinks: 1 or 2 Frequency of Binge Drinking: Never Substance and Sexual Activity Drug Use Not Currently Family History Problem Relation Age of Onset Stent Mother Family history of stent - (Added by TW Conv) Heart attack Father Family history of heart attack - (Added by TW Conv) Diabetes Maternal Grandmother Family history of diabetes mellitus - (Added by TW Conv) Heart attack Maternal Grandfather Family history of heart attack - (Added by TW Conv) Colon cancer Paternal Grandmother Family history of colon cancer - (Added by TW Conv) Coronary artery disease Other Family history of coronary artery disease - (Added by TW Conv) Anesthesia problems Neg Hx There were no vitals filed for this visit. Relevant diagnostics: ECG(s): N/A Echocardiogram(s): 07/16/2022 STRESS ECHO: Ejection Fraction: 45-50% LV Global Function: Mild global left ventricular dysfunction. Baseline Echo Comments: Normal LV+RV cavity size, with mild global reduction in REF 40-45 with paradoxical septal motion related to LBBB. Normal anterior wall motion and thickening. Doppler/CF Comments: No MS, MR, , AR, TS, PS, MI, Mild TR. Stress test(s): 07/16/2022: Impression: Maximal Exercise Stress Echocardiogram, NEGATIVE for myocardial ischemia, with augmented (from baseline resting images) segmental function in the anterior and inferior asencio. Paradoxical septal motion remains, due to LBBB. Cardiac catheterization(s): N/A PFT(s): N/A Vascular studies: N/A Other: N/A PT: No results found for requested labs within last 30 days. INR: No results found for requested labs within last 30 days. APTT: No results found for requested labs within last 30 days. Hgb A1C: No results found for requested labs within last 30 days. CBC RBC: No results found for requested labs within last 30 days. RDW: No results found for requested labs within last 30 days. MCHC: No results found for requested labs within last 30 days. MCH: No results found for requested labs within last 30 days. MCV: No results found for requested labs within last 30 days. Hct: No results found for requested labs within last 30 days. Hgb: No results found for requested labs within last 30 days. WBC: No results found for requested labs within last 30 days. MPV: No results found for requested labs within last 30 days. Platelets: No results found for requested labs within last 30 days. RDW CV: No results found for requested labs within last 30 days. RDW Sd: No results found for requested labs within last 30 days. BMP Glucose: No results found for requested labs within last 30 days. Calcium: No results found for requested labs within last 30 days. Sodium: No results found for requested labs within last 30 days. Potassium: No results found for requested labs within last 30 days. CO2: No results found for requested labs within last 30 days. Chloride: No results found for requested labs within last 30 days. BUN: No results found for requested labs within last 30 days. Creatinine: No results found for requested labs within last 30 days. Yadi index score: 100 DOS Physical Exam Medical history, medications, and allergies reviewed. Attestation: I endorse the findings of the anesthesia pre-evaluation assessment dated: 03/17/2023. Airway Exam: Mallampati: III Cervical ROM: FROM TM distance: normal Patient presents with corral and mustache. Cardiovascular Exam: Rate: regular Rhythm: regular Pulmonary Exam: LCTA, bilat EENT Exam: trachea midline Dental Exam: Chipped and otherwise appears intact (Lower central incisors chipped) Skin Exam: Skin is warm. Turgor is normal. Abdominal Exam: Abdomen is soft. Current state: Patient's current state is cooperative and interactive. Anesthesia Plan ASA 2 My patient is approved for the Anesthesia Controlled Medication protocol when under care of a CONCHE LOADER AND UNLOADER Planned anesthesia: MAC Induction: Induction: intravenous. Postoperative Plan: Postoperative administration opioids intended. No postoperative mechanical ventilation intended. Patient's planned disposition post procedure is Outpatient. Informed Consent: Discussed plan with CONCHE LOADER AND UNLOADER. Anesthesia plan and risks discussed with patient. Plan and Consent Comments: Pt. declines d/o serious risks of anesthesia. Consent and Attending signature: I and/or my designee have discussed the anesthesia plan, benefits, possible alternatives, parental presence at time of induction (if indicated), and clinically relevant risks that may include dental injury, unintentional awareness, and/or other complications. The patient and/or parent/legal guardian understand, and agree to proceed. All questions answered. GRADER GRADER GRADER documented in this encounter Plan of Treatment Not on file documented as of this encounter Visit Diagnoses Not on filedocumented in this encounter Administered Medications Inactive Administered Medications - up to 3 most recent administrations Medication Order MAR Action Action Date Dose Rate Site fentaNYL (SUBLIMAZE) preservative free injection intravenous, As needed, Starting on Wed03/23/23 at 1503, Anesthesia Intra-op Given 03/23/2023 3:03 PM DOCK GRADER 50 mcg Lactated Ringer's (LR) infusion 30 mL/hr, intravenous, Continuous, Starting on Wed03/23/23 at 1400, Pre-Op Restarted 03/23/2023 3:46 PM DOCK GRADER Rate/Dose Verify 03/23/2023 3:03 PM DOCK GRADER 30 mL/h r New Bag 03/23/2023 1:39 PM DOCK GRADER 30 mL/hr 30 mL/hr lidocaine (cardiac) (XYLOCAINE) preservative free injection intravenous, As needed, Starting on Wed03/23/23 at 1513, Anesthesia Intra-op, Indications: Ventricular ArrhythmiasIndications:Ventricular Arrhythmias Given 03/23/2023 3:13 PM DOCK GRADER 20 mg midazolam (VERSED) 2 mg/2 mL preservative free injection intravenous, Administer over 2 Minutes, As needed, Starting on Wed03/23/23 at 1503, Anesthesia Intra-op Given 03/23/2023 3:03 PM DOCK GRADER 2 mg propofoL (DIPRIVAN) 10 mg/mL IV intravenous, As needed, Starting on Wed03/23/23 at 1513, Anesthesia Intra-op New Bag 03/23/2023 3:13 PM DOCK GRADER 40 mg documented in this encounter Care Teams Flatbed Truck Driver Relationship Specialty Start Date End Date Juan Antunez MD PCP - General 04/21/17 Raisa Carmichael MD Consulting Physician Neurosurgery 07/17/22 documented as of this encounter
--- OUTSIDE RECORDS SUMMARY | 2024-03-16 10:59 | XMS_ITS | Encounter Summary ---
Author Organization [facility] Address [address] [place] [address] Phone Care Team Providers Care Chart Changer Name Role Phone Juan Antunez MD Primary Care Provider [phone] Raisa Carmichael MD Unavailable [phone] Reason for Referral * Diagnostic Imaging (Routine) - Closed Specialty Diagnoses / Procedures Referred By Contac t Referred To Contact Diagnoses Unspecified open-angle glaucoma, indeterminate stage Procedures OCT, Optic Nerve - OU - Both Eyes Nicolle Jameson MD [address] [place] [address] Phone: tel: fax: [facility] (All Locations) Referral ID Status Reason Start Date Expiration Date Visits Re quested Visits Authorized [id number] Closed 04/08/2023 05/07/2024 1 1 MACHINE OPERATOR * Diagnostic Imaging (Routine) - Closed Specialty Diagnoses / Procedures Referred By Contac t Referred To Contact Diagnoses Unspecified open-angle glaucoma, indeterminate stage Procedures Hansen Visual Field - OU - Both Eyes Nicolle Jameson MD [address] [place] [address] Phone: tel: fax: [facility] (All Locations) Referral ID Status Reason Start Date Expiration Date Visits Re quested Visits Authorized [id number] Closed 04/08/2023 05/07/2024 1 1 MACHINE OPERATOR Encounter Details Date Type Department Care Team (Late st Contact Info) Description 04/08/2023 Orders Only [facility] Ophthalmology [address] [facility] [address] [place] [address] Nicolle Jameson MD [address] [place] [address] Optic atrophy (Primary Dx); Nuclear sclerosis of both eyes; Unspecified open-angle glaucoma, indeterminate stage Social History Tobacco Use Types Packs/Day Years [...] on file 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 Temporal thickness was normal. Superior thickness was showing abnormal thinning. Nasal thickness was normal. Inferior thickness was showing abnormal thinning. Left Eye Reliability was good. Temporal thickness was normal. Superior thickness was showing abnormal thinning. Nasal thickness was normal. Inferior thickness was showing abnormal thinning. us Nicolle Jameson MD OPHTH TOMOGRAPHY Final Result * Hansen Visual Field - OU - [...] -4.20 dB. Pattern Deviation was 3.28 dB. Nicolle Jameson MD OPHTH VISUAL FIELD Final Resu lt documented in this encounter Visit Diagnoses Diagnosis Optic atrophy- Primary Unspecified optic atrophy Nuclear sclerosis of both eyes Unspecified open-angle glaucoma, indeterminate stage Unspecified open-angle glaucoma, indeterminate stage Optic atrophy- Primary Unspecified optic atrophy Unspecified open-angle glaucoma, indeterminate stage documented in this encounter Care Teams Chart Changer Relationship Specialty Start Date End Date Juan Antunez MD PCP - General 04/21/17 Raisa Carmichael MD Consulting Physician Neurosurgery 07/17/22 documented as of this encounter
--- OUTSIDE RECORDS SUMMARY | 2024-03-16 10:59 | XMS_ITS | Encounter Summary ---
Author Organization [facility] Address [address] [place] [address] Phone Care Team Providers Care Cio Name Role Phone Juan Antunez MD Primary Care Provider [phone] Raisa Carmichael MD Unavailable [phone] Encounter Details Date Type Department Care Team (Late st Contact Info) Description 03/09/2023 Documentation [facility] Ophthalmology [address] [facility] [address]th [place] [address] Mae Billings B.A. Social History Tobacco Use Types Packs/Day Years Used Date Smoking Tobacco: Never Smokeless Tobacco: Never AUDIT-C Answer Date Recorded Q1: How often do you have a drink containing alc ohol? Monthly or less 03/02/2023 Q2: How many drinks containi ng alcohol do you have on a typical day when you are drinking? 1 or 2 03/02/2023 Q3: How often do you have si x or more drinks on one occasion? 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 - 03/09/2023 9:09 AM CST Mailed sx packet [employer] PHARMACY TECHNICIAN documented in this encounter Plan of Treatment Not on file documented as of this encounter Visit Diagnoses Not on filedocumented in this encounter Care Teams Cio Relationship Specialty Start Date End Date Juan Antunez MD PCP - General 04/21/17 Raisa Carmichael MD Consulting Physician Neurosurgery 07/17/22 documented as of this encounter
--- OUTSIDE RECORDS SUMMARY | 2024-03-16 10:59 | XMS_ITS | Encounter Summary ---
Author Hub Preferred Language Fijian Marital Status Alevism Affiliation Unknown Race White Ethnic Group Not or Lati no Author Organization [facility] Address [address] [place] [address] Phone Care Team Providers Care Animal Caregiver Name Role Phone Juan Antunez MD Primary Care Provider [phone] Raisa Carmichael MD Unavailable Reason for Visit * Reason Comments Returns 2mth s/p Reconstruction Eyelid/M OHS - Left Encounter Details Date Type Department Care Team (Late st Contact Info) Description 05/24/2023 11:30 AM CDT Office Visit [facility] Ophthalmology [address] [facility] 6th [place] [address] Suleman Fonseca MD [address] [facility] [address] [place] [address] Basal cell carcinoma (BCC) of left lower eyelid (Primary Dx) Social History Tobacco Use Types [...] on file 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 Date of Visit: 05/24/2023 Patient Name: Roland Garcia Age: 67 y.o. Gender: male : 1955 Primary Care Provider: Juan Antunez MD Referring Provider: Juan Antunez MD Problem List Items Addressed This Visit Eye/Vision Problems Basal cell carcinoma (BCC) of left lower eyelid - Primary Last Surgical Procedure: Reconstruction Eyelid - Left 03/23/2023 History: Returns following Mohs surgery and left lower eyelid reconstruction. He feels he is doing well and is pleased with results of treatment. Examination: Base Eye Exam Visual Acuity (Snellen - Linear) Right Left Dist cc 20/50 20/25 Dist ph cc NI Pupils Dark Light Shape React APD Right 3.5 3 Round Minimal None Left 3.5 3 Round Minimal None Neuro/Psych Oriented x3: Yes Mood/Affect: Normal Slit Lamp and Fundus Exam External Exam Right Left External Normal Normal The left lower lid is well healed with full function. Slit Lamp Exam Right Left Lids/Lashes Normal Conjunctiva/Sclera White and quiet White and quiet Cornea small medial pingueculum small medial pingueculum Anterior Chamber Deep and quiet Deep and quiet Iris Round and reactive Round and reactive Lens Nuclear sclerosis Nuclear sclerosis Fundus Exam Right Left Vitreous Normal Normal Disc PPA inferior, no edema Normal, no edema C/D Ratio 0.65 0.6 Macula trace ERM Normal Impression: Doing well following left lower eyelid reconstruction. He is aware of the need for routine dermatologic exams. Return p.r.n.. I have personally examined the patient, participated in all aspects of their care, and formulated the treatment plan. documented in this encounter Plan of Treatment Not on file documented as of this encounter Visit Diagnoses Diagnosis Basal cell carcinoma (BCC) of left lower eyelid- Primary documented in this encounter Eye Exam Visual Acuity (Snellen - Linear) Right eye Left eye Dist cc 20/50 20/25 Dist ph cc NI Pupils Dark Light Shape React APD Right eye 3.5 3 Round Minimal None Left eye 3.5 3 Round Minimal None Neuro/Psych Oriented x3: Yes Mood/Affect: Normal External Exam Right eye Left eye External Normal Normal The left lower lid is well healed with full function. Slit Lamp Exam Right eye Left eye Lids/Lashes Normal Conjunctiva/Sclera White and quiet White and manolo et Cornea small medial pingueculum small m edial pingueculum Anterior Chamber Deep and quiet Deep and quiet Iris Round and reactive Round and elmer ctive Lens Nuclear sclerosis Nuclear sclero sis Fundus Exam Right eye Left eye Posterior Vitreous Normal Normal Disc PPA inferior, no edema Normal, n o edema C/D Ratio 0.65 0.6 Macula trace ERM Normal Care Teams Animal Caregiver Relationship Specialty Start Date End Date Juan Antunez MD PCP - General 04/21/17 Raisa Carmichael MD Consulting Physician Neurosurgery 07/17/22 documented as of this encounter
--- OUTSIDE RECORDS SUMMARY | 2024-03-16 10:59 | XMS_ITS | Encounter Summary ---
Author Organization [facility] Address [address] [place] [address] Phone Care Team Providers Care Water Commissioner Name Role Phone Juan Antunez MD Primary Care Provider [phone] Raisa Carmichael MD Unavailable [phone] Reason for Referral * Cardiology (Routine) - Authorized Specialty Diagnoses / Procedures Referred By Contac t Referred To Contact Diagnoses LV dysfunction Procedures Transthoracic Echo (TTE) Complete W Doppler/CF Juan Orellana MD [address] [address] Phone: tel: fax: [address] [address] Referral ID Status Reason Start Date Expiration Date V isits Requested Visits Authorized [id number] Authorized 01/13/2024 02/11/2025 1 1 OGRAPHIC PRESS PLATE SETTER Encounter Details Date Type Department Care Team (Late st Contact Info) Description 01/13/2024 11:30 AM FLEXOGRAPHIC PRESS PLATE SETTER Office Visit [facility] Cardiology [address] [place] [address] Medicine 8th [place] [address] [place] [address] Juan Orellana MD [address] 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 Gender Identity Not on file Sexual Orientation Not on file documented as of this encounter Last Filed Vital Signs Vital Sign Reading Time Taken Comments Blood Pressure 138/73 01/13/2024 12:03 PM FLEXOGRAPHIC PRESS PLATE SETTER Pulse 74 01/13/2024 12:03 PM FLEXOGRAPHIC PRESS PLATE SETTER Temperature - - Respiratory Rate - - Oxygen Saturation 98% 01/13/2024 12:03 PM FLEXOGRAPHIC PRESS PLATE SETTER Inhaled Oxygen Concentration - - Weight 88.5 kg (195 lb 3.2 oz) 01/13/2024 12:03 PM FLEXOGRAPHIC PRESS PLATE SETTER Height 179.1 cm (5' 10.5 ) 01/13/2024 12:[address] Body Mass Index 27.61 01/13/2024 12:03 PM FLEXOGRAPHIC PRESS PLATE SETTER documented in this encounter Patient Instructions * Patient Instructions* Juan Orellana MD - 01/13/2024 11:30 AM FLEXOGRAPHIC PRESS PLATE SETTER Continue your current medications. Stay active and get into a regular exercise routine, such as walking. Monitor your blood pressure and keep a record; your goal BP is less than 130/80. Take your BP twicea day for the next 2 weeks and send us the results in My Chart. We recommend a Mediterranean diet for heart health. We will contact you with thee results of the echocardiogram. We will request your labs from Dr. Antunez and contact you with any additional recommendations. Take care, and have a great weekend! Dr. Hartmann OGRAPHIC PRESS PLATE SETTER documented in this encounter Ordered Prescriptions Prescription Sig Dispense Quantity Refills Last Filled Start Date End Date spironolactone (ALDACTONE) 25 mg tablet 6.25 mg daily 01/13/2024 documented in this encounter Progress Notes * Juan Orellana MD - 01/13/2024 11:30 AM CST Cardiology Return Clinic Visit 01/13/24 HPI: I saw Roland Garcia in Cardiology Clinic today after an interval of 1 year. He was accompanied by his , Khalida. Overall he has been doing well and he remains stable from the CV standpoint. He notices some SOB after climbing 2 flights of stairs but otherwise denies chest pain, SOB, ZAFAR, or palpitations. He has occasional positional lightheadedness. 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 He is generally active and logs up to 10,000 steps/day. He has been using CPAP regular;ly with improved sleep quality. He does not monitor his BP. He was recently diagnosed with pre-diabetes. Review of Systems The ROS was negative except as noted in the HPI and in the below problem list. HOME MEDICATIONS : aspirin 81 mg enteric coated tablet atorvastatin (LIPITOR) 80 mg tablet carboxymethylcellulose (REFRESH PLUS) 0.5 % dropperette cyanocobalamin (Vitamin B-12) 100 mcg tablet sertraline (ZOLOFT) 100 mg tablet spironolactone (ALDACTONE) 25 mg tablet No Known Allergies Physical Exam: Vitals: 01/13/24 1203 BP: 138/73 BP Location: Left arm Patient Position: Sitting Pulse: 74 SpO2: 98% Weight: 88.5 kg (195 lb 3.2 oz) Height: 179.1 cm (5' 10.5 ) General: 68 y.o. male in no acute distress. Weight up 3.8 lbs since last visit. BMI 27.6. HEENT: normocephalic, atraumatic, no conjunctival injection, no scleral icterus Neck: No JVD or HJR; no thyromegaly Lungs: Clear bilaterally. No rales, rhonchi, or wheezing. Cardiac: Normal rate, regular rhythm, no murmurs, no rubs, no S3. Abdomen: Soft, nontender, nondistended. No masses. No hepatomegaly. Extremities: Warm and well perfused. No clubbing or cyanosis. No edema Skin: No rashes. Psych: Normal affect. Neuro: A&Ox4. Grossly intact. Lab/Radiology/Diagnostic Review: No recent labs Impression 1. Mild to moderate CAD based on coronary CTA, asymptomatic. 2. Mild LV dysfunction, EF 45-50%, likely due to LBBB 3. Mixed hyperlipidemia, well controlled on atorvastatin, but no recent lipids available 4. NATALIE, on CPAP 5. LBBB. 6. History of subdural hematoma with conservative management. 7. Cervical spine stenosis. 8. Benign paroxysmal positional vertigo, resolved. 9. Squamous cell carcinoma of skin, resected. 10. Pre-diabetes Plan Continue current medications Repeat TTE to reassess LV function Stay active and continue walking for exercise Monitor BP at home twice a day for 2 weeks, keep a log, and send results in My Chart; goal BP is <130/80 Mediterranean diet recommended for heart health Will request labs from PCP 7. Return appointment in 6 months. Medical Complexity: Moderate to high Level of Medical Decision Making: Moderate Juan Orellana MD cardiology tech OGRAPHIC PRESS PLATE SETTER documented in this encounter Plan of Treatment Scheduled Orders Name Type Priority Associated Diagnoses Orde r Schedule Transthoracic Echo (TTE) Complete W Doppler/CF Echocardiography Routine LV dysfunction Expected: 09/04/2024, Expires: 01/12/2025 documented as of this encounter Visit Diagnoses Diagnosis Chronic coronary artery disease- Primary Coronary atherosclerosis of unspecified type of vessel, round valley or graft LV dysfunction Left heart failure Left bundle branch block (LBBB) Mixed hyperlipidemia documented in this encounter Discontinued Medications Medication Sig Discontinue Reason Start Date End Da te spironolactone (ALDACTONE) 25 mg tablet TAKE 0.5 TABLETS BY MOUTH EVERY DAY Reorder 06/18/2023 01/13/2024 documented as of this encounter Care Teams Water Commissioner Relationship Specialty Start Date End Date Juan Antunez MD PCP - General 04/21/17 Raisa Carmichael MD Consulting Physician Neurosurgery 07/17/22 documented as of this encounter
--- OUTSIDE RECORDS SUMMARY | 2024-03-16 10:59 | XMS_ITS | Encounter Summary ---
Author Organization [facility] Address [address] [place] [address] Phone Care Team Providers Care Associate Theatre Professor Name Role Phone Juan Antunez MD Primary Care Provider [phone] Raisa Carmichael MD Unavailable [phone] Reason for Visit * Diagnostic Imaging (Routine) - Closed Specialty Diagnoses / Procedures Referred By Urban mao Referred To Contact Diagnoses Unspecified open-angle glaucoma, indeterminate stage Procedures OCT, Optic Nerve - OU - Both Eyes Nicolle Jameson MD [address] [place] [address] Phone: tel: fax: [facility] (All Locations) Referral ID Status Reason Start Date Expiration Date Visits Re quested Visits Authorized [id number] Closed 04/08/2023 05/07/2024 1 1 Encounter Details Date Type Department Care Team (Latest Contact Info) Description 10/04/2023 9:20 AM CDT Imaging Exam [facility] Ophthalmology [address] [facility] 6th [place] [address] Unspecified open-angle glaucoma, indeterminate stage Social History [...] on file 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 Inferior thickness was showing abnormal thinning. Nicolle Jameson MD OPHTH TOMOGRAPHY Final Result documented in this encounter Visit Diagnoses Diagnosis Unspecified open-angle glaucoma, indeterminate stage Optic atrophy- Primary Unspecified optic atrophy Unspecified open-angle glaucoma, indeterminate stage documented in this encounter Care Teams Associate Theatre Professor Relationship Specialty Start Date End Date Juan Antunez MD PCP - General 04/21/17 Raisa Carmichael MD Consulting Physician Neurosurgery 07/17/22 documented as of this encounter
--- OUTSIDE RECORDS SUMMARY | 2024-03-16 10:59 | XMS_ITS | Encounter Summary ---
Author Organization [facility] Address [address] [place] [address] Phone Care Team Providers Care Test Data Developer Name Role Phone Juan Antunez MD Primary Care Provider [phone] Raisa Carmichael MD Unavailable [phone] Reason for Visit * Reason Comments Mohs Procedure Encounter Details Date Type Department Care Team (Latest Contact Info) Description 03/23/2023 7:45 AM SAMPLE HAND Procedure visit [facility] Dermatology [address] [facility] [address] [place] [address] Juan Ervin MD [address] [facility] [address] [place], [place] [id number] Basal cell carcinoma (BCC) of left lower eyelid (Primary Dx) Social History Tobacco Use Types Packs/Day Years Used Date Smoking Tobacco: Never Smokeless Tobacco: Never Tobacco Cessation:Counseling Given: Not Answered AUDIT-C Answer Date Recorded Q1: How often [...] on file Legal Sex Male 12:39 AM SAMPLE HAND Gender Identity Not on file Sexual Orientation Not on file documented as of this encounter Last Filed Vital Signs Vital Sign Reading Time Taken Comments Blood Pressure 171/75 03/23/2023 8:09 AM SAMPLE HAND Pulse 65 03/23/2023 8:09 AM SAMPLE HAND Temperature - - Respiratory Rate - - Oxygen Saturation 98% 03/23/2023 8:09 AM SAMPLE HAND Inhaled Oxygen Concentration - - Weight - - Height - - Body Mass Index - - documented in this encounter Progress Notes * Tk Hussein MD - 03/23/2023 7:45 AM CST [facility] [address] [place] [address]. [address] [place] [address] MOHS MICROGRAPHIC SURGERY OPERATIVE REPORT NAME: Roland Garcia : 1955 REFERRING PROVIDER: Suleman Fonseca MD [address] [place] [address] DEPT OPHTHALMOLOGY, [address] [place] [address] PATHOLOGY ACCESSION NUMBER: [id number] DATE OF CONSULTATION: 02/24/23 CHANGES IN HISTORY OR EXAM SINCE MOHS CONSULTATION: none MOHS CASE NUMBER: [id number] Operation: MOHS MICROGRAPHIC SURGERY Pre-operative diagnosis: basal cell carcinoma Post-operative diagnosis: Same Location: left lower eyelid Pre-operative size: 0.5 x 0.4 cm Post-operative size: 0.7 x 0.6 cm Surgeon: Juan Ervin MD Transfill Technician Surgeon: Tk Hussein MD Medical Staff: See scanned operative record. Pre-operative medication: none Anesthesia: 1.0% lidocaine with epinephrine, 1:100,000 and clindamycin 408 microg/ml INDICATIONS: location and involvement of sensitive cosmetic and/or functional structures PREPARATION: The patient was brought into the operating room, donned a gown and surgical cap and lay down on the operating table. The surgical site was prepped with an antiseptic solution, infiltrated with local anesthetic and draped with sterile sheets and towels. This was repeated for each surgical stage of the procedure. 1. The lesion was aggressively debulked with a dermal curette. 2. A layer of tumor-containing tissue with a thin margin of normal-appearing tissue was excised. 3. Hemostasis was achieved with spot electrocoagulation and suture ligatures as needed. 4. The resected tissue was oriented relative to the surgical defect in the patient and a map of thedefect was drawn. Orientation was aided with [place] around the defect. 5. A pressure dressing was affixed to the defect, the skin was cleansed of antiseptic solution and the patient was taken back to the waiting room. 6. The resected tissue was divided into appropriately sized specimens while maintaining orientationrelative to the map. 7. The specimens were individually marked with tissue dyes with corresponding markings on the map. 8. The specimens were individually processed as horizontal frozen sections that allowed examinationof the entire superficial peripheral as well as deep margins. 9. The frozen sections of each specimen were stained with hematoxylin and eosin, and systematicallyexamined by the surgeon for the presence of tumor. If tumor cells were found in any margin, a notation in red was made on the map and the patient was returned to the operating room for additional surgery directed only at the areas with residual tumor. The preparation and steps 2-9 were repeated until no more tumor cells were identified in any of the horizontal frozen sections. Stage 1 included multiple microscopic sections of 1 tissue specimens with tumor present of nodular BCC extending into the dermis with atypical cell morphology (described below). Also noted is an incidental melanocytic nevus at the 7 o'clock position. NODULAR BASAL CELL CARCINOMA: Emanating from the epidermis and infiltrating the dermis are irregularly shaped islands of basaloid keratinocytes. The cells have scant cytoplasm and round dark nuclei. Mitotic figures and apoptotic bodies are evident. The nuclei at the periphery of the islands have a palisaded arrangement. The islands are associated with a fibromyxoid stroma and there is cleft formation between some of the islands and stroma. Stage 2 included multiple microscopic sections of 1 tissue specimens with no tumor present At this point, no further tumor cells were identified. Deep and peripheral margins were clear. Tumor eradication was complete after a total of 2 stage of surgery in which multiple microscopic sections of 2 tissue specimens were examined. WOUND MANAGEMENT: Immediately following Mohs surgery, the patient was referred to Dr. Fonseca, a local reconstructive surgeon, for reconstruction of the surgical defect. Dr. Fonseca will follow the patient in the immediate postoperative period and thereafter return the patient to dermatology for long-term follow-up. Cosigned by Juan Ervin MD at 03/23/2023 3:24 PM SAMPLE HAND LE HAND Associated attestation - Juan Ervin MD - 03/23/2023 3:24 PM SAMPLE HAND I was present for the entire procedure. IYani MD, performed or directly supervised my resident/fellow during this procedure and during the taking of any history and physical exam. documented in this encounter Plan of Treatment Not on file documented as of this encounter Visit Diagnoses Diagnosis Basal cell carcinoma (BCC) of left lower eyelid- Primary documented in this encounter Care Teams Test Data Developer Relationship Specialty Start Date End Date Juan Antunez MD PCP - General 04/21/17 Raisa Carmichael MD Consulting Physician Neurosurgery 07/17/22 documented as of this encounter
--- OUTSIDE RECORDS SUMMARY | 2024-03-16 10:59 | XMS_ITS | Encounter Summary ---
Author Organization [facility] Address [address] [place] [address] Phone Care Team Providers Care Dielectric Embossing Machine Operator Name Role Phone Juan Antunez MD Primary Care Provider [phone] Raisa Carmichael MD Unavailable [phone] Reason for Visit * Reason Onset Date Comments Medical Records Request 11/17/2023 Encounter Details Date Type Department Care Team (Late st Contact Info) Description 11/17/2023 Telephone [facility] Dermatology [address] [facility] [address] [place] [address] Lory Castillo CMA Medical Records Request Social History Tobacco Use Types Packs/Day Years [...] on file 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 documented in this encounter Plan of Treatment Not on file documented as of this encounter Visit Diagnoses Not on filedocumented in this encounter Care Teams Dielectric Embossing Machine Operator Relationship Specialty Start Date End Date Juan Antunez MD PCP - General 04/21/17 Raisa Carmichael MD Consulting Physician Neurosurgery 07/17/22 documented as of this encounter
--- OUTSIDE RECORDS SUMMARY | 2024-03-16 10:59 | XMS_ITS | Clinical Summary ---
Author Organization [address] Address [address] [place] [phone] Care Team Providers Care Labor/Excavator Name Role Phone Juan Antunez MD Primary Care Provider [phone] Raisa Carmichael MD Unavailable [phone] Allergies No known active allergies Medications sertraline (ZOLOFT) 100 mg tabletIndicatio ns:Anxiety with Depression Take 1 tablet (100 mg total) by mouth pediatrics physician before breakfast 4 8 Active atorvastatin (LIPITOR) 80 mg tablet Take 1 tablet (80 mg total) by mouth daily 90 tablet 1 Active Additional Information Patient taking differently:80 mg oralDaily (early AM), Indications: hyperlipidemia, Informant: Self, Reported on 01/13/2024 aspirin 81 mg enteric coated tablet Take 1 tablet (81 mg total) by mouth daily 30 tablet 11 3 Active Additional Information Patient taking differently:81 mg oralDaily (early AM), Indications: prevention of thrombosis, Informant: Self, Reported on 01/13/2024 carboxymethylce llulose (REFRESH PLUS) 0.5 % dropperetteIndi cations:Dry Eye Administer 1 drop into the right eye daily as needed for dry eyes Active cyanocobalamin (Vitamin B-12) 100 mcg tabletIndicatio ns:Prevention of Vitamin B12 Deficiency Take 1 tablet (100 mcg total) by mouth pediatrics physician before breakfast Active spironolactone (ALDACTONE) 25 mg tablet 6.25 mg daily 4 Active Active Problems Problem Noted Date Diagnosed Date Basal cell carcinoma (BCC) of left lower eyelid 05/11/2023 Lesion of left lower eyelid 02/25/2023 LV dysfunction 01/14/2023 Optic atrophy 08/26/2022 Assessment & Plan (10/04/2023 10:46 AM CDT): HVF OD remains stable IOP stable mid teens OCT without progressive thinning Given current HVF and OCT, observe as likely prior optic neuritis Follow 6 months for DFE, sooner for concerns Assessment & Plan (04/05/2023 1:13 PM TELEPHONE ORDER DISPATCHER): IOP at this time stable Discussed could be from optic atrophy vs old damage Given IOP would be hard to prove progression Follow 6 months with HVF/OCT OU - if progression plan low teens IOP Assessment & Plan (09/28/2022 12:47 PM CDT): Poor historian with possible history of optic neuritis first noted 15-20 years ago. Told in 2018 that had optic neuritis RNFL right eye (OD) S/I thinning; left eye (OS) S thinning, Temporal BL Hansen visual field (HVF) right eye (OD) dense superior arcuate; left eye (OS) full CV decreased 3/14 right eye (OD) No pallor, no collaterals Intraocular pressure (T) max 18 Unclear if glaucomatous damage, can monitor for progression and treat accordingly Will monitor for now off drops (gtts). Follow 6 months for IOP Check Annual with testing Assessment & Plan (08/26/2022 3:55 PM CDT): Poor historian with possible history of optic neuritis first noted 15-20 years ago. No brain imaging to review. Reports scans in the past were unremarkable. Time course of left eye's vision loss and recovery could be consistent with previous NAION. 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 Gonioscopy reveals narrow angle, but intraocular pressure (IOP) remains normotensive even after DFE. Educated on findings. Educated there is no evidence of active optic neuritis today. Educated vision changes could be related to narrow angle and glaucoma, and will start with glaucoma evaluation. If determined not glaucomatous process, could consider referral to neuro-oph Epiretinal membrane (ERM) of right eye Assessment & Plan (08/26/2022 3:56 PM CDT): Trace changes, not visually significant. Monitor. Nuclear sclerosis of both eyes 08/26/2022 Assessment & Plan (04/05/2023 1:12 PM TELEPHONE ORDER DISPATCHER): Not yet VS Observe Assessment & Plan (08/26/2022 3:56 PM CDT): Not visually significant, could be contributing to narrow angle configuration, refer to glaucoma Chronic coronary artery disease 08/17/2014 Hyperlipidemia 03/30/2014 Left bundle branch block (LBBB) 03/30/2014 Encounters Date Type Department Care Team Description 02/09/2024 Telephone [facility] [address] [place] [address] 8th [place] [address] [place] [address] Juan Orellana MD EKG-Surgery 02/01/2024 3:40 PM TELEPHONE ORDER DISPATCHER Lab [address] [phone] 02/01/2024 3:34 PM TELEPHONE ORDER DISPATCHER - 02/01/2024 11:59 PM TELEPHONE ORDER DISPATCHER Hospital Encounter [facility] [address] [place] [id number] Lumbar radicular pain; Postlaminectomy syndrome, lumbar region Discharge Disposition: Discharge to home or self care 01/24/2024 Telephone [facility] [address] [place] [address] 8th [place] [address] [place] [address] Juan Orellana MD Test Results 01/13/2024 11:30 AM TELEPHONE ORDER DISPATCHER Office Visit [facility] [address] [place] [address] 8th [place] [address] [place] [address] Juan Orellana MD Chronic coronary artery disease (Primary Dx); LV dysfunction; Left bundle branch block (LBBB); Mixed hyperlipidemia 12/17/2023 Orders Only [facility] Scanning, Provider from Last 3 Months Surgical History Surgery Date Site/Laterality Comments LUMBAR DISC SURGERY 07/06/2022 - 08/05/2022 MOHS SURGERY 03/23/2023 Left Reconstruction LLL Medical History Medical History Date Comments Personal history of other di seases of the nervous system and sense organs History of optic neuritis - 1997 (Added by Conv) Anxiety disorder Anxiety - (Adde d by Conv) Personal history of other en docrine, nutritional and metabolic disease History of hyperchol esterolemia - (Added by Conv) High cholesterol Basal cell carcinoma Family History Medical History Relation Name Comments Heart attack Father Family history of heart attack - (Added by TW Conv) Heart attack Maternal Grandfather Family history of heart attack - (Added by TW Conv) Diabetes Maternal Grandmother Family history of diabetes mellitus - (Added by Conv) Stent Mother Family history of stent - (Added by Conv) Coronary artery disease Other Fami ly history of coronary artery disease - (Added by Conv) Colon cancer Paternal Grandmother Family history of colon cancer - (Added by Conv) Anesthesia problems Neg Hx Relation Name Status Comments Father Maternal Grandfather Maternal Grandmother Mother Other Paternal Grandmother Social History Tobacco Use Types Packs/Day Years [...] on file Legal Sex Male 12:39 AM TELEPHONE ORDER DISPATCHER Gender Identity Not on file Sexual Orientation Not on file Obstetrics History Last Filed Vital Signs Vital Sign Reading Time Taken Comments Blood Pressure 138/73 01/13/2024 12:03 PM TELEPHONE ORDER DISPATCHER Pulse 74 01/13/2024 12:03 PM TELEPHONE ORDER DISPATCHER Temperature 36.5 ??C (97.7 ??F) 03/23/2023 4:30 PM CS T Respiratory Rate 14 03/23/2023 4:40 PM TELEPHONE ORDER DISPATCHER Oxygen Saturation 98% 01/13/2024 12:03 PM TELEPHONE ORDER DISPATCHER Inhaled Oxygen Concentration - - Weight 88.5 kg (195 lb 3.2 oz) 01/13/2024 12:03 PM TELEPHONE ORDER DISPATCHER Height 179.1 cm (5' 10.5 ) 01/13/2024 12:03 PM C Body Mass Index 27.61 01/13/2024 12:03 PM TELEPHONE ORDER DISPATCHER Plan of Treatment Health Maintenance Due Date Last Done Comments Colon Cancer Screening-Colonoscopy 1954 Depression Screening 1954 Hepatitis C Screening 1954 Prostate Cancer Screening-PSA 1954 Pneumococcal vaccine 65+ (1 of 2 - PCV) 1960 DTaP/Tdap/Td Vaccine (1 - Tdap) 1965 Zoster Vaccine (1 of 2) 2004 Abdominal Aortic Aneurysm (AAA) Screen 06/14/2019 Well Visit 65+ 06/14/2019 Influenza Vaccine (#1) 2023 12/06/2017 Fall Risk Assessment 03/23/2024 03/23/2023 Procedures Procedure Name Priority Date/Time Associated Diagnosis Comments MRI LUMBAR SPINE W WO CONTRAST Schedule Routine, Read Routine (OP Routine) 02/01/2024 4:30 PM TELEPHONE ORDER DISPATCHER Lumbar radicular pain Postlaminectomy syndrome, lumbar region CREATININE, WHOLE BLOOD STAT 02/01/2024 3:39 PM TELEPHONE ORDER DISPATCHER SCAN - LABS 12/17/2023 from Last 3 Months Results * MRI Lumbar Spine W WO Contrast (02/01/2024 4:30 PM TELEPHONE ORDER DISPATCHER) Anatomical Region Laterality Modality Spine N/A Magnetic Resonan ce 02/02/2024 8:29 AM TELEPHONE ORDER DISPATCHER Narrative 02/02/2024 8:43 AM TELEPHONE ORDER DISPATCHER EXAM DESCRIPTION: ?? MRI LUMBAR SPINE WITHOUT CONTRAST REASON FOR STUDY: Chronic lumbar pain with tingling in left foot with subsequent development of tingling in siegel and unspecified drop toes approximately 2 weeks ago with subsequent twisting injury approximately 2 days ago with development of left foot drop and increased tingling and left lower extremity radiating from back to posterior left thigh. ??No provided past medical or surgical history. ?? TECHNIQUE: Sagittal and axial imaging of the lumbar spine T1, T1 post gadolinium, T2, and STIR sequences. ??Images saved to PACS. ?? CONTRAST TYPE/DOSE: ?? 9 mL Dotarem ??injected via ?? peripheral IV site without reported incident. COMPARISON: ?? No prior imaging of the lumbar spine available at time of interpretation. FINDINGS: SEGMENTATION: ?? For the purposes of this study, the lowest fully formed intervertebral disc level is labeled L5-S1. ALIGNMENT: ?? Straightening of the lumbar lordosis and grade 1 anterolisthesis L4 on L5. VERTEBRAE: ?? No MR evidence of acute-subacute fracture. ??Vertebral body heights maintained. ??Spondylosis. ??Scattered hemangiomas and patchy fatty marrow replacement about the osseous architecture. DISC HEIGHT: ?? Multilevel variable intervertebral disc desiccation and loss of intervertebral disc height of the lower thoracic through lumbar spine. HARDWARE: ?? None in the lumbar spine, noting appearance of bilateral L4 decompressive laminectomies. ??Correlate with operative details. CORD/CAUDA: ?? Normal in size and signal intensity with conus medullaris termination at the superior aspect of L2, noting there is component of congenital lumbar spinal stenosis. ??No abnormal enhancement. LOWER THORACIC: ?? Incompletely imaged. ??No stenosis demonstrated. INDIVIDUAL DISC LEVELS: L1-2: ?? Posterior maximal annular disc bulge. ??Bilateral facet arthropathy. ?? No spinal canal stenosis. ??No neural foraminal stenosis. ?? L2-3: ?? Mild anterior disc bulge. ??Bilateral hypertrophic facet arthropathy. ?? Ligamentum flavum thickening. ??Slight compromise of the bilateral lateral recesses. ??No significant spinal canal stenosis. ??Mild bilateral neural foraminal stenosis, noting posterior cortical margin/disc slight contact with exiting bilateral L2 nerve roots. L3-4: ?? Mild anterior disc bulge. ??Bilateral hypertrophic facet arthropathy. ?? Mild ligamentum flavum thickening. ??Compromise of the ijpt-agxdspj-ijrj-right lateral recesses, noting combination of disc and arthropathic facet slight contact with the descending bilateral L4 nerve roots. ??Mild spinal canal stenosis. ??Mild bilateral neural foraminal stenosis, noting posterior cortical margin/disc slight contact with exiting bilateral L3 nerve roots. L4-5: ?? Slight uncovering of the intervertebral disc with annular disc bulge and broad-based left subarticular through slightly left extraforaminal disc protrusion with superior migration. ??Marked bilateral hypertrophic facet arthropathy, noting slight fluid in the facet joints suggestive of facet synovitis. ??Compromise of the bilateral lateral recesses, noting combination of disc and arthropathic facet contact with descending bilateral L5 nerve roots. ??Moderate spinal canal stenosis. ??Severe left and moderate right neural foraminal stenosis, noting combination of inferior pedicular surface, posterior cortical margin/disc, and arthropathic facet deformation of the exiting left and combination of inferior pedicular surface and posterior cortical margin/disc contact with exiting right L4 nerve roots. L5-S1: ??Annular disc bulge with small central disc protrusion with annular fissure. ??Bilateral hypertrophic facet arthropathy. ??Slight compromise of the left lateral recess. ??No spinal canal stenosis moderate-severe right and moderate left neural foraminal stenosis, noting combination of inferior pedicular surface and posterior cortical margin/disc contact with the exiting bilateral L5 nerve roots. SACRUM: ?? Visualized upper sacrum intact. VISUALIZED UPPER ABDOMEN: ?? No significant abnormality. OTHER: ?? No other significant findings. IMPRESSION: ??Constellation of spondylolisthesis with straightening of the lumbar lordosis, spondylosis, degenerative disc disease, and a component of congenital lumbar spinal stenosis of the postsurgical lumbar spine as detailed level by level above, maximal at L4-5. THIS IS AN ELECTRONICALLY VERIFIED FINAL REPORT 02/02/2024 8:43 AM - Electronically signed by ??Jose Roberto Monzon M.D. TOYIN: TOYIN D: ??02/02/2024 8:43 AM T: ??02/02/2024 8:43 AM Report ID: [id number] Reading Location: ??[id number] Procedure Note Jose Roberto Monzon MD - 02/02/2024 EXAM DESCRIPTION: MRI LUMBAR SPINE WITHOUT CONTRAST REASON FOR STUDY: Chronic lumbar pain with tingling in left foot with subsequent development of tingling in siegel and unspecified drop toes approximately 2 weeks ago with subsequent twisting injury approximately 2days ago with development of left foot drop and increased tingling and leftlower extremity radiating from back to posterior left thigh. No provided past medical or surgical history. TECHNIQUE: Sagittal and axial imaging of the lumbar spine T1, T1 post gadolinium, T2, and STIR sequences. Images saved to PACS. CONTRAST TYPE/DOSE: 9 mL Dotarem injected via peripheral IV sitewithout reported incident. COMPARISON: No prior imaging of the lumbar spine available at time of interpretation. FINDINGS: SEGMENTATION: For the purposes of this study, the lowest fully formed intervertebral disc level is labeled L5-S1. ALIGNMENT: Straightening of the lumbar lordosis and grade 1anterolisthesis L4 on L5. VERTEBRAE: No MR evidence of acute-subacute fracture. Vertebral body heights maintained. Spondylosis. Scattered hemangiomas and patchy fatty marrow replacement about the osseous architecture. DISC HEIGHT: Multilevel variable intervertebral disc desiccation andloss of intervertebral disc height of the lower thoracic through lumbar spine. HARDWARE: None in the lumbar spine, noting appearance of bilateral L4 decompressive laminectomies. Correlate with operative details. CORD/CAUDA: Normal in size and signal intensity with conus medullaris termination at the superior aspect of L2, noting there is component of congenital lumbar spinal stenosis. No abnormal enhancement. LOWER THORACIC: Incompletely imaged. No stenosis demonstrated. INDIVIDUAL DISC LEVELS: L1-2: Posterior maximal annular disc bulge. Bilateral facetarthropathy. No spinal canal stenosis. No neural foraminal stenosis. L2-3: Mild anterior disc bulge. Bilateral hypertrophic facetarthropathy. Ligamentum flavum thickening. Slight compromise of the bilateral lateral recesses. No significant spinal canal stenosis. Mild bilateral neural foraminal stenosis, noting posterior cortical margin/disc slight contactwith exiting bilateral L2 nerve roots. L3-4: Mild anterior disc bulge. Bilateral hypertrophic facetarthropathy. Mild ligamentum flavum thickening. Compromise of vtxhzpg-hyzsrau-lvlu-right lateral recesses, noting combination of disc and arthropathic facet slight contact with the descending bilateral L4 nerve roots. Mild spinal canal stenosis. Mild bilateral neural foraminal stenosis, noting posteriorcortical margin/disc slight contact with exiting bilateral L3 nerve roots. L4-5: Slight uncovering of the intervertebral disc with annular discbulge and broad-based left subarticular through slightly left extraforaminaldisc protrusion with superior migration. Marked bilateral hypertrophic facet arthropathy, noting slight fluid in the facet joints suggestive of facet synovitis. Compromise of the bilateral lateral recesses, notingcombination of disc and arthropathic facet contact with descending bilateral L5 nerve roots. Moderate spinal canal stenosis. Severe left and moderate rightneural foraminal stenosis, noting combination of inferior pedicular surface, posterior cortical margin/disc, and arthropathic facet deformation of the exiting left and combination of inferior pedicular surface and posterior cortical margin/disc contact with exiting right L4 nerve roots. L5-S1: Annular disc bulge with small central disc protrusion with annular fissure. Bilateral hypertrophic facet arthropathy. Slight compromise ofthe left lateral recess. No spinal canal stenosis moderate-severe right and moderate left neural foraminal stenosis, noting combination of inferior pedicular surface and posterior cortical margin/disc contact with theexiting bilateral L5 nerve roots. SACRUM: Visualized upper sacrum intact. VISUALIZED UPPER ABDOMEN: No significant abnormality. OTHER: No other significant findings. IMPRESSION: Constellation of spondylolisthesis with straightening of the lumbar lordosis, spondylosis, degenerative disc disease, and a component of congenital lumbar spinal stenosis of the postsurgical lumbar spine asdetailed level by level above, maximal at L4-5. THIS IS AN ELECTRONICALLY VERIFIED FINAL REPORT 02/02/2024 8:43 AM - Electronically signed by Jose Roberto Monzon M.D. TOYIN: TOYIN Report ID: [id number] Reading Location: [place] [address] Germaine Ruggiero MD IMG MRI PROCEDURES Final R esult * (ABNORMAL) Creatinine, whole blood (02/01/2024 3:39 PM TELEPHONE ORDER DISPATCHER) Creatinine, bld 1.39(H) 0.60 - 1.30 mg/dL Blood 02/01/2024 3:39 PM TELEPHONE ORDER DISPATCHER 02/01/2024 3:43 PM TELEPHONE ORDER DISPATCHER Germaine Ruggiero MD LAB BLOOD ORDERABLES Final Result [facility] Department [place] [address] * SCAN - LABS (12/17/2023) us Provider Scanning Final Result from Last 3 Months Insurance MEDICARE [facility] [place] [address] ON LICENSE OF [facility] [place] [address] [address] [facility] [place] [address] [place] [address] Care Teams Labor/Excavator Relationship Specialty Start Date End Date Juan Antunez MD PCP - General 04/21/17 Raisa Carmichael MD Consulting Physician Neurosurgery 07/17/22
--- OUTSIDE RECORDS SUMMARY | 2024-03-16 10:59 | XMS_ITS | Referral Summary ---
Author Organization [address] Address [address] [place] [id number] Care Team Providers Care Molder Shoulder Pad Name Role Phone Juan Antunez MD Primary Care Provider [phone] Raisa Carmichael MD Unavailable [phone] Encounters Date Type Department Care Team Description 02/09/[address] Medicine 8th [place] [address] [place] [phone] Juan Orellana MD EKG-Surgery 02/01/2024 3:40 PM MEAT BONER Lab [address] [address] 02/01/2024 3:34 PM MEAT BONER - 02/01/2024 11:59 PM MEAT BONER Hospital Encounter [facility] [address] [place] [address] Lumbar radicular pain; Postlaminectomy syndrome, lumbar region Discharge Disposition: Discharge to home or self care 01/24/[address] 8th [place] [address] [place] [phone] Juan Orellana MD Test Results 01/13/2024 11:30 AM MEAT BONER Office Visit [address] 8th [place] [address] [place] [phone] Juan Orellana MD Chronic coronary artery disease (Primary Dx); LV dysfunction; Left bundle branch block (LBBB); Mixed hyperlipidemia 12/17/2023 Orders Only [facility] Scanning, Provider from Last 3 Months Allergies No known active allergies Medications sertraline (ZOLOFT) 100 mg tabletIndicatio ns:Anxiety with Depression Take 1 tablet (100 mg total) by mouth imaging center manager before breakfast 4 8 Active atorvastatin (LIPITOR) [...] 1 tablet (100 mcg total) by mouth imaging center manager before breakfast Active spironolactone (ALDACTONE) 25 mg [...] concerns Assessment & Plan (04/05/2023 1:13 PM MEAT BONER): IOP at this time stable Discussed could [...] 08/26/2022 Assessment & Plan (04/05/2023 1:12 PM MEAT BONER): Not yet VS Observe Assessment & Plan [...] on file Legal Sex Male 12:39 AM MEAT BONER Gender Identity Not on file Sexual Orientation Not on file Last Filed Vital Signs Vital Sign Reading Time Taken Comments Blood Pressure 138/73 01/13/2024 12:03 PM MEAT BONER Pulse 74 01/13/2024 12:03 PM MEAT BONER Temperature 36.5 ??C (97.7 ??F) 03/23/2023 4:30 PM CS T Respiratory Rate 14 03/23/2023 4:40 PM MEAT BONER Oxygen Saturation 98% 01/13/2024 12:03 PM MEAT BONER Inhaled Oxygen Concentration - - Weight 88.5 kg (195 lb 3.2 oz) 01/13/2024 12:03 PM MEAT BONER Height 179.1 cm (5' 10.5 ) 01/13/2024 12:[address] Body Mass Index 27.61 01/13/2024 12:03 PM MEAT BONER Plan of Treatment Not on file Procedures Procedure Name Priority Date/Time Associated Diagnosis Comments MRI LUMBAR SPINE W WO CONTRAST Schedule Routine, Read Routine (OP Routine) 02/01/2024 4:30 PM MEAT BONER Lumbar radicular pain Postlaminectomy syndrome, lumbar region CREATININE, WHOLE BLOOD STAT 02/01/2024 3:39 PM MEAT BONER SCAN - LABS 12/17/2023 from Last 3 Months Results * MRI Lumbar Spine W WO Contrast (02/01/2024 4:30 PM MEAT BONER) Anatomical Region Laterality Modality Spine N/A Magnetic Resonan ce 02/02/2024 8:29 AM MEAT BONER Narrative 02/02/2024 8:43 AM MEAT BONER EXAM DESCRIPTION: ?? MRI LUMBAR SPINE WITHOUT [...] Mild ligamentum flavum thickening. ??Compromise of the tzxn-prnouyt-yypq-right lateral recesses, noting combination of disc and [...] 8:43 AM - Electronically signed by ??Jose Roberot Monzon M.D. TOYIN: TOYIN D: ??02/02/2024 8:43 AM T: ??02/02/2024 8:43 AM Report ID: [id number] Reading Location: ??[id number] Procedure Note Jose Roberto Monzon MD - [...] facetarthropathy. Mild ligamentum flavum thickening. Compromise of uozxwsu-kfvoxyn-wkgq-right lateral recesses, noting combination of disc and [...] Roberto Monzon M.D. TOYIN: TOYIN Report ID: [id number] Reading Location: [id number] Germaine Ruggiero MD [facility] [place]ED[place] Final R esult * (ABNORMAL) Creatinine, whole blood (02/01/2024 3:39 PM MEAT BONER) Creatinine, bld 1.39(H) 0.60 - 1.30 mg/dL Blood 02/01/2024 3:39 PM MEAT BONER 02/01/2024 3:43 PM MEAT BONER Germaine Ruggiero MD LAB BLOOD ORDERABLES Final Result [facility] Department [place] [address] * SCAN - LABS (12/17/2023) Provider Scanning Final Result from Last [address] [facility] [place] [address] [place] [address] [facility] [address] [place] [address] Care Teams Molder Shoulder Pad Relationship Specialty Start Date End Date Juan Antunez MD PCP - General 04/21/17 Raisa Carmichael MD Consulting Physician Neurosurgery 07/17/22
--- OUTSIDE RECORDS SUMMARY | 2024-03-16 10:59 | XMS_ITS | Encounter Summary ---
Author Organization [facility] Address [address] [place] [address] Phone Care Team Providers Care Corporate Communications Intern Name Role Phone Juan Antunez MD Primary Care Provider [phone] Raisa Carmichael MD Unavailable [phone] Encounter Details Date Type Department Care Team (Late st Contact Info) Description 03/09/2023 Telephone [facility] Ophthalmology [address] [facility] 6th [place] [address] Suleman Fonseca MD [address] [facility] [address] [place] [address] Social History Tobacco Use Types [...] on file Legal Sex Male 12:39 AM BENDER HELPER Gender Identity Not on file Sexual Orientation Not on file documented as of this encounter Miscellaneous Notes * Telephone Encounter - Mae Billings B.A. - 03/09/2023 10:21 AM BENDER HELPER Spoke with pt confirmed Path showed BCC informed him I would contact him the prior with his arrival time for the repair on 03/23 informed him he starts with DR. Ervin in his office 7:30 -7:45 for removal on the 5th floor [facility]. Pt asked for DR. Ervin's phone number to get more info on removal. Provided him with the number. ER HELPER * Telephone Encounter - Mae Billings B.A. - 03/09/2023 10:21 AM BENDER HELPER ----- Message from Suleman Fonseca MD sent at 03/04/2023 11:00 AM BENDER HELPER ----- Regarding: FW: Please call patient. Path showed basal cell. Proceed with Mohs surgery. ----- Message ----- From: Interface, Lab Results In Sent: 03/04/2023 9:35 AM BENDER HELPER To: Suleman Fonseca MD ER HELPER documented in this encounter Plan of Treatment Not on file documented as of this encounter Visit Diagnoses Not on filedocumented in this encounter Care Teams Corporate Communications Intern Relationship Specialty Start Date End Date Juan Antunez MD PCP - General 04/21/17 Raisa Carmichael MD Consulting Physician Neurosurgery 07/17/22 documented as of this encounter
--- OUTSIDE RECORDS SUMMARY | 2024-03-16 10:59 | XMS_ITS | Encounter Summary ---
Author Organization [facility] Address [address] [place] [address] Care Team Providers Care Aboriginal Liaison Officer Name Role Phone Juan Antunez MD Primary Care Provider [phone] Raisa Carmichael MD Unavailable Reason for Referral * MRI/CAT/PET Scan (Routine) - Closed Specialty Diagnoses / Procedures Referred By Contac t Referred To Contact Radiology Diagnoses Lumbar radicular pain Postlaminectomy syndrome, lumbar region Procedures MRI Lumbar Spine W WO Contrast Germaine Ruggiero MD [address] [place] [address] Phone: tel: fax: [address] [address] Referral ID Status Reason Start Date Expiration Date Visits Re quested Visits Authorized [id number] Closed 02/01/2024 03/02/2025 1 1 R SLAGMAN Reason for Visit * MRI/CAT/PET Scan (Routine) - Closed Specialty Diagnoses / Procedures Referred By Contac t Referred To Contact Radiology Diagnoses Lumbar radicular pain Postlaminectomy syndrome, lumbar region Procedures MRI Lumbar Spine W WO Contrast Germaine Ruggiero MD [address] [place] [address] Phone: tel: fax: [address] [address] Referral ID Status Reason Start Date Expiration Date Visits Re quested Visits Authorized [id number] Closed 02/01/2024 03/02/2025 1 1 Encounter Details Date Type Department Care Team (Latest Contact Info) Description 02/01/2024 3:34 PM MIXER SLAGMAN - 02/01/2024 11:59 PM MIXER SLAGMAN Hospital Encounter [facility] [address] [place] [address] Lumbar radicular pain; Postlaminectomy syndrome, lumbar region [...] on file Legal Sex Male 12:39 AM MIXER SLAGMAN Gender Identity Not on file Sexual Orientation Not on file documented as of this encounter Medications at Time of Discharge atorvastatin (LIPITOR) 80 mg tablet Take 1 tablet (80 mg total) by mouth daily 90 tablet 04/19/2020 carboxymethylcel lulose (REFRESH PLUS) 0.5 % dropperetteIndic ations:Dry Eye Administer 1 drop into the right eye daily as needed for dry eyes cyanocobalamin (Vitamin B-12) 100 mcg tabletIndication s:Prevention of Vitamin B12 Deficiency Take 1 tablet (100 mcg total) by mouth package liner before breakfast sertraline (ZOLOFT) 100 mg tabletIndication s:Anxiety with Depression Take 1 tablet (100 mg total) by mouth package liner before breakfast 4 08/16/2017 spironolactone (ALDACTONE) 25 mg tablet 6.25 mg daily 01/13/2024 documented as of this encounter Discharge Disposition Disposition Code Departure Means Destination Discharge to home or self care documented in this encounter Plan of Treatment Not on file documented as of this encounter Procedures Procedure Name Priority Date/Time Associated Diagnosis Comments MRI LUMBAR SPINE W WO CONTRAST Schedule Routine, Read Routine (OP Routine) 02/01/2024 4:30 PM MIXER SLAGMAN Lumbar radicular pain Postlaminectomy syndrome, lumbar region documented in this encounter Results * MRI Lumbar Spine W WO Contrast (02/01/2024 4:30 PM MIXER SLAGMAN) Anatomical Region Laterality Modality Spine N/A Magnetic Resonan ce 02/02/2024 8:29 AM MIXER SLAGMAN Narrative 02/02/2024 8:43 AM MIXER SLAGMAN EXAM DESCRIPTION: ?? MRI LUMBAR SPINE WITHOUT [...] Mild ligamentum flavum thickening. ??Compromise of the kqfe-ijeslke-kpdq-right lateral recesses, noting combination of disc and [...] AM T: ??02/02/2024 8:43 AM Report ID: [id number] Reading Location: ??[id number] Procedure Note Jose Roberto Monzon MD - [...] facetarthropathy. Mild ligamentum flavum thickening. Compromise of ifkcpxv-jdnmumc-aezl-right lateral recesses, noting combination of disc and [...] Roberto Monzon M.D. TOYIN: TOYIN Report ID: [id number] Reading Location: [place] [address] Germaine Ruggiero MD IMG MRI PROCEDURES Final R esult documented in this encounter Visit Diagnoses Diagnosis Lumbar radicular pain Thoracic or lumbosacral neuritis or radiculitis, unspecified Postlaminectomy syndrome, lumbar region documented in this encounter Administered Medications Inactive Administered Medications - up to 3 most recent administrations Medication Order MAR Action Action Date Dose Rate Site gadoterate meglumine injection 9 mL 9 mL, intravenous, Once in imaging, contrast, Starting on 02/01/24 at 1550, For 1 dose Contrast Given 02/01/2024 4:26 PM MIXER SLAGMAN 9 mL documented in this encounter Orders Medications Ordered That Irving ht Not Have Been Administered Count Last Ordered Date First Ordered Date gadoterate meglumine injection 9 mL 1 01/31 documented in this encounter Care Teams Aboriginal Liaison Officer Relationship Specialty Start Date End Date Juan Antunez MD PCP - General 04/21/17 Raisa Carmichael MD Consulting Physician Neurosurgery 07/17/22 documented as of this encounter
--- OUTSIDE RECORDS SUMMARY | 2024-03-16 10:59 | XMS_ITS | Encounter Summary ---
Author Organization [facility] Address [address] [place] [address] Phone Care Team Providers Care Therapist Radiation Name Role Phone Juan Antunez MD Primary Care Provider [phone] Raisa Carmichael MD Unavailable [phone] Encounter Details Date Type Department Care Team (Late st Contact Info) Description 02/24/2023 10:45 AM CLAY SHOP SUPERVISOR Office Visit [facility] Dermatology [address] [facility] [address] [place] [address] Juan Ervin MD [address] [facility] [address] [place] [address] Neoplasm of uncertain behavior of skin (Primary Dx) Social History Tobacco Use Types Packs/Day Years Used Date Smoking Tobacco: Former Smokeless Tobacco: Never Personal Safety Answer Date Recorded Getting School Help Needed Not on file 02/19 Sex and Gender Information Value Date Recorded Sex Assigned at Not on file Legal Sex Male 12:39 AM CLAY SHOP SUPERVISOR Gender Identity Not on file Sexual Orientation Not on file documented as of this encounter Last Filed Vital Signs Vital Sign Reading Time Taken Comments Blood Pressure - - Pulse - - Temperature - - Respiratory Rate - - Oxygen Saturation 99% 02/24/2023 10:35 AM CLAY SHOP SUPERVISOR Inhaled Oxygen Concentration - - Weight - - Height - - Body Mass Index - - documented in this encounter Progress Notes * Jason Smith MD - 02/24/2023 10:45 AM CST Images from the original note were not included. [facility] Out[facility] [address] [facility] [place] [address] SKIN CANCER CONSULT NOTE NAME: Roland Garcia : 1955 CC: lesion suspicious for basal cell carcinoma on the left lower eyelid REFERRING PROVIDER: Suleman Fonseca MD [address] [facility] DEPT OPHTHALMOLOGY, [address] [place] [address] HPI: Roland Garcia presents today for evaluation of lesion suspicious for basal cell carcinoma on the Left lower eyelid. Pt was evaluated by Dr. Fonseca and had biopsy of lesion. Pt states that in the last year the spot has been growing. ROS: Constitutional: No fever, no chills, no unintended weight loss Allergies/Medications/PMH: Reviewed in EMR. PHYSICAL EXAM: GENERAL: Appears well. No acute distress. ORIENTATION: Alert and oriented x3. MOOD/AFFECT: Normal affect. BANEGAS SKIN TYPE: II FACE: Pearly papule with central erosion on the R lower eyelid EARS: No abnormalities noted. SCALP/HAIR: No abnormalities noted. EYES/EYELIDS: No scleral icterus. No abnormalities noted of conjunctiva or eyelids. LIPS/ORAL MUCOSA: No abnormalities noted. NECK: No abnormalities noted. --Lesion identified and verified with patient's assistance using a handheld mirror and/or referringprovider photos. Patient agrees with location. ASSESSMENT AND PLAN: 1. Lesion suspicious for Basal cell carcinoma on the left lower eyelid , biopsy pending - Treatment options discussed included: Mohs micrographic surgery - The preoperative photos from the referring physician, histopathology report, and prior office visit note (where applicable) were reviewed - Will plan for Mohs micrographic surgery - Indications for MMS include: location and involvement of sensitive cosmetic and/or functional structures - Likely repair options reviewed including: will coordinate same-day reconstruction with Dr. Fonseca - Risks and benefits were discussed including, but not limited to, scarring, bleeding, infection, pain, swelling, bruising, dyspigmentation, asymmetry, deformity, recurrence, need for further treatment, allergy, motor and sensory nerve injury. - The patient and/or family members demonstrated understanding of the points discussed - Time was provided for patient questions - Special considerations: NO pacemaker, defibrillator, epi sensitivity, allergy to anesthesia, latex allergy 2. Prophylaxis for MMS - None 3. Medication restrictions for MMS - None Photos obtained, pre-operative instructions provided, Mohs micrographic surgery booklet provided. Patient will follow up as scheduled. Jason Smith MD Division of Dermatology Department of Internal Medicine PGY-2 Cosigned by Juan Ervin MD at 02/25/2023 8:05 AM CLAY SHOP SUPERVISOR SHOP SUPERVISOR Associated attestation - Juan Ervin MD - 02/25/2023 8:05 AM CLAY SHOP SUPERVISOR I was present for the entire procedure. I, Yani Ervin MD, performed or directly supervised my resident/fellow during this procedure and during the taking of any history and physical exam. documented in this encounter Plan of Treatment Not on file documented as of this encounter Visit Diagnoses Diagnosis Neoplasm of uncertain behavior of skin- Primary documented in this encounter Care Teams Therapist Radiation Relationship Specialty Start Date End Date Juan Antunez MD PCP - General 04/21/17 Raisa Carmichael MD Consulting Physician Neurosurgery 07/17/22 documented as of this encounter
--- OUTSIDE RECORDS SUMMARY | 2024-03-16 10:59 | XMS_ITS | Encounter Summary ---
Author Organization [facility] Address [address] [place] [address] Phone Care Team Providers Care Polymer Engineer Name Role Phone Juan Antunez MD Primary Care Provider [phone] Raisa Carmichael MD Unavailable Reason for Visit * Reason Comments Cataract Optic Atrophy both eyes * Diagnostic Imaging (Routine) - Closed Specialty Diagnoses / Procedures Referred By Contac t Referred To Contact Diagnoses Unspecified open-angle glaucoma, indeterminate stage Procedures Hansen Visual Field - OU - Both Eyes Nicolle Jameson MD [address] [place] [address] Phone: tel: fax: [facility] (All Locations) Referral ID Status Reason Start Date Expiration Date Visits Re quested Visits Authorized [id number] Closed 04/08/2023 05/07/2024 1 1 Encounter Details Date Type Department Care Team (Latest Contact Info) Description 10/04/2023 10:00 AM CDT Office Visit [facility] Ophthalmology [address] [facility] [place] [phone] Nicolle Jameson MD [address] [place] [address] Optic atrophy (Primary Dx); Unspecified open-angle glaucoma, indeterminate stage Social History [...] on file Legal Sex Male 12:39 AM PHP WEBSITE DEVELOPER Gender Identity Not on file Sexual Orientation Not on file documented as of this encounter Progress Notes * Nicolle Jameson MD - 10/04/2023 10:00 AM CDT Assessment/Plan Diagnoses and all orders for this visit: Optic atrophy (Primary) Assessment & Plan: HVF OD remains stable IOP stable mid teens OCT without progressive thinning Given current HVF and OCT, observe as likely prior optic neuritis Follow 6 months for DFE, sooner for concerns Unspecified open-angle glaucoma, indeterminate stage - Hansen Visual Field - OU - Both Eyes I have seen/examined the patient and I agree with the findings/plan of the Resident/Fellow documented in this encounter Miscellaneous Notes * Assessment & Plan Note - Nicolle Jameson MD - 10/04/2023 10:46 AM CDT Associated Problem(s): Optic atrophy HVF OD remains stable IOP stable mid teens OCT without progressive thinning Given current HVF and OCT, observe as likely prior optic neuritis Follow 6 months for DFE, sooner for concerns documented in this encounter Plan of Treatment Not on file documented as of this encounter Procedures Procedure Name Priority Date/Time Associated Diagnosis Comments OCT, OPTIC NERVE - OU - BOTH EYES Routine 10/04/2023 9:59 AM CDT Unspecified open-angle glaucoma, indeterminate stage HANSEN VISUAL FIELD - OU - BOTH [...] Diagnosis Optic atrophy- Primary Unspecified optic atrophy Unspecified open-angle glaucoma, indeterminate stage documented in this encounter Eye Exam Visual Acuity (Snellen - Linear) Right eye Left eye Dist cc 20/50 states half the line is b locked out -2 20/20 Dist ph cc 20/50 +1 Correction: Glasses Tonometry (Applanation, 10:18 AM) Right eye Left eye Pressure 17 17.5 Pupils Dark Light Shape React APD Right eye 4.5 3.0 Round Brisk None Left eye 4.5 3.0 Round Brisk None Visual Godoy Right eye Left eye Restrictions Partial outer inferior nasal def iciency Extraocular Movement Right eye Left eye Full Full Neuro/Psych Oriented x3: Yes Mood/Affect: Normal Care Teams Polymer Engineer Relationship Specialty Start Date End Date Juan Antunez MD PCP - General 04/21/17 Raisa Carmichael MD Consulting Physician Neurosurgery 07/17/22 documented as of this encounter
--- OUTSIDE RECORDS SUMMARY | 2024-03-16 10:59 | XMS_ITS | Encounter Summary ---
Author Organization [facility] Address [address] [place] [address] Phone Care Team Providers Care Scientific Artist Name Role Phone Juan Antunez MD Primary Care Provider [phone] Raisa Carmichael MD Unavailable [phone] Encounter Details Date Type Department Care Team (Late st Contact Info) Description 03/31/2023 8:00 AM DIRECTOR OF PRECLINICAL RESEARCH Office Visit [facility] Ophthalmology [address] [facility] Health 6th [place] [address] Suleman Fonseca MD [facility] [address] [place] [address] Basal cell carcinoma (BCC) of [...] on file Legal Sex Male 12:39 AM DIRECTOR OF PRECLINICAL RESEARCH Gender Identity Not on file Sexual Orientation Not on file documented as of this encounter Progress Notes * Suleman Fonseca MD - 03/31/2023 8:00 AM CST Images from the original note were not included. Date of Visit: 03/31/2023 Patient Name: Roland Garcia Age: 67 y.o. Gender: male : 1955 Primary Care Provider: Juan Antunez MD Referring Provider: No ref. provider found Problem List Items Addressed This Visit None Last Surgical Procedure: Reconstruction Eyelid - Left 03/23/2023 History: Returns following Mohs surgery and left lower eyelid reconstruction. He feels he is doing well. Examination: Not recorded Impression: Doing well following Mohs surgery. Continue ointment for 1 week. Avoid manipulating theeyelid for 1 week. Call if there are concerns. Return in several months. I have personally examined the patient, participated in all aspects of their care, and formulated the treatment plan. CTOR OF PRECLINICAL RESEARCH documented in this encounter Plan of Treatment Not on file documented as of this encounter Visit Diagnoses Diagnosis Basal cell carcinoma (BCC) of left lower eyelid- Primary documented in this encounter Eye Exam Visual Acuity (Snellen - Linear) Right eye Left eye Dist cc 20/50-3 20/30+2 Dist ph sc 20/50-3 Correction: Glasses Neuro/Psych Oriented x3: Yes Mood/Affect: Normal External Exam The left lower eyelid is healing nicely. Excellent contour. Full closure. Slit Lamp Exam Right eye Left eye Conjunctiva/Sclera White and quiet White and manolo et Cornea small medial pingueculum small m edial pingueculum Anterior Chamber Deep and quiet Deep and quiet Iris Round and reactive Round and elmer ctive Lens Nuclear sclerosis Nuclear sclero sis Care Teams Scientific Artist Relationship Specialty Start Date End Date Juan Antunez MD PCP - General 04/21/17 Raisa Carmichael MD Consulting Physician Neurosurgery 07/17/22 documented as of this encounter
--- OUTSIDE RECORDS SUMMARY | 2024-03-16 10:59 | XMS_ITS | Encounter Summary ---
Author Organization [facility] Address [address] [place] [address] Phone Care Team Providers Care News Reporter Name Role Phone Juan Antunez MD Primary Care Provider [phone] Raisa Carmichael MD Unavailable [phone] Encounter Details Date Type Department Care Team (Late st Contact Info) Description 03/02/2023 Orders Only [facility] [address] [place] [address] Suleman Fonseca MD [address] [facility] [address] [place], [place] [id number] Lesion of left lower eyelid; Lesion of [...] on file Legal Sex Male 12:39 AM WOOL CLEANER Gender Identity Not on file Sexual Orientation Not on file documented as of this encounter Plan of Treatment Not on file documented as of this encounter Procedures Procedure Name Priority Date/Time Associated Diagnosis Comments SURGICAL PATHOLOGY Routine 02/24/2023 12 :00 AM WOOL CLEANER Lesion of left lower eyelid Lesion of canthus of left eye documented in this encounter Results * Surgical pathology (02/24/2023 12:00 AM WOOL CLEANER) Tissue (Skin, punch biopsy) 02/24/2023 03/02/2023 6:28 AM WOOL CLEANER [facility] DERMATOPATHOLOGY [facility] - 03/04/2023 9:33 AM WOOL CLEANER EPIC results best viewed via link to PDF [facility] [address] [place] [address]., ??[address] [place] [address] ? [email or web address] Note to Patients: ??This report may [...] ? Submitting Physician Information: Suleman Fonseca M.D. [facility], [address] [facility] 6th [place], [place] ??[address], ? DERMATOPATHOLOGY REPORT RESULTS ?? DIAGNOSIS: A. [...] ICD-9 ZSD.1411 ZSD.176 ? Clerical Data A; 65485 B; 74828 The characteristics of special, immunohistochemical, and immunofluorescence stains and in-situ hybridization tests performed by the [facility] Dermatopathology Center were deemed acceptable in ongoing quality control head measures and in compliance with regulations drawn from the Clinical Laboratory Improvement Act ni5899 (CLIA '88). Control reactions for all stains performed were deemed adequate and appropriate by a pathologist prior to evaluation of patient tissue. Some diagnoses were rendered with the assistance of laboratory-developed tests utilizing analyte-specific reagents; the performance characteristic of these tests were determined by [facility] and are not cleared or approved by the [place] Food an Drug administration. Laboratory developed test may only be performed in a facility that is certified by the [facility] as a high-complexity laboratory under CLIA '88. These tests are used for clinical purposes and are not investigational. Suleman Fonseca MD LAB PATHOLOGY ORDERABLES Fin al Result DERMATOPATHOLOGY CENTER [address] [place] [address] documented in this encounter Visit Diagnoses Diagnosis Lesion of left lower eyelid Lesion of canthus of left eye documented in this encounter Care Teams News Reporter Relationship Specialty Start Date End Date Juan Antunez MD PCP - General 04/21/17 Raisa Carmichael MD Consulting Physician Neurosurgery 07/17/22 documented as of this encounter
--- OUTSIDE RECORDS SUMMARY | 2024-03-16 10:59 | XMS_ITS | Encounter Summary ---
Author Organization [facility] Address [address] [place] [address] Phone Care Team Providers Care Gripper Attacher Name Role Phone Juan Antunez MD Primary Care Provider [phone] Raisa Carmichael MD Unavailable [phone] Encounter Details Date Type Department Care Team (Late st Contact Info) Description 03/18/2023 Telephone [facility] Ophthalmology [address] [facility] Health 6th [place] [address] Suleman Fonseca MD [address] [facility] [place] [address] Social History Tobacco Use Types [...] on file Legal Sex Male 12:39 AM TRANSIT AUTHORITY POLICE OFFICER Gender Identity Not on file Sexual Orientation Not on file documented as of this encounter Miscellaneous Notes * Telephone Encounter - Mae Billings B.A. - 03/18/2023 2:03 PM TRANSIT AUTHORITY POLICE OFFICER Spoke with pt confirmed MOHS Start with DR. Ervin his office at 7:45 Repair check in time 4th floor CAM with DR. Fonseca is 12:45 Have a bottom hoop driver Someone to stay with for 24 hrs after sx No food after midnight Clear liquids up to 2 hrs prior POV 03/31 @ 8am Pt did receive sx packet in mail SIT AUTHORITY POLICE OFFICER documented in this encounter Plan of Treatment Not on file documented as of this encounter Visit Diagnoses Not on filedocumented in this encounter Care Teams Gripper Attacher Relationship Specialty Start Date End Date Juan Antunez MD PCP - General 04/21/17 Raisa Carmichael MD Consulting Physician Neurosurgery 07/17/22 documented as of this encounter
--- OUTSIDE RECORDS SUMMARY | 2024-03-16 11:00 | XMS_ITS | Encounter Summary ---
Author Organization [facility] Address [address] [place] [address] Phone Care Team Providers Care Digital Sales Planner Name Role Phone Juan Antunez MD Primary Care Provider [phone] Encounter Details Date Type Department Care Team (Late st Contact Info) Description 03/17/2019 1:15 PM SOFTWARE APPLICATIONS ENGINEER Office Visit [facility] Cardiology [address] [facility] [address]th [place] [address] [place] [id number] Juan Orellana MD [address] [facility] [address] [place], [place] [id number] Chronic coronary artery disease (Primary Dx); Mixed hyperlipidemia; Left bundle branch block (LBBB) Social History Tobacco Use Types Packs/Day Years Used Date Smoking Tobacco: Former Smokeless Tobacco: Never Sex and Gender Information Value Date Recorded Sex Assigned at Not on file Legal Sex Male 12:39 AM SOFTWARE APPLICATIONS ENGINEER Gender Identity Not on file Sexual Orientation Not on file documented as of this encounter Last Filed Vital Signs Vital Sign Reading Time Taken Comments Blood Pressure 129/70 03/17/2019 1:25 PM SOFTWARE APPLICATIONS ENGINEER Pulse 77 03/17/2019 1:25 PM SOFTWARE APPLICATIONS ENGINEER Temperature - - Respiratory Rate - - Oxygen Saturation 96% 03/17/2019 1:25 PM SOFTWARE APPLICATIONS ENGINEER Inhaled Oxygen Concentration - - Weight 88.7 kg (195 lb 9.6 oz) 03/17/2019 1:25 P M SOFTWARE APPLICATIONS ENGINEER Height 177.8 cm (5' 10 ) 03/17/2019 1:25 PM SOFTWARE APPLICATIONS ENGINEER Body Mass Index 28.07 03/17/2019 1:25 PM SOFTWARE APPLICATIONS ENGINEER documented in this encounter Patient Instructions * Patient Instructions* Juan Orellana MD - 03/17/2019 1:15 PM SOFTWARE APPLICATIONS ENGINEER Continue current medications. Increase physical activity by doing more walking. Monitor your step count and start with a goal of 5000 steps per day, gradually increasing to about 10,000 per day. Continue your efforts to follow a healthy diet and lose some weight. Please ask your primary care doctor to send recent labs, maximino. Cholesterol. We will also request them. Call with any questions. Have a great weekend and best wishes for 2019! Dr. Orellana and Autumn WARE APPLICATIONS ENGINEER documented in this encounter Progress Notes * Juan Orellana MD - 03/17/2019 1:15 PM CST 2Cardiology Return Clinic Visit 03/17/2019 HPI: I saw Roland Garcia in Cardiology Clinic today after an interval of 6 months. Overall he is doing well and he remains stable from the cardiac standpoint. He denies chest pain or palpitations. He experiences some SOB after climbing 2 flights of stairs but not when walking on a flat surface and he denies LE swelling. He seldom has lightheadedness and he denies falls or syncope. He does not exercise regularly but he is moderately active on his job He acknowledges non-adherence to a healthy diet. He is in good spirits and denies any new health concerns. Review of Systems Constitutional: Negative for chills and fever. HEENT: Negative for congestion and nosebleeds. Respiratory: Negative for cough. Positive for snoring. Otherwise as noted in HPI. Cardiovascular: As per HPI. Gastrointestinal: Negative for abdominal pain, nausea, diarrhea. Genitourinary: Negative for frequency and hematuria. Musculoskeletal: Negative for myalgias. Negative for arthritis. Skin: Negative for rash. Neurological: Negative for focal weakness. Negative for loss of consciousness. Endocrine: Negative for thyroid disease, polyuria/polydipsia. Psychiatric/Behavioral: Negative for depression. All other systems reviewed and are negative except as noted above. HOME MEDICATIONS : aspirin 81 mg chewable tablet atorvastatin (LIPITOR) 80 mg tablet fenofibrate (TRIGLIDE) 160 mg tablet sertraline (ZOLOFT) 100 mg tablet No Known Allergies Physical Exam: Vitals: 03/17/19 1325 BP: 129/70 BP Location: Right arm Patient Position: Sitting Pulse: 77 SpO2: 96% Weight: 88.7 kg (195 lb 9.6 oz) Height: 177.8 cm (5' 10 ) General: Pleasant male in no acute distress. Weight up 2.8 lbs since last visit. HEENT: normocephalic, atraumatic, no conjunctival injection, no scleral icterus Neck: No JVD or HJR; no thyromegaly Lungs: Clear bilaterally. No rales. No rhonchi. No wheezing. Cardiac: Normal rate, regular rhythm, no murmurs, no rubs, no S3. Abdomen: Soft, nontender, nondistended. No masses. No hepatomegaly. Extremities: Warm and well perfused. No clubbing. No cyanosis. No edema Skin: No rashes noted. Psych: Normal affect. Appropriate mood. Neuro: A&Ox4. Grossly intact. Lab/Radiology/Diagnostic Review: No new labs available. Impression 1. Mild to moderate CAD based on coronary CTA, asymptomatic. 2. Hyperlipidemia with hypertriglyceridemia, on atorvastatin and fenofibrate; lipids monitored by PCP. 3. NATALIE. 4. LBBB. 5. History of subdural hematoma with conservative management. 6. Cervical spine stenosis. 7. Benign paroxysmal positional vertigo, resolved. 8. Squamous cell carcinoma of skin, resected. Plan 1. Continue current medications 2. Renew efforts to follow a health diet, exercise, and lose some weight 3. I have advised Mr. Garcia to use his phone to monitor his step count, to start with a goal of 5000 steps per day, and then increase to a target of 10,000 steps per day. 4. We will attempt to obtain labs from PCP. 5, Return appointment in 6 months. Juan Orellana MD leadership development instructor WARE APPLICATIONS ENGINEER documented in this encounter Plan of Treatment Not on file documented as of this encounter Visit Diagnoses Diagnosis Chronic coronary artery disease- Primary Coronary atherosclerosis of unspecified type of vessel, [place] or graft Mixed hyperlipidemia Left bundle branch block (LBBB) documented in this encounter Care Teams Digital Sales Planner Relationship Specialty Start Date End Date Juan Antunez MD PCP - General 04/21/17 documented as of this encounter
--- OUTSIDE RECORDS SUMMARY | 2024-03-16 11:00 | XMS_ITS | Encounter Summary ---
Author Organization [facility] Address [address] [place] [address] Phone Care Team Providers Care Senior Software Architect Name Role Phone Juan Antunez MD Primary Care Provider [phone] Encounter Details Date Type Department Care Team (Late st Contact Info) Description 06/20/2018 Telephone 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 Gender Identity Not on file Sexual Orientation Not on file documented as of this encounter Ordered Prescriptions Prescription Sig Dispense Quantity Refills Last Filled Start Date End Date atorvastatin (LIPITOR) 80 mg tablet Take 1 tablet (80 mg total) by mouth daily 30 tablet 2 06/20/2018 09/20/2018 documented in this encounter Miscellaneous Notes * Telephone Encounter - Mayra Field MA - 06/20/2018 2:53 PM CDT Refill complete * Telephone Encounter - Autumn Rhodes RN - 06/20/2018 2:49 PM CDT Please refill * Telephone Encounter - Clair Carlton - 06/20/2018 2:40 PM CDT RICH LIPITOR 80 MG TABLET QTY 30 documented in this encounter Plan of Treatment Not on file documented as of this encounter Visit Diagnoses Not on filedocumented in this encounter Discontinued Medications Medication Sig Discontinue Reason Start Date End Da te atorvastatin (LIPITOR) 80 mg tablet Take 1 tablet (80 mg total) by mouth daily. Reorder 03/18/2018 06/20/2018 documented as of this encounter Care Teams Senior Software Architect Relationship Specialty Start Date End Date Juan Antunez MD PCP - General 04/21/17 documented as of this encounter
--- OUTSIDE RECORDS SUMMARY | 2024-03-16 11:00 | XMS_ITS | Encounter Summary ---
Author Organization [facility] Address [address] [place] [address] Phone Care Team Providers Care Change Control Analyst Name Role Phone Juan Antunez MD Primary Care Provider [phone] Raisa Carmichael MD Unavailable [phone] Encounter Details Date Type Department Care Team (Late st Contact Info) Description 07/03/2022 Telephone [facility] Cardiology [address] [facility] Advanced Medicine 8th [place] [address] [place] [phone] Yesi Donaldson Social History Tobacco Use Types Packs/Day Years Used Date Smoking Tobacco: Former Smokeless Tobacco: Never Sex and Gender Information Value Date Recorded Sex Assigned at Not on file Legal 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 [] [x] If 'Yes', Schedule first available with Cardio-Oncology If yes where were you treated? Have you ever seen a Cook Dinner in an office setting? [x] [] Dr. Juan Orellana [facility] Cardiology IF SCHEDULING PATIENT WITH LOONEY Have you had a baby in the last year or are you ? [] [] Have you had heart or blood pressure problems during a previous ? [] [] Patient History Questions Yes No Where/When/Notes Have you EVER been hospitalized for ANY cardiac issue? [] [x] Have you ever had any cardiac testing, imaging, or procedures? (Testing - echo, EKG, stress) (Imaging - Cardiac MRI, CT or calcium scoring) (Procedure - Ablation, Cardioversion, CABG) [x] [] EKG - [facility], a few weeks ago Have you ever had a sleep study? [x] [] 8 or 10 years ago Do you have a device? If yes what type? (Pacemaker, Defibrillator, Implanted Loop Recorder) [] [x] If yes, where and when was device put in? 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 ([employer], [employer], [employer]) Appointment Date: 07/06/22 Provider: Allyssa Location: [facility] [x] Confirm appt date, time, provider and location. [] Advise pt to arrive 15-20 min early. [] Advise patient to bring medications/list, photo ID and insurance card [] Advise of New Patient Packet being mailed to them. documented in this encounter Plan of Treatment Not on file documented as of this encounter Visit Diagnoses Not on filedocumented in this encounter Care Teams Change Control Analyst Relationship Specialty Start Date End Date Juan Antunez MD PCP - General 04/21/17 Raisa Carmichael MD Consulting Physician Neurosurgery 07/17/22 documented as of this encounter
--- OUTSIDE RECORDS SUMMARY | 2024-03-16 11:00 | XMS_ITS | Encounter Summary ---
Author Organization [facility] Address [address] [place] [address] Phone Care Team Providers Care Insurance Follow Up Specialist Name Role Phone Juan Antunez MD Primary Care Provider [phone] Encounter Details Date Type Department Care Team (Late st Contact Info) Description 08/27/2017 Orders Only [facility] Cardiology [address] [facility] 8[address] [place] [address] [place] [phone] Yasmin Leon MA Social History Tobacco Use Types Packs/Day Years Used Date Smoking Tobacco: Former Smokeless Tobacco: Never Sex and Gender Information Value Date Recorded Sex Assigned at Not on file Legal 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 sertraline (ZOLOFT) 100 mg tabletIndication s:Anxiety with Depression Take 1 tablet (100 mg total) by mouth boiler repair supervisor before breakfast 4 08/16/2017 aspirin 81 mg chewable tablet Take 1 tablet (81 mg total) by mouth daily 3 atorvastatin (LIPITOR) 80 mg tablet Take 1 tablet by mouth daily. 4 08/16/2017 8 fenofibrate (TRIGLIDE) 160 mg tablet Take 1 tablet by mouth daily. 2 08/16/2017 3 added in this encounter Care Teams Insurance Follow Up Specialist Relationship Specialty Start Date End Date Juan Antunez MD PCP - General 04/21/17 documented as of this encounter
--- OUTSIDE RECORDS SUMMARY | 2024-03-16 11:00 | XMS_ITS | Encounter Summary ---
Author Organization [facility] Address [address] [place] [address] Phone Care Team Providers Care Practicing Urologist Name Role Phone Juan Antunez MD Primary Care Provider [phone] Encounter Details Date Type Department Care Team (Late st Contact Info) Description 05/05/2018 Telephone [place] [address] [facility] [address] [place] [id number] [place] [address] [id number] Social History Tobacco Use Types Packs/Day Years Used Date Smoking Tobacco: Former Smokeless Tobacco: Never Sex and Gender Information Value Date Recorded Sex Assigned at Not on file Legal Sex Male 12:39 AM ACCOUNT UNDERWRITER Gender Identity Not on file Sexual Orientation Not on file documented as of this encounter Miscellaneous Notes * Telephone Encounter - Neda Gallo - 09/20/2018 1:20 PM CDT FYI-pt called me back in response to the letter I mailed him regarding scheduling a f/u appt. He states he feels great, and has no symptoms. He did see his PCP who agreed with him that he does not have any symptoms and no need to f/u with Dr. Merlos at this time. * Telephone Encounter - Neda Gallo - 09/06/2018 4:37 PM CDT I mailed letter to pt's home address asking him to call our office to schedule a f/u visit with for his cervical spine. F/u that pt calls back to schedule. * Telephone Encounter - Neda Gallo - 05/05/2018 2:57 PM CST Per NW's last office note 03/18/17-he wanted to see pt back in a year for his neck. I lm for pt to call me to schedule f/u appt with Dr. Merlos. UNT UNDERWRITER * Telephone Encounter - Neda Gallo - 05/05/2018 2:56 PM CST ----- Message from Neda Gallo sent at 02/12/2018 2:46 PM ACCOUNT UNDERWRITER ----- Schedule appt with NW due 03/2018. UNT UNDERWRITER documented in this encounter Plan of Treatment Not on file documented as of this encounter Visit Diagnoses Not on filedocumented in this encounter Care Teams Practicing Urologist Relationship Specialty Start Date End Date Juan Antunez MD PCP - General 04/21/17 documented as of this encounter
--- OUTSIDE RECORDS SUMMARY | 2024-03-16 11:00 | XMS_ITS | Encounter Summary ---
Author Organization [facility] Healthcare Address [address] [place] [address] Care Team Providers Care Gas Leak Tester Name Role Phone Unknown, Notinfile Primary Care Provider Unavail able Encounter Details Date Type Department Care Team (Latest Contact Info) Description 01/21/2017 5:07 PM NETWORK LIAISON - 01/21/2017 11:59 PM NETWORK LIAISON Hospital Encounter [facility] OP INTERIM [phone] Sola Mccray PA [address] [facility] [address] [place] [address] Discharge Disposition: Discharge to home or self care Social History Tobacco Use Types Packs/Day Years Used Date Smoking Tobacco: Former Sex and Gender Information Value Date Recorded Sex Assigned at Not on file Legal Sex Male 12:39 AM NETWORK LIAISON Gender Identity Not on file Sexual Orientation Not on file documented as of this encounter Discharge Disposition Disposition Code Departure Means Destination Discharge to home or self care documented in this encounter Plan of Treatment Not on file documented as of this encounter Procedures Procedure Name Priority Date/Time Associated Diagnosis Comments MRI CERVICAL SPINE W WO CONTRAST Routine 01/22/2017 12:19 AM NETWORK LIAISON POCT CREATININE FOR CONTRAST EVALUATION Routine Gen Lab 01/21/2017 5:28 PM NETWORK LIAISON documented in this encounter Results * MRI Cervical Spine W WO Contrast (01/22/2017 12:19 AM NETWORK LIAISON) Anatomical Region Laterality Modality Spine N/A Magnetic Resonan ce 01/22/2017 12:1 9 AM NETWORK LIAISON Narrative 01/22/2017 11:04 PM NETWORK LIAISON GOLDY RITCHIE M.D. DAVID WYATT M.D. FINAL REPORT The radiology attending physician has personally reviewed this study, and has reviewed and/or edited this written report and agrees with it. ACC# ??Date Time ??Exam [id number] Jan 21, 2017 18:19:00 [id number] MRI Cervical Spn wo& wi con EXAMINATION: ?? Magnetic resonance imaging (MRI) of the cervical spine without and with contrast HISTORY: Cervical spondylosis TECHNIQUE: Multiplanar multi-weighted MRI of the cervical spine was performed without and withintravenous contrast using the standard cervical spine protocol. Contrast information: 16 mL Dotarem COMPARISON: None available FINDINGS: There is also mild anterolisthesis of C3 over C4. ??There is also mild retrolisthesis of C6 over C7 and mild anterolisthesis of C7 over T1.. Vertebral bodies demonstrate normal signal intensity on all sequences. No acute fracture is identified; however, if trauma is suspected, a CT scan would be a more sensitive examination for fractures. The craniocervical junction is normal. The visualized portions of the skull base and the posterior fossa are normal. The spinal cord demonstrates normal signal intensity on all sequences. Multilevel disc desiccation and disc bulging is seen. An annular fissure is seen at C6-C7. No soft tissue abnormality is identified. Normal signal voids are present in the vertebral arteries. There are no areas of abnormal contrast enhancement. C2-C3: The disk is normal in configuration. There is no facet arthropathy. There is no uncovertebral joint disease. There is no neuroforaminal stenosis. There is no spinal canal stenosis. C3-C4: ??There is mild disc bulge. There is severe right facet arthropathy. There is moderate right uncovertebral joint disease. There is severe right neuroforaminal stenosis. There is no spinal canal stenosis. C4-C5: ??The disk is normal in configuration. There is severe right and moderate left facet arthropathy. There is mild bilateral uncovertebral joint disease. There is severe right and mild left neuroforaminal stenosis. There is no spinal canal stenosis. C5-C6: ??There is mild disc bulge. There is moderate bilateral facet arthropathy. There is mild bilateral uncovertebral joint disease. There is mild bilateral neuroforaminal stenosis. There is moderate spinal canal stenosis. C6-C7: ??There is moderate disc bulge. There is mild bilateral facet arthropathy. There is mild bilateral uncovertebral joint disease. There is moderate bilateral neuroforaminal stenosis. There is severe spinal canal stenosis. C7-T1: The disk is normal in configuration. There is moderate left and mild right facet arthropathy. There is moderate right uncovertebral joint disease. There is no neuroforaminal stenosis. There is no spinal canal stenosis. IMPRESSION: ?? Moderate degenerative changes of the cervical spine as described in details above, with severe canal stenosis at C6-C7. Electronically signed by: Goldy Ritchie II, M.D. ADDENDUM: ??The engineering supplies sales image reveals bilateral subdural fluid collections, left greater than right, with moderate shift of the lateral ventricles to the right. ??Dr. Murray Merlos has noted this finding. Requested By: Sola Mccray ??TAYLOR ? Dictated By: ?? DAVID WYATT M.D. ??on Jan 22 2017 10:04A This document has been electronically signed by: GOLDY RITCHIE M.D. on Jan 22 2017 ??5:02P Addendum Dictated by: GOLDY RITCHIE M.D. on Mar 18 2017 ??5:07P This Addendum has been electronically signed by: GOLDY RITCHIE M.D. on Mar 18 2017 ??5:06P [id number] CUNHA M.D. FINAL REPORT The radiology attending physician has personally reviewed this study, and has reviewed and/or edited this written report and agrees with it. Attending: ??MAHENDRA, ??SOLA Requesting: ??Mahendra, ??Sola Requesting Fax: ?? Attending Fax: ?? Attending ID: ??[id number] Requesting ID: ??[id number] Report To 1 ID: ??[id number] ? Report To 1 Name: ??, ?? Report To 1 FAX: ?? NextGen Order #: ?? Procedure Note Miscellaneous, Not In File - 03/18/2017 GOLDY WIPPOLD, M.D. DAVID YOSELIN, M.D. FINAL REPORT The radiology attending physician has personally reviewed this study, and has reviewed and/or edited this written report and agrees with it. [facility]# Date Time Exam [id number] Jan 21, 2017 18:19:00 [id number] MRI Cervical Spn wo& wi con EXAMINATION: Magnetic resonance imaging (MRI) of the cervical spine without and with contrast HISTORY: Cervical spondylosis TECHNIQUE: Multiplanar multi-weighted MRI of the cervical spine was performed without and withintravenous contrast using the standard cervical spine protocol. Contrast information: 16 mL Dotarem COMPARISON: None available FINDINGS: There is also mild anterolisthesis of C3 over C4. There is also mild retrolisthesis of C6 over C7 and mild anterolisthesis of C7 over T1.. Vertebral bodies demonstrate normal signal intensity on all sequences. No acute fracture is identified; however, if trauma is suspected, a CT scan would be a more sensitive examination for fractures. The craniocervical junction is normal. The visualized portions of the skull base and the posterior fossa are normal. The spinal cord demonstrates normal signal intensity on all sequences. Multilevel disc desiccation and disc bulging is seen. An annular fissure is seen at C6-C7. No soft tissue abnormality is identified. Normal signal voids are present in the vertebral arteries. There are no areas of abnormal contrast enhancement. C2-C3: The disk is normal in configuration. There is no facet arthropathy. There is no uncovertebral joint disease. There is no neuroforaminal stenosis. There is no spinal canal stenosis. C3-C4: There is mild disc bulge. There is severe right facet arthropathy. There is moderate right uncovertebral joint disease. There is severe right neuroforaminal stenosis. There is no spinal canal stenosis. C4-C5: The disk is normal in configuration. There is severe right and moderate left facet arthropathy. There is mild bilateral uncovertebral joint disease. There is severe right and mild left neuroforaminal stenosis. There is no spinal canal stenosis. C5-C6: There is mild disc bulge. There is moderate bilateral facet arthropathy. There is mild bilateral uncovertebral joint disease. There is mild bilateral neuroforaminal stenosis. There is moderate spinal canal stenosis. C6-C7: There is moderate disc bulge. There is mild bilateral facet arthropathy. There is mild bilateral uncovertebral joint disease. There is moderate bilateral neuroforaminal stenosis. There is severe spinal canal stenosis. C7-T1: The disk is normal in configuration. There is moderate left and mild right facet arthropathy. There is moderate right uncovertebral joint disease. There is no neuroforaminal stenosis. There is no spinal canal stenosis. IMPRESSION: Moderate degenerative changes of the cervical spine as described in details above, with severe canal stenosis at C6-C7. Electronically signed by: Goldy Ritchie II, M.D. ADDENDUM: The engineering supplies sales image reveals bilateral subdural fluid collections, left greater than right, with moderate shift of the lateral ventricles to the right. Dr. Murray Merlos has noted this finding. Requested By: Sola Mccray PA-C Dictated By: DAVID WYATT M.D. on Jan 22 2017 10:04A This document has been electronically signed by: GOLDY RITCHIE M.D. on Jan 22 2017 5:02P Addendum Dictated by: GOLDY RITCHIE M.D. on Mar 18 2017 5:07P This Addendum has been electronically signed by: GOLDY RITCHIE M.D. on Mar 18 2017 5:06P [id number] CUNHA M.D. FINAL REPORT The radiology attending physician has personally reviewed this study, and has reviewed and/or edited this written report and agrees with it. Attending: SOLA MCCRAY Requesting: Sola Mccray Requesting Fax: Attending Fax: Attending ID: [id number] Requesting ID: [id number] Report To 1 ID: [id number] Report To 1 Name: , Report To 1 FAX: NextGen Order #: Sola ALVAREZ IMG MRI PROCEDURES Edited Result - Final * (ABNORMAL) POCT creatinine (01/21/2017 5:28 PM NETWORK LIAISON) Creatinine POC 1.5(H) 0.7 - 1.3 mg/dL TURNER ALTAMIRANO Blood specimen (specimen) 01/21/2017 5:28 PM NETWORK LIAISON 01/21/2017 5:28 PM NETWORK LIAISON Sola ALVAREZ POINT OF CARE TEST ORDERAB LES Final Result TURNER ALTAMIRANO [facility] [place] [address] documented in this encounter Visit Diagnoses Not on filedocumented in this encounter Care Teams Gas Leak Tester Relationship Specialty Start Date End Date Unknown, Notinfile PCP - General 01/21/17 02/02/17 documented as of this encounter
--- OUTSIDE RECORDS SUMMARY | 2024-03-16 11:00 | XMS_ITS | Encounter Summary ---
Author Organization [facility] Address [address] [place] [address] Phone Care Team Providers Care Petroleum Terminal Plant Operator Name Role Phone Juan Antunez MD Primary Care Provider [phone] Raisa Carmichael MD Unavailable [phone] Reason for Referral * Diagnostic Imaging (Routine) - Closed Specialty Diagnoses / Procedures Referred By Contac t Referred To Contact Diagnoses Optic atrophy Procedures Hansen Visual Field - OU - Both Eyes Gurvinder Ventura, [place] [address] [address] Phone: tel: fax: [facility] (All Locations) Referral ID Status Reason Start Date Expiration Date Visits Re quested Visits Authorized [id number] Closed 08/26/2022 09/25/2023 1 1 * Diagnostic Imaging (Routine) - Closed Specialty Diagnoses / Procedures Referred By Contac t Referred To Contact Diagnoses Optic atrophy Procedures OCT, Optic Nerve - OU - Both Eyes Gurvinder Ventura, OD [address] [address] Phone: tel: fax: [facility] (All Locations) Referral ID Status Reason Start Date Expiration Date Visits Re quested Visits Authorized [id number] Closed 08/26/2022 09/25/2023 1 1 Reason for Visit * Reason Comments Blurred Vision Encounter Details Date Type Department Care Team (Late st Contact Info) Description 08/26/2022 1:30 PM CDT Office Visit [facility] Ophthalmology [address] [facility] [address]th [address], [address] [place] for [facility] [place] [id number] Gurvinder Ventura, OD [address] [facility] [address] [place] [address] Optic atrophy (Primary Dx); Epiretinal membrane (ERM) of right eye; Nuclear sclerosis of both eyes Social History Tobacco Use Types Packs/Day Years Used Date Smoking Tobacco: Former Smokeless Tobacco: Never Sex and Gender Information Value Date Recorded Sex Assigned at Not on file 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 Denies FOL and eye pain. Today rivas veil has gotten worse/bigger in size. States he is unsure if its related to his optic nerve, no formal diagnosis. Has h/o ringing in ears, has hearing aids which helps. Denies diplopia, headaches. Notes he has a compressed lumbar disk which affects his walking otherwise performing daily tasks well. 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 He notes the veil over the left eye suddenly. Pt was told this change could have been related to cholesterol or MS. He reports he had a MRI back then but everything was okay . Poor historian Denies h/o eye trauma and eye surgeries. H/o CL use temporarily but stopped due to tight lids. Ocular meds: AT's prn OU Imaging: CT Head WO Contrast 04/05/2017 ASSESSMENT/ORDERS/PROCEDURES PERFORMED TODAY Problem List Eye/Vision Problems Optic atrophy - Primary Current Assessment & Plan Poor historian with possible history of optic [...] start with glaucoma evaluation. If determined not glaucomatousprocess, could consider referral to neuro-oph Relevant Orders OCT, Optic Nerve - OU - Both Eyes (Completed) Hansen Visual Field - OU - Both Eyes (Completed) Epiretinal membrane (ERM) of right eye Current Assessment & Plan Trace changes, not visually significant. Monitor. Nuclear sclerosis of both eyes Current Assessment & Plan Not visually significant, could be contributing to narrow angle configuration, refer to glaucoma OCT, Optic Nerve - OU - Both Eyes Component Value Flag Ref Range Units Status RNFL OS 64 micrometers RNFL OD 58 micrometers Right Eye Reliability was good. Temporal thickness was normal. Superior thickness was showing abnormal thinning. Nasal thickness was normal. Inferior thickness was showing abnormal thinning. Average RNFL thickness 58 micrometers. Left Eye Reliability was good. Temporal thickness was showing abnormal thinning. Superior thickness was showing abnormal thinning. Nasal thickness was normal. Inferior thickness was normal. Average RNFL thickness 64 micrometers. Notes Right eye (OD): severe polar thinning Left eye (OS): superior wedge defects and inferior slit defect Hansen Visual Field - OU - Both Eyes Component Pattern Deviation OS 4.13 Pattern Deviation OD 10.97 Mean Deviation OS -5.35 Mean Deviation OD -15.39 Right Eye Fixation was good. Cooperation was good. Reliability was good. Foveal threshold was reduced. Findings include inferior arcuate defect. Mean Deviation was - 15.39. Pattern Deviation was 10.97. Left Eye Fixation was good. Cooperation was good. Reliability was good. Foveal threshold was normal. Findings include inferior arcuate defect. Mean Deviation was -5.35. Pattern Deviation was 4.13. Notes Right eye (OD): readable, dense inferior defect sparing central vision, enlarged blind spot Left eye (OS): mild inferior arcuate The signs and symptoms of retinal detachment, tears, infection, elevated intra- ocular pressure werereviewed with the patient. Patient knows to call should they have any of the symptoms. PLAN FOR NEXT VISIT Return for glaucoma 2-3wk . documented in this encounter Miscellaneous Notes * Assessment & Plan Note - Gurvinder Ventura, OD - 08/26/2022 3:56 PM CDT Associated Problem(s): Nuclear sclerosis of both eyes Not visually significant, could be contributing to narrow angle configuration, refer to glaucoma * Assessment & Plan Note - Gurvinder Ventura, OD - 08/26/2022 3:56 PM CDT Associated Problem(s): Epiretinal membrane (ERM) of right eye Trace changes, not visually significant. Monitor. * Assessment & Plan Note - Gurvinder Ventura, OD - 08/26/2022 3:55 PM CDT Associated Problem(s): Optic atrophy Poor historian with possible history of optic [...] start with glaucoma evaluation. If determined not glaucomatousprocess, could consider referral to neuro-oph documented in this encounter Plan of Treatment Not on file documented as of this encounter Procedures Procedure Name Priority Date/Time Associated Diagnosis Comments HANSEN VISUAL FIELD - OU - BOTH EYES Routine 08/26/2022 3:14 PM CDT Optic atrophy OCT, OPTIC NERVE - OU - BOTH EYES Routine 08/26/2022 3:13 PM CDT Optic atrophy documented in this encounter Results * Hansen Visual Field - OU - Both Eyes (08/26/2022 3:14 PM CDT) Pattern Deviation OS 4.13 CONTINUUM Pattern Deviation OD 10.97 CONTINUUM Mean Deviation OS -5.35 CONTINUUM Mean Deviation OD -15.39 CONTINUUM Anatomical Region Laterality Modality Head Visual Field Narrative 08/26/2022 3:14 PM CDT Right Eye Fixation was good. Cooperation was good. Reliability was good. Foveal threshold was reduced. Findings include inferior arcuate defect. Mean Deviation was -15.39. Pattern Deviation was 10.97. Left Eye Fixation was good. Cooperation was good. Reliability was good. Foveal threshold was normal. Findings include inferior arcuate defect. Mean Deviation was -5.35. Pattern Deviation was 4.13. Notes Right eye (OD): readable, dense inferior defect sparing central vision, enlarged blind spot Left eye (OS): mild inferior arcuate Gurvinder Ventura OD OPHTH VISUAL FIELD Final Resul t * OCT, Optic Nerve - OU - Both Eyes (08/26/2022 3:13 PM CDT) RNFL OS 64 micrometers CONTINUUM RNFL OD 58 micrometers CONTINUUM Anatomical Region Laterality Modality Head Optical Coherenc e Tomography Narrative 08/26/2022 3:13 PM CDT Right Eye Reliability was good. Temporal thickness was normal. Superior thickness was showing abnormal thinning. Nasal thickness was normal. Inferior thickness was showing abnormal thinning. Average RNFL thickness 58 micrometers. Left Eye Reliability was good. Temporal thickness was showing abnormal thinning. Superior thickness was showing abnormal thinning. Nasal thickness was normal. Inferior thickness was normal. Average RNFL thickness 64 micrometers. Notes Right eye (OD): severe polar thinning Left eye (OS): superior wedge defects and inferior slit defect Gurvinder Ventura OD OPHTH TOMOGRAPHY Final Result documented in this encounter Visit Diagnoses Diagnosis Optic atrophy- Primary Unspecified optic atrophy Epiretinal membrane (ERM) of right eye Nuclear sclerosis of both eyes documented in this encounter Historical Medications * This list may reflect changes made after this encounter. HYDROcodone-aceta minophen (NORCO) 5-325 mg per tablet Take 1 tablet by mouth every 6 (six) hours as needed 07/30/2022 01/14/2023 cyclobenzaprine (FLEXERIL) 10 mg tablet 07/30/2022 01/14/2023 gabapentin (NEURONTIN) 300 mg capsule 06/28/2022 01/14/2023 added in this encounter Eye Exam Visual Acuity (Snellen - Linear) Right eye Left eye Dist cc 20/25 20/40 +2 Dist ph cc NI 20/20 -2 Correction: Glasses Notes when reading with OD he can only see the first letter unless he looks off center Tonometry #1 (I-Care, 3:03 PM) Right eye Left eye Pressure 17 19 Tonometry #2 (Applanation, 3:25 PM) Right eye Left eye Pressure 18 18 Tonometry Comments T2 after dilated by airframe technician Gonioscopy (Isabelle, four mirror) Right eye Left eye Temporal sliver PTM sliver PTM Nasal sliver PTM sliver PTM Superior no structure no structure Inferior no structure no structure Pupils Pupils Dark Light Shape React APD Right eye PERRL 3 2 Round Brisk None Left eye PERRL 3 2 Round Brisk None Visual Godoy (Counting fingers) Right eye Left eye Full Restrictions Partial outer inferi or temporal deficiency; Partial inner superior temporal, superior nasal deficiencies Extraocular Movement Right eye Left eye Full, Ortho Full, Ortho Neuro/Psych Oriented x3: Yes Mood/Affect: Normal Dilation Both eyes: 1.0% Mydriacyl, 2 .5% Phenylephrine @ 3:04 PM Amsler Right eye Left eye right side of grid looks faded i n color Normal Color Right eye Left eye Ishihara 05/19 Stereo Fly: + Animals: 2/3 Circles: 2/ External Exam Right eye Left eye External Normal Normal Slit Lamp Exam Right eye Left eye Lids/Lashes Normal Normal Conjunctiva/Sclera White and quiet White and manolo et Cornea Clear Clear Anterior Chamber Deep and quiet Deep and quiet Iris Round and reactive Round and elmer ctive Lens 1+ NS 1+ NS Anterior Vitreous Normal Normal Fundus Exam Right eye Left eye Disc PPA inferior, no edema Normal, n o edema C/D Ratio 0.65 0.6 Macula trace ERM Normal Vessels Normal Normal Periphery Normal Normal Wearing Rx Sphere Cylinder Ransom Add Right eye -3.25 +1.75 176 +2.50 Left eye -5.25 +1.50 018 +2.50 Age: 1m Type: PAL Care Teams Petroleum Terminal Plant Operator Relationship Specialty Start Date End Date Juan Antunez MD PCP - General 04/21/17 Raisa Carmichael MD Consulting Physician Neurosurgery 07/17/22 documented as of this encounter
--- OUTSIDE RECORDS SUMMARY | 2024-03-16 11:00 | XMS_ITS | Encounter Summary ---
Author Organization [facility] Address [address] [place] [address] Phone Care Team Providers Care Pipeline Operator Name Role Phone Unknown, Notinfile Primary Care Provider Unavail able Juan Antunez MD Primary Care Provider [phone] Unknown, Notinfile Primary Care Provider Unavail able Juan Antunez MD Primary Care Provider [phone] Unknown, Notinfile Primary Care Provider Unavail able Unknown, Notinfile Primary Care Provider Unavail able Juan Antunez MD Primary Care Provider [phone] Unknown, Notinfile Primary Care Provider Unavail able Juan Antunez MD Primary Care Provider [phone] Raisa Carmichael MD Unavailable [phone] Encounter Details Date Type Department Care Team (Latest Contact Info) Description 01/14/2017 Orders Only [facility] Scanning, Provider Social History Tobacco Use Types Packs/Day Years Used Date Smoking Tobacco: Former Sex and Gender Information Value Date Recorded Sex Assigned at Not on file 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 Gender Identity Not on file Sexual Orientation Not on file documented as of this encounter Plan of Treatment Not on file documented as of this encounter Procedures Procedure Name Priority Date/Time Associated Diagnosis Comments SCAN - LABS 01/14/2017 documented in this encounter Results * SCAN - LABS (01/14/2017) us Provider Scanning Final Result documented in this encounter Visit Diagnoses Not on filedocumented in this encounter Care Teams Pipeline Operator Relationship Specialty Start Date End Date Unknown, Notinfile PCP - General 01/05/17 01/17/17 Juna Antunez MD PCP - General 01/18/17 01/20/17 Unknown, Notinfile PCP - General 01/21/17 02/02/17 Juan Antunez MD PCP - General 02/03/17 03/16/17 Unknown, Notinfile PCP - General 03/17/17 03/17/17 Unknown, Notinfile PCP - General 03/18/17 03/24/17 Juan Antunez MD PCP - General 03/25/17 04/04/17 Unknown, Notinfile PCP - General 04/05/17 04/20/17 Juan Antunez MD PCP - General 04/21/17 Raisa Carmichael MD Consulting Physician Neurosurgery 07/17/22 documented as of this encounter
--- OUTSIDE RECORDS SUMMARY | 2024-03-16 11:00 | XMS_ITS | Encounter Summary ---
Author Organization [facility] Address [address] [place] [address] Care Team Providers Care Gambling Broker Name Role Phone Juan Antunez MD Primary Care Provider [phone] Raisa Carmichael MD Unavailable [phone] Encounter Details Date Type Department Care Team (Late st Contact Info) Description 07/17/2022 Telephone [facility] Transplant Heart [address] [address] Mailstop [id number] [place] [address] Clair Feliciano RN Social History Tobacco Use Types Packs/Day Years Used Date Smoking Tobacco: Former Smokeless Tobacco: Never Sex and Gender Information Value Date Recorded Sex Assigned at Not on file 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 documented in this encounter Plan of Treatment Not on file documented as of this encounter Visit Diagnoses Not on filedocumented in this encounter Care Teams Gambling Broker Relationship Specialty Start Date End Date Juan Antunez MD PCP - General 04/21/17 Raisa Carmichael MD Consulting Physician Neurosurgery 07/17/22 documented as of this encounter
--- OUTSIDE RECORDS SUMMARY | 2024-03-16 11:00 | XMS_ITS | Encounter Summary ---
Author Organization [facility] Address [address] [place] [address] Care Team Providers Care Air Brake Man Name Role Phone Juan Antunez MD Primary Care Provider [phone] Raisa Carmichael MD Unavailable [phone] Encounter Details Date Type Department Care Team (Late st Contact Info) Description 07/24/2022 Telephone [facility] Transplant Heart [address] [facility] [address] Mailstop [id number] [place] [address] Clair Feliciano RN Social History Tobacco Use Types Packs/Day Years Used Date Smoking Tobacco: Former Smokeless Tobacco: Never Sex and Gender Information Value Date Recorded Sex Assigned at Not on file 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 documented in this encounter Plan of Treatment Not on file documented as of this encounter Visit Diagnoses Not on filedocumented in this encounter Care Teams Air Brake Man Relationship Specialty Start Date End Date Juan Antunez MD PCP - General 04/21/17 Raisa Carmichael MD Consulting Physician Neurosurgery 07/17/22 documented as of this encounter
--- OUTSIDE RECORDS SUMMARY | 2024-03-16 11:00 | XMS_ITS | Encounter Summary ---
Author Organization [facility] Address [address] [place] [address] Phone Care Team Providers Care Director Technical Name Role Phone Juan Antunez MD Primary Care Provider [phone] Reason for Visit * Reason Onset Date Comments records 03/17/2019 Encounter Details Date Type Department Care Team (Late st Contact Info) Description 03/17/2019 Telephone [facility] Cardiology [address] [facility] 8th [place] [address] [place] [id number] Juan Orellana MD [address] [facility] [address] [place], [place] [id number] records Social History Tobacco Use Types Packs/Day Years Used Date Smoking Tobacco: Former Smokeless Tobacco: Never Sex and Gender Information Value Date Recorded Sex Assigned at Not on file 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 Orellana. Asked for call back with any questions. LE REAMER OPERATOR * Telephone Encounter - Juan Orellana MD - 03/23/2019 7:14 PM CST I've entered a response to the patient's message below. Response to the message: OK to have labs checked by PCP but I would like to receive a copy of lipid results. If not planning to have lipids within the next few months, then yes, I would like to order. Thanks, MR LE REAMER OPERATOR * Telephone Encounter - Autumn Rhodes RN - 03/23/2019 1:59 PM CST Lab results received from PCP but they are from 2017. (scanned in under labs) Do you want new labs drawn? LE REAMER OPERATOR * Telephone Encounter - Nina Chong - 03/23/2019 8:34 AM CST Autumn, lab results in chart, however, from DOS 01-14-17 LE REAMER OPERATOR * Telephone Encounter - Nina Chong - 03/22/2019 12:24 PM CST Spoke w/Sulema in correspondence, asked me to refax LE REAMER OPERATOR * Telephone Encounter - Nina Chong - 03/21/2019 8:48 AM CST Requested again LE REAMER OPERATOR * Telephone Encounter - Nina Chong - 03/17/2019 1:44 PM CST Faxed request LE REAMER OPERATOR * Telephone Encounter - Autumn Rhodes RN - 03/17/2019 1:35 PM CST Please request recent labs from PCP office. Thank you. LE REAMER OPERATOR documented in this encounter Plan of Treatment Not on file documented as of this encounter Visit Diagnoses Not on filedocumented in this encounter Care Teams Director Technical Relationship Specialty Start Date End Date Juan Antunez MD PCP - General 04/21/17 documented as of this encounter
--- OUTSIDE RECORDS SUMMARY | 2024-03-16 11:00 | XMS_ITS | Encounter Summary ---
Author Organization [facility] Address [address] [place] [address] Phone Care Team Providers Care Oracle Brm Developer Name Role Phone Juan Antunez MD Primary Care Provider [phone] Raisa Carmichael MD Unavailable [phone] Reason for Visit * Reason Comments Routine Glaucoma Follow Up Encounter Details Date Type Department Care Team (Late st Contact Info) Description 09/28/2022 9:30 AM CDT Office Visit [facility] Ophthalmology [address] [place] [place] [address] Nicolle Jameson MD [address] [place] [address] Optic atrophy (Primary Dx) Social History Tobacco Use Types Packs/Day Years Used Date Smoking Tobacco: Former Smokeless Tobacco: Never Sex and Gender Information Value Date Recorded Sex Assigned at Not on file 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 Gender Identity Not on file Sexual Orientation Not on file documented as of this encounter Progress Notes * Nicolle Jameson MD - 09/28/2022 9:30 AM CDT Assessment/Plan Diagnoses and all orders for this visit: Optic atrophy (Primary) Assessment & Plan: Poor historian with possible history of optic [...] months for IOP Check Annual with testing I have seen/examined the patient and I agree with the findings/plan of the Resident/Fellow documented in this encounter Miscellaneous Notes * Assessment & Plan Note - Kristel Villareal MD - 09/28/2022 10:51 AM CDT Associated Problem(s): Optic atrophy Poor historian [...] months for IOP Check Annual with testing documented in this encounter Plan of Treatment Not on file documented as of this encounter Visit Diagnoses Diagnosis Optic atrophy- Primary Unspecified optic atrophy documented in this encounter Eye Exam Visual Acuity (Snellen - Linear) Right eye Left eye Dist cc 20/30 searching -1 20/30 +1 Dist ph cc NI 20/25 +1 Correction: Glasses Tonometry (Applanation, 9:59 AM) Right eye Left eye Pressure 16 16 Pachymetry (09/28/2022) Right eye Left eye Thickness 593 586 Gonioscopy Right eye Left eye Temporal 3 3 Nasal 2 2 Superior 1 3 Inferior 4 4 Pupils Dark Light Shape React APD Right eye 3 2.5 Round Brisk None Left eye 3.5 3.0 Round Brisk None Visual Godoy Right [...] and reactive Round and elmer ctive Lens 1-2+ NS 1-2+ NS Anterior Vitreous Normal Normal Fundus Exam Right eye Left eye Disc no collaterals, no pallor C/D Ratio 0.5 0.3 Wearing Rx Sphere Cylinder [place] Add Right eye -3.25 +1.75 176 +2.50 Left eye -5.25 +1.50 018 +2.50 Type: PAL Care Teams Oracle Brm Developer Relationship Specialty Start Date End Date Juan Antunez MD PCP - General 04/21/17 Raisa Carmichael MD Consulting Physician Neurosurgery 07/17/22 documented as of this encounter
--- OUTSIDE RECORDS SUMMARY | 2024-03-16 11:00 | XMS_ITS | Encounter Summary ---
Author Organization [facility] Address [address] [place] [address] Phone Care Team Providers Care Dry Cell Assembly Supervisor Name Role Phone Juan Antunez MD Primary Care Provider [phone] Encounter Details Date Type Department Care Team (Late st Contact Info) Description 05/01/2019 Telephone 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 Gender Identity Not on file Sexual Orientation Not on file documented as of this encounter Ordered Prescriptions Prescription Sig Dispense Quantity Refills Last Filled Start Date End Date atorvastatin (LIPITOR) 80 mg tablet Take 1 tablet (80 mg total) by mouth daily 90 tablet 3 05/01/2019 04/19/2020 documented in this encounter Miscellaneous Notes * Addendum Note - Denisse Ramírez MA - 05/01/2019 10:55 AM CSTAddended by: DENISSE RAMÍREZ on: 05/01/2019 10:55 AM Modules accepted: Orders RA MACHINIST * Telephone Encounter - Martha Burdick - 05/01/2019 8:55 AM CST Images from the original note were not included. RA MACHINIST documented in this encounter Plan of Treatment Not on file documented as of this encounter Visit Diagnoses Not on filedocumented in this encounter Discontinued Medications Medication Sig Discontinue Reason Start Date End Da te atorvastatin (LIPITOR) 80 mg tablet Take 1 tablet (80 mg total) by mouth daily Reorder 09/20/2018 05/01/2019 documented as of this encounter Care Teams Dry Cell Assembly Supervisor Relationship Specialty Start Date End Date Juan Antunez MD PCP - General 04/21/17 documented as of this encounter
--- OUTSIDE RECORDS SUMMARY | 2024-03-16 11:00 | XMS_ITS | Encounter Summary ---
Author Organization [facility] Address [address] [place] [address] Phone Care Team Providers Care Intermediate Manager Name Role Phone Juan Antunez MD Primary Care Provider [phone] Reason for Visit * Reason Onset Date Comments Med Refill 09/20/2018 Encounter Details Date Type Department Care Team (Late st Contact Info) Description 09/20/2018 Telephone [facility] Cardiology [facility] [facility] 8th [place] [address] [place] [address] Nina Chong Med Refill Social History Tobacco Use Types Packs/Day Years Used Date Smoking Tobacco: Former Smokeless Tobacco: Never Sex and Gender Information Value Date Recorded Sex Assigned at Not on file 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 #30 documented in this encounter Plan of Treatment Not on file documented as of this encounter Visit Diagnoses Not on filedocumented in this encounter Discontinued Medications Medication Sig Discontinue Reason Start Date End Da te atorvastatin (LIPITOR) 80 mg tablet Take 1 tablet (80 mg total) by mouth daily Reorder 06/20/2018 09/20/2018 documented as of this encounter Care Teams Intermediate Manager Relationship Specialty Start Date End Date Juan Antunez MD PCP - General 04/21/17 documented as of this encounter
--- OUTSIDE RECORDS SUMMARY | 2024-03-16 11:00 | XMS_ITS | Encounter Summary ---
Author Organization [facility] Address [address] [facility] [address] [place] [address] Phone Care Team Providers Care Galley Cook Name Role Phone Juan Antunez MD Primary Care Provider [phone] Reason for Visit * Cardiology (Routine) - Closed Specialty Diagnoses / Procedures Referred By Contac t Referred To Contact Diagnoses Chronic coronary artery disease Procedures Stress Echo Exercise W Doppler/CF Stress Echo Exercise WO Doppler/CF Sherwin Tuttle MD Phone: tel: fax: [facility] Referral ID Status Reason Start Date Expiration Date Visits Re quested Visits Authorized [id number] Closed 07/06/2022 08/05/2023 1 1 Encounter Details Date Type Department Care Team (Latest Contact Info) Description 07/16/2022 11:15 AM CDT Ancillary Procedure [facility] [address] [facility] [address] [place] [address] Sherwin Tuttle MD [address] [address] Chronic coronary artery disease Social History Tobacco Use Types Packs/Day Years Used Date Smoking Tobacco: Former Smokeless Tobacco: Never Sex and Gender Information Value Date Recorded Sex Assigned at Not on file 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 Gender Identity Not on file Sexual Orientation Not on file documented as of this encounter Plan of Treatment Not on file documented as of this encounter Procedures Procedure Name Priority Date/Time Associated Diagnosis Comments STRESS ECHO EXERCISE W DOPPLER/CF W CONTRAST Routine 07/16/2022 1:11 PM CDT Chronic coronary artery disease documented in this encounter Results * STRESS ECHO EXERCISE W DOPPLER/CF W CONTRAST (07/16/2022 1:11 PM CDT) LV EF 45-50 % CARDIOREPORT Anatomical Region Laterality Modality Ultrasound 07/16/2022 11:1 5 AM CDT Narrative 07/16/2022 2:56 PM CDT Patient name: Roland Garcia Date of test: 07/16/2022 [facility] #: [id number] ?Location: [facility] Interpreted by: Ryan Grider MD Clinical Dietitian: Mirella Hough [facility] RN: Barbara Baron RN Reason for Test: Coronary artery disease, PreOperative Evaluation Study quality: Technically good Referring Physician: SHERWIN TUTTLE MD Contrast Agent: 2.3 ml Optison Administered, (0.7 ml wasted). BASELINE STUDY: Wall Motion Scoring (1=Normal 2=Hypo 3=Akinetic 4=Dyskin./Aneurysm 0=Not visualized) Parasternal Long Dailey:MAS=2 BAS=2 MIL=2 ELIE=2 Parasternal Short Dailey:MAS=2 MIS=2 IA=2 MIL=2 MAL=2 MA=2 Apical 4 Chambers:=2 MIS=2 BIS=2 BAL=2 MAL=2 AL=2 AC=2 Apical 2 Chambers:AI=2 IA=2 BI=2 BA=2 MA=2 AA=2 AC=2 Ejection Fraction: 45-50% LV Global Function: Mild global left ventricular dysfunction. Baseline Echo Comments: Normal LV+RV cavity size, with mild global reduction in REF 40-45 with paradoxical septal motion related to LBBB. Normal anterior wall motion and thickening. Doppler/CF Comments: No MS, MR, , AR, TS, PS, SC, Mild TR. Baseline HR: 75 Baseline BP: 139/80 Conduction Defects: Resting ECG Comments: SR in the 70's, LBBB Medications: ASA, Lipitor Meds held: ASA POST EXERCISE STUDY: Wall Motion Scoring (1=Normal 2=Hypo 3=Akinetic 4=Dyskin./Aneurysm 0=Not visualized) Parasternal Long Dailey:MAS=1 BAS=1 MIL=1 ELIE=1 Parasternal Short Dailey:MAS=1 MIS=1 IA=1 MIL=1 MAL=1 MA=1 Apical 4 Chambers:=1 MIS=1 BIS=1 BAL=1 MAL=1 AL=1 AC=1 Apical 2 Chambers:AI=1 IA=1 BI=1 BA=1 MA=1 AA=1 AC=1 Peak HR: 151 Peak BP: 182/90 Post-Exercise Comments: Compared to baseline, there is marked increase in overall global systolic function without new segmental wall motion abnormalities. Paradoxical motion still present due to LBBB. The patient exercised for ??8 min. 56 sec. The patient achieved: 151 bpm ??99 % of MPHR ?METS: 0 Exer. Perf: Test terminated: ??Fatigue. Stress ECG Comments: ??No significant arrhythmia, unable to read ECG for ischemia due to LBBB. CONTRAST ENHANCEMENT WAS EMPLOYED after initial imaging due to sub-optimal quality related to co-morbidity defined by patient's body habitus. Impression: Maximal Exercise Stress Echocardiogram, NEGATIVE for myocardial ischemia, with augmented (from baseline resting images) segmental function in the anterior and inferior asencio. Paradoxical septal motion remains, due to LBBB. Confirmed on ??07/16/2022 - 14:56:12 by Ryan Grider MD By signing this report, the attending product safety specialist certifies that he or she has personally supervised and interpreted the echocardiogram and has reviewed and or edited and agrees with the written comments contained within the report. Procedure Note Ryan Grider MD - 07/16/2022 Patient name: Roland Garcia Date of test: 07/16/2022 Hospital #: [id number] Location: [facility] Interpreted by: Ryan Grider MD Clinical Dietitian: Mirella Hough RDCS RCCS RN: Barbara Baron RN Reason for Test: Coronary artery disease, PreOperative Evaluation Study quality: Technically good Referring Physician: SHERWIN TUTTLE MD Contrast Agent: 2.3 ml Optison Administered, (0.7 ml wasted). BASELINE STUDY: Wall Motion Scoring (1=Normal 2=Hypo 3=Akinetic 4=Dyskin./Aneurysm 0=Not visualized) Parasternal Long Dailey:MAS=2 BAS=2 MIL=2 ELIE=2 Parasternal Short Dailey:MAS=2 MIS=2 IA=2 MIL=2 MAL=2 MA=2 Apical 4 Chambers:=2 MIS=2 BIS=2 BAL=2 MAL=2 AL=2 AC=2 Apical 2 Chambers:AI=2 IA=2 BI=2 BA=2 MA=2 AA=2 AC=2 Ejection Fraction: 45-50% LV Global Function: Mild global left ventricular dysfunction. Baseline Echo Comments: Normal LV+RV cavity size, with mild global reduction in REF 40-45 with paradoxical septal motion related to LBBB. Normal anterior wall motion and thickening. Doppler/CF Comments: No MS, MR, , AR, TS, PS, SC, Mild TR. Baseline HR: 75 Baseline BP: 139/80 Conduction Defects: Resting ECG Comments: SR in the 70's, LBBB Medications: ASA, Lipitor Meds held: ASA POST EXERCISE STUDY: Wall Motion Scoring (1=Normal 2=Hypo 3=Akinetic 4=Dyskin./Aneurysm 0=Not visualized) Parasternal Long Dailey:MAS=1 BAS=1 MIL=1 ELIE=1 Parasternal Short Dailey:MAS=1 MIS=1 IA=1 MIL=1 MAL=1 MA=1 Apical 4 Chambers:=1 MIS=1 BIS=1 BAL=1 MAL=1 AL=1 AC=1 Apical 2 Chambers:AI=1 IA=1 BI=1 BA=1 MA=1 AA=1 AC=1 Peak HR: 151 Peak BP: 182/90 Post-Exercise Comments: Compared to baseline, there is marked increase in overall global systolic function without new segmental wall motion abnormalities. Paradoxical motion still present due to LBBB. The patient exercised for 8 min. 56 sec. The patient achieved: 151 bpm 99 % of MPHR METS: 0 Exer. Perf: Test terminated: Fatigue. Stress ECG Comments: No significant arrhythmia, unable to read ECG for ischemia due to LBBB. CONTRAST ENHANCEMENT WAS EMPLOYED after initial imaging due to sub-optimal quality related to co-morbidity defined by patient's body habitus. Impression: Maximal Exercise Stress Echocardiogram, NEGATIVE for myocardial ischemia, with augmented (from baseline resting images) segmental function in the anterior and inferior asencio. Paradoxical septal motion remains, due to LBBB. Confirmed on 07/16/2022 - 14:56:12 by Ryan Grider MD By signing this report, the attending product safety specialist certifies that he or she has personally supervised and interpreted the echocardiogram and has reviewed and or edited and agrees with the written comments contained within the report. us Sherwin Tuttle MD CV ECHO PROCEDURES Final Res ult documented in this encounter Visit Diagnoses Diagnosis Chronic coronary artery disease Coronary atherosclerosis of unspecified type of vessel, [place] or graft documented in this encounter Administered Medications Inactive Administered Medications - up to 3 most recent administrations Medication Order MAR Action Action Date Dose Rate Site perflutren protein-a (OPTISON) 3 mL in sodium chloride 0.9% 8 mL syringe 1-8 mL, intravenous, Once in imaging, contrast, Starting on Petrona 07/16/22 at 1114, For 1 dose, Intra-Procedure (CV) Contrast Given 07/21/2022 10:11 AM CDT 6 mL documented in this encounter Orders Medications Ordered That Irving ht Not Have Been Administered Count Last Ordered Date First Ordered Date perflutren protein-a (OPTISO N) 3 mL in sodium chloride 0.9% 8 mL syringe 1 07/16/2022 documented in this encounter Care Teams Galley Cook Relationship Specialty Start Date End Date Juan Antunez MD PCP - General 04/21/17 documented as of this encounter
--- OUTSIDE RECORDS SUMMARY | 2024-03-16 11:00 | XMS_ITS | Encounter Summary ---
Author Organization [facility] Address [address] [place] [address] Phone Care Team Providers Care Veterinary Science Teacher Name Role Phone Juan Antunez MD Primary Care Provider [phone] Encounter Details Date Type Department Care Team (Late st Contact Info) Description 12/15/2017 Telephone [facility] Cardiology [facility] 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 30 tablet 2 12/16/2017 03/18/2018 documented in this encounter Miscellaneous Notes * Telephone Encounter - Autumn Madrigal RN - 12/15/2017 4:49 PM CDT Please refill * Telephone Encounter - Clair Carlton - 12/15/2017 3:05 PM CDT RICH LIPITOR 80MG TAB documented in this encounter Plan of Treatment Not on file documented as of this encounter Visit Diagnoses Not on filedocumented in this encounter Discontinued Medications Medication Sig Discontinue Reason Start Date End Da te atorvastatin (LIPITOR) 80 mg tablet Take 1 tablet by mouth daily. Reorder 08/16/2017 12/16/2017 documented as of this encounter Care Teams Veterinary Science Teacher Relationship Specialty Start Date End Date Juan Antunez MD PCP - General 04/21/17 documented as of this encounter
--- OUTSIDE RECORDS SUMMARY | 2024-03-16 11:00 | XMS_ITS | Encounter Summary ---
Author Organization [facility] Address [address] [place] [address] Care Team Providers Care Soap Tender Name Role Phone Unknown, Julissa Primary Care Provider Unavail able Encounter Details Date Type Department Care Team (Latest Contact Info) Description 03/18/2017 5:55 PM EQUITY RESEARCH ANALYST - 03/18/2017 11:59 PM EQUITY RESEARCH ANALYST Hospital Encounter [facility] OP INTERIM [phone] [place] [address] [address] Discharge Disposition: Discharge to home or self care Social History Tobacco Use Types Packs/Day Years Used Date Smoking Tobacco: Former Sex and Gender Information Value Date Recorded Sex Assigned at Not on file Legal Sex Male 12:39 AM EQUITY RESEARCH 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
--- OUTSIDE RECORDS SUMMARY | 2024-03-16 11:00 | XMS_ITS | Encounter Summary ---
Author Organization [facility] Facility Care Team Providers Care Purchaser Name Role Phone Unknown, Notinfile Primary Care Provider Unavail able Encounter Details Date Type Department Care Team (Latest Contact Info) Description 03/18/2017 Orders [place] [facility] [address] [place] [id number] Social History Tobacco Use Types Packs/Day Years Used Date Smoking Tobacco: Former Sex and Gender Information Value Date Recorded Sex Assigned at Not on file Legal Sex Male 12:39 AM SEAM CLOSER Gender Identity Not on file Sexual Orientation Not on file documented as of this encounter Plan of Treatment Not on file documented as of this encounter Procedures Procedure Name Priority Date/Time Associated Diagnosis Comments XR SPINE CERVICAL COMPLETE 4 OR 5 VW Routine 03/18/2017 4:09 PM SEAM CLOSER documented in this encounter Results * XR Spine Cervical Complete 4 or 5 Views (03/18/2017 4:09 PM SEAM CLOSER) Anatomical Region Laterality Modality Spine N/A Radiographic Krista ging 03/18/2017 4:09 PM SEAM CLOSER Narrative 03/18/2017 4:33 PM SEAM CLOSER ALEX TIMMONS M.D. FINAL REPORT ACC# ??Date Time ??Exam [id number] Mar 18, 2017 10:09:00 [id number] Spine Cervical 4-5 views EXAMINATION: ??Spine cervical 4-5 views HISTORY: ??Cervical spondylosis FINDINGS: AP, lateral neutral, lateral flexion and lateral extension views of the cervical spine are obtained. Comparison is made to a prior MRI from 01/21/2017. There is mild anterolisthesis of C3 on C4 which does not change with flexion and extension positioning. There is minimal retrolisthesis of C5 on C6 which does not change between flexion and extension positioning. Vertebral body heights are intact. There is no prevertebral soft tissue thickening. There is multilevel degenerative disc disease from C4-C7 which is greatest and moderate at the C5-C6 level. No osseous central canal stenosis is seen. There is bilateral mid cervical facet osteoarthritis. IMPRESSION: ??Multilevel degenerative disc disease from C4 to C7 which is greatest and moderate at the C5-C6 level. Electronically signed by: Alex Timmons M.D. Requested By: MURRAY MILLIGAN M.D. Dictated By: ?? ALEX TIMMONS M.D. ??on Mar 18 2017 10:31A This document has been electronically signed by: ALEX TIMMONS M.D. on Mar 18 2017 10:31A [id number] TIMMONS M.D. FINAL REPORT Attending: ??SRINI, ??MURRAY Requesting: ??SRINI, ??MURRAY Requesting Fax: ?? Attending Fax: ?? Attending ID: ??[id number] Requesting ID: ??[id number] Report To 1 ID: ??[id number] ? Report To 1 Name: ??, ?? Report To 1 FAX: ?? NextGen Order #: ?? Procedure Note Miscellaneous, Not In File - 03/18/2017 ALEX TIMMONS M.D. FINAL REPORT ACC# Date Time Exam [id number] Mar 18, 2017 10:09:00 [id number] Spine Cervical 4-5 views EXAMINATION: Spine cervical 4-5 views HISTORY: Cervical spondylosis FINDINGS: AP, lateral neutral, lateral flexion and lateral extension views of the cervical spine are obtained. Comparison is made to a prior MRI from 01/21/2017. There is mild anterolisthesis of C3 on C4 which does not change with flexion and extension positioning. There is minimal retrolisthesis of C5 on C6 which does not change between flexion and extension positioning. Vertebral body heights are intact. There is no prevertebral soft tissue thickening. There is multilevel degenerative disc disease from C4-C7 which is greatest and moderate at the C5-C6 level. No osseous central canal stenosis is seen. There is bilateral mid cervical facet osteoarthritis. IMPRESSION: Multilevel degenerative disc disease from C4 to C7 which is greatest and moderate at the C5-C6 level. Electronically signed by: Alex Timmons M.D. Requested By: MURRAY MILLIGAN M.D. Dictated By: ALEX TIMMONS M.D. on Mar 18 2017 10:31A This document has been electronically signed by: ALEX TIMMONS M.D. on Mar 18 2017 10:31A [id number] TIMMONS M.D. FINAL REPORT Attending: MURRAY MILLIGAN Requesting: MURRAY MILLIGAN Requesting Fax: Attending Fax: Attending ID: [id number] Requesting ID: [id number] Report To 1 ID: [id number] Report To 1 Name: , Report To 1 FAX: NextGen Order #: Murray Milligan MD IMG XR PROCEDURES Final Resul t documented in this encounter Visit Diagnoses Not on filedocumented in this encounter Care Teams Purchaser Relationship Specialty Start Date End Date Unknown, Notinfile PCP - General 03/18/17 03/24/17 documented as of this encounter
--- OUTSIDE RECORDS SUMMARY | 2024-03-16 11:00 | XMS_ITS | Encounter Summary ---
Author Organization [facility] Address [address] [place] [address] Phone Care Team Providers Care Retort Feeder Ground Bone Name Role Phone Juan Antunez MD Primary Care Provider [phone] Raisa Carmichael MD Unavailable Reason for Visit * Reason Onset Date Comments Scheduling Appointments 08/14/2022 Encounter Details Date Type Department Care Team (Late st Contact Info) Description 08/14/2022 Telephone [facility] Ophthalmology [address] [place], [place] [id number] Gurvinder Ventura, [place] [address] [id number] Scheduling Appointments Social History Tobacco Use Types Packs/Day Years Used Date Smoking Tobacco: Former Smokeless Tobacco: Never Sex and Gender Information Value Date Recorded Sex Assigned at Not on file 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 Lmomfor pt to cb and reschedule. * Telephone Encounter - Ninfa Fry - 08/14/2022 7:54 AM CDT Pt called in to r/s appt. Unable to find a later appt for Dr Ventura per he only see Neuro in the afternoon. documented in this encounter Plan of Treatment Not on file documented as of this encounter Visit Diagnoses Not on filedocumented in this encounter Care Teams Retort Feeder Ground Bone Relationship Specialty Start Date End Date Juan Antunez MD PCP - General 04/21/17 Raisa Carmichael MD Consulting Physician Neurosurgery 07/17/22 documented as of this encounter
--- OUTSIDE RECORDS SUMMARY | 2024-03-16 11:00 | XMS_ITS | Encounter Summary ---
Author Organization [facility] Address [address] [place] [address] Phone Care Team Providers Care Manager Strategic Name Role Phone Juan Antunez MD Primary Care Provider [phone] [phone] Encounter Details Date Type Department Care Team (Late st Contact Info) Description 08/27/2017 3:00 PM CDT Office Visit [facility] Cardiology [address] [facility] [address] [facility] [address]th [place] [address] [place] [id number] Juan Orellana MD [address] [place] [address] Chronic coronary artery disease (Primary Dx); Mixed hyperlipidemia; Left bundle branch block (LBBB) Social History Tobacco Use Types Packs/Day Years Used Date Smoking Tobacco: Former Smokeless Tobacco: Never Sex and Gender Information Value Date Recorded Sex Assigned at Not on file 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 Gender Identity Not on file Sexual Orientation Not on file documented as of this encounter Last Filed Vital Signs Vital Sign Reading Time Taken Comments Blood Pressure 130/70 08/27/2017 3:33 PM CDT Pulse 75 08/27/2017 3:33 PM CDT Temperature 37.1 ??C (98.8 ??F) 08/27/2017 3:33 PM CD T Respiratory Rate - - Oxygen Saturation 97% 08/27/2017 3:33 PM CDT Inhaled Oxygen Concentration - - Weight 85.3 kg (188 lb) 08/27/2017 3:33 PM CDT Height 177.8 cm (5' 10 ) 08/27/2017 3:33 PM CDT Body Mass Index 26.98 08/27/2017 3:33 PM CDT documented in this encounter Patient Instructions * Patient Instructions* Juan Orellana MD - 08/27/2017 3:00 PM CDT Hold aspirin until after seeing the neurologist. Continue other medications. Stay active. Have a good weekend! Dr. Orellana documented in this encounter Progress Notes * Remington Diego MD - 08/27/2017 3:00 PM CDT Cardiology Return Clinic Visit HPI: We saw Roland Garcia in cardiology clinic today after an interval of 1 year. He has been feeling well since we last saw him. He has not been having any cardiac symptoms including chest pain, dyspnea, palpitations, lightheadedness, or syncope. He has been exercising more, including daily walks of 30-45 minutes, which have become much more consistent since he got a dog earlier this year. He has been working to improve his diet and tries to eat healthy as much as possible. He has had some neurological issues since his last visit including a small subdural hematoma, whichhas been monitored by our Neurology Department. He also has cervical spine stenosis that causes some numbness in his left 5th digit. This is being managed conservatively with no immediate plans for surgery. Review of Systems Constitutional: Negative for chills and fever. HENT: Negative for congestion and nosebleeds. Respiratory: Negative for cough. Negative for snoring. Cardiovascular: As per HPI. Gastrointestinal: Negative for abdominal pain, nausea, diarrhea. Genitourinary: Negative for frequency and hematuria. Musculoskeletal: Negative for myalgias. Positive for numbness in left 5th digit. Skin: Negative for rash. Neurological: Negative for focal weakness and loss of consciousness. Positive for recent SDH as perHPI. Endocrine: Negative for thyroid disease, polyuria/polydipsia. Psychiatric/Behavioral: Negative for depression. All other systems reviewed and are negative. Medications: -atorvastatin 80mg daily -fenofibrate 160mg daily -aspirin 81mg daily -sertraline 100mg daily No Known Allergies Physical Exam: Vitals: 06/22/18 1533 BP: 130/70 BP Location: Left arm Patient Position: Sitting Pulse: 75 Temp: 37.1 ??C (98.8 ??F) TempSrc: Oral SpO2: 97% Weight: 85.3 kg (188 lb) Height: 177.8 cm (5' 10 ) General: Pleasant male in no acute distress. Weight down 8.4 lbs since last visit. HEENT: normocephalic, atraumatic, no conjunctival injection, no scleral icterus Neck: No JVD or HJR; no thyromegaly Lungs: Clear bilaterally. No rales. No rhonchi. No wheezing. Cardiac: Normal rate, regular rhythm, no murmurs, no rubs. Paradoxically split S2. PMI nondisplaced. Abdomen: Soft, nontender, nondistended. No masses. No bruits. No hepatomegaly. Extremities: Warm and well perfused. No clubbing. No cyanosis. No edema Skin: No rashes noted. No lesions noted. Psych: Appropriate affect. Appropriate mood. Neuro: A&Ox4. Grossly intact. Lab/Radiology/Diagnostic Review: There are no new labs or studies. Impression 1. Mild to moderate CAD based on coronary CTA, asymptomatic. 2. Hyperlipidemia with hypertriglyceridemia, on atorvastatin and fenofibrate. 3. NATALIE. 4. LBBB. 5. Subdural hematoma, conservative management. 6. Cervical spine stenosis, conservative management. 7. BPPV, resolved. 8. Squamous cell carcinoma of skin, resected. Plan 1. Hold ASA pending follow-up re: subdural hematoma--can be restarted in future if stable. 2. Continue other medications as currently. 3. Continue regular exercise and healthy diet. 4. Return appointment in 1 yr. Cosigned by Juan Orellana MD at 08/31/2017 12:13 PM CDT documented in this encounter Plan of Treatment Not on file documented as of this encounter Visit Diagnoses Diagnosis Chronic coronary artery disease- Primary Coronary atherosclerosis of unspecified type of vessel, north fork or graft Mixed hyperlipidemia Left bundle branch block (LBBB) documented in this encounter Care Teams Manager Strategic Relationship Specialty Start Date End Date Juan Antunez MD PCP - General 04/21/17 documented as of this encounter
--- OUTSIDE RECORDS SUMMARY | 2024-03-16 11:00 | XMS_ITS | Encounter Summary ---
Author Organization [facility] Address [address] [place] [address] Care Team Providers Care Daily Sales Audit Clerk Name Role Phone Juan Antunez MD Primary Care Provider [phone] [phone] Encounter Details Date Type Department Care Team (Late st Contact Info) Description 07/06/2022 Orders Only [facility] Transplant Heart [address] [address] [address]stop [id number] [place] [address] Nida Diaz RN Social History Tobacco Use Types Packs/Day Years Used Date Smoking Tobacco: Former Smokeless Tobacco: Never Sex and Gender Information Value Date Recorded Sex Assigned at Not on file 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 08/16/2017 07/06/2022 documented as of this encounter Care Teams Daily Sales Audit Clerk Relationship Specialty Start Date End Date Juan Antunez MD PCP - General 04/21/17 documented as of this encounter
--- OUTSIDE RECORDS SUMMARY | 2024-03-16 11:00 | XMS_ITS | Encounter Summary ---
Author Organization [facility] Address [address] [place] [address] Phone Care Team Providers Care Electrician Helper Name Role Phone Juan Antunez MD Primary Care Provider [phone] [phone] Encounter Details Date Type Department Care Team (Late st Contact Info) Description 09/02/2018 12:45 PM CDT Office Visit 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 Gender Identity Not on file Sexual Orientation Not on file documented as of this encounter Last Filed Vital Signs Vital Sign Reading Time Taken Comments Blood Pressure 127/75 09/02/2018 12:53 PM CDT Pulse 76 09/02/2018 12:53 PM CDT Temperature 37 ??C (98.6 ??F) 09/02/2018 12: 53 PM CDT Respiratory Rate - - Oxygen Saturation 95% 09/02/2018 12: 53 PM CDT Inhaled Oxygen Concentration - - Weight 87.5 kg (192 lb 12.8 oz) 019 12:53 PM CDT Height 177.8 cm (5' 10 ) 09/02/2018 12: 53 PM CDT Body Mass Index 27.66 09/02/2018 12:53 PM CDT documented in this encounter Patient Instructions * Patient Instructions* Juan Orellana MD - 09/02/2018 12:45 PM CDT Continue current medications. As we discussed, optimal LDL cholesterol (bad cholesterol) for you is less than 70; 70-99 is acceptable; 100 or more is less desirable. Call with your cholesterol readings if signifiicantly different from the numbers in the office today. Increase activity level and exercise regularly with a goal of 150 minutes of moderate intensity exercise each week. Eat a healthy diet, such as the Mediterranean diet, and try to lose some weight. Call with any questions. Have a great weekend! Dr. Orellana documented in this encounter Progress Notes * Juan Orellana MD - 09/02/2018 12:45 PM CDT Cardiology Return Clinic Visit 09/02/2018 HPI: I saw Roland Garcia in Cardiology Clinic today after an interval of 1 year. Overall he is doing well and he remains stable from the CV standpoint. He has rare brief atypical chest pain. He becomes SOB climbing 2 flights of stairs but this is stable and unchanged from previously. He denies LE swelling or other CHF symptoms. He denies palpitations, lightheadedness, falls or syncope. He does not exercise regularly but he is moderately active in his daily activities. His lipids are monitored by his PCP and he has been told they are acceptable but specifics are unavailable at this time. He denies any new health issues. Review of Systems Constitutional: Negative for chills and fever. HEENT: Negative for congestion and nosebleeds. Respiratory: Negative for cough. Positive for NATALIE. Otherwise as noted in HPI. Cardiovascular: As per HPI. Gastrointestinal: Negative for abdominal pain, nausea, diarrhea. Genitourinary: Negative for frequency and hematuria. Musculoskeletal: Negative for myalgias. Positive for arthritis. Skin: Negative for rash. Neurological: [...] tablet No Known Allergies Physical Exam: Vitals: 09/02/18 1253 BP: 127/75 BP Location: Left arm Patient Position: Sitting Pulse: 76 Temp: 37 ??C (98.6 ??F) TempSrc: Oral SpO2: 95% Weight: 87.5 kg (192 lb 12.8 oz) Height: 177.8 cm (5' 10 ) General: Pleasant male in no acute distress. Weight up 4.8 lbs since last visit. BMI 27.7. HEENT: normocephalic, atraumatic, no conjunctival injection, no scleral icterus Neck: No JVD or HJR; no thyromegaly; no carotid bruits Lungs: Clear bilaterally. No rales. No rhonchi. No wheezing. Cardiac: Normal rate, regular rhythm, no murmurs, no rubs, no S3. Abdomen: Soft, nontender, nondistended. No masses. No hepatomegaly. Extremities: Warm and well perfused. No clubbing. No cyanosis. No edema Skin: No rashes noted. Psych: Normal affect. Appropriate mood. Neuro: A&Ox4. Grossly intact. Lab/Radiology/Diagnostic Review: No recent labs available for review Impression 1. Mild to moderate CAD based on coronary CTA, asymptomatic. 2. Hyperlipidemia with hypertriglyceridemia, on atorvastatin and fenofibrate. 3. NATALIE. 4. LBBB. 5. History of subdural hematoma with conservative management. 6. Cervical spine stenosis. 7. BPPV, resolved. 8. Squamous cell carcinoma of skin, resected. ?? Plan 1. Continue current medications. 2. I encouraged Mr. Garcia to exercise regularly, watch his weight and try to lose a few pounds, and to follow a heart healthy diet, such as the Mediterranean diet. 3. Return appointment in 12 months. Juan Orellana MD tank farm gauger documented in this encounter Plan of Treatment Not on file documented as of this encounter Visit Diagnoses Diagnosis Chronic coronary artery disease- Primary Coronary atherosclerosis of unspecified type of vessel, ho-chunk or graft Mixed hyperlipidemia Left bundle branch block (LBBB) documented in this encounter Care Teams Electrician Helper Relationship Specialty Start Date End Date Juan Antunez MD PCP - General 04/21/17 documented as of this encounter
--- OUTSIDE RECORDS SUMMARY | 2024-03-16 11:00 | XMS_ITS | Encounter Summary ---
Author Organization [facility] Healthcare Address [address] [place] [address] Care Team Providers Care Representative Name Role Phone Unknown, Notinfile Primary Care Provider Unavail able Encounter Details Date Type Department Care Team (Latest Contact Info) Description 04/05/2017 3:13 PM CARTRIDGE FEEDER - 04/05/2017 11:59 PM CARTRIDGE FEEDER Hospital Encounter [facility] INTERIM [phone] [place] [address] [address] Discharge Disposition: Discharge to home or self care Social History Tobacco Use Types Packs/Day Years Used Date Smoking Tobacco: Former Sex and Gender Information Value Date Recorded Sex Assigned at Not on file Legal Sex Male 12:39 AM CARTRIDGE FEEDER Gender Identity Not on file Sexual Orientation Not on file documented as of this encounter Discharge Disposition Disposition Code Departure Means Destination Discharge to home or self care documented in this encounter Plan of Treatment Not on file documented as of this encounter Procedures Procedure Name Priority Date/Time Associated Diagnosis Comments CT HEAD WO CONTRAST Routine 04/05/2017 9 :39 PM CARTRIDGE FEEDER documented in this encounter Results * CT Head WO Contrast (04/05/2017 9:39 PM CARTRIDGE FEEDER) Anatomical Region Laterality Modality Head and Neck N/A Computed Tomogra phy 04/05/2017 9:39 PM CARTRIDGE FEEDER Narrative 04/05/2017 10:59 PM CARTRIDGE FEEDER CASIE RODRÍGUEZ M.D. LANE LAMAR M.D. FINAL REPORT The radiology attending physician has personally reviewed this study, and has reviewed and/or edited this written report and agrees with it. ACC# ??Date Time ??Exam [id number] Apr 05, 2017 15:39:[id number] Head or Brain w/o cont EXAMINATION: ??Noncontrast head CT HISTORY: Subdural hematoma. TECHNIQUE: Noncontrast CT of the brain was performed with images acquired from skull base to vertex. COMPARISON: None available. FINDINGS: There is a mixed attenuation extra-axial fluid collection along the left hemiconvexity measuring up to 10 mm consistent with mixed age subdural hematoma. There is mild left frontoparietal mass effect without midline shift or herniation. Topogram demonstrates no lytic lesions or fractures. Ventricles are of normal size and morphology. No mass effect or midline shift is present. The valera-white matter differentiation is normal. The visualized portions of the orbits are normal. The visualized portions of the mastoids are normal. The visualized portions of the paranasal sinuses are normal. No fractures are identified. IMPRESSION: ??Mixed attenuation extra-axial fluid collection along left hemiconvexity measuring up to 10 mm consistent with mixed age subdural hematoma with mild left frontoparietal mass effect without midline shift or herniation. Electronically signed by: Casie Rodríguez M.D. Requested By: MURRAY MILLIGAN ??Jen ? Dictated By: ?? LANE LAMAR M.D. ??on Apr 05 2017 ??4:19P This document has been electronically signed by: CASIE RODRÍGUEZ M.D. on Apr 05 2017 ??4:57P [id number] RIVERA M.D. FINAL REPORT The radiology attending physician has personally reviewed this study, and has reviewed and/or edited this written report and agrees with it. Attending: ??SRINI, ??MURRAY Requesting: ??SRINI, ??MURRAY Requesting Fax: ?? Attending Fax: ?? Attending ID: ??[id number] Requesting ID: ??[id number] Report To 1 ID: ??[id number] ? Report To 1 Name: ??, ?? Report To 1 FAX: ?? NextGen Order #: ?? Procedure Note Miscellaneous, Not In File - 04/05/2017 CASIE RODRÍGUEZ M.D. LANE LAMAR M.D. FINAL REPORT The radiology attending physician has personally reviewed this study, and has reviewed and/or edited this written report and agrees with it. ACC# Date Time Exam [id number] Apr 05, 2017 15:39:[id number] Head or Brain w/o cont EXAMINATION: Noncontrast head CT HISTORY: Subdural hematoma. TECHNIQUE: Noncontrast CT of the brain was performed with images acquired from skull base to vertex. COMPARISON: None available. FINDINGS: There is a mixed attenuation extra-axial fluid collection along the left hemiconvexity measuring up to 10 mm consistent with mixed age subdural hematoma. There is mild left frontoparietal mass effect without midline shift or herniation. Topogram demonstrates no lytic lesions or fractures. Ventricles are of normal size and morphology. No mass effect or midline shift is present. The valera-white matter differentiation is normal. The visualized portions of the orbits are normal. The visualized portions of the mastoids are normal. The visualized portions of the paranasal sinuses are normal. No fractures are identified. IMPRESSION: Mixed attenuation extra-axial fluid collection along left hemiconvexity measuring up to 10 mm consistent with mixed age subdural hematoma with mild left frontoparietal mass effect without midline shift or herniation. Electronically signed by: Casie Rodríguez M.D. Requested By: MURRAY MILLIGAN M.D. Dictated By: LANE LAMAR M.D. on Apr 05 2017 4:19P This document has been electronically signed by: CASIE RODRÍGUEZ M.D. on Apr 05 2017 4:57P [id number] ÁLVAREZ M.D. FINAL REPORT The radiology attending physician has personally reviewed this study, and has reviewed and/or edited this written report and agrees with it. Attending: MURRAY MILLIGAN Requesting: MURRAY MILLIGAN Requesting Fax: Attending Fax: Attending ID: [id number] Requesting ID: [id number] Report To 1 ID: [id number] Report To 1 Name: , Report To 1 FAX: NextGen Order #: [id number] Murray Milligan MD IMG CT PROCEDURES Final Resul t documented in this encounter Visit Diagnoses Not on filedocumented in this encounter Care Teams Representative Relationship Specialty Start Date End Date Unknown, Notinfile PCP - General 04/05/17 04/20/17 documented as of this encounter
--- OUTSIDE RECORDS SUMMARY | 2024-03-16 11:00 | XMS_ITS | Encounter Summary ---
Author Organization [facility] Care Team Providers Care Particle Board Supervisor Name Role Phone Unavailable Primary Care Provider Unavailabl e Encounter Details Date Type Department Care Team (Latest Contact Info) Description 04/13/2014 - 04/13/2014 11:59 PM SUPERINTENDENT DISTRIBUTION Hospital Encounter [facility] Juan Fitch MD [address] [address] Precordial pain; Other left bundle branch block (LBBB); Other chest pain; Coronary atherosclerosis Social History Tobacco Use Types Packs/Day Years Used Date Smoking Tobacco: Never Assessed Sex and Gender Information Value Date Recorded Sex Assigned at Not on file Legal Sex Male 12:39 AM SUPERINTENDENT DISTRIBUTION Gender Identity Not on file Sexual Orientation Not on file documented as of this encounter Plan of Treatment Not on file documented as of this encounter Procedures Procedure Name Priority Date/Time Associated Diagnosis Comments BLOOD CREATININE, POINT OF CARE Routine 04/13/2014 9:26 AM SUPERINTENDENT DISTRIBUTION DISCHARGE LABORATORY CUMULATIVE REPORT Routine 04/13/2014 12:00 AM SUPERINTENDENT DISTRIBUTION documented in this encounter Results * (ABNORMAL) Blood creatinine, point of care (04/13/2014 9:26 AM SUPERINTENDENT DISTRIBUTION) Creatinine, POC, bld 1.4(H) 0.7 - 1.3 mg/dl HISTORICAL RESULTS Blood specimen (specimen) 04/13/2014 9:26 AM SUPERINTENDENT DISTRIBUTION Juan Orellana MD LAB BLOOD ORDERABLES Final Re sult HISTORICAL RESULTS * Discharge Laboratory Cumulative Report (04/13/2014 12:00 AM SUPERINTENDENT DISTRIBUTION) 04/13/2014 Narrative HISTORICAL RESULTS - 04/13/2014 11:18 AM SUPERINTENDENT DISTRIBUTION ?[facility] ?Department of Laboratories ? [facility] [place] ? [place] [address] Patient Name: ??JANELL GARCIA Med Rec Number: [id number] Fin Number: ?[id number] Date: ?1955 Sex/Age: ? Male 58 years Admit Date: ?04/13/2014 Discharge Date: 04/13/2014 Doctor: ?Juan Orellana Facility: ?[facility] Location: ?[facility] Chart Printed: 04/13/2014 11:18 ?? * Abnormal ?? C Critical ?? f Footnote ?? ^ Corrected ?? L Low ?? H High ? i Interp Data ?? @ Reference Lab ?Chart Type:Cumulative ?POINT OF CARE TESTS ? Chemistry ?Test: Creat iPOC ? Reference: [0.7-1.3] ? Units: mg/dL 04/13/2014 ?? 09:26:00 ?? 1.4 ??H us Historical Provider LAB BLOOD ORDERABLES Yudelka freeman Result HISTORICAL RESULTS documented in this encounter Visit Diagnoses Diagnosis Precordial pain Other left bundle branch block (LBBB) Other chest pain Coronary atherosclerosis Coronary atherosclerosis of unspecified type of vessel, hoh or graft documented in this encounter
--- OUTSIDE RECORDS SUMMARY | 2024-03-16 11:00 | XMS_ITS | Encounter Summary ---
Author Organization [facility] Address [address] [place] [address] Phone Care Team Providers Care Ornamental Plasterer Helper Name Role Phone Juan Antunez MD Primary Care Provider [phone] Encounter Details Date Type Department Care Team (Late st Contact Info) Description 04/19/2020 Telephone [facility] Cardiology [facility] 8th [place] [address] [place] [address] Martha Burdick Social History Tobacco Use Types Packs/Day Years Used Date Smoking Tobacco: Former Smokeless Tobacco: Never Sex and Gender Information Value Date Recorded Sex Assigned at Not on file Legal Sex Male 12:39 AM DIRECT SELLING COUNSELOR Gender Identity Not on file Sexual Orientation Not on file documented as of this encounter Ordered Prescriptions Prescription Sig Dispense Quantity Refills Last Filled Start Date End Date atorvastatin (LIPITOR) 80 mg tablet Take 1 tablet (80 mg total) by mouth daily 90 tablet 04/19/2020 documented in this encounter Miscellaneous Notes * Addendum Note - Denisse Ramírez MA - 04/19/2020 1:25 PM CSTAddended by: DENISSE RAMÍREZ on: 04/19/2020 01:25 PM Modules accepted: Orders CT SELLING COUNSELOR * Telephone Encounter - Martha Burdick - 04/19/2020 1:11 PM CST Images from the original note were not included. CT SELLING COUNSELOR documented in this encounter Plan of Treatment Not on file documented as of this encounter Visit Diagnoses Not on filedocumented in this encounter Discontinued Medications Medication Sig Discontinue Reason Start Date End Da te atorvastatin (LIPITOR) 80 mg tablet Take 1 tablet (80 mg total) by mouth daily Reorder 05/01/2019 04/19/2020 documented as of this encounter Care Teams Ornamental Plasterer Helper Relationship Specialty Start Date End Date Juan Antunez MD PCP - General 04/21/17 documented as of this encounter
--- OUTSIDE RECORDS SUMMARY | 2024-03-16 11:00 | XMS_ITS | Encounter Summary ---
Author Organization [facility] Address [address] [place] [address] Phone Care Team Providers Care Science Teacher Name Role Phone Juan Antunez MD Primary Care Provider [phone] Raisa Carmichael MD Unavailable [phone] Reason for Visit * Reason Onset Date Comments Scheduling Appointments 08/13/2022 Encounter Details Date Type Department Care Team (Late st Contact Info) Description 08/13/2022 Telephone [facility] Ophthalmology [address] [facility] 6th Floor, [address] [facility] [place] [address] Gurvinder Ventura, OD [address] [facility] [address] [place] [address] Scheduling Appointments Social History Tobacco Use Types Packs/Day Years Used Date Smoking Tobacco: Former Smokeless Tobacco: Never Sex and Gender Information Value Date Recorded Sex Assigned at Not on file Legal Sex Male 12:39 AM SALES OPERATIONS ANALYST Gender Identity Not on file Sexual Orientation Not on file documented as of this encounter Miscellaneous Notes * Telephone Encounter - Eugenie Guillen - 08/13/2022 10:13 AM CDT Please arun pt later in the day on 08/20/22 in [facility] and please add OCT & HUM testing before appt. documented in this encounter Plan of Treatment Not on file documented as of this encounter Visit Diagnoses Not on filedocumented in this encounter Care Teams Science Teacher Relationship Specialty Start Date End Date Juan Antunez MD PCP - General 04/21/17 Raisa Carmichael MD Consulting Physician Neurosurgery 07/17/22 documented as of this encounter
--- OUTSIDE RECORDS SUMMARY | 2024-03-16 11:00 | XMS_ITS | Encounter Summary ---
Author Organization [facility] Healthcare Address [address] [place] [address] Care Team Providers Care Translator And Interpreter Name Role Phone Unknown, Notinfile Primary Care Provider Unavail able Encounter Details Date Type Department Care Team (Latest Contact Info) Description 01/05/2017 2:50 PM CDT - 01/05/2017 11:59 PM CDT Hospital Encounter [facility] INTERIM [phone] Sola Mccray PA [address] [facility] [address] [place] [address] Discharge Disposition: Discharge to home or self care Social History Tobacco Use Types Packs/Day Years Used Date Smoking Tobacco: Former Sex and Gender Information Value Date Recorded Sex Assigned at Not on file Legal Sex Male 12:39 AM FURNITURE REPAIR TECHNICIAN Gender Identity Not on file Sexual Orientation Not on file documented as of this encounter Discharge Disposition Disposition Code Departure Means Destination Discharge to home or self care documented in this encounter Plan of Treatment Not on file documented as of this encounter Procedures Procedure Name Priority Date/Time Associated Diagnosis Comments BRIANNA TITER Routine Gen Lab 01/05/2017 3:14 PM CDT ANTI-DOUBLE STRANDED DNA ANTIBODIES Routine Gen Lab 01/05/2017 3:14 PM CDT THYROID FUNCTION CASCADE Routine Gen Lab 01/05/2017 3:14 PM CDT BRIANNA REFLEX TO QUANTITATIVE Routine Gen Lab 01/05/2017 3:14 PM CDT ERYTHROCYTE SEDIMENTATION RATE Routine Gen Lab 01/05/2017 3:14 PM CDT ANTITHROMBIN Routine Gen Lab 01/05/2017 3:14 PM CDT HEMOGLOBIN A1C Routine Gen Lab 01/05/2017 3:14 PM CDT VITAMIN B12 Routine Gen Lab 01/05/2017 3:14 PM CDT DISCHARGE LABORATORY CUMULATIVE REPORT 01/05/2017 12:00 AM CDT documented in this encounter Results * ds DNA (01/05/2017 3:14 PM CDT) [facility] dsDNA Ab <1.0 <=4.0 IUnits/mL [facility] Comment: Interpretive Data Negative: < or = 4 IUnits/mL Indeterminate: 5 - 9 IUnits/mL Positive: > or = 10 IUnits/mL Current interpretive data was last revised on 2016. Blood specimen (specimen) 01/05/2017 3:14 PM CDT 01/05/2017 8:01 PM CDT [facility] BLOOD ORDERABLES Final Result Performing Organization Address [facility] de Phone Number [facility] [place] [address] * (ABNORMAL) BRIANNA titer (01/05/2017 3:14 PM CDT) [facility] BRIANNA, quant 1:320(A) Negative titer [facility] BRIANNA, interp Speckled(A) [facility] BRIANNA, interp 2 See Comment [facility] Comment:No additional patter n seen. Blood specimen (specimen) 01/05/2017 3:14 PM CDT 01/05/2017 8:01 PM CDT [facility] LAB BLOOD ORDERABLES Final Result Performing Organization Address [facility] Co de Phone Number [facility] Department [place] [address] * (ABNORMAL) BRIANNA reflex to quantitative (01/05/2017 3:14 PM CDT) Pathologist [facility] BRIANNA Positive( A) Negative [facility] Comment: Interpretive Data Normal range for Brianna Qualitative Antibody = Negative. 1. ??BRIANNA titers are performed on all positive qualitative results. 2. ??A significantly positive BRIANNA result is defined as a positive nuclear fluorescence at a titer of 1:80 or greater. 3. ??15% of normal people above age 65 have significantly positive BRIANNA results. ??5% or less of normal people age 65 or under have significantly positive BRIANNA results. Current interpretive data was last revised on 03. Blood specimen (specimen) 01/05/2017 3:14 PM CDT 01/05/2017 7:55 PM CDT Sola Mccray [facility] LAB BLOOD ORDERABLES Final Result Performing Organization Address [facility]/[place] [address] * Erythrocyte sedimentation rate (01/05/2017 3:14 PM CDT) [facility] Erythrocyte sedimentation rate 15 0 - 15 mm/H [facility] Blood specimen (specimen) 01/05/2017 3:14 PM CDT 01/05/2017 7:55 PM CDT [facility] LAB [place] [address] * (ABNORMAL) Antithrombin (01/05/2017 3:14 PM CDT) Pathologist [facility] Rheumatoid factor, quant <10.0(L) 0.1 - 15.0 IUnits/mL [facility] Blood specimen (specimen) 01/05/2017 3:14 PM CDT 01/05/2017 7:55 PM CDT Sola ALVAREZ LAB BLOOD ORDERABLES Final Result Performing Organization Address City/[facility] Co de Phone Number [facility] [employer] [place] [address] * Vitamin B12 (01/05/2017 3:14 PM CDT) Pathologist [facility] Vitamin B12 275 210 - 900 pg/mL [facility] Blood specimen (specimen) 01/05/2017 3:14 PM CDT 01/05/2017 7:55 PM CDT Sola Mccray [facility] LAB BLOOD ORDERABLES Final Result Performing Organization Address [facility] [place] [address] * TSH reflex to free T4 (01/05/2017 3:14 PM CDT) Pathologist [facility] TSH 1.44 0.30 - 4.20 mcIUnit/mL [facility] Comment: Interpretive Data Hyperthyroid: ??<0.1 mcIUnit/mL Hypothyroid: ??>12.0 mcIUnit/mL Current interpretive data was last revised on 00. Blood specimen (specimen) 01/05/2017 3:14 PM CDT 01/05/2017 7:[address] [facility] BLOOD ORDERABLES Final Result Performing Organization Address [facility] [place] [address] * Hemoglobin A1c (01/05/2017 3:14 PM CDT) Hgb A1C 6.0 4.0 - 6.0 % [facility] Estimated Average Glucose 126 mg/dL [facility] Comment: The ADA recommends reporting an estimated Average Glucose (eAG) with all Hemoglobin A1c results using the equation derived from a study of 507 normal and diabetic adults. ??Minority populations were underrepresented and children were not included. ?? (Diabetes Care 31:1372-7970, 2008). ??The eAG is not equivalent to a fasting glucose. Blood specimen (specimen) 01/05/2017 3:14 PM CDT 01/05/2017 7:55 PM CDT us Sola ALVAREZ LAB BLOOD ORDERABLES Final Result [facility] [place] [address] * DISCHARGE LABORATORY CUMULATIVE REPORT (01/05/2017 12:00 AM CDT) Narrative 01/05/2017 12:00 AM CDT Ordered by an unspecified provider. us Historical Provider LAB BLOOD ORDERABLES Yudelka l Result documented in this encounter Visit Diagnoses Not on filedocumented in this encounter Care Teams Translator And Interpreter Relationship Specialty Start Date End Date Unknown, Notinfile PCP - General 01/05/17 01/17/17 documented as of this encounter
--- OUTSIDE RECORDS SUMMARY | 2024-03-16 11:00 | XMS_ITS | Encounter Summary ---
Author Organization [facility] Address [address] [place] [address] Phone Care Team Providers Care Photogrammetric Stereo Compiler Name Role Phone Juan Antunez MD Primary Care Provider [phone] Encounter Details Date Type Department Care Team (Late st Contact Info) Description 03/18/2018 Telephone [facility] Cardiology [address] [facility] 8th [place] [address] [place] [phone] Juan rOellana MD [address] [facility] [address] [place], [place] [id number] Social History Tobacco Use Types Packs/Day Years Used Date Smoking Tobacco: Former Smokeless Tobacco: Never Sex and Gender Information Value Date Recorded Sex Assigned at Not on file Legal Sex Male 12:39 AM TECHNOLOGY INTERNSHIP Gender Identity Not on file Sexual Orientation Not on file documented as of this encounter Ordered Prescriptions Prescription Sig Dispense Quantity Refills Last Filled Start Date End Date atorvastatin (LIPITOR) 80 mg tablet Take 1 tablet (80 mg total) by mouth daily. 30 tablet 2 03/18/2018 06/20/2018 documented in this encounter Miscellaneous Notes * Telephone Encounter - Clair Carlton - 03/18/2018 10:30 AM CST See Below NOLOGY INTERNSHIP * Telephone Encounter - Familia Renae - 03/18/2018 10:26 AM CST Rich Refill Atorvistatin,80mg, 1 daily, #30. NOLOGY INTERNSHIP documented in this encounter Plan of Treatment Not on file documented as of this encounter Visit Diagnoses Not on filedocumented in this encounter Discontinued Medications Medication Sig Discontinue Reason Start Date End Da te atorvastatin (LIPITOR) 80 mg tablet Take 1 tablet (80 mg total) by mouth daily. Reorder 12/16/2017 03/18/2018 documented as of this encounter Care Teams Photogrammetric Stereo Compiler Relationship Specialty Start Date End Date Juan Antunez MD PCP - General 04/21/17 documented as of this encounter
--- OUTSIDE RECORDS SUMMARY | 2024-03-16 11:00 | XMS_ITS | Encounter Summary ---
Author Organization [facility] Address [address] [place] [address] Phone Care Team Providers Care Hat Blocking Machine Operator Name Role Phone Juan Antunez MD Primary Care Provider [phone] Reason for Referral * Cardiology (Routine) - Closed Specialty Diagnoses / Procedures Referred By Contac t Referred To Contact Diagnoses Chronic coronary artery disease Procedures Stress Echo Exercise W Doppler/CF Stress Echo Exercise WO Doppler/CF Sherwin Tuttle MD Phone: tel: fax: [facility] Referral ID Status Reason Start Date Expiration Date Visits Re quested Visits Authorized [id number] Closed 07/06/2022 08/05/2023 1 1 Encounter Details Date Type Department Care Team (Late st Contact Info) Description 07/06/2022 11:30 AM CDT Office Visit 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 Gender Identity Not on file Sexual Orientation Not on file documented as of this encounter Last Filed Vital Signs Vital Sign Reading Time Taken Comments Blood Pressure 136/75 07/06/2022 11:45 AM CDT Pulse 83 07/06/2022 11:45 AM CDT Temperature - - Respiratory Rate - - Oxygen Saturation 96% 07/06/2022 11:45 AM CDT Inhaled Oxygen Concentration - - Weight 83.9 kg (185 lb) 07/06/2022 11:45 AM CDT Height 177.8 cm (5' 10 ) 07/06/2022 11:45 AM CDT Body Mass Index 26.54 07/06/2022 11:45 AM CDT documented in this encounter Patient Instructions * Patient Instructions* Nida Diaz RN - 07/06/2022 11:30 AM CDT Medication Changes: No medicine changes Testing: Exercise stress test at [facility] Follow up: 6months with Dr. Orellana Additional items: If you have questions or concerns please call the Heart Failure Office at . Thank you, Nida RN and Clair RN - Nurse Coordinators for Dr. William Tuttle and Nohelia Campos NP. documented in this encounter Progress Notes * Sherwin Tuttle MD - 07/06/2022 11:30 AM CDT Images from the original note were not included. Patient's Name: Roland Garcia : 1955 [place]: 07/06/22 Primary and Secondary Diagnosis: 1. Chronic coronary artery disease 2. Mixed hyperlipidemia 3. Left bundle branch block (LBBB) CHIEF COMPLAINT: Re-establish care for CAD, surgical clearance HISTORY OF PRESENT ILLNESS: Thank you for asking me to see Roland Garcia in the [facility] today. As you know, he is a 67 y.o. male with a history of hyperlipidemia and coronary artery disease based on a previous coronary CTA. From a cardiovascular standpoint, he appears stable today. He does have some dyspnea with moderate physical activity. He denies chest discomfort. He denies orthopnea, PND, palpitations, or syncope. He remains compliant with his medical therapy. REVIEW OF SYSTEMS: All other review of systems is negative today. PAST MEDICAL HISTORY Past Medical History: Diagnosis Date Anxiety disorder Anxiety - (Added by [facility]) Personal history of other diseases of the nervous system and sense organs History of optic neuritis - 1997 (Added by [employer]) Personal history of other endocrine, nutritional and metabolic disease History of hypercholesterolemia - (Added by [facility]) MEDICATIONS Current Outpatient Medications: aspirin 81 mg chewable tablet, Take 1 tablet by mouth daily., Disp: , Rfl: atorvastatin (LIPITOR) 80 mg tablet, Take 1 tablet (80 mg total) by mouth daily, Disp: 90 tablet, Rfl: 0 sertraline (ZOLOFT) 100 mg tablet, Take 1 tablet by mouth daily., Disp: , Rfl: 4 No current facility-administered medications for this visit. ALLERGY Patient has no known allergies. FAMILY HISTORY Family History Problem Relation Age of Onset Stent Mother Family history of stent - (Added by [employer] [facility]) Heart attack Father Family history of heart attack - (Added by [employer]) Heart attack Maternal Grandfather Family history of heart attack - (Added by [employer]) Diabetes Maternal Grandmother Family history of diabetes mellitus - (Added by [employer] [facility]) Colon cancer Paternal Grandmother Family history of colon cancer - (Added by [employer] [facility]) Coronary artery disease Other Family history of coronary artery disease - (Added by [employer]) SOCIAL HISTORY Social History Tobacco Use Smoking status: Former Smokeless tobacco: Never Substance and Sexual Activity Drug use: None Sexual activity: None Alcohol Use: Not on file PHYSICAL EXAM: BP 136/75 (BP Location: Left arm, Patient Position: Sitting) Pulse 83 Ht 177.8 cm (5' 10 ) Wt83.9 kg (185 lb) SpO2 96% BMI 26.54 kg/m?? General: Well appearing, No pain or distress, well nourished Eyes: MEKA/EOMI, Conjuctiva Clear ENT: External ears/nose normal Neck: Supple Respiratory: Clear to ausculation bilaterally; no wheezing/rales/rhonchi; respirations nonlabored Cardiovascular: Regular rhythm, normal S1 and S2. No S3 or S4. No murmurs or rubs. Carotid upstrokes brisk bilaterally and without bruits. Gastrointestinal: soft, non-tender abdomen Extremities: no cyanosis or clubbing or edema Musculoskeletal: no obvious joint deformities Skin: no obvious rash or bruising Psychiatric: normal affect Neurologic: awake/alert, no focal deficits OBJECTIVE DATA: Coronary CTA 04/13/14: I personally reviewed the study today. 1. Apparent 50-70% stenosis in the midportion left anterior descending coronary artery which may be an overestimate given significant calcified plaque within this vessel. 2. Multivessel calcified and noncalcified plaque involving the RCA and Circumflex which produces less than 50% stenosis. 3. Coronary Calcium Score = 39. 4. Codominant coronary system. ASSESSMENT & PLAN: In summary, Mr Garcia is a pleasant 67-year-old gentleman with a history of hyperlipidemia and known coronary disease based on coronary CTA performed in 2014. He had evidence of moderate disease in the proximal and midportion of the LAD. He does have some dyspnea on exertion without chest pain. He is scheduled for upcoming spine surgery and I think it would be reasonable to screen him for progression of coronary disease with stress echocardiography. We will schedule him for stress testing in the coming weeks. If stress testing is unremarkable, he may proceed with planned surgery as scheduled. He has lipid testing performed with his primary care physician and those results are currently available to me. I have asked him to remain on high-dose atorvastatin and 81 mg aspirin. He may discontinue his aspirin therapy prior to planned surgery. It was a pleasure to see Roland Garcia in the clinic today. Thank you for asking me to participatein the care. Please not hesitate to call me with any questions. He will follow up with Dr. Juan Orellana in Cardiology in 6-12 months. Respectfully, Sherwin Tuttle MD corporate legal manager Associate Chief, Cardiovascular Heading And Priming Tool Setter, Section of Heart Failure and Cardiac Transplantation [facility] documented in this encounter Plan of Treatment Not on file documented as of this encounter Results * STRESS ECHO EXERCISE W DOPPLER/CF W CONTRAST (07/16/2022 1:11 PM CDT) LV EF 45-50 % CARDIOREPORT Anatomical Region Laterality Modality Ultrasound 07/16/2022 11:1 5 AM CDT Narrative 07/16/2022 2:56 PM CDT Patient name: Roland Garcia Date of test: 07/16/2022 Hospital #: [id number] ?Location: [facility] Interpreted by: Ryan Grider MD Skin Care Technician: Mirella Hough RDCS RCCS RN: Barbara Baron RN Reason for Test: Coronary artery disease, PreOperative Evaluation Study quality: Technically good Referring Physician: SHERWIN TUTTLE MD Contrast Agent: 2.3 ml Optison Administered, (0.7 ml wasted). BASELINE STUDY: Wall Motion Scoring (1=Normal 2=Hypo 3=Akinetic 4=Dyskin./Aneurysm 0=Not visualized) Parasternal Long [place]:MAS=2 BAS=2 MIL=2 ELIE=2 Parasternal Short [place]:MAS=2 MIS=2 CO=2 MIL=2 MAL=2 MA=2 Apical 4 Chambers:=2 MIS=2 BIS=2 BAL=2 MAL=2 AL=2 AC=2 Apical 2 Chambers:AI=2 CO=2 BI=2 BA=2 MA=2 AA=2 AC=2 Ejection Fraction: 45-50% LV Global Function: Mild global left ventricular dysfunction. Baseline Echo Comments: Normal LV+RV cavity size, with mild global reduction in REF 40-45 with paradoxical septal motion related to LBBB. Normal anterior wall motion and thickening. Doppler/CF Comments: No MS, MR, , AR, TS, PS, OH, Mild TR. Baseline HR: 75 Baseline BP: 139/80 Conduction Defects: Resting ECG Comments: SR in the 70's, LBBB Medications: ASA, Lipitor Meds held: ASA POST EXERCISE STUDY: Wall Motion Scoring (1=Normal 2=Hypo 3=Akinetic 4=Dyskin./Aneurysm 0=Not visualized) Parasternal Long [place]:MAS=1 BAS=1 MIL=1 ELIE=1 Parasternal Short [place]:MAS=1 MIS=1 CO=1 MIL=1 MAL=1 MA=1 Apical 4 Chambers:=1 MIS=1 BIS=1 BAL=1 MAL=1 AL=1 AC=1 Apical 2 Chambers:AI=1 CO=1 BI=1 BA=1 MA=1 AA=1 AC=1 Peak HR: [...] MD By signing this report, the attending chrome tanner certifies that he or she has personally supervised and interpreted the echocardiogram and has reviewed and or edited and agrees with the written comments contained within the report. Procedure Note Ryan Grider MD - 07/16/2022 Patient name: Roland Garcia Date of test: 07/16/2022 Hospital #: [id number] Location: [facility] Interpreted by: Ryan Grider MD Skin Care Technician: Mirella Hough [facility] RCCS RN: Barbara Baron RN Reason for Test: Coronary artery disease, PreOperative Evaluation Study quality: Technically good Referring Physician: SHERWIN TUTTLE MD Contrast Agent: 2.3 ml Optison Administered, (0.7 ml wasted). BASELINE STUDY: Wall Motion Scoring (1=Normal 2=Hypo 3=Akinetic 4=Dyskin./Aneurysm 0=Not visualized) Parasternal Long [place]:MAS=2 BAS=2 MIL=2 ELIE=2 Parasternal Short [place]:MAS=2 MIS=2 CO=2 MIL=2 MAL=2 MA=2 Apical 4 Chambers:=2 MIS=2 BIS=2 BAL=2 MAL=2 AL=2 AC=2 Apical 2 Chambers:AI=2 CO=2 BI=2 BA=2 MA=2 AA=2 AC=2 Ejection Fraction: 45-50% LV Global Function: Mild global left ventricular dysfunction. Baseline Echo Comments: Normal LV+RV cavity size, with mild global reduction in REF 40-45 with paradoxical septal motion related to LBBB. Normal anterior wall motion and thickening. Doppler/CF Comments: No MS, MR, , AR, TS, PS, OH, Mild TR. Baseline HR: 75 Baseline BP: 139/80 Conduction Defects: Resting ECG Comments: SR in the 70's, LBBB Medications: ASA, Lipitor Meds held: ASA POST EXERCISE STUDY: Wall Motion Scoring (1=Normal 2=Hypo 3=Akinetic 4=Dyskin./Aneurysm 0=Not visualized) Parasternal Long [place]:MAS=1 BAS=1 MIL=1 ELIE=1 Parasternal Short [place]:MAS=1 MIS=1 CO=1 MIL=1 MAL=1 MA=1 Apical 4 Chambers:=1 MIS=1 BIS=1 BAL=1 MAL=1 AL=1 AC=1 Apical 2 Chambers:AI=1 CO=1 BI=1 BA=1 MA=1 AA=1 AC=1 Peak HR: [...] MD By signing this report, the attending chrome tanner certifies that he or she has personally supervised and interpreted the echocardiogram and has reviewed and or edited and agrees with the written comments contained within the report. us Sherwin Tuttle MD CV ECHO PROCEDURES Final Res ult documented in this encounter Visit Diagnoses Diagnosis Chronic coronary artery disease- Primary Coronary atherosclerosis of unspecified type of vessel, quinault or graft Mixed hyperlipidemia Left bundle branch block (LBBB) Chronic coronary artery disease Coronary atherosclerosis of unspecified type of vessel, quinault or graft documented in this encounter Care Teams Hat Blocking Machine Operator Relationship Specialty Start Date End Date Juan Antunez MD PCP - General 04/21/17 documented as of this encounter
== END 2024-03-09 13:47 | disposition home or self-care (01) ==
PROVIDERS: Student in an Organized Health Care Education/Training Program; Emergency Provider Emergency Medicine; PCP Family Medicine
DX: R55 Syncope and collapse (principal); R07.89 Other chest pain; I25.5 Ischemic cardiomyopathy; N18.9 Chronic kidney disease, unspecified; E78.5 Hyperlipidemia, unspecified; G47.30 Sleep apnea, unspecified; Z98.1 Arthrodesis status; Z87.442 Personal history of urinary calculi; Z85.828 Personal history of other malignant neoplasm of skin; Z79.82 Long term (current) use of aspirin; Z79.899 Other long term (current) drug therapy; K80.20 Calculus of gallbladder without cholecystitis without obstruction; M47.812 Spondylosis without myelopathy or radiculopathy, cervical region; I44.7 Left bundle-branch block, unspecified
CPT/HCPCS: 36415; 70450; 71046; 72125; 80053; 84484; 85025; 93005; 96360; 99284; J7030

== ENCOUNTER 2024-05-22 14:32 | Outpatient (CLI) | payer MEDICARE, SELFPAY ==
--- NOTE | ~2024-05-22 | MR_ITS ---
MRI of the cervical spine Clinical History: Neck pain Technique: Axial T2-weighted and gradient images, and sagittal T1-weighted, T2-weighted, and STIR kayden ges were acquired. Findings: There is no fracture or subluxation of the cervical spine. There is mild straightening of t he cervical lordosis. No suspicious bone marrow signal abnormality seen. At C2-C3, there is no disc bulge or herniation. No spinal canal stenosis, cord compression, or neural foraminal narrowing. At C3-C4, there is disc ossify complex, most pronounced at the right paracentral to right foraminal r egion with mild facet arthropathy. There is mild to moderate canal stenosis without kendall cord compre ssion. There is severe right neural foraminal narrowing. There is mild left neural foraminal narrowin g. At C4-C5, there is mild disc osteophyte complex. There is mild canal stenosis without kendall cord comp ression. There is bilateral neural foraminal narrowing, right worse than left with bilateral facet ar thropathy. At C5-C6, there is severe degenerative disc narrowing. There is disc bulge, with moderate to severe c anal stenosis and minimal ventral cord flattening. There is bilateral neural foraminal narrowing with bilateral facet arthropathy. At C6-C7, there is severe degenerative disc narrowing. Disc osteophyte complex results in moderate ca nal stenosis and probable mild cord compression. There is severe bilateral neural foraminal narrowing with bilateral facet arthropathy. No abnormal signal seen in the spinal cord. Paravertebral soft tissues are unremarkable. Impression: Severe multilevel degenerative spondylosis of the cervical spine, as detailed above, worst at C5-C6 a nd C6-C7. Reviewed, dictated and finalized at [facility]. Impression: Severe multilevel degenerative spondylosis of the cervical spine, as detailed a sheela, worst at C5-C6 and C6-C7.
== END 2024-05-22 14:33 | disposition home or self-care (01) ==
LOC: GOSHIMG 14:33
PROVIDERS: PCP Family Medicine; Visit Provider Neurological Surgery
DX: M47.892 Other spondylosis, cervical region (principal)
CPT/HCPCS: 72141

== ENCOUNTER 2024-06-16 10:30 | Outpatient (CLI) | payer MEDICARE, SELFPAY ==
--- OUTSIDE RECORDS SUMMARY | 2024-06-16 11:07 | XMS_ITS | Referral Summary ---
Author Organization [address] Address [address] [place] [phone] Care Team Providers Care Impregnator And Drier Name Role Phone Juan Antunez MD Primary Care Provider [phone] Raisa Carmichael MD Unavailable [phone] Encounters Date Type Department Care Team Description 05/31/2024 Orders Only [facility] Ophthalmology [address] [place] [phone] Nicolle Jameson MD Open-angle glaucoma, indeterminate stage, unspecified laterality, unspecified open-angle glaucoma type (Primary Dx) 04/14/2024 9:30 AM CLAM BED WORKER Office Visit [facility] Ophthalmology [address] [place] [phone] Nicolle Jameson MD Glaucoma suspect of both eyes (Primary Dx) 03/20/2024 3:45 PM CLAM BED WORKER - 03/20/2024 11:59 PM CLAM BED WORKER Hospital Encounter [facility] Cardiac Diagnostic Lab [facility] [address] [phone] LV dysfunction Discharge Disposition: Discharge to home or self care from Last 3 Months Allergies No known active allergies Medications sertraline (ZOLOFT) 100 mg tabletIndicatio ns:Anxiety with Depression Take 1 tablet (100 mg total) by mouth director for beauty [employer] before breakfast 4 8 Active atorvastatin (LIPITOR) [...] 1 tablet (100 mcg total) by mouth director for beauty [employer] before breakfast Active spironolactone (ALDACTONE) 25 mg tablet 6.25 mg daily 4 Active Active Problems Problem Noted Date Diagnosed Date Glaucoma suspect of both eyes 04/14/2024 Assessment & Plan (04/14/2024 10:35 AM CLAM BED WORKER): here for 6 month DFE IOP today 19/16 - in normal range CPM with 24-2 HVF in 6 months Basal cell carcinoma (BCC) of left lower [...] concerns Assessment & Plan (04/05/2023 1:13 PM CLAM BED WORKER): IOP at this time stable Discussed could [...] arcuate; left eye (OS) full CV decreased /14 right eye (OD) No pallor, no collaterals [...] 08/26/2022 Assessment & Plan (04/05/2023 1:12 PM CLAM BED WORKER): Not yet VS Observe Assessment & Plan [...] on file Legal Sex Male 12:39 AM CLAM BED WORKER Gender Identity Not on file Sexual Orientation Not on file Last Filed Vital Signs Vital Sign Reading Time Taken Comments Blood Pressure 138/73 01/13/2024 12:03 PM CLAM BED WORKER Pulse 74 01/13/2024 12:03 PM CLAM BED WORKER Temperature 36.5 C (97.7 F) 03/23/2023 4:30 PM CLAM BED WORKER Respiratory Rate 14 03/23/2023 4:40 PM CLAM BED WORKER Oxygen Saturation 98% 01/13/2024 12:03 PM CLAM BED WORKER Inhaled Oxygen Concentration - - Weight 88.5 kg (195 lb 3.2 oz) 01/13/2024 12:03 PM CLAM BED WORKER Height 179.1 cm (5' 10.5 ) 01/13/2024 12:[address] Body Mass Index 27.61 01/13/2024 12:03 PM CLAM BED WORKER Plan of Treatment Not on file Procedures Procedure Name Priority Date/Time Associated Diagnosis Comments TRANSTHORACIC ECHO (TTE) COMPLETE W DOPPLER/CF WO CONTRAST Routine 03/20/2024 5:02 PM CLAM BED WORKER LV dysfunction from Last 3 Months Results * TRANSTHORACIC ECHO (TTE) COMPLETE W DOPPLER/CF WO CONTRAST (03/20/2024 5:02 PM CLAM BED WORKER) LV EF 55 % CARDIOREPORT Anatomical Region Laterality Modality Ultrasound 03/20/2024 3:45 PM CLAM BED WORKER Narrative 03/22/2024 9:43 AM CLAM BED WORKER Patient name: Janell Garcia Date of test: 03/20/2024 Type of test: TTE w/Doppler Hospital #: [id number] Date of : 1955 (M) Tobacco Sizer: Barrie Horne [facility] Referring Physician: JUAN ORELLANA MD Contrast Agent: Contrast Administered by: Supervised/Interpreted by: Jaqueline Krishnamurthy MD Diagnosis: Location: [facility] Reason for test: LV dysfunction MV Structure: Normal, MV Motion: Normal, Mitral Annulus: Normal AV Structure: tricuspid and is mildly thickened, AV Motion: Normal Aotic root: Normal, TM: Normal, PV: Normal Valvular Vegetations: none seen, Mass/Thrombi: none seen RA: Normal Measurements: M-Mode Normal Aotic Root: <3.8 LA: <4.0 RV: <2.8 LV(ED): <5.7 LV(ES): Variable 2D Linear Normal Aotic Root: 3.5 cm <4.0 Ao Indexed: 1.7 cm/M2 <2.0 LA: <4.0 RV: 3.1 cm <4.2 LV(ED): 4.7 cm <5.9 LV(ES): 3.1 cm <4.0 2D Vol. Normal Indexed Indexed Normal RA: 16.0 ml 7.7 ml/M2 11-39 LA: 44.0 ml 21.1 ml/M2 16-34 RV: <12.7 LV(ED): 145.0 ml 62-150 69.5 ml/M2 <75 LV(ES): 68.0 ml 21-61 32.6 ml/M2 <32 3D Vol. Indexed Normal LV(ED): <75 LV(ES): <32 LV EF: 55 % (Normal: >=52%) LV Septum: 1.5 cm (Normal: <1.0 cm) Wall Motion Scoring (1=Normal 2=Hypo 3=Akinetic 4=Dyskin./Aneurysm 0=Not visualized) Parasternal Long [place]:MAS=2 BAS=2 MIL=1 ELIE=1 Parasternal Short [place]:MAS=2 MIS=1 SC=1 MIL=1 MAL=1 MA=1 Apical 4 Chambers:=1 MIS=1 BIS=1 BAL=1 MAL=1 AL=1 AC=1 Apical 2 Chambers:AI=1 SC=1 BI=1 BA=1 MA=1 AA=1 AC=1 LV Global Longitudinal Strain: -16% (Normal <-17%) RV Global Longitudinal Strain: -15% (Normal <-17%) LV Function: Normal LV Ejection Fraction, (EF=52-72%) RV Function: Normal Septal Motion: dyschroncy Pericardial Effusion: none seen Atrial Septum: Normal DOPPLER/COLOR FLOW DOPPLER RESULTS: Diastolic Function: Normal Tricuspid Valve: normal TV Pulmonic Valve: normal PV AV Regurgitation: No AR seen AV Stenosis: no AV Area: cm2 AV Pressure Gradient (mmHg): Mean: 0, Peak:0 MV Regurgitation: No MR seen MV Stenosis: no MS MV Area: cm2 MV Pressure Gradient (mmHg): Mean: 0 MV ERO: cm Regurg. Vol.: ml/beat Regurg. Frac.: % PA Pressure: mmHg DOPPLER/COLOR FOLOW DOPPLER COMMENTS: No AR seen, No MR seen, no , no MS, normal TV, normal PV. Diastolic function: Normal SUMMARY: Sinus 60-70s. Normal LV size, asymetric LVH (septum 1.4 cm vs 1.1 cm), normal systolic function (LVEF 55%, LV GLS -16%) despite septal dyschroncy. Normal diastology. Normal RV size and systolic function. Normal atria. Aortic sclerosis w/o stenosis. Inadequate TR jet to est RVSP; normal IVC. No pericardial effusion. Normal aortic root and arch. Compared to baseline stress TTE 07/2022, Lv dyschroncy less pronounced Confirmed on 03/22/2024 - 09:43:43 by Jaqueline Krishnamurthy MD By signing this report, the attending rn hospice certifies that he or she has personally supervised and interpreted the echocardiogram and has reviewed and or edited and agrees with the written comments contained within the report. Procedure Note Jaqueline Krishnamurthy MD - 03/22/2024 Patient name: Janell Garcia Date of test: 03/20/2024 Type of test: TTE w/Doppler [facility] #: 0 Date of : 1955 (M) Tobacco Sizer: Barrie Horne [facility] Referring Physician: JUAN ORELLANA MD Contrast Agent: Contrast Administered by: Supervised/Interpreted by: Jaqueline Krishnamurthy MD Diagnosis: Location: [facility] Reason for test: LV dysfunction MV Structure: Normal, MV Motion: Normal, Mitral Annulus: Normal AV Structure: tricuspid and is mildly thickened, AV Motion: Normal Aotic root: Normal, TM: Normal, PV: Normal Valvular Vegetations: none seen, Mass/Thrombi: none seen RA: Normal Measurements: M-Mode Normal Aotic Root: <3.8 LA: <4.0 RV: <2.8 LV(ED): <5.7 LV(ES): Variable 2D Linear Normal Aotic Root: 3.5 cm <4.0 Ao Indexed: 1.7 cm/M2 <2.0 LA: <4.0 RV: 3.1 cm <4.2 LV(ED): 4.7 cm <5.9 LV(ES): 3.1 cm <4.0 2D Vol. Normal Indexed Indexed Normal RA: 16.0 ml 7.7 ml/M2 11-39 LA: 44.0 ml 21.1 ml/M2 16-34 RV: <12.7 LV(ED): 145.0 ml 62-150 69.5 ml/M2 <75 LV(ES): 68.0 ml 21-61 32.6 ml/M2 <32 3D Vol. Indexed Normal LV(ED): <75 LV(ES): <32 LV EF: 55 % (Normal: >=52%) LV Septum: 1.5 cm (Normal: <1.0 cm) Wall Motion Scoring (1=Normal 2=Hypo 3=Akinetic 4=Dyskin./Aneurysm 0=Not visualized) Parasternal Long [place]:MAS=2 BAS=2 MIL=1 ELIE=1 Parasternal Short [place]:MAS=2 MIS=1 SC=1 MIL=1 MAL=1 MA=1 Apical 4 Chambers:=1 MIS=1 BIS=1 BAL=1 MAL=1 AL=1 AC=1 Apical 2 Chambers:AI=1 SC=1 BI=1 BA=1 MA=1 AA=1 AC=1 LV Global Longitudinal Strain: -16% (Normal <-17%) RV Global Longitudinal Strain: -15% (Normal <-17%) LV Function: Normal LV Ejection Fraction, (EF=52-72%) RV Function: Normal Septal Motion: dyschroncy Pericardial Effusion: none seen Atrial Septum: Normal DOPPLER/COLOR FLOW DOPPLER RESULTS: Diastolic Function: Normal Tricuspid Valve: normal TV Pulmonic Valve: normal PV AV Regurgitation: No AR seen AV Stenosis: no AV Area: cm2 AV Pressure Gradient (mmHg): Mean: 0, Peak:0 MV Regurgitation: No MR seen MV Stenosis: no MS MV Area: cm2 MV Pressure Gradient (mmHg): Mean: 0 MV ERO: cm Regurg. Vol.: ml/beat Regurg. Frac.: % PA Pressure: mmHg DOPPLER/COLOR FOLOW DOPPLER COMMENTS: No AR seen, No MR seen, no , no MS, normal TV, normal PV. Diastolic function: Normal SUMMARY: Sinus 60-70s. Normal LV size, asymetric LVH (septum 1.4 cm vs 1.1 cm), normal systolic function (LVEF 55%, LV GLS -16%) despite septal dyschroncy. Normal diastology. Normal RV size and systolic function. Normal atria. Aortic sclerosis w/o stenosis. Inadequate TR jet to est RVSP; normal IVC. No pericardial effusion. Normal aortic root and arch. Compared to baseline stress TTE 07/2022, Lv dyschroncy less pronounced Confirmed on 03/22/2024 - 09:43:43 by Jaqueline Krishnamurthy MD By signing this report, the attending rn hospice certifies that he or she has personally supervised and interpreted the echocardiogram and has reviewed and or edited and agrees with the written comments contained within the report. Juan Orellana MD CV ECHO PROCEDURES Final Resu lt from Last 3 Months [place] [address] [place] [phone] FOR[facility]LY [facility] [place] [id number] [address] [facility] [place] [id number] [place] [id number] Care Teams Impregnator And Drier Relationship Specialty Start Date End Date Juan Antunez MD PCP - General 04/21/17 Raisa Carmichael MD Consulting Physician Neurosurgery 07/17/22
--- OUTSIDE RECORDS SUMMARY | 2024-06-16 11:07 | XMS_ITS | Encounter Summary ---
Author Organization [facility] Address [address] [place] [address] Phone Care Team Providers Care Log Brander Name Role Phone Unknown, Notinfile Primary Care Provider Unavail able Juan Antunez MD Primary Care Provider [phone] Unknown, Notinfile Primary Care Provider Unavail able Juan Antunez MD Primary Care Provider [phone] [phone] Unknown, Notinfile Primary Care Provider Unavail able Unknown, Notinfile Primary Care Provider Unavail able Juan Antunez MD Primary Care Provider [phone] Unknown, Notinfile Primary Care Provider Unavail able Juan Antunez MD Primary Care Provider [phone] Raisa Carmichael MD Unavailable [phone] Encounter Details Date Type Department Care Team (Latest Contact Info) Description 01/14/2017 Orders Only [facility] Scanning, Provider Social History Tobacco Use Types Packs/Day Years Used Date Smoking Tobacco: Former Sex and Gender Information Value Date Recorded Sex Assigned at Not on file 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 Gender Identity Not on file Sexual [...] on filedocumented in this encounter Care Teams Log Brander Relationship Specialty Start Date End Date Unknown, Notinfile PCP - General 01/05/17 01/17/17 Juan Antunez MD PCP - General 01/18/17 01/20/17 Unknown, Notinfile PCP - General 01/21/17 02/02/17 uJan Antunez MD PCP - General 02/03/17 03/16/17 Unknown, Notinfile PCP - General 03/17/17 03/17/17 Unknown, Notinfile PCP - General 03/18/17 03/24/17 Juan Antunez MD PCP - General 03/25/17 04/04/17 Unknown, Notinfile PCP - General 04/05/17 04/20/17 Juan Antunez MD PCP - General 04/21/17 Raisa Carmichael MD Consulting Physician Neurosurgery 07/17/22 documented as of this encounter
--- OUTSIDE RECORDS SUMMARY | 2024-06-16 11:07 | XMS_ITS | Clinical Summary ---
Author Organization [facility] Care Team Providers Care Clothes Shaker Name Role Phone Unavailable Primary Care Provider [...]
--- OUTSIDE RECORDS SUMMARY | 2024-06-16 11:07 | XMS_ITS | Clinical Summary ---
Author Organization [facility] Address [address] [place] [address] Care Team Providers Care Cook Helper Juice Name Role Phone Juan Antunez MD Unavailable [phone] Juan Antunez MD Primary Care Provider [phone] Allergies No known active allergies Medications atorvastatin (LIPITOR) 80 MG tablet Take 1 tablet (80 mg total) by mouth daily. Active sertraline (ZOLOFT) 100 MG tablet Take 1 tablet (100 mg total) by mouth daily. Active Active Problems Problem Noted Date Diagnosed Date Lumbar spinal stenosis 07/30/2022 Encounters Date Type Department Care Team Description 05/11/2024 12:45 PM DRESSMAKER OR TAILOR - 05/11/2024 11:59 PM DRESSMAKER OR TAILOR Hospital Encounter [facility] [address] [place] [address] Raisa Alvarez MD Discharge Disposition: Home or Self Care (Routine Discharge) 05/11/2024 Travel from Last 3 Months Family History Medical History Relation Comments Heart [...] Information Value Date Recorded Sex Assigned at Male 05/11/2024 12:42 PM DRESSMAKER OR TAILOR Legal Sex Male 4:04 PM CDT Gender Identity Not on file Sexual Orientation Not on file Last Filed Vital Signs Vital Sign Reading Time Taken Comments Blood Pressure 121/55 07/30/2022 5:00 PM CDT Pulse 71 07/30/2022 5:00 PM CDT Temperature 36.5 C (97.7 F) 07/30/2022 5:00 PM CDT Respiratory Rate 16 07/30/2022 5:00 PM CDT [...] 1955 Zoster Vaccines (1 of 2) 2004 Annual Medicare Wellness Visit 06/14/2019 Pneumococcal Vaccine: 65+ Years (2 of 2 - PPSV23 or PCV20) 03/06/2022 03/06/2021 COVID-19 Vaccine ( season) 2023 12/05/2021, 06/20/2021, 12/06/2020, Additional history exists RSV Immunization or 60+ Years (1 - 1-dose 75+ series) 2029 DTaP, Tdap and Td Vaccines (2 - Td or Tdap) 03/06/2031 03/06/2021 Hepatitis C Completed 02/27/2021, 02/06, 02/27/2021 Meningococcal B Vaccine Aged Out No l onger eligible based on patient's age to complete this topic Meningococcal Vaccine Aged Out No mercedes misbah eligible based on patient's age to complete this topic RSV Immunizations Under 20 Months Aged Out No longer eligible based on patient's age to complete this topic Procedures Procedure Name Priority Date/Time Associated Diagnosis Comments XR CERV SP+FLEX+EXT M4V Routine 05/11/2024 1:28 PM DRESSMAKER OR TAILOR Neck pain XR LUMB SPINE 3V Routine 05/11/2024 1:28 PM DRESSMAKER OR TAILOR S/P spinal fusion from Last 3 Months Results * XR LUMB SPINE 3V (05/11/2024 1:28 PM DRESSMAKER OR TAILOR) Anatomical Region Laterality Modality Spine Radiographic Krista ging 05/14/2024 8:14 AM CDT Impressions 05/14/2024 8:16 AM CDT =====IMPRESSION:===== 1. L4-5 posterior spine fusion changes. 2. No acute abnormality. Ordered By: RAISA ALVAREZ Interpreted By: Ashish Burleson MD, 05/14/2024 8:14 AM Narrative 05/14/2024 8:16 AM CDT [place] [address] Examination: Lumbar Spine 3 views Exam date/time: 05/11/2024 12:55 PM Reason For Exam: POST OP FUSION Comparison: No prior exam Technique: AP, lateral, and lumbosacral views Findings:5 lumbar-type vertebra. L4-5 posterior spine fusion changes are present and appear intact. Subtle, 4 mm, anterolisthesis L4 on L5 which may be secondary to facet joint arthritic change. Intervertebral disc heights throughout the lumbar spine appear unremarkable. Facet joint degenerative changes are also present at the L5-S1 level. Sacroiliac joints appear unremarkable. Visualized sacral ala appear intact. Procedure Note Ashish Burleson MD - 05/14/[address] [address] Examination: Lumbar Spine 3 views Exam date/time: 05/11/2024 12:55 PM Reason For Exam: POST OP FUSION Comparison: No prior exam Technique: AP, lateral, and lumbosacral views Findings:5 lumbar-type vertebra. L4-5 posterior spine fusion changes arepresent and appear intact. Subtle, 4 mm, anterolisthesis L4 on L5 whichmay be secondary to facet joint arthritic change. Intervertebral disc heights throughout the lumbar spine appearunremarkable. Facet joint degenerative changes are also present at theL5-S1 level. Sacroiliac joints appear unremarkable. Visualized sacral ala appearintact. =====IMPRESSION:===== 1. L4-5 posterior spine fusion changes. 2. No acute abnormality. Ordered By: RAISA ALVAREZ Interpreted By: Ashish Burleson MD, 05/14/2024 8:14 AM us Raisa Alvarez MD GENERAL IMAGING Final Result * XR CERV SP+FLEX+EXT M4V (05/11/2024 1:28 PM DRESSMAKER OR TAILOR) Anatomical Region Laterality Modality Spine Radiographic Krista ging 05/14/2024 8:29 AM CDT Impressions 05/14/2024 8:32 AM CDT ===== Impression: 1. No evidence of fracture or acute osseous abnormality. 2. Degenerative changes as described. Ordered By: RAISA ALVAREZ Interpreted By: Ashish Burleson MD, 05/14/2024 8:29 AM Narrative 05/14/2024 8:32 AM CDT [address] [address] Examination: Cervical spine x-rays with flexion and extension views Exam Date/Time: 05/11/2024 12:55 PM Reason For Exam: NECK PAIN Comparison: No prior exam Technique: AP, lateral, flexion, and extension views Findings: There is no evidence of prevertebral soft tissue swelling. Occiput C1 and C1-2 relationships appear unremarkable. Odontoid process appears intact. C2-3 level appears unremarkable. C3-4 intervertebral disc height is unremarkable. There is bilateral facet joint degenerative change. C4-5 intervertebral disc height is unremarkable. There is anterior vertebral body endplate spurring. Bilateral facet joint degenerative change. Marked decrease intervertebral disc height C5-6 level with prominent anterior minimal posterior vertebral body endplate spurring. Bilateral uncovertebral joint degenerative change with associated bilateral facet joint degenerative change. Moderate decrease intervertebral disc height C6-7 level with moderate anterior minimal posterior vertebral body endplate spurring. Minimal anterolisthesis C7 on T1 most consistent with prominent facet joint degenerative change. There is no evidence of fracture or acute osseous abnormality throughout the cervical spine. On the flexion view, there is no evidence of additional anterolisthesis. No evidence of distraction of the posterior elements. On the extension view, no evidence of retrolisthesis or abnormal widening of the intervertebral disc heights. Procedure Note Ashish Burleson MD - 05/14/[address] [address] Examination: Cervical spine x-rays with flexion and extension views Exam Date/Time: 05/11/2024 12:55 PM Reason For Exam: NECK PAIN Comparison: No prior exam Technique: AP, lateral, flexion, and extension views Findings: There is no evidence of prevertebral soft tissue swelling. Occiput C1 and C1-2 relationships appear unremarkable. Odontoid processappears intact. C2-3 level appears unremarkable. C3-4 intervertebral disc height is unremarkable. There is bilateral facetjoint degenerative change. C4-5 intervertebral disc height is unremarkable. There is anteriorvertebral body endplate spurring. Bilateral facet joint degenerativechange. Marked decrease intervertebral disc height C5-6 level with prominentanterior minimal posterior vertebral body endplate spurring. Bilateraluncovertebral joint degenerative change with associated bilateral facetjoint degenerative change. Moderate decrease intervertebral disc height C6-7 level with moderateanterior minimal posterior vertebral body endplate spurring. Minimal anterolisthesis C7 on T1 most consistent with prominent facetjoint degenerative change. There is no evidence of fracture or acute osseous abnormality throughoutthe cervical spine. On the flexion view, there is no evidence of additional anterolisthesis.No evidence of distraction of the posterior elements. On the extensionview, no evidence of retrolisthesis or abnormal widening of theintervertebral disc heights. ===== Impression: 1. No evidence of fracture or acute osseous abnormality. 2. Degenerative changes as described. Ordered By: RAISA ALVAREZ Interpreted By: Ashish Burleson MD, 05/14/2024 8:29 AM Raisa Alvarez MD GENERAL IMAGING Final Result from Last [address] [place] [address] MEDICARE [facility] Care Teams Cook Helper Juice Relationship Specialty Start Date End Date Juan Antunez MD [address] [place] [address] [address] [place] [address] PCP - General FAMILY PRACTICE 07/30/22 Juan Antunez MD [address] [place] [address] [address] [place] [address] FAMILY PRACTICE 06/30/22
--- OUTSIDE RECORDS SUMMARY | 2024-06-16 11:07 | XMS_ITS | Encounter Summary ---
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
--- OUTSIDE RECORDS SUMMARY | 2024-06-16 11:07 | XMS_ITS | Clinical Summary ---
Author Organization [facility] Address [address] [place] [address] Care Team Providers Care Web Search Evaluator Name Role Phone Juan Antunez MD Primary Care Provider [phone] Source Comments [facility],non-owned Affiliates and Associated Physician Practices is amultiple site organization consisting of ambulatory clinics and hospital sitesin [place], [place], [place]. This disclosure is being madepursuant to the Care Everywhere program and may not contain all information available regarding this patient. Last updated 17.[facility] Allergies No known active allergies Medications * [...] 73 06/18/2022 1:46 PM CDT Temperature 36.7 C (98 F) 06/18/2022 1:46 PM CDT Respiratory Rate 18 06/18/2022 1:46 PM CDT Oxygen Saturation 97% 06/18/2022 1:46 PM CDT Inhaled Oxygen Concentration - - Weight 86.2 kg (190 lb) 06/18/2022 1:46 PM CDT Height 177.8 cm (5' 10 ) 02/10/2021 3:39 PM INGOT WEIGHER Body Mass Index 27.26 02/10/2021 3:39 PM INGOT WEIGHER Plan of Treatment Health Maintenance Due Date Last Done Comments COLOGUARD (AGES 45-75) - COL ON CA SCREENING 1955 COLON MONITORING 1955 COLONOSCOPY - COLON CA SCREENING 1954 CT COLONOGRAPHY - COLON CA SCREENING 1955 Colorectal Cancer Screening 1955 FIT - COLON CA SCREENING 1954 FLEX SIG - COLON CA SCREENING 1955 MEDICARE AWV 12 MONTHS 1955 HEPATITIS C SCREENING 06/08/1972 DTAP/TDAP/TD VACCINES (1 - Tdap) 1973 PNEUMOCOCCAL VACCINE 50+ (1 of 2 - PCV) 1973 ZOSTER VACCINE (1 of 2) 2004 Respiratory Syncytial Virus (RSV) Vaccine Pt: or over 60 yrs (1 - Risk 60-74 years 1-dose series) 2014 COVID-19 VACCINE ( - 2023-2 5 season) 2023 DEPRESSION SCREENING 03/08/2024 INFLUENZA VACCINE (Season Ended) 2024 HEPATITIS B VACCINE Aged Out No longe r eligible based on patient's age to complete this topic HIB VACCINE Aged Out No longer eligi ble based on patient's age to complete this topic HPV VACCINE Aged Out No longer eligi ble based on patient's age to complete this topic MENINGOCOCCAL (Group B) VACC INE SHARED DECISION-MAKING Aged Out No longer eligibl e based on patient's age to complete this topic MENINGOCOCCAL GROUPS A/C/Y/W VACCINE Aged Out No longer eligible b ased [...] prior to your last dose Care Teams Web Search Evaluator Relationship Specialty Start Date End Date Juan Antunez MD [address] [place] [id number] PCP - General 04/15/18
--- OUTSIDE RECORDS SUMMARY | 2024-06-16 11:07 | XMS_ITS | Clinical Summary ---
Author Organization [address] Address [address] [place] [address] Care Team Providers Care Drapery Head Former Name Role Phone Juan Antunez MD Primary Care Provider [phone] Raisa Carmichael MD Unavailable [phone] Allergies No known active allergies Medications sertraline (ZOLOFT) 100 mg tabletIndicatio ns:Anxiety with Depression Take 1 tablet (100 mg total) by mouth correction officer supervisor before breakfast 4 8 Active atorvastatin (LIPITOR) [...] 1 tablet (100 mcg total) by mouth correction officer supervisor before breakfast Active spironolactone (ALDACTONE) 25 mg tablet 6.25 mg daily 4 Active Active Problems Problem Noted Date Diagnosed Date Glaucoma suspect of both eyes 04/14/2024 Assessment & Plan (04/14/2024 10:35 AM LUNCH TRUCK DRIVER): here for 6 month DFE IOP today [...] concerns Assessment & Plan (04/05/2023 1:13 PM LUNCH TRUCK DRIVER): IOP at this time stable Discussed could [...] 08/26/2022 Assessment & Plan (04/05/2023 1:12 PM LUNCH TRUCK DRIVER): Not yet VS Observe Assessment & Plan (08/26/2022 3:56 PM CDT): Not visually significant, could be contributing to narrow angle configuration, refer to glaucoma Chronic coronary artery disease 08/17/2014 Hyperlipidemia 03/30/2014 Left bundle branch block (LBBB) 03/30/2014 Encounters Date Type Department Care Team Description 05/31/2024 Orders Only [facility] Ophthalmology [address] [place] [phone] Nicolle Jameson MD Open-angle glaucoma, indeterminate stage, unspecified laterality, unspecified open-angle glaucoma type (Primary Dx) 04/14/2024 9:30 AM LUNCH TRUCK DRIVER Office Visit [facility] Ophthalmology [address] [place] [phone] Nicolle Jameson MD Glaucoma suspect of both eyes (Primary Dx) 03/20/2024 3:45 PM LUNCH TRUCK DRIVER - 03/20/2024 11:59 PM LUNCH TRUCK DRIVER Hospital Encounter [facility] [address] [place] [address] [address] [place] [address] LV dysfunction Discharge Disposition: Discharge to home or self care from Last 3 Months Surgical History Surgery [...] history of heart attack - (Added by Conv) Heart attack Maternal Grandfather Family history of heart attack - (Added by Conv) Diabetes Maternal Grandmother Family history of [...] on file Legal Sex Male 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 Gender Identity Not on file Sexual Orientation Not on file Obstetrics History Last Filed Vital Signs Vital Sign Reading Time Taken Comments Blood Pressure 138/73 01/13/2024 12:03 PM LUNCH TRUCK DRIVER Pulse 74 01/13/2024 12:03 PM LUNCH TRUCK DRIVER Temperature 36.5 C (97.7 F) 03/23/2023 4:30 PM LUNCH TRUCK DRIVER Respiratory Rate 14 03/23/2023 4:40 PM LUNCH TRUCK DRIVER Oxygen Saturation 98% 01/13/2024 12:03 PM LUNCH TRUCK DRIVER Inhaled Oxygen Concentration - - Weight 88.5 kg (195 lb 3.2 oz) 01/13/2024 12:03 PM LUNCH TRUCK DRIVER Height 179.1 cm (5' 10.5 ) 01/13/2024 12:[address] Body Mass Index 27.61 01/13/2024 12:03 PM LUNCH TRUCK DRIVER Plan of Treatment Health Maintenance Due Date Last Done Comments Colon Cancer Screening-Colonoscopy 1955 Depression Screening 1954 Hepatitis C Screening 1954 DTaP/Tdap/Td Vaccine (1 - Tdap) 1965 Pneumococcal vaccine 65+ (1 of 2 - PCV) 1973 Zoster Vaccine (1 of 2) 2004 Abdominal Aortic Aneurysm (A AA) Screen 06/14/2019 Well Visit 65+ 06/14/2019 Fall Risk Assessment 03/23/2024 03/23/2023 Influenza Vaccine (Season Ended) 2024 12/07/19 18 Hepatitis B Screening Completed 04/07/2000 , 10/20/1999, 09/10/1999 Procedures Procedure Name Priority Date/Time Associated Diagnosis Comments TRANSTHORACIC ECHO (TTE) COMPLETE W DOPPLER/CF WO CONTRAST Routine 03/20/2024 5:02 PM LUNCH TRUCK DRIVER LV dysfunction from Last 3 Months Results * TRANSTHORACIC ECHO (TTE) COMPLETE W DOPPLER/CF WO CONTRAST (03/20/2024 5:02 PM LUNCH TRUCK DRIVER) LV EF 55 % CARDIOREPORT Anatomical Region Laterality Modality Ultrasound 03/20/2024 3:45 PM LUNCH TRUCK DRIVER Narrative 03/22/2024 9:43 AM LUNCH TRUCK DRIVER Patient name: Janell Garcia Date of test: 03/20/2024 Type of test: TTE w/Doppler Hospital #: 0 Date of : 1955 (M) Aluminum Boat Inspector: Barrie Horne RDCS Referring Physician: JUAN ORELLANA MD Contrast Agent: Contrast Administered by: Supervised/Interpreted by: Jaqueline Krishnamurthy MD Diagnosis: Location: [facility] Reason for test: LV dysfunction MV Structure: [...] 2=Hypo 3=Akinetic 4=Dyskin./Aneurysm 0=Not visualized) Parasternal Long [place]:MAS=2 BAS=2 MIL=1 ELIE=1 Parasternal Short [place]:MAS=2 MIS=1 AZ=1 MIL=1 MAL=1 MA=1 Apical 4 Chambers:=1 MIS=1 BIS=1 BAL=1 MAL=1 AL=1 AC=1 Apical 2 Chambers:AI=1 AZ=1 BI=1 BA=1 MA=1 AA=1 AC=1 LV Global [...] MD By signing this report, the attending duty manager certifies that he or she has personally supervised and interpreted the echocardiogram and has reviewed and or edited and agrees with the written comments contained within the report. Procedure Note Jaqueline Krishnamurthy MD - 03/22/2024 Patient name: Janell Garcia Date of test: 03/20/2024 Type of test: TTE w/Doppler [facility] #: 0 Date of : 1955 (M) Aluminum Boat Inspector: Barrie Horne RDCS Referring Physician: JUAN ORELLANA MD Contrast Agent: Contrast Administered by: Supervised/Interpreted by: Jaqueline Krishnamurthy MD Diagnosis: Location: [facility] Reason for test: LV dysfunction MV Structure: [...] 2=Hypo 3=Akinetic 4=Dyskin./Aneurysm 0=Not visualized) Parasternal Long [place]:MAS=2 BAS=2 MIL=1 ELIE=1 Parasternal Short [place]:MAS=2 MIS=1 AZ=1 MIL=1 MAL=1 MA=1 Apical 4 Chambers:=1 MIS=1 BIS=1 BAL=1 MAL=1 AL=1 AC=1 Apical 2 Chambers:AI=1 AZ=1 BI=1 BA=1 MA=1 AA=1 AC=1 LV Global [...] MD By signing this report, the attending duty manager certifies that he or she has personally supervised and interpreted the echocardiogram and has reviewed and or edited and agrees with the written comments contained within the report. us Juan Orellana MD CV ECHO PROCEDURES Final Resu lt from Last 3 Months Insurance [facility] [place] [phone] [facility] [phone] [facility] [place] [address] [place] [address] Care Teams Drapery Head Former Relationship Specialty Start Date End Date Juan Antunez MD PCP - General 04/21/17 Raisa Carmichael MD Consulting Physician Neurosurgery 07/17/22
[2024-06-16 18:13] LABS: Basophils Percent Auto 0.7 % (0.2-1.2); Eosinophils Absolute Auto 0.3 K/mm3 (0-0.3); Eosinophils Percent Auto 4.3 % (0-4.4); Hematocrit 42.7 % (42.0-52.0); Hemoglobin 14.1 g/dL (14.0-18.0); Immature Granulocyte Absolute 0.01 K/mm3 (0.00-0.031); Immature Granulocyte Percent A 0.2 % (0-0.5); Lymphocytes Absolute Auto 2.09 K/mm3 (0.9-3.2); Lymphocytes Percent Auto 34.5 % (18.3-44.2); Mean Corpuscular Hemoglobin 29.6 pg (26-34); Mean Corpuscular Volume 89.5 fl (80-100); Mean Platelet Volume 11.5 fl (7.4-10.4); Monocytes Absolute Auto 0.5 K/mm3 (0.1-0.6); Monocytes Percent Auto 8.3 % (2.6-8.5); Neutrophils Absolute Auto 3.2 K/mm3 (1.3-6.7); Platelet Count Result 229 k/mm3 (150-375); Red Blood Count 4.77 M/mm3 (4.6-6.20); Red Cell Distribution Width 13.1 % (11.5-14.5); White Blood Count 6.1 K/mm3 (4.5-10.0)
[2024-06-16 18:24] LABS: Hemoglobin A1C 6.2 % (<5.7)
[2024-06-16 19:03] LABS: Alanine Aminotransferase 30 U/L (6-50); Albumin Level 4.3 g/dL (3.5-5.1); Alkaline Phosphatase 110 U/L (38-126); Anion Gap 9 mmol/L (4-12); Aspartate Amino Transferase 26 U/L (17-59); Bilirubin,Total 0.6 mg/dL (0.2-1.3); Blood Urea Nitrogen 21 mg/dL (9-20); Calcium 9.3 mg/dL (8.4-10.2); Carbon Dioxide 27 mmol/L (22-30); Chloride 105 mmol/L (98-107); Cholesterol 123 mg/dL (0-200); Estimated Glomerular Filt Rate 56; Glucose 114 mg/dL (65-110); HDL Direct 38 mg/dL; Potassium 4.5 mmol/L (3.4-5.0); Sodium 141 mmol/L (137-145); Triglycerides 115 mg/dL (<150)
[2024-06-16 19:14] LABS: LDL Cholesterol Direct 54 mg/dL
[2024-06-16 19:36] LABS: Prostate Specific Antigen 2.1 ng/mL (< OR = 4.0)
== END 2024-06-16 10:31 | disposition home or self-care (01) ==
LOC: ANHGOSHLAB 10:32
PROVIDERS: PCP Family Medicine; Visit Provider Nurse Practitioner Family
DX: R73.03 Prediabetes (principal); R73.01 Impaired fasting glucose; E78.49 Other hyperlipidemia; Z12.5 Encounter for screening for malignant neoplasm of prostate; D12.6 Benign neoplasm of colon, unspecified; N18.30 Chronic kidney disease, stage 3 unspecified
CPT/HCPCS: 36415; 80053; 80061; 83036; 84153; 84443; 85025; G0103

== ENCOUNTER 2024-11-08 13:01 | Outpatient (CLI) | payer MEDICARE, SELFPAY ==
--- OUTSIDE RECORDS SUMMARY | 2024-11-08 14:15 | XMS_ITS | Encounter Summary ---
Author Organization [facility] Address [address] [place] [address] Phone Care Team Providers Care Otr Flatbed Driver Name Role Phone Juan Antunez MD Primary Care Provider [phone] Raisa Carmichael MD Unavailable [phone] Encounter Details Date Type Department Care Team (Late st Contact Info) Description 10/19/2024 Results Follow-Up [facility] Medicine Dermatology [address] [place] [address] Aileen Tavarez MD PhD [address] [address] Surgical pathology Social History Tobacco Use Types Packs/Day Years [...] file Legal 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
--- OUTSIDE RECORDS SUMMARY | 2024-11-08 14:15 | XMS_ITS | Encounter Summary ---
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
--- OUTSIDE RECORDS SUMMARY | 2024-11-08 14:15 | XMS_ITS | Clinical Summary ---
Author Organization [address] Address [address] [place] [address] Care Team Providers Care Manual Winder Name Role Phone Juan Antunez MD Primary Care Provider [phone] Raisa Carmichael MD Unavailable [phone] Allergies No known active allergies Medications sertraline (ZOLOFT) 100 mg tabletIndicatio ns:Anxiety with Depression Take 1 tablet (100 mg total) by mouth religious education coordinator before breakfast 4 8 Active atorvastatin (LIPITOR) 80 mg tablet Take 1 tablet (80 mg total) by mouth daily 90 tablet 1 Active Additional Information Patient taking differently:80 mg oralDaily (early AM), Indications: hyperlipidemia, Informant: Self, Reported on 10/20/2024 aspirin 81 mg enteric coated tablet Take 1 tablet (81 mg total) by mouth daily 30 tablet 11 3 Active Additional Information Patient taking differently:81 mg oralDaily (early AM), Indications: prevention of thrombosis, Informant: Self, Reported on 10/20/2024 carboxymethylce llulose (REFRESH PLUS) 0.5 % dropperetteIndi cations:Dry Eye Administer 1 drop into the right eye daily as needed for dry eyes Active cyanocobalamin (Vitamin B-12) 100 mcg tabletIndicatio ns:Prevention of Vitamin B12 Deficiency Take 1 tablet (100 mcg total) by mouth religious education coordinator before breakfast Active spironolactone (ALDACTONE) 25 mg tablet TAKE ONE-HALF TABLET BY MOUTH EVERY DAY 45 tablet 3 5 Active Active Problems Problem Noted Date Diagnosed Date Glaucoma suspect of both eyes 04/14/2024 Assessment & Plan (04/14/2024 10:35 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): here for 6 month DFE IOP today [...] concerns Assessment & Plan (04/05/2023 1:13 PM HULL OUTFIT SUPERVISOR): IOP at this time stable Discussed could [...] of both eyes 08/26/2022 Assessment & Plan (10/20/2024 11:12 AM CDT): NS OU Denies concerns Doing well HVF OU Stable Follow 6 months DFE Assessment & Plan (04/05/2023 1:12 PM HULL OUTFIT SUPERVISOR): Not yet VS Observe Assessment & Plan (08/26/2022 3:56 PM CDT): Not visually significant, could be contributing to narrow angle configuration, refer to glaucoma Chronic coronary artery disease 08/17/2014 Hyperlipidemia 03/30/2014 Left bundle branch block (LBBB) 03/30/2014 Encounters Date Type Department Care Team Description 10/20/2024 10:00 AM CDT Office Visit [facility] Medicine Ophthalmology [address] [place] [phone] Nicolle Jameson MD Nuclear sclerosis of both eyes (Primary Dx) 10/20/2024 9:30 AM CDT Imaging Exam [facility] Medicine Ophthalmology [address] [place] [phone] Open-angle glaucoma, indeterminate stage, unspecified laterality, unspecified open-angle glaucoma type 10/20/2024 9:20 AM CDT Imaging Exam [facility] Medicine Ophthalmology [address] [place] [phone] Open-angle glaucoma, indeterminate stage, unspecified laterality, unspecified open-angle glaucoma type 10/19/2024 Results Follow-Up [facility] Dermatology [address] [place] [address] [address] [place] [phone] Aileen Tavarez MD PhD Surgical pathology 10/18/2024 Orders Only [facility] Pathology Outreach [address] [place] [address] Aileen Tavarez MD PhD Neoplasm of skin 10/17/2024 11:00 AM CDT Office Visit [facility] Dermatology [address] [place] [address] [address] [place] [phone] Aileen Tavarez MD PhD Seborrheic keratosis (Primary Dx); Neoplasm of skin; Sebaceous hyperplasia; Parrish angioma; History of nonmelanoma skin cancer; Actinic keratosis 10/06/2024 Telephone [facility] Dermatology [address] [place] [address] Health [address] [place] [phone] Lory Castillo CMA Medical Records Request 08/21/2024 1:15 PM CDT Clinical Support [address] [place] [phone] Encounter for removal of sutures (Primary Dx) 08/10/2024 Results Follow-Up [address] [place] [phone] Aileen Tavarez MD PhD Surgical pathology 08/08/2024 12:15 PM CDT Procedure visit [address] [facility] [address] [place] [phone] Juan Ervin MD Basal cell carcinoma (BCC) of upper lip (Primary Dx) 08/08/2024 Orders Only [facility] Medicine Pathology Outreach [address] [place] [address] Aileen Tavarez MD PhD Neoplasm of unspecified behavior of bone, soft tissue, and skin from Last 3 Months Surgical History Surgery [...] on file Legal Sex Male 12:39 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 Gender Identity Not on file Sexual Orientation Not on file Obstetrics History Last Filed Vital Signs Vital Sign Reading Time Taken Comments Blood Pressure 117/71 08/08/2024 12:43 PM CDT Pulse 73 08/08/2024 12:43 PM CDT Temperature 36.5 C (97.7 F) 03/23/2023 4:30 PM HULL OUTFIT SUPERVISOR Respiratory Rate 14 03/23/2023 4:40 PM HULL OUTFIT SUPERVISOR Oxygen Saturation 98% 08/08/2024 12:43 PM CDT Inhaled Oxygen Concentration - - Weight 88.5 kg (195 lb 3.2 oz) 01/13/2024 12:03 PM HULL OUTFIT SUPERVISOR Height 179.1 cm (5' 10.5) 01/13/2024 12:[address] Body Mass Index 27.61 01/13/2024 12:03 PM HULL OUTFIT SUPERVISOR Plan of Treatment Health Maintenance Due Date Last Done Comments Colon Cancer Screening-Colonoscopy 1955 Depression Screening 1955 Hepatitis C Screening 1955 DTaP/Tdap/Td Vaccine (1 - Tdap) 1965 Pneumococcal vaccine 65+ (1 of 2 - PCV) 1973 Zoster Vaccine (1 of 2) 2004 Abdominal Aortic Aneurysm (A AA) Screen 06/14/2019 Well Visit 65+ 06/14/2019 Fall Risk Assessment 03/23/2024 03/23/2023 Influenza Vaccine (#1) 2024 12/06/2017 Hepatitis B Screening Completed 04/07/2000 , 10/20/1999, 09/10/1999 Procedures Procedure Name Priority Date/Time Associated Diagnosis Comments OCT, OPTIC NERVE - OU - BOTH EYES Routine 10/20/2024 9:54 AM CDT Open-angle glaucoma, indeterminate stage, unspecified laterality, unspecified open-angle glaucoma type HANSEN VISUAL FIELD - OU - BOTH EYES Routine 10/20/2024 9:54 AM CDT Open-angle glaucoma, indeterminate stage, unspecified laterality, unspecified open-angle glaucoma type SURGICAL PATHOLOGY Routine 10/17/2024 12 :00 AM CDT Neoplasm of skin from Last 3 Months Results * OCT, Optic Nerve - OU - Both Eyes (10/20/2024 9:54 AM CDT) Anatomical Region Laterality Modality Head Other Narrative 10/20/2024 10:15 AM CDT Right Eye Reliability was good. Temporal thickness was normal. Superior thickness was showing abnormal thinning. Nasal thickness was normal. Inferior thickness was showing abnormal thinning. Left Eye Reliability was good. Temporal thickness was normal. Superior thickness was showing abnormal thinning. Nasal thickness was normal. Inferior thickness was showing abnormal thinning. Notes Stable polar thinning Nicolle Jameson MD OPHTH TOMOGRAPHY Final Result * Hansen Visual Field - OU - Both Eyes (10/20/2024 9:54 AM CDT) Anatomical Region Laterality Modality Head Other Narrative 10/20/2024 10:15 AM CDT Right Eye Fixation was good. Cooperation was good. Reliability was good. Progression has been stable. Findings include inferior nasal step defect. Left Eye Fixation was good. Cooperation was good. Reliability was good. Progression has been stable. Findings include non-specific defects. Nicolle Jameson MD OPH VISUAL FIELD Final Resu lt * Surgical pathology (10/17/2024 12:00 AM CDT) Tissue (Skin, shave biopsy) 10/17/2024 10/18/2024 6:10 AM CDT Narrative [facility] - 10/19/2024 2:59 PM CDT EPIC results best viewed via link to PDF [facility] [address] [place] [address], [address], [place] [address] [email or web address] Note to Patients: This report may contain a detailed description of human tissue sent by a health care provider to the laboratory for pathologic evaluation. The content of this report is essential for diagnosis and may provide important critical findings. This information may be unfamiliar to patients to review without a medical professional present. It is advised that the patient review this report in the presence of a health care provider who can answer questions and explain the details. FINAL REPORT Patient Information: PATIENT NAME: JANELL GARCIA SEX: M : 1955 (Age: 69) Specimen Information: COLLECTED: 10/17/2024 RECEIVED: 10/18/2024 REPORTED: 10/19/2024 Submitting Physician Information: Aileen Tavarez M.D. [facility], [address] [place] [address], [address] [place] [address], DERMATOPATHOLOGY REPORT RESULTS DIAGNOSIS: SKIN, RIGHT FOREARM, SHAVE BIOPSY: BASAL CELL CARCINOMA exr/ajrr By this signature, I attest that the above diagnosis is based upon my personal examination of the slides(and/or other material indicated in the diagnosis). Gabino Carlos M.D. Report Electronically Reviewed and Signed Out By Gabino Carlos M.D. 10/19/2024 14:59:08 CLINICAL INFORMATION R/O BCC SPECIMEN DATA MICROSCOPIC DESCRIPTION: Irregular aggregates of atypical basal epithelial cells with palisading of their peripheral nuclei are present within the dermis. (C44.91) GROSS DESCRIPTION: Received in a formalin-containing bottle is a superficial fragment of pale hodge, finely scaling, and hair-bearing skin measuring 1.1 by 0.7 by 0.1 cm. The surgical margin is inked blue. The specimen is sectioned into 4 pieces and submitted entirely in a single cassette. Due to shrinkage, measurements may be different than those at the time of procedure. ian/anc ICD-9 A; ZSD.176 Clerical Data A; 25991 The characteristics of special, immunohistochemical, and immunofluorescence stains and in-situ hybridization tests performed by the [facility] were deemed acceptable in ongoing air quality instrument specialist measures and in compliance with regulations drawn from the Clinical Laboratory Improvement Act ht6337 (CLIA '88). Control reactions for all stains performed were deemed adequate and appropriate by a pathologist prior to evaluation of patient tissue. Some diagnoses were rendered with the assistance of laboratory-developed tests utilizing analyte-specific reagents; the performance characteristic of these tests were determined by [facility] and are not cleared or approved by the [place] Food an Drug administration. Laboratory developed test may only be performed in a facility that is certified by the [facility] as a high-complexity laboratory under CLIA '88. These tests are used for clinical purposes and are not investigational. Aileen Tavarez MD PhD LAB PATHOLOGY OR DERABLES Final Result [facility] [address] [place] [phone] from Last 3 Months Insurance MEDICARE [facility] [place] [address] [place] [address] [place] [address] Care Teams Manual Winder Relationship Specialty Start Date End Date Juan Antunez MD PCP - General 04/21/17 Raisa Carmichael MD Consulting Physician Neurosurgery 07/17/22
--- OUTSIDE RECORDS SUMMARY | 2024-11-08 14:15 | XMS_ITS | Clinical Summary ---
Author Organization [facility] Address [address] [place] [address] Care Team Providers Care Template Worker Name Role Phone Juan Antunez MD Unavailable [phone] Juan Antunez MD Primary Care Provider [phone] Allergies No known active allergies Medications atorvastatin (LIPITOR) 80 MG tablet Take 1 tablet (80 mg total) by mouth daily. Active sertraline (ZOLOFT) 100 MG tablet Take 1 tablet (100 mg total) by mouth daily. 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 Legal Sex Male 4:04 PM CDT Gender [...] 11:53 AM CDT Height 177.8 cm (5' 10) 07/30/2022 11: 53 AM CDT Body Mass Index 26.1 07/30/2022 11:53 AM CDT Plan of Treatment Health Maintenance Due Date Last Done Comments Colorectal Cancer Screening Colonoscopy (10 Years) 1955 Zoster Vaccines (1 of 2) 2004 Annual Medicare Wellness Visit 06/14/2019 Pneumococcal Vaccine: 50+ Years (2 of 2 - PPSV23) 03/06/2022 03/06/2021 COVID-19 Vaccine ( - season) 2023 12/05/2021, 06/20/2021, 12/06/2020, Additional history [...] Name Priority Date/Time Associated Diagnosis Comments XR LUMB SPINE 3V Routine 09/21/2024 12:0 8 PM CDT Stenosis, spinal, lumbar from Last 3 Months Results * XR LUMB SPINE 3V (09/21/2024 12:08 PM CDT) Anatomical Region Laterality Modality Spine Radiographic Krista ging 09/21/2024 10:1 2 PM CDT Impressions 09/21/2024 10:20 PM CDT IMPRESSION: 1. Stable interval appearance of L4-L5 postoperative changes with no new acute hardware or osseous abnormality. 2. Stable left abdominal calcifications, possibly renal in etiology. 3. Stable linear metallic density overlying left abdomen. Foreign body or other etiologies possible. Referred By: Interpreted By: Aren Javed MD, 09/21/2024 10:12 PM Narrative 09/21/2024 10:[address] [address] EXAMINATION: 3 views lumbar spine EXAM DATE/TIME: 09/21/2024 11:57 AM REASON FOR EXAM: stenosis COMPARISON: 05/11/2024 TECHNIQUE: AP, lateral, and spot lumbosacral lateral views of the lumbar spine are obtained. FINDINGS: Postoperative change at the L4-4-5 level is seen. Bilateral pedicular screws and posterior fixation rods are seen. This appears stable in position a prior study. No definite adjacent lucency is noted. Minimal spondylolisthesis at L4-5 is noted. Subtle spurring from the vertebra is seen. There is no compression deformity present. Radiopaque densities overlie the left kidney, unchanged from prior study. Linear metallic density overlies left abdomen. Calcification of the aorta is consistent with atherosclerotic change.. ===== Procedure Note Aren Javed MD - 09/21/[address] [address] EXAMINATION: 3 views lumbar spine EXAM DATE/TIME: 09/21/2024 11:57 AM REASON FOR EXAM: stenosis COMPARISON: 05/11/2024 TECHNIQUE: AP, lateral, and spot lumbosacral lateral views of the lumbarspine are obtained. FINDINGS: Postoperative change at the L4-4-5 level is seen. Bilateralpedicular screws and posterior fixation rods are seen. This appearsstable in position a prior study. No definite adjacent lucency is noted.Minimal spondylolisthesis at L4-5 is noted. Subtle spurring from the vertebra is seen. There is no compressiondeformity present. Radiopaque densities overlie the left kidney, unchanged from prior study.Linear metallic density overlies left abdomen. Calcification of the aorta is consistent with atherosclerotic change.. ===== IMPRESSION: 1. Stable interval appearance of L4-L5 postoperative changes with no newacute hardware or osseous abnormality. 2. Stable left abdominal calcifications, possibly renal in etiology. 3. Stable linear metallic density overlying left abdomen. Foreign bodyor other etiologies possible. Referred By: Interpreted By: Aren Javed MD, 09/21/2024 10:12 PM Raisa Carmichael MD GENERAL IMAGING Final Result from Last 3 Months Insurance MEDICARE [facility] Care Teams Template Worker Relationship Specialty Start Date End Date Juan Antunez MD [address] [place] [address] [address] [place] [address] PCP - General FAMILY PRACTICE 07/30/22 Juan Antunez MD [address] [place] [address] [address] [place] [address] FAMILY PRACTICE 06/30/22
--- OUTSIDE RECORDS SUMMARY | 2024-11-08 14:15 | XMS_ITS | Encounter Summary ---
Author Organization [facility] Address [address] [place] [address] Phone Care Team Providers Care Independent Crop Consultant Name Role Phone Unknown, Notinfile Primary Care Provider Unavail able Juan Antunez MD Primary Care Provider [phone] Unknown, Notinfile Primary Care Provider Unavail able Juan Antunez MD Primary Care Provider [phone] Unknown, Notinfile Primary Care Provider Unavail able Unknown, Notinfile Primary Care Provider Unavail able Juan Antunez MD Primary Care Provider [phone] Unknown, Notinfile Primary Care Provider Unavail able Juan Antunez MD Primary Care Provider [phone] Raisa Carmichael MD Unavailable [phone] Encounter Details Date Type Department Care Team (Latest Contact Info) Description 01/14/2017 Orders Only [facility] Scanning, Provider Social History Tobacco Use Types Packs/Day Years Used Date Smoking Tobacco: Former Sex and Gender Information Value Date Recorded Sex Assigned at Not on file 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
--- OUTSIDE RECORDS SUMMARY | 2024-11-08 14:15 | XMS_ITS | Clinical Summary ---
Author Organization [facility] Care Team Providers Care Social Media Specialist Name Role Phone Unavailable Primary Care Provider [...] Virus (HCV) Screening 1955 TdaP Immunization 1955 Cologuard 06/14/1999 Colonoscopy 06/14/1999 Colorectal Cancer Screening 06/14/1999 Immunochemical Fecal Occult Blood 06/14/1999 Pneumococcal Immunization (5 0+ years) (1 of 1 - PCV) 2004 Zoster Immunization (1 of 2) 2004 SARS-COV-2 Immunization (3 - season) 2023 05/26/2020, 05/05/2020 Influenza Immunization (#1) 11/06/202412/06, 02/28/2019, 12/06/2017 Respiratory Syncytial Virus (RSV) Immunization (Adult) (1 - 1-dose 75+ series) 2029 Hepatitis B Immunization Completed 001, 10/20/1999, 09/10/1999 Human Papillomavirus (HPV) Immunization Aged Out No longer eligible b ased on patient's age to complete this topic Meningococcal Immunization (ACWY) Aged Out No longer eligible b ased on patient's age to complete this topic Rotavirus Immunization Aged Out No lo nger eligible based on patient's age to complete this topic
--- OUTSIDE RECORDS SUMMARY | 2024-11-08 14:15 | XMS_ITS | Clinical Summary ---
Author Organization [facility] Address [address] [place] [address] Care Team Providers Care Warehouse Operations Associate Name Role Phone Juan Antunez MD Primary Care Provider [phone] Source Comments [facility],non-owned Affiliates and Associated Physician Practices is amultiple site organization consisting of ambulatory clinics and hospital sitesin [place], [place], [place] and [place]. This disclosure is being madepursuant to the Care Everywhere program and may not contain all information available regarding this patient. Last updated 17.[facility] Allergies No known active allergies Medications * Be aware that medications may not be up to date on this document. Alwaysverify current medications with the patient. 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 Gender Identity Not on file Sexual Orientation [...] 1:46 PM CDT Height 177.8 cm (5' 10) 02/10/2021 3:39 PM SUPERVISOR LAST MODEL DEPARTMENT Body Mass Index 27.26 02/10/2021 3:39 PM SUPERVISOR LAST MODEL DEPARTMENT Plan of Treatment Health Maintenance Due Date [...] season) 2023 DEPRESSION SCREENING 03/08/2024 INFLUENZA VACCINE (#1) 2024 HEPATITIS B VACCINE Aged Out No [...] one week prior to your last dose [place] [address] [address] [facility] [place] [address] [place] [address] [place] [address] [place] [address] Care Teams Warehouse Operations Associate Relationship Specialty Start Date End Date Juan Antunez MD [address] [place] [phone] PCP - General 04/15/18
[2024-11-08 18:42] LABS: Alanine Aminotransferase 24 U/L (6-50); Albumin Level 4.4 g/dL (3.5-5.1); Alkaline Phosphatase 98 U/L (38-126); Anion Gap 8 mmol/L (4-12); Aspartate Amino Transferase 31 U/L (17-59); Bilirubin,Total 0.6 mg/dL (0.2-1.3); Blood Urea Nitrogen 18 mg/dL (9-20); Calcium 9.3 mg/dL (8.4-10.2); Carbon Dioxide 24 mmol/L (22-30); Chloride 108 mmol/L (98-107); Estimated Glomerular Filt Rate > 60; Glucose 67 mg/dL (65-110); Potassium 4.5 mmol/L (3.4-5.0); Sodium 140 mmol/L (137-145); Total Protein 7.9 g/dL (6.3-8.2)
== END 2024-11-08 13:02 | disposition home or self-care (01) ==
LOC: ANHGOSHLAB 13:03
PROVIDERS: PCP Family Medicine; Visit Provider Family Medicine
DX: E78.5 Hyperlipidemia, unspecified (principal)
CPT/HCPCS: 36415; 80053